=== PATIENT | male | born 1955 | race Caucasian/White ===

== ENCOUNTER 2017-06-23 04:00 | Inpatient (IN) | payer BC ==
[2017-06-23] MEDS ORDERED: Ondansetron HCl/PF 4 MG/2 ML Vial IVP PRN (05:34)
[2017-06-23] MEDS ORDERED: Ondansetron ODT 4 MG TAB SL PRN (05:34)
[2017-06-23] MEDS ORDERED: Acetaminophen 325 MG TAB PO PRN (05:34)
[2017-06-23 05:37] VITALS: BMI 38.3
[2017-06-23] MEDS ORDERED: Dextrose 5% in Water 1,000 ML IV PRN (07:31)
[2017-06-23] MEDS ORDERED: Dextrose 50% Abboject 50 ML SYRINGE SLOW IVP PRN (07:31)
[2017-06-23] MEDS ORDERED: Milk Of Magnesia 30 ML UDCUP PO PRN (07:32)
[2017-06-23 08:28] LABS: Troponin I 0.224 ng/mL (< 0.028)
[2017-06-23] MEDS ORDERED: Lisinopril/Hydrochlorothiazide 20/25 mg Tablet PO SCH (09:00)
[2017-06-23] MEDS ORDERED: Heparin 5,000 UNITS/ML VIAL SC SCH (09:00)
[2017-06-23] MEDS ORDERED: Amlodipine 10 MG TAB PO SCH (09:00)
[2017-06-23] MEDS: metFORMIN 500 MG TAB PO SCH (09:43)
[2017-06-23] MEDS: Tamsulosin HCl 0.4 MG CAP PO SCH (09:44)
[2017-06-23] MEDS: Docusate 100 MG CAP PO SCH ×2 (09:45→21:15)
[2017-06-23] MEDS ORDERED: Potassium Chloride 20 MEQ TAB PO SCH ×2 (13:00→18:00)
[2017-06-23] MEDS ORDERED: Spironolactone 25 MG TAB PO SCH (13:00)
[2017-06-23] MEDS ORDERED: Furosemide 20 MG/2 ML VIAL SLOW IVP SCH (14:00)
--- NOTE | 2017-06-23 14:51 | CON ---
DATE OF CONSULTATION: 06/23/2017 REASON FOR CONSULTATION: Congestive heart failure. HISTORY OF PRESENT ILLNESS: Mr. Adi Mccray is a 62-year-old gentleman with history of diabetes and smoking as well as hypertension admitted with congestive heart failure. The patient states that he has been having swelling of his lower extremities for a prolonged time per iod, but has gotten worse recently. He came to the emergency room yesterday when he started having i ncreasing difficulty breathing. Chest x-ray shows cardiomegaly with pulmonary vascular congestion. He was admitted for further observation and therapy. He does not have chest pain, but he is short of breath which has improved since he has received diuretics. The patient is currently awake and alert, doing well. MEDICATIONS: Prior to admission, he was taking, 1. Metformin. 2. Amlodipine 10 mg daily. 3. Lisinopril HCT. 4. Furosemide. 5. Tamsulosin. 6. No statin. ALLERGIES: None known. REVIEW OF SYSTEMS: CONSTITUTIONAL: No significant weight gain or loss. VISION: No changes. HEARING: No changes. PULMONARY: No cough or wheezing. GASTROINTESTINAL: No nausea, vomiting, diarrhea. SKIN: No rashes. NEUROLOGIC: No unilateral weakness or numbness. PSYCHIATRIC: No unusual depression or anxiety. HEMATOLOGIC: No unusual bruising. GENITOURINARY: No burning with urination. PAST MEDICAL HISTORY: History of prostate cancer. PAST SURGICAL HISTORY: No cardiac operations or procedure. PHYSICAL EXAMINATION: GENERAL: This is a pleasant 62-year-old gentleman. VITAL SIGNS: Blood pressure is 145/82, another have recorded at 152/85, pulse 76 and regular. EYES: Sclerae nonicteric. Mouth: Mucous membranes moist. NECK: Supple, no lymphadenopathy. LUNGS: Bibasilar rales. CARDIOVASCULAR: No murmur, rub or gallop distant. ABDOMEN: Obese, nontender. No hepatosplenomegaly. EXTREMITIES: No clubbing or cyanosis. There is moderate edema, left greater than right. SKIN: Warm and dry. PERTINENT LABORATORY AND X-RAY FINDINGS: Potassium was 3.2, glucose 372, ALT 65. BNP 414. Chest x- ray shows cardiomegaly with pulmonary congestion. EKG sinus rhythm with possible old anterior infarc t. Echocardiogram revealed ejection fraction 40%-45%, akinesis of the apex. Mild tricuspid insuffic iency with mildly elevated pulmonary pressure, markedly dilated left atrium, and mildly dilated left ventricle. CONCLUSION: 1. Congestive heart failure, systolic, acute on chronic. 2. Diabetes. 3. Hypertension. 4. Smoking. 5. Unknown cholesterol status. 6. Hypertension. 7. Peripheral edema, still volume overloaded. PLAN: 1. Continue diuretic. We will increase intravenous doses. 2. Add spironolactone. 3. Replete potassium. 4. Change to Lovenox. 5. Continue aspirin. 6. We will need cardiac catheterization. Discussed with the patient and he is uncertain at this enedelia e. 7. Check lipid levels. We will almost certainly need statin therapy in this gentleman who will be a lmost certainly has coronary disease. We will continue to follow with you.
[2017-06-23 15:05] LABS: Troponin I 0.396 ng/mL (< 0.028)
[2017-06-23] MEDS: Furosemide 20 MG/2 ML VIAL SLOW IVP SCH (15:05)
[2017-06-23] MEDS: Carvedilol 3.125 MG TAB PO SCH (16:50)
[2017-06-23] MEDS: Nicotine 21 MG PATCH TOP SCH (16:50)
--- NOTE | 2017-06-23 17:52 | HP ---
PRESENTING COMPLAINT: Shortness of breath. HISTORY OF PRESENT ILLNESS: Mr. Shazia Joshi is a 62-year-old male with a past medical history of CHF, hypertension, diabetes mellitus, and prostate cancer who presented to the emergency room with complaints of shortness of breath, which started yesterday associated with pink occasionally frothy sputum. He denies chest pain, fever, chills, orthopnea, or PND. He has no palpitation. He has no nausea, vomiting, diarrhea. He does not have any urinary symptoms. He reports he takes diuretics , but did not take them yesterday. At the emergency room, he was found to be tachycardic at 110 and saturation at 89% on room air. He was given DuoNeb, Lasix, and antibiotics prior to arrival. His old BNP was 415. He did not have any elevated cardiac enzymes. Initial troponin was 0.224. CTA showed no obvious central pulmonary embolism, but reveals hepatosplenomegaly and scattered ground glass opacity and interstitial prominence with trace bilateral pleural effusions, with questionable pulmonary edema. There was also nonspecific hilar and mediastinal lymphadenopathy with followup advised. He was started on IV furosemide and admitted for further workup. PAST MEDICAL HISTORY: Hypertension, type 2 diabetes mellitus, history of myocardial infarction, CHF, hypertension, prostate cancer. PAST SURGICAL HISTORY: Cholecystectomy. FAMILY HISTORY: Reviewed and noncontributory. SOCIAL HISTORY: He smokes cigarettes, smoking half a pack per day. He occasionally drinks alcohol and denies illicit drug intake. ALLERGIES: None. PRIMARY CARE PHYSICIAN: Sukhwinder Paul MD HOME MEDICATIONS: Furosemide 20 mg daily; glipizide 100 mg b.i.d.; amlodipine 10 mg daily; lisinopril/hydrochlorothiazide 20/25 mg tablet, 1 tablet b.i.d.; metformin 1000 mg q.a.m.; tamsulosin 0.4 mg daily. REVIEW OF SYSTEMS: CONSTITUTIONAL: Negative. HEENT: Negative. RESPIRATORY: Positive for shortness of breath. Positive for occasional pinkish frothy sputum. Denies cough. GI: Negative. CARDIOVASCULAR: Per HPI. : Negative. MUSCULOSKELETAL: Negative. SKIN: Negative. NEUROLOGIC: Negative. ENDOCRINE: Negative. PSYCHIATRIC: Negative. ALLERGY/IMMUNOLOGY: Negative. HEMATOLOGY: Negative. PHYSICAL EXAMINATION: VITAL SIGNS: Blood pressure 145/99, pulse rate 83, respiratory rate 22, oxygen saturation 96% on 2 liters oxygen. CONSTITUTIONAL: Not in acute distress, sitting comfortably in bed, not on supplementary oxygen. HEENT: Normocephalic, atraumatic. Nonpale, anicteric. PERRLA. EOMI. Moist mucous membranes. RESPIRATORY: Vesicular breath sounds bilaterally with bibasilar crackles. No wheezes or rales. CARDIOVASCULAR: S1 and S2 only with regular rate and rhythm. No murmurs, rubs , or gallops. ABDOMEN: Soft, nontender, nondistended. Bowel sounds are normoactive. No hepatosplenomegaly. MUSCULOSKELETAL: No lower extremity edema. SKIN: Warm, dry, well perfused. No rashes or lesions. NEUROLOGIC: Alert and well oriented to time, place, and person. No focal deficits. PSYCHIATRIC: Normal mood and affect. LABORATORY DATA: Initial troponin as stated in HPI, potassium 3.2, glucose 372 , BNP 414. Last BNP in 02/2013 was 80. ASSESSMENT AND PLAN: 1. Shortness of breath: This is likely due to new-onset congestive heart failure. The patient has elevated BNP and improved with diuresis at the emergency room. Chest x-ray also showed some vascular congestion and CT chest with angio ruled out pulmonary embolism and showed bilateral pleural effusions. The patient was admitted for pulmonary edema secondary to new-onset congestive heart failure. He has been admitted to telemetry, started on IV diuresis. TTE has been ordered. We will also obtain a TSH, monitor in's and out's, weigh him daily, and obtain Cardiology consult. We will also trend troponin and place him on oxygen supplementation as required. 2. Hypokalemia. Likely secondary to diuretic use. We will place him on supplemental potassium. 3. Hypertension. Blood pressure is slightly elevated. We will gradually resume home medications and monitor. 4. Type 2 diabetes mellitus. We will place him on sliding scale insulin, resume home dose of glipizide, but he is on diabetic diet. Fingerstick glucose before meals and at bedtime and hypoglycemia protocol. We will also obtain hemoglobin A1c. 5. History of prostate cancer. We will resume his home tamsulosin. 6. Tobacco Abuse: Smokes 1.5 packs per day. Will place on a nicotine patch. he was counseled on cessation. CODE STATUS: FULL CODE. Deep venous thrombosis prophylaxis with subcutaneous heparin. MTDD
[2017-06-23] MEDS ORDERED: Furosemide 40 MG/4 ML VIAL SLOW IVP SCH (18:00)
[2017-06-23 20:34] LABS: Critical Call Chem Troponin I RESULT DECREASING; Troponin I 0.335 ng/mL (< 0.028)
[2017-06-23] MEDS: Enoxaparin Sodium 40 MG/0.4 ML SYRINGE SC SCH (21:15)
[2017-06-23] MEDS: Lisinopril 20 MG TAB PO SCH (21:15)
[2017-06-23] MEDS ORDERED: Insulin Regular 300 UNITS/3 ML VIAL ONE (21:52)
[2017-06-23] MEDS: HumaLOG 300 UNITS/3 ML VIAL SC PRN (21:54)
[2017-06-24] MEDS: Furosemide 20 MG/2 ML VIAL SLOW IVP SCH ×2 (04:43→14:52)
[2017-06-24 05:37] LABS: #Basophils 0.1 thou/uL (0.0-0.2); #Eosinphils 0.2 thou/uL (0.0-0.7); #Lymphocytes 1.7 thou/uL (1.20-3.40); #Monocytes 0.4 thou/uL (0.11-0.59); #Neutrophils 2.8 thou/uL (1.40-6.50); %Basophils 1.1 % (0.0-1.0); %Eosinophils 3.6 % (0.0-10.0); %Lymphocytes 33.7 % (21.0-51.0); %Neutrophils 53.6 % (42.0-75.0); Hemoglobin 14.3 g/dL (14.0-18.0); Mean Corpuscular HGB CONC 34.1 g/dL (32.0-36.0); Mean Corpuscular Hemoglobin 29.6 pg (27.0-31.0); Mean Corpuscular Volume 86.8 fl (80.0-94.0); Mean Platelet Volume 8.3 fL (7.4-10.4); Platelet Count 130 thou/uL (130-400); RBC Distribution Width 12.1 % (11.5-14.5); Red Blood Cell (RBC) Count 4.81 mill/uL (4.70-6.10); White Blood Cell (WBC) Count 5.2 thou/uL (4.8-10.8)
[2017-06-24 05:42] LABS: Hemoglobin A1c 7.9 % (4.0-6.0)
[2017-06-24 05:47] LABS: Anion Gap 13 mmol/L (10-20); BUN (Urea Nitrogen) 15 mg/dL (8.4-25.7); Calc. Creatinine Clearance 158 mL/min (70-130); Calcium 9.7 mg/dL (7.8-10.44); Carbon Dioxide 28 mmol/L (22-29); Cardiac Risk 6.4 (Less than 4.5); Chloride 97 mmol/L (98-107); Cholesterol 148 mg/dl (< 200 Desired); Estimated GFR-MDRD Greater than 90; Glucose 215 mg/dL (70-105); HDL Cholesterol 23 mg/dL (>60 Neg Risk); LDL Cholesterol, Calculated 74 mg/dL; Potassium 3.1 mmol/L (3.5-5.1); Sodium 135 mmol/L (136-145); Triglycerides 256 mg/dL (Less than 150)
[2017-06-24] MEDS: Spironolactone 25 MG TAB PO SCH (08:45)
[2017-06-24] MEDS: metFORMIN 500 MG TAB PO SCH (08:45)
[2017-06-24] MEDS: Carvedilol 3.125 MG TAB PO SCH ×2 (08:45→16:24)
[2017-06-24] MEDS: Tamsulosin HCl 0.4 MG CAP PO SCH (08:46)
[2017-06-24] MEDS: Amlodipine 5 MG TAB PO SCH (08:46)
[2017-06-24] MEDS: Enoxaparin Sodium 40 MG/0.4 ML SYRINGE SC SCH ×2 (08:46→20:54)
[2017-06-24] MEDS: Lisinopril 20 MG TAB PO SCH ×2 (08:46→20:54)
[2017-06-24] MEDS: Docusate 100 MG CAP PO SCH ×2 (08:50→20:55)
[2017-06-24] MEDS ORDERED: Amlodipine 10 MG TAB PO SCH (09:00)
--- NOTE | 2017-06-24 09:03 | PDOC.CTH ---
<Ester Douglass - Last Filed: 06/24/17 12:58> Cardiology Progress Note - Subjective Patient awake, sitting up watching tv. Denies acute complaints-denies any chest pain or history of chest pain/tightness. Denies shortness of breath. Describes swelling as "getting better". Long conversation re: left heart cath this admission-multiple risk factors for CAD. Patient is hesitant to proceed, states mostly financial concerns. All questions answered, patient will be here shortly and will let the nurse know to call us. - Objective Vital Signs Temp Pulse Resp BP BP Pulse Ox 06/24/17 07:53 98.2 F 71 18 130/68 96 06/24/17 04:04 98.4 F 70 18 115/62 95 06/24/17 00:41 98.1 F 74 18 103/64 96 06/24/17 00:24 94 L Weight 244 lb 9.6 oz 06/23/17 06/24/17 06/25/17 06:59 06:59 06:59 Intake Total 1350 480 Output Total 1350 575 Balance 0 -95 - Physical Examination General/Neuro: alert & oriented x3, NAD Neck: no JVD present, other: (neck veins flat) Lungs: CTA, unlabored respirations Heart: RRR Abdomen: other: (abdomen firm, distended) Extremities: + edema B Other PE findings: Moderate BLE edema, chronic venous stasis changes to LE - Telemetry Telemetry Rhythm: SR - Labs Result Diagrams: 06/24/17 05:08 06/24/17 05:08 Troponin/CKMB Troponin I 0.335 ng/mL (< 0.028) H* 06/23/17 19:51 - Assessment/Plan 1. Acute on chronic diastolic HF-volume status improving, continue IV diuresis. Echocardiogram revealed EF 40%-45%, titrate carvedilol up as tolerated. Continue ACEi 2. Elevated trops-trop max 0.396, advised [facility] this admission-multiple RF, metabolic syndrome. Probable CAD, patient hesitating r/t financial concerns. Long conversation, questions asked/answered, considering. at bedside-we spoke about risks and benefits of procedure risk including but not limited to stroke, VT, bleeding and need for blood transfusion , , vessel injury, need for emergent vascular repair, emergent CABG, limb loss, organ loss. he agrees to proceed. Plan for [facility] Sunday 06/25 am. 3.HTN-adequately controlled. 4.Hypokalemia-K+ 3.1 this am, continue daily 20 mEq, additional 40 mEq today x1 dose 5.Tobacco abuse-advised cessation, continue nicotine patch 6.Mixed hyperlipidemia-LDL chol 74, triglycerides 267, continue atorvastatin <Francis Engel - Last Filed: 06/24/17 14:30> Cardiology Progress Note - Objective Vital Signs Temp Pulse Pulse Pulse Resp BP BP 06/24/17 11:36 97.7 F 77 18 06/24/17 09:40 80 70 137/77 145/88 H 06/24/17 07:55 98.2 F 71 18 06/24/17 07:53 98.2 F 71 18 06/24/17 04:04 98.4 F 70 18 BP BP Pulse Ox 06/24/17 11:36 112/55 L 96 06/24/17 09:40 06/24/17 07:55 96 06/24/17 07:53 130/68 96 06/24/17 04:04 115/62 95 Weight 244 lb 9.6 oz 06/23/17 06/24/17 06/25/17 06:59 06:59 06:59 Intake Total 1350 480 Output Total 1350 575 Balance 0 -95 - Labs Result Diagrams: 06/24/17 05:08 06/24/17 05:08 Troponin/CKMB Troponin I 0.335 ng/mL (< 0.028) H* 06/23/17 19:51 Attending Addendum - Attending Addendum Date/Time: 06/24/17 3123 I personally evaluated the patient and discussed the management with Ester Douglass I agree with the History, Examination, Assessment and Plan documented above with any addition or exceptions noted below.
[2017-06-24] MEDS ORDERED: Potassium Chloride 20 MEQ TAB PO SCH ×3 (10:00→18:00)
[2017-06-24] MEDS: HumaLOG 300 UNITS/3 ML VIAL SC PRN ×2 (11:38→18:03)
[2017-06-24] MEDS ORDERED: Communication Order-Pharmacy FS SCH (13:00)
--- NOTE | 2017-06-24 13:04 | PDOC.PN ---
- Subjective Encounter Start Date: 06/24/17 Encounter Start Time: 13:11 Subjective: No complaints. -: No acute events overnight. - Objective Resuscitation Status: Resuscitation Status FULL:Full Resuscitation MAR Reviewed: Yes Vital Signs & Weight: Vital Signs (12 hours) Temp Pulse Pulse Pulse Resp BP BP 06/24/17 11:36 97.7 F 77 18 06/24/17 09:40 80 70 137/77 145/88 H 06/24/17 07:55 98.2 F 71 18 06/24/17 07:53 98.2 F 71 18 06/24/17 04:04 98.4 F 70 18 BP BP Pulse Ox 06/24/17 11:36 112/55 L 96 06/24/17 09:40 06/24/17 07:55 96 06/24/17 07:53 130/68 96 06/24/17 04:04 115/62 95 Weight Weight 244 lb 9.6 oz I&O: 06/23/17 06/24/17 06/25/17 06:59 06:59 06:59 Intake Total 1350 480 Output Total 1350 575 Balance 0 -95 Result Diagrams: 06/24/17 05:08 06/24/17 05:08 Additional Labs: Accuchecks 06/24/17 06/24/17 06/23/17 10:47 06:02 21:24 POC Glucose 245 H 221 H 245 H Phys Exam - Physical Examination Constitutional: NAD HEENT: PERRLA, moist MMs, oral pharynx no lesions Neck: no JVD, supple, full ROM Respiratory: no wheezing, no rales, no rhonchi, clear to auscultation bilateral Cardiovascular: RRR, no significant murmur, no rub Gastrointestinal: soft, non-tender, no distention, positive bowel sounds Musculoskeletal: no edema, pulses present Neurological: non-focal, moves all 4 limbs Psychiatric: normal affect, A&O x 3 Skin: no rash, normal turgor Dx/Plan (1) Acute systolic CHF (congestive heart failure), NYHA class 3 Code(s): I50.21 - ACUTE SYSTOLIC (CONGESTIVE) HEART FAILURE Status: Acute Comment: Improving with diuresis. ECHO showed EF 40-45%. Started on ACEi, Coreg and apironolactone. 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 HbA1c 7.9 (3) HTN (hypertension) Code(s): I10 - ESSENTIAL (PRIMARY) HYPERTENSION Status: Chronic Qualifiers: Hypertension type: essential hypertension Qualified Code(s): I10 - Essential (primary) hypertension Comment: Controlled and at goal. (4) Hypokalemia Code(s): E87.6 - HYPOKALEMIA Status: Acute Comment: Being repleted. Patient takes potassium supplements at home. (5) Tobacco abuse Code(s): Z72.0 - TOBACCO USE Status: Chronic - Plan cont current plan of care, out of bed/ambulate, DVT proph w/lovenox Continue diuresis -: Monitor blood glucose -: Cardiology on board- likely will need C before discharge. -: f/u Free T4. * . Review of Systems - Medications/Allergies Allergies/Adverse Reactions: Allergies Allergy/AdvReac Type Severity Reaction Status Date / Time No Known Allergies Allergy Verified 06/23/17 06:53 Medications: Current Medications Amlodipine Besylate (Norvasc) 5 mg PO DAILY [facility] Last Admin: 06/24/17 08:46 Dose: 5 mg Aspirin (Aspirin Chewable) 81 mg PO DAILY [facility] Last Admin: 06/24/17 08:46 Dose: 81 mg Atorvastatin Calcium (Lipitor) 40 mg PO [facility] Carvedilol (Coreg) 3.125 mg PO BID-[facility] Last Admin: 06/24/17 08:45 Dose: 3.125 mg Dextrose/Water (Dextrose 50%) 25 gm SLOW IVP PRN PRN PRN Reason: Hypoglycemia Diazepam (Valium) 5 mg PO ONE [facility] Docusate Sodium (Colace) 100 mg PO BID [facility] Last Admin: 06/24/17 08:50 Dose: Not Given Enoxaparin Sodium (Lovenox) 40 mg SC 0900,2100 [facility] Last Admin: 06/24/17 08:46 Dose: 40 mg Furosemide (Lasix) 40 mg SLOW IVP 0600,1400 [facility] Stop: 06/24/17 16:00 Last Admin: 06/24/17 04:43 Dose: 40 mg Glucagon (Glucagon) 1 mg IM PRN PRN PRN Reason: Hypoglycemia Dextrose/Water (D5w) 1,000 mls @ 0 mls/hr IV .Q0M PRN; As Directed PRN Reason: Hypoglycemia Sodium Chloride (Normal Saline 0.9%) 1,000 mls @ 100 mls/hr IV .Q10H [facility] Stop: 06/25/17 12:00 Insulin Human Lispro (Humalog) 0 units SC .MILD SLIDING SCALE PRN PRN Reason: Mild Correctional Scale Last Admin: 06/24/17 11:38 Dose: 3 unit Lisinopril (Zestril) 20 mg PO BID [facility] Last Admin: 06/24/17 08:46 Dose: 20 mg Magnesium Hydroxide (Milk Of Magnesium) 30 ml PO DAILYPRN PRN PRN Reason: Constipation Metformin HCl (Glucophage) 1,000 mg PO QA-[facility] Last Admin: 06/24/17 08:45 Dose: 1,000 mg Miscellaneous Information (Communication Order-Pharmacy) 0 each FS ONE [facility] Nicotine (Nicoderm Patch) 21 mg TOP Q24HR [facility] Last Admin: 06/23/17 16:50 Dose: 21 mg Potassium Chloride (Klor-Con) 20 meq PO [facility] Last Admin: 06/24/17 08:45 Dose: 20 meq Potassium Chloride (K-Dur) 40 meq PO ONE [facility] Potassium Chloride (K-Dur) 40 meq PO ONE [facility] Sodium Chloride (Flush - Normal Saline) 10 ml IVF Q12HR [facility] Last Admin: 06/24/17 08:46 Dose: 10 ml Sodium Chloride (Flush - Normal Saline) 10 ml IVF PRN PRN PRN Reason: Saline Flush Spironolactone (Aldactone) 25 mg PO QA-[facility] Last Admin: 06/24/17 08:45 Dose: 25 mg Tamsulosin HCl (Flomax) 0.4 mg PO DAILY [facility] Last Admin: 06/24/17 08:46 Dose: 0.4 mg
[2017-06-24] MEDS: Nicotine 21 MG PATCH TOP SCH (16:24)
[2017-06-24] MEDS: Atorvastatin Calcium 40 MG TAB PO SCH (20:55)
[2017-06-25 05:13] LABS: #Eosinphils 0.2 thou/uL (0.0-0.7); #Lymphocytes 1.7 thou/uL (1.20-3.40); #Monocytes 0.5 thou/uL (0.11-0.59); #Neutrophils 2.8 thou/uL (1.40-6.50); %Basophils 0.9 % (0.0-1.0); %Eosinophils 4.7 % (0.0-10.0); %Lymphocytes 32.4 % (21.0-51.0); %Monocytes 8.9 % (0.0-10.0); %Neutrophils 53.1 % (42.0-75.0); Hemoglobin 14.3 g/dL (14.0-18.0); Mean Corpuscular HGB CONC 34.3 g/dL (32.0-36.0); Mean Corpuscular Hemoglobin 29.9 pg (27.0-31.0); Mean Corpuscular Volume 87.1 fl (80.0-94.0); Mean Platelet Volume 8.4 fL (7.4-10.4); Platelet Count 139 thou/uL (130-400); RBC Distribution Width 12.1 % (11.5-14.5); White Blood Cell (WBC) Count 5.2 thou/uL (4.8-10.8)
[2017-06-25 05:26] LABS: Anion Gap 13 mmol/L (10-20); BUN (Urea Nitrogen) 18 mg/dL (8.4-25.7); Calc. Creatinine Clearance 151 mL/min (70-130); Calcium 9.7 mg/dL (7.8-10.44); Carbon Dioxide 28 mmol/L (22-29); Chloride 100 mmol/L (98-107); Estimated GFR-MDRD Greater than 90; Glucose 236 mg/dL (70-105); Potassium 3.5 mmol/L (3.5-5.1); Sodium 137 mmol/L (136-145)
[2017-06-25] MEDS: Spironolactone 25 MG TAB PO SCH (05:54)
[2017-06-25] MEDS: Tamsulosin HCl 0.4 MG CAP PO SCH (05:55)
[2017-06-25] MEDS: Lisinopril 20 MG TAB PO SCH ×2 (05:55→20:51)
[2017-06-25] MEDS: Carvedilol 3.125 MG TAB PO SCH (05:55)
[2017-06-25] MEDS: Docusate 100 MG CAP PO SCH ×2 (05:55→20:52)
[2017-06-25] MEDS: Amlodipine 5 MG TAB PO SCH (05:55)
[2017-06-25] MEDS ORDERED: Diazepam 5 MG TAB PO SCH (06:00)
[2017-06-25] MEDS ORDERED: Sodium Chloride 0.9% 1,000 ML IV SCH ×2 (06:00→09:56)
[2017-06-25] MEDS ORDERED: Lidocaine 1% (PF) 30 ML VIAL ONE (08:30)
[2017-06-25] MEDS: metFORMIN 500 MG TAB PO SCH (08:33)
[2017-06-25] MEDS ORDERED: Fentanyl 100 MCG/2 ML VIAL ONE (09:13)
[2017-06-25] MEDS ORDERED: Midazolam HCl 2 mg/2 ml Vial ONE (09:13)
[2017-06-25] MEDS ORDERED: Iopamidol 370 76% 100 ML VIAL ONE (09:52)
[2017-06-25] MEDS ORDERED: Nitroglycerin 0.4 MG TAB (25 Tab Bottle) SL PRN (09:57)
[2017-06-25] MEDS ORDERED: Acetaminophen/Codeine 30-300mg Tablet PO PRN ×2 (09:57)
[2017-06-25] MEDS ORDERED: traMADol HCl 50 MG TAB PO PRN (09:57)
[2017-06-25] MEDS ORDERED: Sodium Chloride 0.9% 200 ML IV SCH (10:00)
[2017-06-25] MEDS ORDERED: Sodium Chloride 0.9% 200 ML IV PRN (10:30)
--- NOTE | 2017-06-25 11:13 | PDOC.PN ---
- Subjective Encounter Start Date: 06/25/17 Encounter Start Time: 12:20 Subjective: post cath, no chest pain or sob -: at bedside - Objective Resuscitation Status: Resuscitation Status FULL:Full Resuscitation MAR Reviewed: Yes Vital Signs & Weight: Vital Signs (12 hours) Temp Pulse Resp BP BP BP Pulse Ox 06/25/17 10:40 66 20 119/74 119/74 94 L 06/25/17 10:28 68 20 111/64 06/25/17 10:26 68 20 111/64 06/25/17 10:25 68 111/64 97 06/25/17 10:10 66 20 126/73 93 L 06/25/17 08:00 98.2 F 69 20 06/25/17 07:44 98.2 F 69 20 104/62 93 L 06/25/17 05:55 68 121/71 06/25/17 04:34 97.9 F 68 18 139/75 96 06/25/17 03:14 97 06/25/17 00:00 98.2 F 71 16 129/77 94 L Weight Weight 239 lb 4.8 oz I&O: 06/24/17 06/25/17 06/26/17 06:59 06:59 06:59 Intake Total 480 1930 Output Total 575 1700 Balance -95 230 Result Diagrams: 06/25/17 04:25 06/25/17 04:25 Additional Labs: Accuchecks 06/25/17 06/24/17 06/24/17 05:46 20:37 16:35 POC Glucose 204 H 222 H 199 H 06/23/17 06:29 POC Glucose 247 H Phys Exam - Physical Examination HEENT: PERRLA, moist MMs Neck: no JVD, supple Respiratory: no wheezing, no rales Cardiovascular: RRR, no significant murmur Gastrointestinal: soft, non-tender, positive bowel sounds Musculoskeletal: no edema, pulses present Neurological: non-focal, moves all 4 limbs Psychiatric: normal affect, A&O x 3 Dx/Plan (1) CAD (coronary artery disease) Code(s): I25.10 - ATHSCL HEART DISEASE OF [place] CORONARY ARTERY W/O ANG PCTRS Status: Acute Qualifiers: Coronary Disease-Associated Artery/Lesion type: [place] artery [place] vs. transplanted heart: [place] heart Comment: 3 vessel disease for cabg (2) Dyslipidemia Code(s): E78.5 - HYPERLIPIDEMIA, UNSPECIFIED Status: Chronic (3) Obesity (BMI 35.0-39.9 without comorbidity) Code(s): E66.9 - OBESITY, UNSPECIFIED Status: Chronic (4) BPH (benign prostatic hyperplasia) Code(s): N40.0 - BENIGN PROSTATIC HYPERPLASIA WITHOUT LOWER URINRY TRACT SYMP Status: Chronic Qualifiers: Lower urinary tract symptom presence: symptoms absent Qualified Code(s): N40.0 - Benign prostatic hyperplasia without lower urinary tract symptoms (5) Acute systolic CHF (congestive heart failure), NYHA class 3 Code(s): I50.21 - ACUTE SYSTOLIC (CONGESTIVE) HEART FAILURE Status: Acute Comment: Improving with diuresis. Cath ef is 30%, ECHO showed EF 40-45%. Started on ACEi, Coreg and spironolactone. (6) DM2 (diabetes mellitus, type 2) Status: Chronic Qualifiers: Diabetes mellitus terminal clerk insulin use: without retirement use Diabetes mellitus complication status: with unspecified complications Qualified Code(s) : E11.8 - Type 2 diabetes mellitus with unspecified complications Comment: Achieving better control. HbA1c 7.9 (7) HTN (hypertension) Code(s): I10 - ESSENTIAL (PRIMARY) HYPERTENSION Status: Chronic Qualifiers: Hypertension type: essential hypertension Qualified Code(s): I10 - Essential (primary) hypertension - Plan for CTS consult -: on asp, lipitor, coreg, lisinopril and spironolactone -: may dc norvasc if ok with cardio -: continue flomax -: Cath showed 3 vessel disease with ef of 30% for cabg * . Review of Systems - Medications/Allergies Allergies/Adverse Reactions: Allergies Allergy/AdvReac Type Severity Reaction Status Date / Time No Known Allergies Allergy Verified 06/23/17 06:53 Medications: Current Medications Acetaminophen/Codeine Phosphate (Tylenol #3) 1 tab PO Q4H PRN PRN Reason: Mild Pain (1-3) Acetaminophen/Codeine Phosphate (Tylenol #3) 2 tab PO Q4H PRN PRN Reason: Moderate Pain (4-6) Amlodipine Besylate (Norvasc) 5 mg PO DAILY [facility] Last Admin: 06/25/17 05:55 Dose: 5 mg Aspirin (Aspirin Chewable) 81 mg PO DAILY [facility] Last Admin: 04/23/18 05:55 Dose: 81 mg Atorvastatin Calcium (Lipitor) 40 mg PO HS [facility] Last Admin: 06/24/17 20:55 Dose: 40 mg Carvedilol (Coreg) 6.25 mg PO BID-[facility] Dextrose/Water (Dextrose 50%) 25 gm SLOW IVP PRN PRN PRN Reason: Hypoglycemia Diazepam (Valium) 5 mg PO ONE [facility] Stop: 06/25/17 21:00 Last Admin: 06/25/17 08:48 Dose: 5 mg Docusate Sodium (Colace) 100 mg PO BID [facility] Last Admin: 06/25/17 05:55 Dose: 100 mg Furosemide (Lasix) 40 mg SLOW IVP 0600,1400 [facility] Glucagon (Glucagon) 1 mg IM PRN PRN PRN Reason: Hypoglycemia Dextrose/Water (D5w) 1,000 mls @ 0 mls/hr IV .Q0M PRN; As Directed PRN Reason: Hypoglycemia Sodium Chloride (Normal Saline 0.9%) 1,000 mls @ 80 mls/hr IV .[id number] [facility] Stop: 06/25/17 13:00 Sodium Chloride (Normal Saline 0.9%) 200 mls @ 0 mls/hr IV ONE PRN; As Directed PRN Reason: SBP < 90 Stop: 06/25/17 13:00 Insulin Human Lispro (Humalog) 0 units SC .MILD SLIDING SCALE PRN PRN Reason: Mild Correctional Scale Last Admin: 06/24/17 18:03 Dose: 2 unit Lisinopril (Zestril) 20 mg PO BID [facility] Last Admin: 06/25/17 05:55 Dose: 20 mg Magnesium Hydroxide (Milk Of Magnesium) 30 ml PO DAILYPRN PRN PRN Reason: Constipation Nicotine (Nicoderm Patch) 21 mg TOP Q24HR [facility] Last Admin: 06/24/17 16:24 Dose: 21 mg Nitroglycerin (Nitrostat) 0.4 mg SL Q5MIN PRN PRN Reason: Chest Pain Potassium Chloride (Klor-Con) 20 meq PO QAM-[facility] Last Admin: 06/25/17 05:54 Dose: 20 meq Sodium Chloride (Flush - Normal Saline) 10 ml IVF Q12HR [facility] Last Admin: 06/24/17 20:56 Dose: 10 ml Sodium Chloride (Flush - Normal Saline) 10 ml IVF PRN PRN PRN Reason: Saline Flush Last Admin: 06/25/17 05:54 Dose: 10 ml Spironolactone (Aldactone) 25 mg PO QAM-WM [facility] Last Admin: 06/25/17 05:54 Dose: 25 mg Tamsulosin HCl (Flomax) 0.4 mg PO DAILY [facility] Last Admin: 06/25/17 05:55 Dose: 0.4 mg Tramadol HCl (Ultram) 50 mg PO Q6H PRN PRN Reason: Moderate Pain (4-6)
[2017-06-25] MEDS ORDERED: Communication Order-Pharmacy FS SCH (16:03)
[2017-06-25] MEDS ORDERED: Furosemide 40 MG/4 ML VIAL SLOW IVP SCH (16:15)
--- NOTE | 2017-06-25 18:05 | RAD ---
CHEST TWO VIEWS: HISTORY: Dyspnea. COMPARISON: 06/23/2017 FINDINGS: The cardiac silhouette is enlarged. The pulmonary vasculature is less engorged than on the prior daniel dy. The mediastinum is midline with aortic calcification. No lobar consolidation, pneumothorax, or significant pleural effusions are apparent. athletic monitor leads overly the chest. IMPRESSION: Pulmonary vascular congestion and cardiomegaly, less pronounced than on the previous exam from two da ys ago. POS: [facility]
[2017-06-25] MEDS: Nicotine 21 MG PATCH TOP SCH (18:34)
[2017-06-25] MEDS: Carvedilol 6.25 MG TAB PO SCH (18:36)
--- NOTE | 2017-06-25 18:54 | CON ---
DATE OF CONSULTATION: 06/25/2017 REQUESTING PHYSICIAN: Francis Engel MD PRIMARY CARE PHYSICIAN: Sukhwinder Paul MD CHIEF COMPLAINT: Shortness of breath. HISTORY OF PRESENT ILLNESS: The patient is a 62-year-old man with diabetes and hypertension. Sunday evening, the , he laid down in his recliner, but then awoke early in the morning of Sunday sheridan rt of breath. He had a bit of diaphoresis. He is equivocal about any other sort of chest discomfort thinking that perhaps there was a bit of heartburn associated with it. His breathing was difficult enough that his insisted he seek medical attention, and when he arrived at his local facility, a chest x-ray demonstrated florid pulmonary edema and on laboratory exam, he had an elevated BNP. He was transferred here and he had mildly elevated troponins. His shortness of breath was dramatically improved with diuresis and cardiac catheterization today demonstrates severe coronary disease with ma rkedly decreased LV function. PAST MEDICAL AND SURGICAL HISTORY: Significant for hypertension, diabetes. Prostate cancer was diag nosed on prostate chips following a TURP. He describes a previous transurethral procedure many years ago complicated by sepsis, and he describes being told he had a myocardial infarction in association with that event. HOME MEDICATIONS: 1. Metformin 1000 mg in the morning. 2. Glipizide 10 mg b.i.d. 3. Norvasc 10 mg a day. 4. Lisinopril 20/hydrochlorothiazide 25 mg b.i.d. 5. Lasix 20 mg a day. 6. Flomax one a day. Here he is on aspirin 81 mg a day, Lipitor 40 mg at bedtime, Norvasc 5 mg a day, Coreg 6.25 mg b.i.d. , lisinopril 20 mg b.i.d., Lasix 40 mg IV b.i.d., spironolactone 25 mg in the morning, potassium chlo ride 20 mEq in the morning, Flomax one a day, NicoDerm patches, and insulin sliding scale. ALLERGIES: He denies any medical allergies. SOCIAL HISTORY: He describes smoking 1-1/2 to 2 packs of cigarettes a day for around 15 to 20 years. FAMILY HISTORY: Significant for his father who underwent coronary artery bypass grafting. REVIEW OF SYSTEMS: Negative for any eye, speech, facial, or extremity symptoms to suggest TIAs. It is significant for chronic issues with the lower extremity edema, worse in the left lower extremity t hubbard on the right. He in general denies any orthopnea. He has only had this one episode of what soun ds like PND. He describes about a month ago while working in his garden, when the weather was still cool, developing severe and protracted indigestion associated with burping, diaphoresis, and shortnes s of breath. PHYSICAL EXAMINATION: GENERAL: He is a large man in no distress. VITAL SIGNS: Height is 5 feet 7 inches. His weight on admission on the was 244-3/4 pounds. Th morning, it was 239 pounds. His urine output for the three periods are listed as 1350 mL, 575 mL, and 1700 mL. HEENT: He has no xanthelasma. NECK: No JVD, no carotid bruits. LUNGS: He has bilateral rales about two-thirds up the back. CARDIOVASCULAR: Regular rate and rhythm with frequent ectopy. He has no obvious murmur or gallop. ABDOMEN: Obese, soft, and nontender with a well-healed surgical scar near the umbilicus that he says is from a hernia. EXTREMITIES: He has a bandage in place in his right groin from his cardiac catheterization. He has palpable radial, left femoral, and bilateral dorsalis pedis pulses. He has bilateral venostasis pigm entation changes, worse on the left than on the right, with few varicosities outside of the saphenous distribution near the mid left colvin. He has no overt edema there. NEUROLOGIC: Grossly nonfocal. LABORATORY DATA: His chest x-ray showed cardiomegaly and marked pulmonary edema. His echocardiogram suggested an EF of around 40% with enlarged left atrium, trace mitral regurgitation, normal aortic v alve, mildly elevated pulmonary artery pressures. Cardiac catheterization today shows a left dominan t system with markedly decreased LV function, estimated EF in the 20%-30% range with apical akinesis and a little bit of inferior akinesis, otherwise global hypokinesis. He has an occluded right eldridge ry. The PDA can be seen filling faintly on left-sided injections. He has a relatively short left ma in. There is a high-grade proximal lesion in his LAD that in some projections looks as much as 90%. After a relatively large septal oreman, there is another high-grade lesion in the LAD and then t he LAD occludes. There is a compromised diagonal. The LAD fills by [id number] collaterals and is either a small vessel or it is underfilled. There is more modest disease in the large obtuse margina l. LVEDP was 30-34 with LV pressure 105/8 and aortic on pullback of 119/67 with a mean of 87. White count was 5.2, hemoglobin 14.3, hematocrit 41.8, platelets 139,000. INR was 1.0, PTT 30.3. Potassi um is 3.1, otherwise electrolytes are normal. Glucose is 215, BUN 15, creatinine 0.78, triglycerides 256, cholesterol 148, LDL 74, HDL 63. TSH is 0.2863. Troponins were 0.224, 0.396, and 0.335. BNP on presentation was 414.5. IMPRESSION AND RECOMMENDATION: Three-vessel coronary disease with a significantly decreased LV funct ion with a proximal LAD lesion in a diabetic. He is currently decompensated and would probably benef it from another day or two of diuresis. We will tentatively plan on coronary artery bypass grafting the day after tomorrow. In the meantime, I have reviewed his medications. He is already written for a couple of doses of IV Lasix for tomorrow. I am going to give him 1 this evening and we will suppl ement his diuresis tomorrow with p.o. Zaroxolyn.
[2017-06-25] MEDS ORDERED: Sodium Chloride 0.9% 15 ML NEB ONE (20:57)
[2017-06-25] MEDS ORDERED: Lidocaine 2% Jelly 5 ML TUBE ONE (20:57)
[2017-06-25] MEDS: Atorvastatin Calcium 40 MG TAB PO SCH (21:29)
[2017-06-26 05:17] LABS: #Eosinphils 0.2 thou/uL (0.0-0.7); #Lymphocytes 1.6 thou/uL (1.20-3.40); #Monocytes 0.4 thou/uL (0.11-0.59); #Neutrophils 2.7 thou/uL (1.40-6.50); %Basophils 0.5 % (0.0-1.0); %Eosinophils 4.7 % (0.0-10.0); %Lymphocytes 31.9 % (21.0-51.0); %Monocytes 8.2 % (0.0-10.0); %Neutrophils 54.7 % (42.0-75.0); Hemoglobin 13.9 g/dL (14.0-18.0); Mean Corpuscular HGB CONC 34.4 g/dL (32.0-36.0); Mean Corpuscular Volume 87.2 fl (80.0-94.0); Mean Platelet Volume 8.3 fL (7.4-10.4); Platelet Count 125 thou/uL (130-400); Red Blood Cell (RBC) Count 4.63 mill/uL (4.70-6.10); White Blood Cell (WBC) Count 4.9 thou/uL (4.8-10.8)
[2017-06-26 05:35] LABS: Anion Gap 8 mmol/L (10-20); BUN (Urea Nitrogen) 17 mg/dL (8.4-25.7); Calc. Creatinine Clearance 147 mL/min (70-130); Calcium 9.1 mg/dL (7.8-10.44); Carbon Dioxide 30 mmol/L (22-29); Chloride 102 mmol/L (98-107); Estimated GFR-MDRD Greater than 90; Glucose 195 mg/dL (70-105); Potassium 3.7 mmol/L (3.5-5.1); Sodium 136 mmol/L (136-145)
[2017-06-26] MEDS ORDERED: Furosemide 40 MG/4 ML VIAL SLOW IVP SCH (06:00)
[2017-06-26] MEDS ORDERED: Metolazone 5 MG TAB PO SCH (07:00)
[2017-06-26] MEDS: Spironolactone 25 MG TAB PO SCH (08:55)
[2017-06-26] MEDS: Lisinopril 20 MG TAB PO SCH ×2 (08:55→20:06)
[2017-06-26] MEDS: Carvedilol 6.25 MG TAB PO SCH ×2 (08:55→18:07)
--- NOTE | 2017-06-26 09:55 | PRG ---
DATE OF SERVICE: 06/26/2017 SUBJECTIVE: Mr. Mccray feels well. He had no chest pain or pressure. OBJECTIVE: VITAL SIGNS: Blood pressure 139/79, pulse 68 and regular. LUNGS: Clear, no wheezing. CARDIAC: Normal S1, normal S2. ABDOMEN: Soft, nontender. EXTREMITIES: Only ausl-kq-pzxtcadx edema. ASSESSMENT: 1. Congestive heart failure, improving. 2. Severe three-vessel coronary artery disease. 3. Diabetes. PLAN: 1. This patient was scheduled for surgery. 2. Continue diuresis.
--- NOTE | 2017-06-26 10:54 | PDOC.PN ---
- Subjective Encounter Start Date: 06/26/17 Encounter Start Time: 07:40 Subjective: no c/o chest pain -: sob is better, is diuresing well - Objective Resuscitation Status: Resuscitation Status FULL:Full Resuscitation MAR Reviewed: Yes Vital Signs & Weight: Vital Signs (12 hours) Temp Pulse Resp BP BP BP Pulse Ox 06/26/17 08:55 139/79 06/26/17 08:05 97.3 F L 68 17 139/79 95 06/26/17 04:00 97.6 F 68 20 119/79 94 L 06/26/17 00:00 18 Weight Weight 238 lb 1.6 oz I&O: 06/25/17 06/26/17 06/27/17 06:59 06:59 06:59 Intake Total 1930 500 Output Total 1700 1550 Balance 230 -1050 Result Diagrams: 06/26/17 04:21 06/26/17 04:21 Additional Labs: Accuchecks 06/26/17 06/25/17 06/25/17 05:40 20:44 16:35 POC Glucose 194 H 277 H 218 H 06/25/17 10:55 POC Glucose 226 H Phys Exam - Physical Examination HEENT: PERRLA, moist MMs Neck: no JVD, supple Respiratory: no wheezing, no rales basal rales+ Cardiovascular: RRR, no significant murmur Gastrointestinal: soft, non-tender, positive bowel sounds Musculoskeletal: no edema, pulses present Neurological: non-focal, moves all 4 limbs Psychiatric: normal affect, A&O x 3 Dx/Plan (1) CAD (coronary artery disease) Code(s): I25.10 - ATHSCL HEART DISEASE OF [place] CORONARY ARTERY W/O ANG PCTRS Status: Acute Qualifiers: Coronary Disease-Associated Artery/Lesion type: [place] artery [place] vs. transplanted heart: [place] heart Comment: 3 vessel disease for cabg (2) Dyslipidemia Code(s): E78.5 - HYPERLIPIDEMIA, UNSPECIFIED Status: Chronic (3) Obesity (BMI 35.0-39.9 without comorbidity) Code(s): E66.9 - OBESITY, UNSPECIFIED Status: Chronic (4) BPH (benign prostatic hyperplasia) Code(s): N40.0 - BENIGN PROSTATIC HYPERPLASIA WITHOUT LOWER URINRY TRACT SYMP Status: Chronic Qualifiers: Lower urinary tract symptom presence: symptoms absent Qualified Code(s): N40.0 - Benign prostatic hyperplasia without lower urinary tract symptoms (5) Acute systolic CHF (congestive heart failure), NYHA class 3 Code(s): I50.21 - ACUTE SYSTOLIC (CONGESTIVE) HEART FAILURE Status: Acute Comment: Improving with diuresis. Cath ef is 30%, ECHO showed EF 40-45%. Started on ACEi, Coreg and spironolactone. (6) DM2 (diabetes mellitus, type 2) Status: Chronic Qualifiers: Diabetes mellitus [employer] insulin use: without [employer] use Diabetes mellitus complication status: with unspecified complications Qualified Code(s) : E11.8 - Type 2 diabetes mellitus with unspecified complications Comment: Achieving better control. HbA1c 7.9 (7) HTN (hypertension) Code(s): I10 - ESSENTIAL (PRIMARY) HYPERTENSION Status: Chronic Qualifiers: Hypertension type: essential hypertension Qualified Code(s): I10 - Essential (primary) hypertension - Plan is on lasix and metolazone, diuresing well -: on asp, coreg, lipitor, lisino. -: continue flomax -: cabg in am if stable -: labs in am, will watch cabg video today * . Review of Systems - Medications/Allergies Allergies/Adverse Reactions: Allergies Allergy/AdvReac Type Severity Reaction Status Date / Time No Known Allergies Allergy Verified 06/23/17 06:53 Medications: Current Medications Carvedilol (Coreg) 6.25 mg PO BID-[facility] Last Admin: 06/26/17 08:55 Dose: 6.25 mg Lisinopril (Zestril) 20 mg PO BID [facility] Last Admin: 06/26/17 08:55 Dose: 20 mg Miscellaneous Information (Communication Order-Pharmacy) 1 each FS ONE [facility] Stop: 06/26/17 12:00 Potassium Chloride (K-Dur) 40 meq PO ONE [facility] Stop: 06/26/17 13:00 Potassium Chloride (Klor-Con 10) 10 meq PO BID-[facility]
[2017-06-26] MEDS ORDERED: Potassium Chloride 20 MEQ TAB PO SCH (12:00)
[2017-06-26] MEDS: Potassium Chloride 10 MEQ TAB PO SCH (18:07)
[2017-06-26] MEDS ORDERED: Dextrose 5% in Water 1,000 ML IV PRN (18:41)
[2017-06-26] MEDS ORDERED: Dextrose 50% Abboject 50 ML SYRINGE SLOW IVP PRN (18:41)
[2017-06-26] MEDS ORDERED: HumaLOG 300 UNITS/3 ML VIAL SC PRN ×2 (18:41)
[2017-06-26] MEDS ORDERED: Tamsulosin HCl 0.4 MG CAP PO SCH (21:00)
[2017-06-26] MEDS ORDERED: Atorvastatin Calcium 40 MG TAB PO SCH (21:00)
[2017-06-26] MEDS ORDERED: Insulin Detemir 100 UNITS/ML 15 UNITS in Pre-Filled Syringe 1 EACH SC SCH (21:00)
[2017-06-27] MEDS: Lisinopril 20 MG TAB PO SCH (05:00)
[2017-06-27] MEDS: Carvedilol 6.25 MG TAB PO SCH (05:00)
[2017-06-27 06:07] LABS: #Eosinphils 0.3 thou/uL (0.0-0.7); #Monocytes 0.6 thou/uL (0.11-0.59); #Neutrophils 3.7 thou/uL (1.40-6.50); %Basophils 0.1 % (0.0-1.0); %Lymphocytes 30.5 % (21.0-51.0); %Monocytes 8.9 % (0.0-10.0); %Neutrophils 56.6 % (42.0-75.0); Hemoglobin 15.1 g/dL (14.0-18.0); Mean Corpuscular HGB CONC 34.6 g/dL (32.0-36.0); Mean Corpuscular Hemoglobin 29.8 pg (27.0-31.0); Mean Corpuscular Volume 86.2 fl (80.0-94.0); Mean Platelet Volume 8.4 fL (7.4-10.4); Platelet Count 142 thou/uL (130-400); RBC Distribution Width 11.9 % (11.5-14.5); Red Blood Cell (RBC) Count 5.05 mill/uL (4.70-6.10); White Blood Cell (WBC) Count 6.5 thou/uL (4.8-10.8)
[2017-06-27] MEDS ORDERED: CEFAZOLIN/Water 2 GM/20 ML SYRINGE ONE (06:13)
[2017-06-27 06:21] LABS: Anion Gap 11 mmol/L (10-20); BUN (Urea Nitrogen) 19 mg/dL (8.4-25.7); Calc. Creatinine Clearance 140 mL/min (70-130); Calcium 9.7 mg/dL (7.8-10.44); Carbon Dioxide 29 mmol/L (22-29); Chloride 96 mmol/L (98-107); Estimated GFR-MDRD Greater than 90; Glucose 199 mg/dL (70-105); Potassium 3.4 mmol/L (3.5-5.1); Sodium 133 mmol/L (136-145)
[2017-06-27] MEDS ORDERED: Albumin 5% 500 ML ONE (06:35)
[2017-06-27] MEDS ORDERED: CEFAZOLIN/Water 2 GM/20 ML SYRINGE SLOW IVP SCH (06:45)
[2017-06-27] MEDS ORDERED: Heparin 10,000 UNITS/1 ML VIAL 30,000 UNITS in Sodium Chloride 0.9% 1,000 ML FS SCH (06:45)
[2017-06-27] MEDS ORDERED: Fentanyl 250 MCG/5 ML VIAL ONE (06:52)
[2017-06-27] MEDS ORDERED: Midazolam HCl 5 mg/5 ml Vial ONE (06:53)
[2017-06-27] MEDS ORDERED: Vecuronium 10 MG VIAL ONE ×3 (06:53→11:55)
[2017-06-27] MEDS ORDERED: Norepinephrine 8 MG/0.9% NS 250 ML ONE (06:53)
[2017-06-27] MEDS ORDERED: Dexmedetomidine 200 MCG/2 ML VIAL ONE (06:54)
[2017-06-27] MEDS ORDERED: Papaverine 60 MG/2 ML VIAL ONE (07:08)
[2017-06-27] MEDS ORDERED: Midazolam HCl 2 mg/2 ml Vial ONE (07:14)
[2017-06-27] MEDS ORDERED: Mag-Al 1200 mg/1200 mg/30 ML UDCUP PO PRN (07:32)
[2017-06-27] MEDS ORDERED: Nitroglycerin 50 MG/250 ML BOT 250 ML IVPB PRN (07:32)
[2017-06-27] MEDS ORDERED: Promethazine HCl 25 MG/ML VIAL IM PRN (07:32)
[2017-06-27] MEDS ORDERED: Norepinephrine 8 MG/0.9% NS 250 ML IVPB PRN (07:32)
[2017-06-27] MEDS ORDERED: Guaifenesin DM 100-10/5 ML UDCUP PO PRN (07:32)
[2017-06-27] MEDS ORDERED: Potassium Chloride 20 MEQ/100 ML PREMIX BAG IVPB PRN (07:32)
[2017-06-27] MEDS ORDERED: Hetastarch 6% 500 ML 500 ML IVPB PRN (07:32)
[2017-06-27] MEDS ORDERED: hydrALAZINE 20 MG/ML VIAL SLOW IVP PRN (07:32)
[2017-06-27] MEDS ORDERED: Post-Op Insulin Drip Protocol IVPB ONE (07:32)
[2017-06-27] MEDS ORDERED: Bisacodyl 10 MG SUPP PR PRN (07:32)
[2017-06-27] MEDS ORDERED: Fentanyl 100 MCG/2 ML VIAL SLOW IVP PRN (07:32)
[2017-06-27] MEDS ORDERED: Ondansetron HCl/PF 4 MG/2 ML Vial IVP PRN (07:32)
[2017-06-27] MEDS ORDERED: Milrinone 10 MG/10 ML VIAL ONE (08:44)
[2017-06-27] MEDS ORDERED: Insulin Regular 300 UNITS/3 ML VIAL ONE (08:44)
[2017-06-27] MEDS ORDERED: Dextrose 50% Abboject 50 ML SYRINGE SLOW IVP PRN (10:31)
[2017-06-27] MEDS ORDERED: Dextrose 5% in Water 1,000 ML IV PRN (10:31)
[2017-06-27] MEDS ORDERED: Protamine Sulfate 250 MG/25 ML VIAL ONE (11:55)
[2017-06-27] MEDS ORDERED: Glycopyrrolate 0.2 MG/ML 5 ML SYRINGE ONE (11:55)
[2017-06-27] MEDS ORDERED: Magnesium 5 GM/10 ML VIAL ONE (11:55)
[2017-06-27] MEDS ORDERED: Lidocaine 1% PF 5 ML VIAL ONE (11:55)
[2017-06-27] MEDS ORDERED: Heparin 5,000 UNITS/ML VIAL ONE (11:55)
[2017-06-27] MEDS ORDERED: Lidocaine 2% PF 100 mg/5 ml Syringe ONE (11:55)
[2017-06-27] MEDS ORDERED: Cardioplegic Soln 1,000 ML BAG ONE (11:55)
[2017-06-27] MEDS ORDERED: ePHEDrine/0.9% NaCl/PF SYRINGE 50 mg/10 ml ONE (11:55)
[2017-06-27] MEDS ORDERED: PROPOFOL 200 MG/20 ML VIAL ONE (11:55)
[2017-06-27] MEDS ORDERED: Aminocaproic Acid 5 GM/20 ML VIAL ONE (11:55)
[2017-06-27] MEDS ORDERED: Calcium Chloride 1 GM/10 ML Abboject SYRINGE ONE (11:55)
[2017-06-27] MEDS ORDERED: Nitroglycerin 50 MG/250 ML BOT ONE (11:55)
[2017-06-27] MEDS ORDERED: Heparin 30,000 units/30 ml VIAL ONE (11:55)
[2017-06-27 16:18] LABS: CO2 Tension 41.8 mmHg (35.0-45.0); pH, Arterial 7.38 (7.35-7.45)
[2017-06-27 16:19] LABS: Actual Bicarbonate (HCO3a) 23.9 mEq/L (22-26); Base Excess (BEa) -1.3 mEq/L (0 (+/-) 2.5); Calcium, Ionized 1.2 mmol/L (1.12-1.30); Hematocrit-ABG 37.7 % (42.0-52.0); Hemoglobin (Hb) 12.8 g/dL (14.0-18.0); O2 Tension (PaO2) 75.1 mmHg (80.0-100.0); Puncture Site LINE
--- NOTE | 2017-06-27 16:20 | RAD ---
PORTABLE AP CHEST X-RAY: 06/27/17 HISTORY: Post open heart surgery. COMPARISON: 06/25/17. FINDINGS: Endotracheal tube is now noted in place with the tip overlying the T4 vertebral body and above the le beni of the allyson. Mediastinal drains are noted in place. Left subclavian central venous catheter is noted in place with tip overlying the region of the cavoatrial junction. There is patchy and intersti tial parenchymal opacities at the left lung base which is probably related to atelectasis. There is a lso atelectasis at the right lung base. Calcified right hilar lymph nodes are seen. Surgical clips ov erlie the right upper quadrant. IMPRESSION: 1. Parenchymal changes at each lung base greater on the left probably related to bibasilar atele ctasis. Followup is recommended. 2. Lines and tubes in place as described above. 3. Postsurgical changes related to interval CABG. POS: CET
[2017-06-27] MEDS: Ketorolac Tromethamine 30 MG/ML VIAL IVP SCH ×3 (16:35→23:33)
[2017-06-27] MEDS: Fentanyl 100 MCG/2 ML VIAL SLOW IVP PRN ×3 (16:35→21:50)
[2017-06-27] MEDS: Famotidine/PF 20 mg/2ml Vial SLOW IVP SCH ×3 (16:36→21:34)
[2017-06-27 16:38] LABS: Hemoglobin 13.1 g/dL (14.0-18.0)
[2017-06-27] MEDS: Sodium Chloride 0.9% 1,000 ML IV SCH ×2 (16:40→21:19)
[2017-06-27 16:41] LABS: Potassium 4.4 mmol/L (3.5-5.1)
[2017-06-27 16:42] LABS: INR-International Normal Ratio 1.3; PTT 30.2 SEC (22.9-36.1); Prothrombin Time 16.2 SEC (12.0-14.7)
[2017-06-27] MEDS: Potassium Chloride 10 MEQ TAB PO SCH (16:42)
[2017-06-27 18:33] LABS: CO2 Tension 22.1 mmHg (35.0-45.0); pH, Arterial 7.56 (7.35-7.45)
[2017-06-27 18:34] LABS: Actual Bicarbonate (HCO3a) 19.3 mEq/L (22-26); Base Excess (BEa) -1.1 mEq/L (0 (+/-) 2.5); Hematocrit-ABG 37.1 % (42.0-52.0); Hemoglobin (Hb) 12.6 g/dL (14.0-18.0); O2 Tension (PaO2) 70.3 mmHg (80.0-100.0)
[2017-06-27 18:35] LABS: ALV-art Gradient 149.875 (0-20); Calcium, Ionized 1.2 mmol/L (1.12-1.30); Puncture Site LINE
--- NOTE | 2017-06-27 20:43 | OP ---
DATE OF PROCEDURE: 06/27/2017 PROCEDURES PERFORMED: Left subclavian central line placement, coronary artery bypass grafting x4 wit h left internal mammary artery to the distal LAD and reverse greater saphenous vein grafts from the a joya to the diagonal to the obtuse marginal into the distal PDA, a 5-Divehi left femoral arterial eduardo e placement under ultrasonic guidance, ligation of left atrial appendage. PREOPERATIVE DIAGNOSES: Coronary artery disease, ischemic cardiomyopathy with acute heart failure. POSTOPERATIVE DIAGNOSES: Coronary artery disease, ischemic cardiomyopathy with acute heart failure. SURGEON: Shahram Post M.D. ANESTHESIA: General endotracheal anesthesia. INDICATIONS: The patient is a 62-year-old diabetic smoker with a positive family history of coronary artery disease, who about a month ago had a severe prolonged episode of what he thought was heartbur n, associated with diaphoresis and shortness of breath. He recently awoke from sleep with severe sheridan rtness of breath and on presentation was found to be in florid pulmonary edema with elevated BNP and troponins. Cardiac catheterization showed three-vessel coronary artery disease with an LVEF of aroun d 20% to 30% and elevated LVEDP. He was diuresed and is now taken to the operating room for revascul arization. FINDINGS: Pump time 130 minutes. Cross clamp time 60 minutes. The SANDRO was densely adherent to the chest wall and was somewhat small, but had good flow. The greater saphenous vein was somewhat large, but otherwise good quality. The LAD was about a 1-1.5 mm good quality vessel distally. The diagona l was about 2 mm vessel were grafted. The OM was about 2 mm distally were grafted and was diffusely diseased proximally. The right coronary PDA were diffusely diseased out to the distal PDA was a 1.5- 2 mm vessel. The pericardium was closed. NARRATIVE REPORT: After informed consent was obtained, the patient was taken to the operating room a nd placed in supine position on the operating table. After the induction of general anesthesia, the patient's left upper chest was prepped and draped in sterile fashion. The patient was placed in [place] and the triple-lumen central line kit was used to place a left subclavian central line by t ruby Seldinger technique. All three ports aspirated and flushed easily. The line was secured. The pa tient's lower extremities were then ultrasonographically mapped to assess saphenous vein and to ident thomas the location of the common femoral artery and its bifurcation. The patient's torso groins and lo wer extremities were then prepped and draped in sterile fashion. The greater saphenous vein was expo sed just above the left knee and then endoscopically harvested to the groin and down to the mid calf. The vein was prepared for use as a graft and the harvest sites were closed in layers of subcutaneou s and subcuticular Vicryl. An ultrasound probe and a sterile sleeve was brought to the field and und er ultrasonic guidance, the left femoral artery was cannulated by the Seldinger technique, placing a 5-Divehi femoral sheath, which easily aspirated and flushed. It was secured with suture and capped o ff. A median sternotomy was performed. The left SANDRO was harvested as a pedicle from the xiphoid to the level of the subclavian vein through an extrapleural exposure. The patient was heparinized and t he mammary was ligated and divided distally. It was instilled intraluminally, but with papaverine so lution, the mammary bed was inspected for hemostasis. The SANDRO retractor was replaced with an Ankeney . The pericardium was opened and marsupialized. The aorta was palpated and was soft. A double conc entric pursestring of #2 Ethibond was placed in the ascending aorta just beyond the pericardial refle ction and a single pursestring was placed in the right atrial appendage. Aortic and venous cannula w ere inserted and secured by the pursestrings. The plane between the aorta and the pulmonary artery w as developed. Cardiopulmonary bypass was instituted and the patient's body temperature was allowed t o systemically cooled. The heart was examined. The vessels to be bypassed were identified. A longi tudinal slit was made in the pericardium anterior to the left phrenic nerve through which the mammary pedicle could be passed and the aortic crossclamp was applied and cardioplegia was administered thro ugh an aortic root needle. When arrest had been achieved, a 3-0 Prolene suture was run at the base o f the left atrial appendage in two layers of running horizontal mattress to ligate the atrial appenda ge at its base because of the patient's large atrium and anticipated risk for atrial fibrillation. A ttention was then turned to the obtuse marginal. It was opened distally and saphenous vein was anast omosed to it with running Prolene suture and the anastomosis tested by flushing cold cardioplegia marleni n the graft. The diagonal and the distal PDA were each grafted in a similar fashion, the LAD was ope subha distally and the mammary was anastomosed to it and the pedicle tacked to the epicardium. The aor tic crossclamp was replaced with the partial occluding clamp and an aortotomy was made in the ascendi ng aorta with a scalpel and punch. The PDA graft was brought up along the AV groove and anastomosed to the most proximal aortotomy. The diagonal and OM grafts were anastomosed to the middle and distal aortotomies respectively. The vein grafts were occluded and the partial occluding clamp removed. T he vein grafts were deaired and the bulldog was removed from them. The anastomoses were inspected fo r hemostasis. The posterior pericardial drain was brought out through a separate incision and secure d with suture. Right atrial and right ventricular temporary epicardial pacing wires were placed. Th e patient was then from cardiopulmonary bypass. Aortic and venous cannula removed and thei r pursestring secured. Protamine was administered. When hemostasis was adequate, the anterior media stinal drain was placed and the pericardium was closed over with running Vicryl. The sternum was sri pproximated with #7 stainless steel wires. Fascia closed over the wires with heavy Vicryl. Subcutan eous tissue was irrigated and reapproximated and skin was closed with Vicryl subcuticular stitch. Th e wounds were dressed. The patient was taken to the Intensive Care Unit in stable condition.
[2017-06-27] MEDS: Atorvastatin Calcium 40 MG TAB PO SCH (21:17)
[2017-06-28] MEDS: Fentanyl 100 MCG/2 ML VIAL SLOW IVP PRN ×2 (01:11→04:42)
[2017-06-28 05:04] LABS: Anion Gap 8 mmol/L (10-20); BUN (Urea Nitrogen) 20 mg/dL (8.4-25.7); Calc. Creatinine Clearance 150 mL/min (70-130); Calcium 8.6 mg/dL (7.8-10.44); Carbon Dioxide 26 mmol/L (22-29); Chloride 105 mmol/L (98-107); Estimated GFR-MDRD Greater than 90; Glucose 131 mg/dL (70-105); Magnesium 1.9 mg/dL (1.6-2.6); Potassium 3.4 mmol/L (3.5-5.1); Sodium 136 mmol/L (136-145)
[2017-06-28 05:13] LABS: #Eosinphils 0.1 thou/uL (0.0-0.7); #Lymphocytes 0.7 thou/uL (1.20-3.40); #Neutrophils 8.1 thou/uL (1.40-6.50); %Basophils 0.2 % (0.0-1.0); %Eosinophils 1.3 % (0.0-10.0); %Lymphocytes 7.3 % (21.0-51.0); %Neutrophils 81.2 % (42.0-75.0); Hemoglobin 12.3 g/dL (14.0-18.0); Mean Corpuscular HGB CONC 33.8 g/dL (32.0-36.0); Mean Corpuscular Hemoglobin 29.6 pg (27.0-31.0); Mean Corpuscular Volume 87.5 fl (80.0-94.0); Mean Platelet Volume 8.8 fL (7.4-10.4); PLT Morphology Comment Appears Decreased; Platelet Count 114 thou/uL (130-400); RBC Distribution Width 12.2 % (11.5-14.5); RBC Morphology Normal; Red Blood Cell (RBC) Count 4.15 mill/uL (4.70-6.10); White Blood Cell (WBC) Count 9.9 thou/uL (4.8-10.8)
[2017-06-28] MEDS: Ketorolac Tromethamine 30 MG/ML VIAL IVP SCH ×2 (05:20→12:12)
[2017-06-28] MEDS: Acetylcysteine 20% 200 MG/ML 30 ML VIAL INH SCH ×3 (08:26→20:18)
--- NOTE | 2017-06-28 08:32 | CON ---
DATE OF CONSULTATION: 06/28/2017 REASON FOR CONSULTATION: Post coronary artery bypass grafting, in ICU. HISTORY OF PRESENT ILLNESS: The patient is a 62-year-old male, who underwent coronary artery bypass grafting surgery yesterday. The surgery was uncomplicated. He was extubated yesterday evening. He is sitting up in a chair today, and has no acute complaints other than post-surgical soreness. PAST MEDICAL HISTORY: 1. Diabetes mellitus, type 2. 2. Hypertension. 3. Previous myocardial infarction. 4. Congestive heart failure. 5. Hypertension. 6. Prostate cancer. PAST SURGICAL HISTORY: Cholecystectomy. SOCIAL HISTORY: Smoked up until the day of admission. Does not use illicit drugs. Occasionally drinks alcohol. FAMILY MEDICAL HISTORY: Remarkable for no chronic illnesses. ALLERGIES: None. MEDICATIONS PRIOR TO ADMISSION: Furosemide, glipizide, amlodipine, lisinopril/ hydrochlorothiazide, metformin, tamsulosin. REVIEW OF SYSTEMS: Twelve-point review of systems otherwise negative. PHYSICAL EXAMINATION: VITAL SIGNS: Temperature 98.7, pulse 91, blood pressure 110/68, respiratory rate 18, intake for 24 hours 3627 and output 1505. HEENT EXAM: Unremarkable. NECK: Without adenopathy, JVD, or bruits. LUNGS: Clear, without wheezing or rhonchi. CARDIOVASCULAR: S1 and S2, regular. ABDOMEN: Soft, nontender, nondistended. EXTREMITIES: No clubbing, cyanosis, or edema. LABORATORY DATA: White blood cell count 9.9, hematocrit 36.4, platelet count 114. Sodium 136, potassium 3.4, chloride 105, CO2 of 26, BUN 20, creatinine 0.8 , glucose 131. ASSESSMENT: 1. Status post coronary artery bypass graft. 2. Diabetes mellitus, currently on insulin drip with plans to transition over to his oral medications and sliding scale insulin later - hospitalists are seeing him for this. 3. No acute pulmonary issues that require anything other than nebulization treatments at this time. We will follow with you. 70 minutes of time was spent on this consult, with >50% of time spent with pt and/or on pts unit MTDD
--- NOTE | 2017-06-28 08:44 | RAD ---
CHEST 1 VIEW: HISTORY: Heart surgery. Followup. COMPARISON: 06/27/17. FINDINGS: Cardiac silhouette is magnified, enlarged, and partially obscured by patchy bibasilar infiltrates. T he patient is rotated leftward. Postoperative changes in the mediastinum and left subclavian central venous catheter remain in place. Endotracheal catheter is no longer visible. Drains overlie the lo wer mediastinum. Pulmonary vasculature remains engorged. IMPRESSION: 1. Interval extubation. 2. Pulmonary vascular congestion, postoperative changes, and other findings are otherwise stable. POS: CLARICE
[2017-06-28] MEDS: Nicotine 21 MG PATCH TOP SCH (08:56)
[2017-06-28] MEDS: Sodium Chloride 0.9% 1,000 ML IV SCH (08:58)
[2017-06-28] MEDS ORDERED: Famotidine 40 MG/4 ML VIAL SLOW IVP SCH (09:00)
--- NOTE | 2017-06-28 10:31 | PRG ---
DATE OF SERVICE: 06/28/2017 Mr. Mccray is doing well, no complaints. He is up in the chair. PHYSICAL EXAMINATION: VITAL SIGNS: Blood pressure 113/73, pulse 84 regular. LUNGS: Clear. CARDIAC: Normal S1, normal S2. ABDOMEN: Soft, nontender. EXTREMITIES: There is only mild edema. ASSESSMENT: 1. Congestive heart failure, stable. 2. Status post bypass surgery. 3. History of hypertension. PLAN: 1. Resume beta blockers when feasible. 2. Continue statin. 3. Continue aspirin. 4. I will continue to follow with you.
[2017-06-28] MEDS: HYDROcodone/Acetaminophen 5/325 mg Tablet PO PRN ×4 (11:00→20:37)
[2017-06-28] MEDS ORDERED: Docusate 100 MG CAP PO SCH (11:15)
--- NOTE | 2017-06-28 11:55 | PDOC.PN ---
- Subjective Encounter Start Date: 06/27/17 Encounter Start Time: 17:00 Subjective: is s/p cabg on vent - Objective Resuscitation Status: Resuscitation Status FULL:Full Resuscitation MAR Reviewed: Yes Vital Signs & Weight: Vital Signs (12 hours) Temp Pulse Resp Pulse Ox 06/28/17 08:30 96 06/28/17 08:24 85 24 H 96 06/28/17 07:49 97.8 F 85 21 H 96 06/28/17 04:00 98.7 F 06/28/17 02:00 15 06/28/17 00:00 98.1 F Weight Weight 240 lb 4.862 oz Most Recent Monitor Data Heart Rate from ECG 88 NIBP 108/73 NIBP BP-Mean 84 Respiration from ECG 18 SpO2 95 I&O: 06/27/17 06/28/17 06/29/17 06:59 06:59 06:59 Intake Total 3627 300 Output Total 1100 1505 275 Balance -1100 2122 25 Result Diagrams: 06/28/17 03:31 06/28/17 03:31 Additional Labs: Accuchecks 06/28/17 06/28/17 06/28/17 11:04 10:09 09:08 POC Glucose 120 H 113 H 119 H 06/28/17 06/28/17 06/28/17 08:05 07:08 06:10 POC Glucose 135 H 132 H 153 H 06/28/17 06/28/17 06/28/17 05:24 04:27 03:27 POC Glucose 185 H 140 H 139 H 06/28/17 06/28/17 06/28/17 02:37 01:43 00:31 POC Glucose 156 H 148 H 139 H 06/27/17 06/27/17 06/27/17 23:39 22:30 21:27 POC Glucose 142 H 141 H 161 H 06/27/17 06/27/17 06/27/17 20:31 19:11 18:03 POC Glucose 139 H 142 H 200 H 06/27/17 06/27/17 06/27/17 16:24 15:37 14:36 POC Glucose 206 H 172 H 172 H 06/27/17 06/27/17 06/27/17 13:55 13:06 12:47 POC Glucose 137 H 98 101 06/27/17 06/27/17 06/27/17 11:48 08:34 06:30 POC Glucose 107 234 H 227 H Phys Exam - Physical Examination HEENT: PERRLA, moist MMs Neck: no JVD, supple Respiratory: no wheezing rhonchi+, chest tube+ Cardiovascular: RRR, no significant murmur Gastrointestinal: soft, non-tender, positive bowel sounds Musculoskeletal: no edema, pulses present Neurological: non-focal babinski downgoing Dx/Plan (1) CAD (coronary artery disease) Code(s): I25.10 - ATHSCL HEART DISEASE OF [place] CORONARY ARTERY W/O ANG PCTRS Status: Acute Qualifiers: Coronary Disease-Associated Artery/Lesion type: [place] artery [place] vs. transplanted heart: [place] heart Comment: s/p cabgx4 (2) Dyslipidemia Code(s): E78.5 - HYPERLIPIDEMIA, UNSPECIFIED Status: Chronic (3) Obesity (BMI 35.0-39.9 without comorbidity) Code(s): E66.9 - OBESITY, UNSPECIFIED Status: Chronic (4) BPH (benign prostatic hyperplasia) Code(s): N40.0 - BENIGN PROSTATIC HYPERPLASIA WITHOUT LOWER URINRY TRACT SYMP Status: Chronic Qualifiers: Lower urinary tract symptom presence: symptoms absent Qualified Code(s): N40.0 - Benign prostatic hyperplasia without lower urinary tract symptoms (5) Acute systolic CHF (congestive heart failure), NYHA class 3 Code(s): I50.21 - ACUTE SYSTOLIC (CONGESTIVE) HEART FAILURE Status: Acute Comment: Improving with diuresis. Cath ef is 30% (6) DM2 (diabetes mellitus, type 2) Status: Chronic Qualifiers: Diabetes mellitus [facility] insulin use: without [facility] use Diabetes mellitus complication status: with unspecified complications Qualified Code(s) : E11.8 - Type 2 diabetes mellitus with unspecified complications Comment: Achieving better control. HbA1c 7.9 (7) HTN (hypertension) Code(s): I10 - ESSENTIAL (PRIMARY) HYPERTENSION Status: Chronic Qualifiers: Hypertension type: essential hypertension Qualified Code(s): I10 - Essential (primary) hypertension - Plan on insulin drip, weaning post cabg protocol -: nebs, gentle iv hydration -: will f/u -: chest tubes in place * .
--- NOTE | 2017-06-28 11:59 | PDOC.PN ---
- Subjective Encounter Start Date: 06/28/17 Encounter Start Time: 12:00 Subjective: got extubated last evening -: is sitting in chair, no sob -: at bedside - Objective Resuscitation Status: Resuscitation Status FULL:Full Resuscitation MAR Reviewed: Yes Vital Signs & Weight: Vital Signs (12 hours) Temp Pulse Resp Pulse Ox 06/28/17 08:30 96 06/28/17 08:24 85 24 H 96 06/28/17 07:49 97.8 F 85 21 H 96 06/28/17 04:00 98.7 F 06/28/17 02:00 15 06/28/17 00:00 98.1 F Weight Weight 240 lb 4.862 oz Most Recent Monitor Data Heart Rate from ECG 88 NIBP 108/73 NIBP BP-Mean 84 Respiration from ECG 18 SpO2 95 I&O: 06/27/17 06/28/17 06/29/17 06:59 06:59 06:59 Intake Total 3627 300 Output Total 1100 1505 275 Balance -1100 2122 25 Result Diagrams: 06/28/17 03:31 06/28/17 03:31 Additional Labs: Accuchecks 06/28/17 06/28/17 06/28/17 11:04 10:09 09:08 POC Glucose 120 H 113 H 119 H 06/28/17 06/28/17 06/28/17 08:05 07:08 06:10 POC Glucose 135 H 132 H 153 H 06/28/17 06/28/17 06/28/17 05:24 04:27 03:27 POC Glucose 185 H 140 H 139 H 06/28/17 06/28/17 06/28/17 02:37 01:43 00:31 POC Glucose 156 H 148 H 139 H 06/27/17 06/27/17 06/27/17 23:39 22:30 21:27 POC Glucose 142 H 141 H 161 H 06/27/17 06/27/17 06/27/17 20:31 19:11 18:03 POC Glucose 139 H 142 H 200 H 06/27/17 06/27/17 06/27/17 16:24 15:37 14:36 POC Glucose 206 H 172 H 172 H 06/27/17 06/27/17 06/27/17 13:55 13:06 12:47 POC Glucose 137 H 98 101 06/27/17 06/27/17 08:34 06:30 POC Glucose 234 H 227 H Phys Exam - Physical Examination HEENT: PERRLA, sclera anicteric Neck: no JVD, supple Respiratory: no wheezing rhonchi++, chest tube+ Cardiovascular: RRR, no significant murmur Gastrointestinal: soft, no distention, positive bowel sounds Musculoskeletal: no edema, pulses present Neurological: non-focal, moves all 4 limbs responds well to verbal questions, no focal deficits Dx/Plan (1) CAD (coronary artery disease) Code(s): I25.10 - ATHSCL HEART DISEASE OF [place] CORONARY ARTERY W/O ANG PCTRS Status: Acute Qualifiers: Coronary Disease-Associated Artery/Lesion type: bypass graft [place] vs. transplanted heart: [place] heart Comment: s/p cabgx4, matias to distal lad, rgsv to diag, obt john and distal pda (2) Dyslipidemia Code(s): E78.5 - HYPERLIPIDEMIA, UNSPECIFIED Status: Chronic (3) Obesity (BMI 35.0-39.9 without comorbidity) Code(s): E66.9 - OBESITY, UNSPECIFIED Status: Chronic (4) BPH (benign prostatic hyperplasia) Code(s): N40.0 - BENIGN PROSTATIC HYPERPLASIA WITHOUT LOWER URINRY TRACT SYMP Status: Chronic Qualifiers: Lower urinary tract symptom presence: symptoms absent Qualified Code(s): N40.0 - Benign prostatic hyperplasia without lower urinary tract symptoms (5) Acute systolic CHF (congestive heart failure), NYHA class 3 Code(s): I50.21 - ACUTE SYSTOLIC (CONGESTIVE) HEART FAILURE Status: Acute Comment: Cath ef is 30% (6) DM2 (diabetes mellitus, type 2) Status: Chronic Qualifiers: Diabetes mellitus jail insulin use: without director long term care use Diabetes mellitus complication status: with unspecified complications Qualified Code(s) : E11.8 - Type 2 diabetes mellitus with unspecified complications Comment: post cabg on iv insulin protocol, will switch to sc. HbA1c 7.9 (7) HTN (hypertension) Code(s): I10 - ESSENTIAL (PRIMARY) HYPERTENSION Status: Chronic Qualifiers: Hypertension type: essential hypertension Qualified Code(s): I10 - Essential (primary) hypertension - Plan start levemir 10u sc bid, may dc iv insulin drip -: oral metformin from am if tolerating oral diet -: post op recovering well -: at bedside was given updates -: nebs, toradol, morphine prn, i.spirometry, c.rehab once chest tubes are out * . Review of Systems - Medications/Allergies Allergies/Adverse Reactions: Allergies Allergy/AdvReac Type Severity Reaction Status Date / Time No Known Allergies Allergy Verified 06/23/17 06:53 Medications: Current Medications Acetaminophen (Tylenol) 650 mg PO Q6H PRN PRN Reason: Headache/Fever Or Mild Pain Hydrocodone Bitart/Acetaminophen ([place] 5/325) 1 tab PO Q4H PRN PRN Reason: Moderate Pain (4-6) Last Admin: 06/28/17 11:00 Dose: 1 tab Hydrocodone Bitart/Acetaminophen ([place] 5/325) 2 tab PO Q4H PRN PRN Reason: Severe Pain (7-10) Acetylcysteine (Mucomyst 20%) 600 mg INH [id number] [facility] Last Admin: 06/28/17 08:26 Dose: 600 mg Al Hydroxide/Mg Hydroxide (Maalox) 30 ml PO Q4H PRN PRN Reason: Indigestion Albuterol/Ipratropium (Duoneb) 3 ml NEB [id number] [facility] Last Admin: 06/28/17 08:24 Dose: 3 ml Atorvastatin Calcium (Lipitor) 40 mg PO HS [facility] Last Admin: 06/27/17 21:17 Dose: 40 mg Bisacodyl (Dulcolax) 10 mg PO Q12H PRN PRN Reason: Constipation Bisacodyl (Dulcolax) 10 mg [place] Q12H PRN PRN Reason: Constipation Dextrose/Water (Dextrose 50%) 25 gm SLOW IVP PRN PRN PRN Reason: PER HYPOGLYCEMIC PROTOCOL Docusate Sodium (Colace) 100 mg PO BID ZEINAB Docusate Sodium (Colace) 100 mg PO ONE [facility] Stop: 06/28/17 12:00 Last Admin: 06/28/17 11:11 Dose: 100 mg Famotidine (Pepcid) 20 mg SLOW IVP Q12HR [facility] Last Admin: 06/28/17 07:47 Dose: 20 mg Fentanyl (Sublimaze) 25 mcg SLOW IVP Q2H PRN PRN Reason: Moderate Pain (4-6) Stop: 06/29/17 07:32 Last Admin: 06/28/17 08:56 Dose: 25 mcg Fentanyl (Sublimaze) 50 mcg SLOW IVP Q2H PRN PRN Reason: Severe Pain (7-10) Stop: 06/29/17 07:32 Last Admin: 06/28/17 04:42 Dose: 50 mcg Glucagon (Glucagon) 1 mg SC PRN PRN PRN Reason: PER HYPOGLYCEMIC PROTOCOL Guaifenesin/Dextromethorphan (Robitussin Dm) 15 ml PO Q4H PRN PRN Reason: Cough Hydralazine HCl (Apresoline) 10 mg SLOW IVP Q6H PRN PRN Reason: To Maintain SBP< 140mmHG Norepinephrine Bitartrate (Levophed) 250 mls @ 0 mls/hr IVPB PRN PRN; Protocol ; Titrate PRN Reason: To maintain SBP > 90 mmHG Nicardipine HCl 25 mg/ Sodium (Chloride) 260 mls @ 0 mls/hr IVPB INF PRN; Protocol; Titrate PRN Reason: To Maintain SBP< 140mmHG Nitroglycerin/Dextrose (Nitroglycerin 50 Mg/250 Ml Bot) 250 mls @ 0 mls/hr IVPB PRN PRN; Protocol; Titrate PRN Reason: To Maintain SBP< 140mmHG Sodium Chloride (Normal Saline 0.9%) 1,000 mls @ 75 mls/hr IV .[id number] [facility] Last Admin: 06/28/17 08:58 Dose: 1,000 mls Insulin Human Regular 100 (units/ Sodium Chloride) 101 mls @ 0 mls/hr IVPB INF ZEINAB; As Directed PRN Reason: Protocol Dextrose/Water (D5w) 1,000 mls @ 0 mls/hr IV INF PRN; As Directed PRN Reason: PRN HYPOGLYCEMIC PROTOCOL Insulin Detemir (Levemir) 0 units SC ONE PRN PRN Reason: POST-OP PROTOCOL Stop: 06/28/17 17:00 Insulin Human Regular (Humulin R) 0 units SC Q4H PRN; Protocol PRN Reason: POST OP SLIDING SCALE Ketorolac Tromethamine (Toradol) 30 mg IVP Q6HR [facility] Stop: 06/28/17 12:01 Last Admin: 06/28/17 05:20 Dose: 30 mg Morphine Sulfate (Morphine) 2 mg SLOW IVP Q15MIN PRN PRN Reason: Severe Pain (7-10) Nicotine (Nicoderm Patch) 21 mg TOP Q24HR [facility] Last Admin: 06/28/17 08:56 Dose: 21 mg Ondansetron HCl (Zofran) 4 mg IVP Q6H PRN PRN Reason: Nausea/Vomiting Potassium Chloride (Kcl) 20 meq IVPB PRN PRN PRN Reason: K level </= 4.0 Last Admin: 06/28/17 05:47 Dose: 20 meq Promethazine HCl (Phenergan) 6.25 mg IM Q4H PRN PRN Reason: Nausea/Vomiting
[2017-06-28] MEDS ORDERED: Metolazone 5 MG TAB PO SCH (13:15)
[2017-06-28] MEDS ORDERED: Furosemide 40 MG/4 ML VIAL SLOW IVP SCH (13:15)
[2017-06-28] MEDS: Insulin Regular 300 UNITS/3 ML VIAL SC PRN (16:15)
--- NOTE | 2017-06-28 16:16 | EKG ---
Test Reason : Blood Pressure : / mmHG Vent. Rate : 083 BPM Atrial Rate : 083 BPM P-R Int : 160 ms QRS Dur : 098 ms QT Int : 422 ms P-R-T Axes : 052 074 100 degrees QTc Int : 495 ms Normal sinus rhythm Septal infarct , age undetermined cannot be excluded Inferior infarct , age undetermined T wave abnormality, consider lateral ischemia Abnormal ECG Confirmed by BRAYDEN ISAAC ([id number]) on 06/28/2017 4:16:22 PM Referred By: SIG Confirmed By:BRAYDEN ISAAC
[2017-06-28] MEDS: Docusate 100 MG CAP PO SCH (20:35)
[2017-06-28] MEDS: Famotidine 20 MG TAB PO SCH (20:38)
[2017-06-28] MEDS: Atorvastatin Calcium 40 MG TAB PO SCH (20:38)
[2017-06-28] MEDS: Insulin Detemir 100 UNITS/ML 10 UNITS SC SCH (20:52)
[2017-06-28] MEDS: Acetaminophen 325 MG TAB PO PRN (23:39)
[2017-06-29] MEDS: Acetylcysteine 20% 200 MG/ML 30 ML VIAL INH SCH ×5 (00:49→23:52)
[2017-06-29] MEDS: HYDROcodone/Acetaminophen 5/325 mg Tablet PO PRN ×4 (03:28→18:44)
[2017-06-29 05:37] LABS: Anion Gap 14 mmol/L (10-20); BUN (Urea Nitrogen) 25 mg/dL (8.4-25.7); Calc. Creatinine Clearance 121 mL/min (70-130); Calcium 8.1 mg/dL (7.8-10.44); Carbon Dioxide 20 mmol/L (22-29); Chloride 101 mmol/L (98-107); Estimated GFR-MDRD 76; Glucose 211 mg/dL (70-105); Magnesium 1.7 mg/dL (1.6-2.6); Potassium 3.8 mmol/L (3.5-5.1); Sodium 131 mmol/L (136-145)
[2017-06-29 06:39] LABS: #Eosinphils 0.4 thou/uL (0.0-0.7); #Lymphocytes 1.4 thou/uL (1.20-3.40); #Monocytes 1.2 thou/uL (0.11-0.59); #Neutrophils 5.6 thou/uL (1.40-6.50); %Basophils 0.3 % (0.0-1.0); %Eosinophils 4.7 % (0.0-10.0); %Lymphocytes 16.2 % (21.0-51.0); %Monocytes 13.7 % (0.0-10.0); %Neutrophils 65.1 % (42.0-75.0); Hemoglobin 10.5 g/dL (14.0-18.0); Mean Corpuscular HGB CONC 33.2 g/dL (32.0-36.0); Mean Corpuscular Hemoglobin 29.3 pg (27.0-31.0); Mean Corpuscular Volume 88.4 fl (80.0-94.0); Platelet Count 90 thou/uL (130-400); RBC Distribution Width 12.3 % (11.5-14.5); Red Blood Cell (RBC) Count 3.59 mill/uL (4.70-6.10); White Blood Cell (WBC) Count 8.5 thou/uL (4.8-10.8)
[2017-06-29] MEDS ORDERED: Metolazone 5 MG TAB PO SCH (07:00)
--- NOTE | 2017-06-29 07:46 | RAD ---
CHEST 1 VIEW: HISTORY: A 62-year-old male with a history of postop open heart. COMPARISON: 06/28/17. FINDINGS: Postop midline sternotomy. Left subclavian catheter. Bilateral lower lobe pleural and parenchymal o pacity changes worse on the left side, evidence for postoperative changes. Chest tubes remain in criss ce. No significant pneumothorax. IMPRESSION: Overall stable postoperative changes with some vascular congestion and pleural and parenchymal opacit y changes bilaterally without pneumothorax. POS: OFF
--- NOTE | 2017-06-29 08:07 | PRG ---
DATE OF SERVICE: 06/29/2017 Mr. Mccray is up in the chair, feeling okay. PHYSICAL EXAMINATION: VITAL SIGNS: Blood pressure 106/63, pulse 84 regular. LUNGS: Clear. CARDIAC: Normal S1 and S2. ABDOMEN: Soft, nontender. EXTREMITIES: Mild edema. ASSESSMENT: 1. Coronary artery disease, status post bypass surgery. 2. Diabetes. 3. Mildly low sodium. 4. Ejection fraction by echo was 40-45% on catheterization it was 30. PLAN: 1. Continue losartan. 2. Continue carvedilol increased dose as feasible. 3. Continue diuretic therapy.
[2017-06-29] MEDS: Furosemide 40 MG TAB PO SCH ×2 (08:39→14:46)
[2017-06-29] MEDS: Docusate 100 MG CAP PO SCH ×2 (08:39→20:56)
[2017-06-29] MEDS: Potassium Chloride 20 MEQ TAB PO SCH ×2 (08:40→16:48)
[2017-06-29] MEDS: Famotidine 20 MG TAB PO SCH ×2 (08:40→20:56)
[2017-06-29] MEDS: Carvedilol 3.125 MG TAB PO SCH ×2 (08:40→16:48)
[2017-06-29] MEDS: Insulin Detemir 100 UNITS/ML 10 UNITS SC SCH ×2 (08:41→20:57)
[2017-06-29] MEDS: Insulin Regular 300 UNITS/3 ML VIAL SC PRN ×3 (08:41→17:25)
[2017-06-29] MEDS: Nicotine 21 MG PATCH TOP SCH (08:47)
[2017-06-29] MEDS: Acetaminophen 325 MG TAB PO PRN (10:40)
[2017-06-29] MEDS ORDERED: Cepastat Lozenges 1 LOZ PO PRN (10:40)
--- NOTE | 2017-06-29 18:03 | PDOC.PN ---
- Subjective Encounter Start Date: 06/29/17 Encounter Start Time: 09:25 Subjective: is sitting in chair, feels better -: no sob - Objective Resuscitation Status: Resuscitation Status FULL:Full Resuscitation MAR Reviewed: Yes Vital Signs & Weight: Vital Signs (12 hours) Temp Pulse Resp BP Pulse Ox 06/29/17 16:45 98 F 81 16 113/57 L 94 L 06/29/17 13:26 84 16 06/29/17 12:30 99.1 F 83 18 114/63 93 L 06/29/17 08:32 98.7 F 85 18 136/58 L 96 06/29/17 07:12 97 06/29/17 07:10 84 20 Weight Weight 240 lb 4.862 oz Most Recent Monitor Data Heart Rate from ECG 88 NIBP 99/63 NIBP BP-Mean 72 Respiration from ECG 24 SpO2 95 I&O: 06/28/17 06/29/17 06/30/17 06:59 06:59 06:59 Intake Total 3627 1473.9 780 Output Total 1505 937 690 Balance 2122 536.9 90 Result Diagrams: 06/29/17 04:38 06/29/17 04:38 Additional Labs: Accuchecks 06/29/17 06/29/17 06/29/17 17:11 11:20 06:01 POC Glucose 246 H 269 H 209 H 06/28/17 20:59 POC Glucose 211 H Phys Exam - Physical Examination HEENT: PERRLA, sclera anicteric Neck: no JVD, supple Respiratory: no wheezing rales+ Cardiovascular: RRR, no significant murmur Gastrointestinal: soft, non-tender, positive bowel sounds Musculoskeletal: pulses present, edema present Neurological: non-focal, moves all 4 limbs Psychiatric: A&O x 3 Dx/Plan (1) CAD (coronary artery disease) Code(s): I25.10 - ATHSCL HEART DISEASE OF [place] CORONARY ARTERY W/O ANG PCTRS Status: Acute Qualifiers: Coronary Disease-Associated Artery/Lesion type: bypass graft [place] vs. transplanted heart: [place] heart Comment: s/p cabgx4, matias to distal lad, rgsv to diag, obt john and distal pda (2) Dyslipidemia Code(s): E78.5 - HYPERLIPIDEMIA, UNSPECIFIED Status: Chronic (3) Obesity (BMI 35.0-39.9 without comorbidity) Code(s): E66.9 - OBESITY, UNSPECIFIED Status: Chronic (4) BPH (benign prostatic hyperplasia) Code(s): N40.0 - BENIGN PROSTATIC HYPERPLASIA WITHOUT LOWER URINRY TRACT SYMP Status: Chronic Qualifiers: Lower urinary tract symptom presence: symptoms absent Qualified Code(s): N40.0 - Benign prostatic hyperplasia without lower urinary tract symptoms (5) Acute systolic CHF (congestive heart failure), NYHA class 3 Code(s): I50.21 - ACUTE SYSTOLIC (CONGESTIVE) HEART FAILURE Status: Acute Comment: Cath ef is 30% (6) DM2 (diabetes mellitus, type 2) Status: Chronic Qualifiers: Diabetes mellitus longterm insulin use: without longterm use Diabetes mellitus complication status: with unspecified complications Qualified Code(s) : E11.8 - Type 2 diabetes mellitus with unspecified complications Comment: post cabg on iv insulin protocol, will switch to sc. HbA1c 7.9 (7) HTN (hypertension) Code(s): I10 - ESSENTIAL (PRIMARY) HYPERTENSION Status: Chronic Qualifiers: Hypertension type: essential hypertension Qualified Code(s): I10 - Essential (primary) hypertension - Plan on lasix 40mg bid, coreg, lipitor -: progressing well post cabg -: to continue cardiac rehab and mobilize more -: asp held due to low platelet count around 90 -: had one dose zaroxolyn for overload * . Review of Systems - Medications/Allergies Allergies/Adverse Reactions: Allergies Allergy/AdvReac Type Severity Reaction Status Date / Time No Known Allergies Allergy Verified 06/23/17 06:53 Medications: Current Medications Acetaminophen (Tylenol) 650 mg PO Q6H PRN PRN Reason: Headache/Fever Or Mild Pain Last Admin: 06/29/17 10:40 Dose: 650 mg Hydrocodone Bitart/Acetaminophen ([place] 5/325) 1 tab PO Q4H PRN PRN Reason: Moderate Pain (4-6) Last Admin: 06/28/17 20:35 Dose: 1 tab Hydrocodone Bitart/Acetaminophen ([place] 5/325) 2 tab PO Q4H PRN PRN Reason: Severe Pain (7-10) Last Admin: 06/29/17 12:39 Dose: 2 tab Acetylcysteine (Mucomyst 20%) 600 mg INH [id number] [facility] Last Admin: 06/29/17 13:28 Dose: 600 mg Al Hydroxide/Mg Hydroxide (Maalox) 30 ml PO Q4H PRN PRN Reason: Indigestion Albuterol/Ipratropium (Duoneb) 3 ml NEB [id number] [facility] Last Admin: 06/29/17 13:26 Dose: 3 ml Atorvastatin Calcium (Lipitor) 40 mg PO HS [facility] Last Admin: 06/28/17 20:38 Dose: 40 mg Bisacodyl (Dulcolax) 10 mg PO Q12H PRN PRN Reason: Constipation Bisacodyl (Dulcolax) 10 mg [place] Q12H PRN PRN Reason: Constipation Carvedilol (Coreg) 3.125 mg PO BID-WM [facility] Last Admin: 06/29/17 16:48 Dose: 3.125 mg Dextrose/Water (Dextrose 50%) 25 gm SLOW IVP PRN PRN PRN Reason: PER HYPOGLYCEMIC PROTOCOL Docusate Sodium (Colace) 100 mg PO BID [facility] Last Admin: 06/29/17 08:39 Dose: 100 mg Famotidine (Pepcid) 20 mg PO BID [facility] Last Admin: 06/29/17 08:40 Dose: 20 mg Furosemide (Lasix) 40 mg PO 0900,1400 [facility] Last Admin: 06/29/17 14:46 Dose: 40 mg Glucagon (Glucagon) 1 mg SC PRN PRN PRN Reason: PER HYPOGLYCEMIC PROTOCOL Guaifenesin/Dextromethorphan (Robitussin Dm) 15 ml PO Q4H PRN PRN Reason: Cough Nitroglycerin/Dextrose (Nitroglycerin 50 Mg/250 Ml Bot) 250 mls @ 0 mls/hr IVPB PRN PRN; Protocol; Titrate PRN Reason: To Maintain SBP< 140mmHG Dextrose/Water (D5w) 1,000 mls @ 0 mls/hr IV INF PRN; As Directed PRN Reason: PRN HYPOGLYCEMIC PROTOCOL Insulin Detemir 10 units/ (Miscellaneous Medication) 0.1 mls @ 0 mls/hr SC BID [facility] Last Admin: 06/29/17 08:41 Dose: 0.1 mls Insulin Human Regular (Humulin R) 0 units [place] Q4H PRN; Protocol PRN Reason: POST OP SLIDING SCALE Last Admin: 06/29/17 17:25 Dose: 6 units Losartan Potassium (Cozaar) 25 mg PO DAILY [facility] Nicotine (Nicoderm Patch) 21 mg TOP Q24HR [facility] Last Admin: 06/29/17 08:47 Dose: 21 mg Ondansetron HCl (Zofran) 4 mg IVP Q6H PRN PRN Reason: Nausea/Vomiting Potassium Chloride (K-Dur) 40 meq PO BID-WM [facility] Last Admin: 06/29/17 16:48 Dose: 40 meq Sodium Chloride (Flush - Normal Saline) 10 ml IVF Q12HR [facility] Last Admin: 06/29/17 08:41 Dose: 10 ml Sodium Chloride (Flush - Normal Saline) 10 ml IVF PRN PRN PRN Reason: Saline Flush Throat Lozenges (Cepastat Lozenges) 1 gavin PO Q6H PRN PRN Reason: SORE THROAT Last Admin: 06/29/17 12:40 Dose: 1 gavin
[2017-06-29] MEDS: Bisacodyl 5 MG TAB PO PRN (20:56)
[2017-06-29] MEDS: Atorvastatin Calcium 40 MG TAB PO SCH (20:56)
[2017-06-30] MEDS: HYDROcodone/Acetaminophen 5/325 mg Tablet PO PRN ×3 (01:34→21:04)
[2017-06-30 05:38] LABS: #Eosinphils 0.4 thou/uL (0.0-0.7); #Lymphocytes 1.7 thou/uL (1.20-3.40); #Neutrophils 4.7 thou/uL (1.40-6.50); %Basophils 0.5 % (0.0-1.0); %Eosinophils 4.7 % (0.0-10.0); %Lymphocytes 21.8 % (21.0-51.0); %Monocytes 13.1 % (0.0-10.0); %Neutrophils 59.8 % (42.0-75.0); Hemoglobin 10.2 g/dL (14.0-18.0); Mean Corpuscular Hemoglobin 30.4 pg (27.0-31.0); Mean Corpuscular Volume 89.4 fl (80.0-94.0); Mean Platelet Volume 9.4 fL (7.4-10.4); Platelet Count 106 thou/uL (130-400); RBC Distribution Width 12.1 % (11.5-14.5); Red Blood Cell (RBC) Count 3.35 mill/uL (4.70-6.10); White Blood Cell (WBC) Count 7.8 thou/uL (4.8-10.8)
[2017-06-30] MEDS: Acetaminophen 325 MG TAB PO PRN (05:56)
[2017-06-30 06:08] LABS: Anion Gap 14 mmol/L (10-20); BUN (Urea Nitrogen) 33 mg/dL (8.4-25.7); Calc. Creatinine Clearance 117 mL/min (70-130); Calcium 8.6 mg/dL (7.8-10.44); Carbon Dioxide 22 mmol/L (22-29); Chloride 98 mmol/L (98-107); Estimated GFR-MDRD 69; Glucose 190 mg/dL (70-105); Magnesium 1.9 mg/dL (1.6-2.6); Potassium 4.2 mmol/L (3.5-5.1); Sodium 130 mmol/L (136-145)
[2017-06-30] MEDS: Acetylcysteine 20% 200 MG/ML 30 ML VIAL INH SCH ×3 (06:57→19:16)
[2017-06-30] MEDS: Carvedilol 3.125 MG TAB PO SCH ×2 (08:52→17:41)
[2017-06-30] MEDS: Famotidine 20 MG TAB PO SCH ×2 (08:53→20:55)
[2017-06-30] MEDS: Aspirin 81 mg Enteric Coated Tablet PO SCH (08:54)
[2017-06-30] MEDS: glipiZIDE 5 MG TAB PO SCH ×2 (08:54→17:46)
[2017-06-30] MEDS: Furosemide 40 MG TAB PO SCH ×2 (08:54→13:09)
[2017-06-30] MEDS: Losartan 25 MG TAB PO SCH (08:54)
[2017-06-30] MEDS: Docusate 100 MG CAP PO SCH ×2 (08:54→20:55)
[2017-06-30] MEDS: Potassium Chloride 20 MEQ TAB PO SCH ×2 (08:54→17:41)
[2017-06-30] MEDS: Insulin Detemir 100 UNITS/ML 10 UNITS SC SCH ×2 (08:55→20:53)
[2017-06-30] MEDS: Nicotine 21 MG PATCH TOP SCH (08:56)
[2017-06-30] MEDS: Insulin Regular 300 UNITS/3 ML VIAL SC PRN ×3 (09:04→17:58)
--- NOTE | 2017-06-30 10:38 | PDOC.PN ---
- Subjective Encounter Start Date: 06/30/17 Encounter Start Time: 09:40 Subjective: has not amb yet per patient -: no sob, tolerating oral diet - Objective Resuscitation Status: Resuscitation Status FULL:Full Resuscitation MAR Reviewed: Yes Vital Signs & Weight: Vital Signs (12 hours) Temp Pulse Resp BP BP Pulse Ox 06/30/17 08:00 98.3 F 78 16 108/74 95 06/30/17 06:57 96 06/30/17 06:55 75 12 06/30/17 05:52 93 L 06/30/17 04:31 88 L 06/30/17 04:00 98.6 F 79 13 101/59 L 95 06/29/17 23:50 96 Weight Weight 252 lb 8 oz Most Recent Monitor Data Heart Rate from ECG 88 NIBP 99/63 NIBP BP-Mean 72 Respiration from ECG 24 SpO2 95 I&O: 06/29/17 06/30/17 07/01/17 06:59 06:59 06:59 Intake Total 1473.9 1740 Output Total 937 1710 Balance 536.9 30 Result Diagrams: 06/30/17 04:49 06/30/17 04:49 Additional Labs: Accuchecks 06/30/17 06/29/17 06/29/17 05:56 20:16 17:11 POC Glucose 215 H 265 H 246 H 06/29/17 06/29/17 11:20 06:01 POC Glucose 269 H 209 H Phys Exam - Physical Examination HEENT: PERRLA, moist MMs Neck: no JVD, supple Respiratory: no wheezing, no rales Cardiovascular: RRR, no significant murmur Gastrointestinal: soft, non-tender, positive bowel sounds Musculoskeletal: no edema, pulses present Neurological: non-focal, moves all 4 limbs Psychiatric: normal affect, A&O x 3 Dx/Plan (1) CAD (coronary artery disease) Code(s): I25.10 - ATHSCL HEART DISEASE OF [place] CORONARY ARTERY W/O ANG PCTRS Status: Acute Qualifiers: Coronary Disease-Associated Artery/Lesion type: bypass graft [place] vs. transplanted heart: [place] heart Comment: s/p cabgx4, matias to distal lad, rgsv to diag, obt john and distal pda (2) Dyslipidemia Code(s): E78.5 - HYPERLIPIDEMIA, UNSPECIFIED Status: Chronic (3) Obesity (BMI 35.0-39.9 without comorbidity) Code(s): E66.9 - OBESITY, UNSPECIFIED Status: Chronic (4) BPH (benign prostatic hyperplasia) Code(s): N40.0 - BENIGN PROSTATIC HYPERPLASIA WITHOUT LOWER URINRY TRACT SYMP Status: Chronic Qualifiers: Lower urinary tract symptom presence: symptoms absent Qualified Code(s): N40.0 - Benign prostatic hyperplasia without lower urinary tract symptoms (5) Acute systolic CHF (congestive heart failure), NYHA class 3 Code(s): I50.21 - ACUTE SYSTOLIC (CONGESTIVE) HEART FAILURE Status: Acute Comment: Cath ef is 30% (6) DM2 (diabetes mellitus, type 2) Status: Chronic Qualifiers: Diabetes mellitus [place] hand insulin use: without quiller hand use Diabetes mellitus complication status: with unspecified complications Qualified Code(s) : E11.8 - Type 2 diabetes mellitus with unspecified complications Comment: post cabg on iv insulin protocol, will switch to sc. HbA1c 7.9 (7) HTN (hypertension) Code(s): I10 - ESSENTIAL (PRIMARY) HYPERTENSION Status: Chronic Qualifiers: Hypertension type: essential hypertension Qualified Code(s): I10 - Essential (primary) hypertension - Plan add glipizide to current levemir -: cardiac rehab to amb as tolerated -: i.spirometry -: add asp with platelet count improving -: continue lipitor, coreg, lasix bid and small dose cozaar * . Review of Systems - Medications/Allergies Allergies/Adverse Reactions: Allergies Allergy/AdvReac Type Severity Reaction Status Date / Time No Known Allergies Allergy Verified 06/23/17 06:53 Medications: Current Medications Acetaminophen (Tylenol) 650 mg PO Q6H PRN PRN Reason: Headache/Fever Or Mild Pain Last Admin: 06/30/17 05:56 Dose: 650 mg Hydrocodone Bitart/Acetaminophen ([place] 5/325) 1 tab PO Q4H PRN PRN Reason: Moderate Pain (4-6) Last Admin: 06/30/17 08:52 Dose: 1 tab Hydrocodone Bitart/Acetaminophen ([place] 5/325) 2 tab PO Q4H PRN PRN Reason: Severe Pain (7-10) Last Admin: 06/30/17 01:34 Dose: 2 tab Acetylcysteine (Mucomyst 20%) 600 mg INH [id number] [facility] Last Admin: 06/30/17 06:57 Dose: 600 mg Al Hydroxide/Mg Hydroxide (Maalox) 30 ml PO Q4H PRN PRN Reason: Indigestion Last Admin: 06/30/17 09:12 Dose: 30 ml Albuterol/Ipratropium (Duoneb) 3 ml NEB [id number] [facility] Last Admin: 06/30/17 06:55 Dose: 3 ml Aspirin (Ecotrin) 81 mg PO DAILY [facility] Last Admin: 06/30/17 08:54 Dose: 81 mg Atorvastatin Calcium (Lipitor) 40 mg PO HS [facility] Last Admin: 06/29/17 20:56 Dose: 40 mg Bisacodyl (Dulcolax) 10 mg PO Q12H PRN PRN Reason: Constipation Last Admin: 06/29/17 20:56 Dose: 10 mg Bisacodyl (Dulcolax) 10 mg [place] Q12H PRN PRN Reason: Constipation Carvedilol (Coreg) 3.125 mg PO BID-WM [facility] Last Admin: 06/30/17 08:52 Dose: 3.125 mg Dextrose/Water (Dextrose 50%) 25 gm SLOW IVP PRN PRN PRN Reason: PER HYPOGLYCEMIC PROTOCOL Docusate Sodium (Colace) 100 mg PO BID [facility] Last Admin: 06/30/17 08:54 Dose: 100 mg Famotidine (Pepcid) 20 mg PO BID [facility] Last Admin: 06/30/17 08:53 Dose: 20 mg Furosemide (Lasix) 40 mg PO 0900,1400 [facility] Last Admin: 06/30/17 08:54 Dose: 40 mg Glipizide (Glucotrol) 5 mg PO BID-AC [facility] Last Admin: 06/30/17 08:54 Dose: 5 mg Glucagon (Glucagon) 1 mg SC PRN PRN PRN Reason: PER HYPOGLYCEMIC PROTOCOL Guaifenesin/Dextromethorphan (Robitussin Dm) 15 ml PO Q4H PRN PRN Reason: Cough Dextrose/Water (D5w) 1,000 mls @ 0 mls/hr IV INF PRN; As Directed PRN Reason: PRN HYPOGLYCEMIC PROTOCOL Insulin Detemir 10 units/ (Miscellaneous Medication) 0.1 mls @ 0 mls/hr SC BID [facility] Last Admin: 06/30/17 08:55 Dose: 0.1 mls Insulin Human Regular (Humulin R) 0 units SC Q4H PRN; Protocol PRN Reason: POST OP SLIDING SCALE Last Admin: 06/30/17 09:04 Dose: 6 units Losartan Potassium (Cozaar) 25 mg PO DAILY [facility] Last Admin: 06/30/17 08:54 Dose: 25 mg Nicotine (Nicoderm Patch) 21 mg TOP Q24HR [facility] Last Admin: 06/30/17 08:56 Dose: 21 mg Ondansetron HCl (Zofran) 4 mg IVP Q6H PRN PRN Reason: Nausea/Vomiting Potassium Chloride (K-Dur) 40 meq PO BID-WM [facility] Last Admin: 06/30/17 08:54 Dose: 40 meq Sodium Chloride (Flush - Normal Saline) 10 ml IVF Q12HR [facility] Last Admin: 06/30/17 08:56 Dose: 10 ml Sodium Chloride (Flush - Normal Saline) 10 ml IVF PRN PRN PRN Reason: Saline Flush Last Admin: 06/29/17 20:57 Dose: 10 ml Throat Lozenges (Cepastat Lozenges) 1 gavin PO Q6H PRN PRN Reason: SORE THROAT Last Admin: 06/29/17 12:40 Dose: 1 gavin
[2017-06-30] MEDS ORDERED: Metolazone 5 MG TAB PO SCH (12:15)
[2017-06-30] MEDS: Bisacodyl 5 MG TAB PO PRN (13:08)
[2017-06-30] MEDS: Atorvastatin Calcium 40 MG TAB PO SCH (20:55)
[2017-07-01] MEDS: Acetylcysteine 20% 200 MG/ML 30 ML VIAL INH SCH ×2 (00:17→08:56)
[2017-07-01] MEDS: HYDROcodone/Acetaminophen 5/325 mg Tablet PO PRN (04:19)
[2017-07-01] MEDS ORDERED: Metolazone 5 MG TAB PO SCH (06:00)
[2017-07-01 06:07] LABS: Anion Gap 8 mmol/L (10-20); BUN (Urea Nitrogen) 37 mg/dL (8.4-25.7); Calc. Creatinine Clearance 130 mL/min (70-130); Calcium 8.6 mg/dL (7.8-10.44); Carbon Dioxide 30 mmol/L (22-29); Chloride 98 mmol/L (98-107); Estimated GFR-MDRD 78; Glucose 134 mg/dL (70-105); Magnesium 2.2 mg/dL (1.6-2.6); Potassium 3.9 mmol/L (3.5-5.1); Sodium 132 mmol/L (136-145)
[2017-07-01 06:31] LABS: Band 2 % (5-11); Eosinophils 3 % (0-10); Hemoglobin 9.5 g/dL (14.0-18.0); Lymphocytes 28 % (21-51); MDiff Complete? YES; Mean Corpuscular HGB CONC 34.7 g/dL (32.0-36.0); Mean Corpuscular Hemoglobin 30.6 pg (27.0-31.0); Mean Corpuscular Volume 88.4 fl (80.0-94.0); Mean Platelet Volume 8.7 fL (7.4-10.4); Monocytes 9 % (0-10); Neutrophil 57 % (42-75); PLT Morphology Comment Appears Decreased; Platelet Count 107 thou/uL (130-400); RBC Distribution Width 11.9 % (11.5-14.5); White Blood Cell (WBC) Count 5.9 thou/uL (4.8-10.8)
[2017-07-01 08:37] VITALS: TEMP 98.8
[2017-07-01] MEDS: Potassium Chloride 20 MEQ TAB PO SCH (10:10)
[2017-07-01] MEDS: Losartan 25 MG TAB PO SCH (10:10)
[2017-07-01] MEDS: glipiZIDE 5 MG TAB PO SCH (10:10)
[2017-07-01] MEDS: Docusate 100 MG CAP PO SCH (10:10)
[2017-07-01] MEDS: Carvedilol 3.125 MG TAB PO SCH (10:10)
[2017-07-01] MEDS: Furosemide 40 MG TAB PO SCH (10:11)
[2017-07-01] MEDS: Insulin Detemir 100 UNITS/ML 10 UNITS SC SCH (10:12)
[2017-07-01] MEDS: Nicotine 21 MG PATCH TOP SCH (10:13)
[2017-07-01] MEDS: Famotidine 20 MG TAB PO SCH (10:15)
--- NOTE | 2017-07-01 11:14 | PDOC.PN ---
- Subjective Encounter Start Date: 07/01/17 Encounter Start Time: 09:30 Subjective: no sob, is amb in hallway per patient -: sitting in sofa, eating better -: is using i.spirometry religiously qhrly - Objective Resuscitation Status: Resuscitation Status FULL:Full Resuscitation MAR Reviewed: Yes Vital Signs & Weight: Vital Signs (12 hours) Temp Pulse Resp BP BP Pulse Ox 07/01/17 08:57 97 07/01/17 08:54 80 12 07/01/17 08:00 98.8 F 77 16 123/78 94 L 07/01/17 01:14 93 L 07/01/17 00:17 79 20 93 L 07/01/17 00:00 97.3 F L 81 20 115/73 92 L Weight Weight 252 lb 8 oz Most Recent Monitor Data Heart Rate from ECG 88 NIBP 99/63 NIBP BP-Mean 72 Respiration from ECG 24 SpO2 95 I&O: 06/30/17 07/01/17 07/02/17 06:59 06:59 06:59 Intake Total 1740 400 Output Total 1710 975 Balance 30 -575 Result Diagrams: 07/01/17 05:03 07/01/17 05:03 Additional Labs: Accuchecks 07/01/17 06/30/17 06/30/17 05:39 20:54 16:51 POC Glucose 166 H 169 H 161 H 06/30/17 11:13 POC Glucose 204 H Phys Exam - Physical Examination HEENT: PERRLA, moist MMs Neck: no JVD, supple Respiratory: no wheezing rales+ Cardiovascular: RRR, no significant murmur Gastrointestinal: soft, non-tender, positive bowel sounds Musculoskeletal: pulses present, edema present Neurological: non-focal, moves all 4 limbs Psychiatric: normal affect, A&O x 3 Dx/Plan (1) CAD (coronary artery disease) Code(s): I25.10 - ATHSCL HEART DISEASE OF [place] CORONARY ARTERY W/O ANG PCTRS Status: Acute Qualifiers: Coronary Disease-Associated Artery/Lesion type: bypass graft [place] vs. transplanted heart: [place] heart Comment: s/p cabgx4, matias to distal lad, rgsv to diag, obt john and distal pda (2) Dyslipidemia Code(s): E78.5 - HYPERLIPIDEMIA, UNSPECIFIED Status: Chronic (3) Obesity (BMI 35.0-39.9 without comorbidity) Code(s): E66.9 - OBESITY, UNSPECIFIED Status: Chronic (4) BPH (benign prostatic hyperplasia) Code(s): N40.0 - BENIGN PROSTATIC HYPERPLASIA WITHOUT LOWER URINRY TRACT SYMP Status: Chronic Qualifiers: Lower urinary tract symptom presence: symptoms absent Qualified Code(s): N40.0 - Benign prostatic hyperplasia without lower urinary tract symptoms (5) Acute systolic CHF (congestive heart failure), NYHA class 3 Code(s): I50.21 - ACUTE SYSTOLIC (CONGESTIVE) HEART FAILURE Status: Acute Comment: Cath ef is 30% (6) DM2 (diabetes mellitus, type 2) Status: Chronic 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 HbA1c 7.9 (7) HTN (hypertension) Code(s): I10 - ESSENTIAL (PRIMARY) HYPERTENSION Status: Chronic Qualifiers: Hypertension type: essential hypertension Qualified Code(s): I10 - Essential (primary) hypertension - Plan diuresing well -: started amb from yesterday with cardiac rehab -: on asp, coreg, lipitor, lasix and cozaar -: glipizide with levemir -: dc plan per CTS advice * . Review of Systems - Medications/Allergies Allergies/Adverse Reactions: Allergies Allergy/AdvReac Type Severity Reaction Status Date / Time No Known Allergies Allergy Verified 06/23/17 06:53 Medications: Current Medications Acetaminophen (Tylenol) 650 mg PO Q6H PRN PRN Reason: Headache/Fever Or Mild Pain Last Admin: 06/30/17 05:56 Dose: 650 mg Hydrocodone Bitart/Acetaminophen ([place] 5/325) 1 tab PO Q4H PRN PRN Reason: Moderate Pain (4-6) Last Admin: 07/01/17 04:19 Dose: 1 tab Hydrocodone Bitart/Acetaminophen ([place] 5/325) 2 tab PO Q4H PRN PRN Reason: Severe Pain (7-10) Last Admin: 06/30/17 01:34 Dose: 2 tab Acetylcysteine (Mucomyst 20%) 600 mg INH [id number] ZEINAB Last Admin: 07/01/17 08:56 Dose: 600 mg Al Hydroxide/Mg Hydroxide (Maalox) 30 ml PO Q4H PRN PRN Reason: Indigestion Last Admin: 06/30/17 09:12 Dose: 30 ml Albuterol/Ipratropium (Duoneb) 3 ml NEB [id number] [facility] Last Admin: 07/01/17 08:54 Dose: 3 ml Aspirin (Ecotrin) 81 mg PO DAILY [facility] Last Admin: 06/30/17 08:54 Dose: 81 mg Atorvastatin Calcium (Lipitor) 40 mg PO HS [facility] Last Admin: 06/30/17 20:55 Dose: 40 mg Bisacodyl (Dulcolax) 10 mg PO Q12H PRN PRN Reason: Constipation Last Admin: 06/30/17 13:08 Dose: 10 mg Bisacodyl (Dulcolax) 10 mg NC Q12H PRN PRN Reason: Constipation Carvedilol (Coreg) 3.125 mg PO BID-WM [facility] Last Admin: 07/01/17 10:10 Dose: 3.125 mg Dextrose/Water (Dextrose 50%) 25 gm SLOW IVP PRN PRN PRN Reason: PER HYPOGLYCEMIC PROTOCOL Docusate Sodium (Colace) 100 mg PO BID [facility] Last Admin: 07/01/17 10:10 Dose: 100 mg Famotidine (Pepcid) 20 mg PO BID [facility] Last Admin: 07/01/17 10:15 Dose: 20 mg Furosemide (Lasix) 40 mg PO 0900,1400 [facility] Last Admin: 07/01/17 10:11 Dose: 40 mg Glipizide (Glucotrol) 5 mg PO BID-AC [facility] Last Admin: 07/01/17 10:10 Dose: 5 mg Glucagon (Glucagon) 1 mg SC PRN PRN PRN Reason: PER HYPOGLYCEMIC PROTOCOL Guaifenesin/Dextromethorphan (Robitussin Dm) 15 ml PO Q4H PRN PRN Reason: Cough Dextrose/Water (D5w) 1,000 mls @ 0 mls/hr IV INF PRN; As Directed PRN Reason: PRN HYPOGLYCEMIC PROTOCOL Insulin Detemir 10 units/ (Miscellaneous Medication) 0.1 mls @ 0 mls/hr SC BID [facility] Last Admin: 07/01/17 10:12 Dose: 0.1 mls Insulin Human Regular (Humulin R) 0 units SC Q4H PRN; Protocol PRN Reason: POST OP SLIDING SCALE Last Admin: 06/30/17 17:58 Dose: 4 units Losartan Potassium (Cozaar) 25 mg PO DAILY [facility] Last Admin: 07/01/17 10:10 Dose: 25 mg Nicotine (Nicoderm Patch) 21 mg TOP Q24HR [facility] Last Admin: 07/01/17 10:13 Dose: 21 mg Ondansetron HCl (Zofran) 4 mg IVP Q6H PRN PRN Reason: Nausea/Vomiting Potassium Chloride (K-Dur) 40 meq PO BID-WM [facility] Last Admin: 07/01/17 10:10 Dose: 40 meq Sodium Chloride (Flush - Normal Saline) 10 ml IVF Q12HR [facility] Last Admin: 07/01/17 10:13 Dose: 10 ml Sodium Chloride (Flush - Normal Saline) 10 ml IVF PRN PRN PRN Reason: Saline Flush Last Admin: 06/29/17 20:57 Dose: 10 ml Throat Lozenges (Cepastat Lozenges) 1 gavin PO Q6H PRN PRN Reason: SORE THROAT Last Admin: 06/29/17 12:40 Dose: 1 gavin
[2017-07-01] MEDS: Insulin Regular 300 UNITS/3 ML VIAL SC PRN (11:48)
[2017-07-01] MEDS: Aspirin 81 mg Enteric Coated Tablet PO SCH (11:49)
[2017-07-01 12:12] VITALS: BP 186/86
--- NOTE | 2017-07-03 06:58 | DIS ---
DATE OF ADMISSION: 06/23/2017 DATE OF DISCHARGE: 07/01/2017 DISCHARGE DISPOSITION: Home. PRIMARY DISCHARGE DIAGNOSES: Coronary artery disease, status post coronary artery bypass graft x4; left internal mammary artery to distal left anterior descending; reverse saphenous vein graft to diagonal obtuse marginal and distal posterior descending artery. SECONDARY DISCHARGE DIAGNOSES: Acute congestive heart failure exacerbation with systolic dysfunction and ejection fraction of around 30%; dyslipidemia; obesity; benign prostatic hypertrophy; diabetes mellitus type 2; and hypertension. PROCEDURES DONE DURING HOSPITALIZATION: Patient has had cardiac catheterization done by Dr. Engel which showed 3 vessel coronary artery disease with ejection fraction of around 30%. An initial echo done revealed EF of 40 to 45%. Left atrium was moderate to severely dilated. The patient has had CABG for 4-vessel disease on 06/27/[address] Post. He has had HARRIS to distal LAD, reverse saphenous vein graft to obtuse marginal, distal PDA , and diagonal. Discharge H and H 9 and 27, platelet count 107,000. Discharge BUN 37, creatinine 0.9. Troponin peaking up to 0.39. Total cholesterol 148, triglycerides 256, HDL 23, LDL 74. BNP of 414 on the day of admission. DISCHARGE MEDICATION: Aspirin 81 mg p.o. daily, Lipitor 40 mg p.o. at bedtime, Coreg 3.125 mg p.o. twice daily, Lasix 40 mg p.o. twice daily, glipizide 10 mg twice daily, [place] p.r.n. for pain, Cozaar 25 mg daily, metformin 1000 mg daily , potassium chloride 20 mEq p.o. twice daily, Flomax 0.4 mg p.o. daily. ALLERGIES: No known drug allergies. DISCHARGE PLAN: Patient is to follow up with Dr. Post as advised. He also needs to follow up with Dr. Engel as advised. BRIEF COURSE DURING HOSPITALIZATION: The patient initially got admitted on the with complaints of shortness of breath. He had indeterminate troponins and elevated BNP as well. The patient was gently diuresed and was taken for cardiac cath. He was found to have had 3-vessel coronary artery disease with ejection fraction of around 30%. The patient has had consultation with Dr. Post for cardiothoracic surgery. He has had 4-vessel CABG done on the . Patient's postop recovery was good. Prior to discharge, he is ambulating and tolerating oral diet well. He still has some volume overload and has been placed on Lasix. 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 The patient is to follow up with Dr. Engel and Dr. Post as advised and primary care physician in 1 week. The patient has been given education about post-CABG physical activities. Please see a [id number] documentation for the day of discharge on [employer] [facility]
== END 2017-07-01 12:46 | disposition home or self-care (01) | DRG 234 ==
LOC: ERS 04:00 → 2NO 04:30 → CCU 06-27 07:53 → 2NO 06-28 17:07
PROVIDERS: ADMIT Internal Medicine; ATTEND Internal Medicine
PROC: 4A023N7 Measurement of Cardiac Sampling and Pressure, Left Heart, Percutaneous Approach (ICD-10-PCS; 2017-06-25)
PROC: B2111ZZ Fluoroscopy of Multiple Coronary Arteries using Low Osmolar Contrast (ICD-10-PCS; 2017-06-25)
PROC: 02100Z9 Bypass Coronary Artery, One Artery from Left Internal Mammary, Open Approach (ICD-10-PCS; principal; 2017-06-27)
PROC: 0212093 Bypass Coronary Artery, Three Arteries from Coronary Artery with Autologous Venous Tissue, Open Approach (ICD-10-PCS; 2017-06-27)
PROC: 06BQ4ZZ Excision of Left Saphenous Vein, Percutaneous Endoscopic Approach (ICD-10-PCS; 2017-06-27)
PROC: 5A1221Z Performance of Cardiac Output, Continuous (ICD-10-PCS; 2017-06-27)
PROC: 05H633Z Insertion of Infusion Device into Left Subclavian Vein, Percutaneous Approach (ICD-10-PCS; 2017-06-27)
DX: I11.0 Hypertensive heart disease with heart failure (principal); I25.10 Atherosclerotic heart disease of native coronary artery without angina pectoris; I50.23 Acute on chronic systolic (congestive) heart failure; E11.9 Type 2 diabetes mellitus without complications; E87.6 Hypokalemia; I25.5 Ischemic cardiomyopathy; I34.0 Nonrheumatic mitral (valve) insufficiency; E78.2 Mixed hyperlipidemia; E66.9 Obesity, unspecified; Z85.46 Personal history of malignant neoplasm of prostate; N40.0 Benign prostatic hyperplasia without lower urinary tract symptoms; I25.2 Old myocardial infarction; Z90.49 Acquired absence of other specified parts of digestive tract; F17.210 Nicotine dependence, cigarettes, uncomplicated; Z79.84 Long term (current) use of oral hypoglycemic drugs; Z79.899 Other long term (current) drug therapy
CPT/HCPCS: 36415; 36416; 36430; 71045; 71046; 76942; 80048; 80061; 82805; 83036; 83735; 84443; 85025; 85610; 85730; 86850; 86900; 86901; 93005; 93010; 93306; 93458; 93798; 94002; 94150; 94640; 94760; 99152; A4216; A4218; C1769; J1642; J1644; J1650; J1815; J1885; J1940; J2001; J2250; J2260; J2440; J2704; J2720; J3010; J3475; J3480; J7050; J7608; J7620; P9045; S0017

== ENCOUNTER 2017-08-29 23:34 | Inpatient (IN) | payer BC, SELFPAY ==
[2017-08-30] MEDS ORDERED: Ondansetron ODT 4 MG TAB SL PRN (02:12)
[2017-08-30] MEDS ORDERED: Acetaminophen 325 MG TAB PO PRN ×2 (02:12→03:17)
[2017-08-30] MEDS ORDERED: Ondansetron HCl/PF 4 MG/2 ML Vial IVP PRN ×2 (02:12→03:17)
[2017-08-30 02:38] VITALS: BMI 39.4
[2017-08-30] MEDS ORDERED: Nitroglycerin 0.4 MG TAB (25 Tab Bottle) SL PRN (03:17)
[2017-08-30] MEDS ORDERED: Calcium Carbonate 500 MG ChewTAB PO PRN (03:17)
[2017-08-30] MEDS ORDERED: Benzonatate 100 MG CAP PO PRN (03:17)
[2017-08-30] MEDS ORDERED: Bisacodyl 5 MG TAB PO PRN ×2 (03:17)
[2017-08-30] MEDS ORDERED: hydrALAZINE 20 MG/ML VIAL SLOW IVP PRN (03:17)
[2017-08-30] MEDS ORDERED: Mag-Al 1200 mg/1200 mg/30 ML UDCUP PO PRN (03:17)
[2017-08-30] MEDS ORDERED: Senokot 8.6 MG TAB PO PRN ×2 (03:17)
[2017-08-30] MEDS ORDERED: cloNIDine 0.1 MG TAB PO PRN (03:17)
[2017-08-30] MEDS ORDERED: Loratadine 10 MG TAB PO PRN (03:17)
[2017-08-30] MEDS ORDERED: traMADol HCl 50 MG TAB PO PRN (03:17)
[2017-08-30] MEDS ORDERED: Dextrose 5% in Water 1,000 ML IV PRN (03:24)
[2017-08-30] MEDS ORDERED: Dextrose 50% Abboject 50 ML SYRINGE SLOW IVP PRN (03:24)
[2017-08-30 03:48] LABS: #Eosinphils 0.2 thou/uL (0.0-0.7); #Lymphocytes 1.5 thou/uL (1.20-3.40); #Monocytes 0.5 thou/uL (0.11-0.59); #Neutrophils 3.7 thou/uL (1.40-6.50); %Basophils 0.2 % (0.0-1.0); %Lymphocytes 25.3 % (21.0-51.0); %Monocytes 8.4 % (0.0-10.0); %Neutrophils 63.1 % (42.0-75.0); Hemoglobin 12.8 g/dL (14.0-18.0); Mean Corpuscular HGB CONC 32.7 g/dL (32.0-36.0); Mean Corpuscular Hemoglobin 28.8 pg (27.0-31.0); Mean Corpuscular Volume 88.1 fL (78.0-98.0); Mean Platelet Volume 8.4 fL (7.4-10.4); Platelet Count 139 thou/uL (130-400); RBC Distribution Width 12.6 % (11.5-14.5); Red Blood Cell (RBC) Count 4.44 mill/uL (4.70-6.10); White Blood Cell (WBC) Count 5.9 thou/uL (4.8-10.8)
[2017-08-30 03:56] LABS: Anion Gap 13 mmol/L (10-20); BUN (Urea Nitrogen) 15 mg/dL (8.4-25.7); Calc. Creatinine Clearance 112 mL/min (70-130); Calcium 9.3 mg/dL (7.8-10.44); Carbon Dioxide 28 mmol/L (22-29); Chloride 103 mmol/L (98-107); Estimated GFR-MDRD 66; Glucose 233 mg/dL (70-105); Sodium 140 mmol/L (136-145)
[2017-08-30 04:02] LABS: Troponin I 0.024 ng/mL (< 0.028)
[2017-08-30] MEDS: Furosemide 40 MG/4 ML VIAL SLOW IVP SCH ×2 (05:40→14:01)
[2017-08-30] MEDS: Aspirin 81 mg Enteric Coated Tablet PO SCH (08:05)
[2017-08-30] MEDS: Potassium Chloride 20 MEQ TAB PO SCH ×2 (08:05→17:02)
[2017-08-30] MEDS: glipiZIDE 10 MG TAB PO SCH ×2 (08:05→17:02)
[2017-08-30] MEDS: Famotidine 20 MG TAB PO SCH ×2 (08:06→20:35)
[2017-08-30] MEDS: Enoxaparin Sodium 40 MG/0.4 ML SYRINGE SC SCH (08:06)
[2017-08-30] MEDS: Lisinopril 20 MG TAB PO SCH (08:06)
[2017-08-30] MEDS: Tamsulosin HCl 0.4 MG CAP PO SCH (08:07)
--- NOTE | 2017-08-30 08:18 | HP ---
PRIMARY CARE PHYSICIAN: Dr. Pepito Paul CHIEF COMPLAINT: Worsening shortness of breath. HISTORY OF PRESENT ILLNESS: Mr. Mccray is a pleasant 62-year-old male with known history of coronary artery disease, status post coronary artery bypass graft 2 months ago as well as congestive heart f ailure, known last EF of 30%, dyslipidemia, diabetes and hypertension, who presented to the ER with t he above-mentioned complaint. History is mainly obtained by the patient himself and electronic medic al records have been reviewed. He underwent a coronary artery bypass graft on 06/27/2017 and at that time was also treated for acute congestive heart failure with EF of 20-30%. He was discharged on as pirin, Coreg, Lasix, Cozaar, among other medications. The patient reports compliance with his medica tions. He has been feeling worsening shortness of breath for the last 7 days. He has noticed that whenever he lies flat it is difficult for him to breathe and whenever he sits up is easier. He also has some symptoms of indigestion-like feeling. He denies any significant chest pain. He denies any recent il lnesses. He does have some cough since last night. He presented initially to [facility] and his blood pressure was 192/117 with a pulse of 10 3. It is unclear what his presenting oxygen saturation was, but he was shortly put on BiPAP and was transferred to our facility for further evaluation. He was found to have pulmonary congestion on the chest x-ray and sinus tachycardia on the 12-lead EKG. 80 mg of Lasix was given in the [facility] as well as a nitroglycerin drip for his hypertensive urgency. Upon presentation to our emergency room he has been weaned off of the nitroglycerin drip, but has bee n maintained on BiPAP. He is now being admitted to [facility] for acute congestive heart failure exacerbat ion. His echocardiogram done prior to coronary artery bypass graft on 06/23/2017 showed EF of 40-45% . PAST MEDICAL HISTORY: 1. Coronary artery disease status post CABG 06/27/2017. 2. Diabetes mellitus. 3. Hypertension. 4. Dyslipidemia. 5. Obesity. 6. Benign prostatic hypertrophy. 7. Congestive heart failure, systolic in nature. PAST SURGICAL HISTORY: 1. Coronary artery bypass graft x3 vessels. 2. Cholecystectomy. FAMILY HISTORY: Mother is alive and has diabetes. His father of congestive heart failure and a lso had cirrhosis of the liver and COPD. SOCIAL HISTORY: He is and history of smoking a pack and half per day, but he quit smoking si nce his bypass surgery. CODE STATUS: FULL CODE, discussed with the patient. ALLERGIES: No known medication allergies. CURRENT MEDICATIONS: Metoprolol succinate 50 mg p.o. b.i.d., aspirin 81 mg daily, Lipitor, potassium chloride 20 mEq p.o. b.i.d., metformin 1000 mg daily, tamsulosin 0.4 mg daily, glipizide 10 mg p.o. b.i.d., Zestril 20 mg daily, Lasix 40 mg p.o. b.i.d. REVIEW OF SYSTEMS: The following complete review of systems was negative, unless otherwise mentioned in the HPI or below: Constitutional: Weight loss or gain, ability to conduct usual activities. Skin: Rash, itching. Eyes: Double vision, pain. ENT/Mouth: Nose bleeding, neck stiffness, pain, tenderness. Cardiovascular: Palpitations, dyspnea on exertion, orthopnea. Respiratory: Shortness of breath, wheezing, cough, hemoptysis, fever or night sweats. Gastrointestinal: Poor appetite, abdominal pain, heartburn, nausea, vomiting, constipation or diarrh ea. Genitourinary: Urgency, frequency, dysuria, nocturia. Musculoskeletal: Pain, swelling. Neurologic/Psychiatric: Anxiety, depression. Allergy/Immunologic: Skin rash, bleeding tendency. LABORATORY DATA: His CBC is unremarkable. Serum chemistries done over at [facility] reve al creatinine of 1.52 with repeat creatinine of 1.13. His troponin done at [facility] was 0.021 with a repeat troponin of 0.024. His BNP is elevated at 623. His chest x-ray by my review sh ows [id number] pulmonary vascular congestion. Twelve-lead EKG by my review shows sinus tachyca rdia at 107 beats per minute without any acute ST or T-wave changes. PHYSICAL EXAMINATION: VITAL SIGNS: Most recent vital signs, temperature 97.7, pulse of 69, respirations 24, saturating 100 % on BiPAP, blood pressure 146/87. GENERAL: No acute distress, awake, alert, oriented x3. HEENT: BiPAP mask is on, so exam is limited. Head is normocephalic, atraumatic. Pupils equal, reac tive to light and accommodation. Mucous membrane is moist. NECK: Supple without any lymphadenopathy, JVD, or bruit. CHEST: Evaluation still shows bibasilar crackles extending upwards. No wheezing or rhonchi. CARDIOVASCULAR: Rate and rhythm is regular without any murmur, rubs, or gallops. ABDOMEN: Obese, soft, nontender, nondistended. No epigastric tenderness. EXTREMITIES: Show pitting edema bilaterally +2. SKIN: Free of any rashes or bruises. I feel warm and dry to touch. PSYCHIATRIC: Normal affect. NEUROLOGIC: Nonfocal. IMPRESSION AND PLAN: 1. Acute hypoxic respiratory failure secondary to congestive heart failure. At this time, he will b e diuresed extensively and aggressively. He is 2 months post- coronary artery bypass graft. We will continue him on BiPAP as necessary, but he is feeling much better. We will try to wean him off the BiPAP and put him on nasal cannula as tolerated to keep oxygen saturation above 94%. 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 Strict I's and O's and fluid restriction will be provided. 2. Uncontrolled hypertension. The patient has been weaned off the nitroglycerin drip and his blood pressure is under better control. We will resume his home medication and monitor closely. Start him on p.r.n. antihypertensives as well. 3. Coronary artery disease, status post coronary artery bypass graft. Resume home medications inclu ding metoprolol, lisinopril, and aspirin. It is unclear if the patient is taking a statin or not. 4. Diabetes mellitus. Hold metformin to avoid any renal injury, as the patient is also on diuretics . We will start him on insulin sliding scale and monitor Accu-Cheks a.c. and at bedtime. Continue G lucotrol for now. 5. History of benign prostatic hypertrophy. Resume his Flomax. 6. Code status: FULL CODE. Discussed with the patient in detail. 7. Deep venous thrombosis and gastrointestinal prophylaxis. DISPOSITION: Mr. Mccray is currently being admitted to [facility] for acute hypoxic respiratory failure se condary to acute congestive heart failure. Estimated length of stay is at least 2-3 midnight. Furth er management will depend upon his clinical course.
[2017-08-30] MEDS ORDERED: Aspirin 325 mg Enteric Coated Tablet PO SCH (09:00)
[2017-08-30] MEDS ORDERED: Metolazone 5 MG TAB PO SCH (09:30)
[2017-08-30] MEDS ORDERED: Spironolactone 25 MG TAB PO SCH ×2 (09:45)
--- NOTE | 2017-08-30 11:24 | PDOC.PN ---
- Subjective Encounter Start Date: 08/30/17 Encounter Start Time: 11:00 Subjective: sob better, no chest pain -: was recovering and amb well post cabg until about 4 days back -: no palp, has not started smoking, says he is complaint with diet/meds - Objective Resuscitation Status: Resuscitation Status FULL:Full Resuscitation MAR Reviewed: Yes Vital Signs & Weight: Vital Signs (12 hours) Temp Pulse Resp BP BP Pulse Ox 08/30/17 11:15 97.5 F L 69 16 124/68 98 08/30/17 08:06 157/98 H 08/30/17 08:00 97.8 F 76 20 98 08/30/17 07:42 97.8 F 76 20 157/98 H 98 08/30/17 04:00 97.2 F L 69 18 153/95 H 99 08/30/17 02:10 97.2 F L 69 18 100 08/30/17 02:07 97.7 F 69 24 H 146/87 H 100 Weight Weight 250 lb I&O: 08/29/17 08/30/17 08/31/17 06:59 06:59 06:59 Intake Total 615 360 Output Total 975 Balance -360 360 Result Diagrams: 08/30/17 03:30 08/30/17 03:30 Additional Labs: Accuchecks 08/30/17 10:45 POC Glucose 195 H Phys Exam - Physical Examination HEENT: PERRLA, moist MMs Neck: no JVD, supple Respiratory: no wheezing basal rales+ Cardiovascular: RRR, no significant murmur Gastrointestinal: soft, non-tender, positive bowel sounds Musculoskeletal: pulses present, edema present Neurological: non-focal, moves all 4 limbs Psychiatric: normal affect, A&O x 3 Dx/Plan (1) Acute respiratory failure with hypoxia Code(s): J96.01 - ACUTE RESPIRATORY FAILURE WITH HYPOXIA Status: Resolved (2) Acute systolic CHF (congestive heart failure), NYHA class 3 Code(s): I50.21 - ACUTE SYSTOLIC (CONGESTIVE) HEART FAILURE Status: Acute Comment: pre cabg ef of 30% (3) CAD (coronary artery disease) Code(s): I25.10 - ATHSCL HEART DISEASE OF [place] CORONARY ARTERY W/O ANG PCTRS Status: Chronic Qualifiers: Coronary Disease-Associated Artery/Lesion type: bypass graft [place] vs. 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 Review of Systems - Medications/Allergies Allergies/Adverse Reactions: Allergies Allergy/AdvReac Type Severity Reaction Status Date / Time No Known Allergies Allergy Verified 06/23/17 06:53 Medications: Current Medications Acetaminophen (Tylenol) 650 mg PO Q4H PRN PRN Reason: Headache/Fever or Pain Al Hydroxide/Mg Hydroxide (Maalox) 30 ml PO Q6H PRN PRN Reason: Heartburn or Indigestion Aspirin (Ecotrin) 81 mg PO DAILY [facility] Last Admin: 08/30/17 08:05 Dose: 81 mg Benzonatate (Tessalon) 100 mg PO Q4H PRN PRN Reason: Cough Bisacodyl (Dulcolax) 10 mg PO DAILYPRN PRN PRN Reason: Constipation Calcium Carbonate (Tums) 1,000 mg PO Q4H PRN PRN Reason: Heartburn or Indigestion Carvedilol (Coreg) 12.5 mg PO BID-[facility] Clonidine (Catapres) 0.1 mg PO Q4H PRN PRN Reason: Systolic BP > 160 Dextrose/Water (Dextrose 50%) 25 gm SLOW IVP PRN PRN PRN Reason: Hypoglycemia Enoxaparin Sodium (Lovenox) 40 mg SC 0900 [facility] Last Admin: 08/30/17 08:06 Dose: 40 mg Famotidine (Pepcid) 20 mg PO BID [facility] Last Admin: 08/30/17 08:06 Dose: 20 mg Furosemide (Lasix) 40 mg SLOW IVP 0600,1400 [facility] Last Admin: 08/30/17 05:40 Dose: 40 mg Furosemide (Lasix) 40 mg SLOW IVP ONE [facility] Stop: 08/30/17 21:00 Glipizide (Glucotrol) 10 mg PO BID-AC [facility] Last Admin: 08/30/17 08:05 Dose: 10 mg Glucagon (Glucagon) 1 mg IM PRN PRN PRN Reason: Hypoglycemia Hydralazine HCl (Apresoline) 10 mg SLOW IVP Q4H PRN PRN Reason: Systolic BP > 170 Dextrose/Water (D5w) 1,000 mls @ 0 mls/hr IV .Q0M PRN; As Directed PRN Reason: Hypoglycemia Insulin Human Lispro (Humalog) 0 units SC .MODERATE SLIDING SC PRN PRN Reason: Moderate [place] Scale Insulin Human Lispro (Humalog) 0 units SC .BEDTIME SLIDING SC PRN PRN Reason: Bedtime [place] Lisinopril (Zestril) 20 mg PO DAILY [facility] Last Admin: 08/30/17 08:06 Dose: 20 mg Loratadine (Claritin) 10 mg PO DAILYPRN PRN PRN Reason: Sinus Symptoms Nitroglycerin (Nitrostat) 0.4 mg SL Q5MIN PRN PRN Reason: Chest Pain Ondansetron HCl (Zofran Odt) 4 mg SL Q6H PRN PRN Reason: Nausea/Vomiting Stop: 08/30/17 12:23 Ondansetron HCl (Zofran) 4 mg IVP Q6H PRN PRN Reason: Nausea/Vomiting Potassium Chloride (K-Dur) 20 meq PO BID-[facility] Last Admin: 08/30/17 08:05 Dose: 20 meq Potassium Chloride (K-Dur) 40 meq PO ONE [facility] Stop: 08/30/17 13:00 Senna (Senokot) 2 tab PO HSPRN PRN PRN Reason: Constipation Sodium Chloride (Flush - Normal Saline) 10 ml IVF Q12HR [facility] Last Admin: 08/30/17 08:07 Dose: 10 ml Sodium Chloride (Flush - Normal Saline) 10 ml IVF PRN PRN PRN Reason: Saline Flush Spironolactone (Aldactone) 25 mg PO QAM-WM ZEINAB Tamsulosin HCl (Flomax) 0.4 mg PO DAILY [facility] Last Admin: 08/30/17 08:07 Dose: 0.4 mg Tramadol HCl (Ultram) 50 mg PO Q4H PRN PRN Reason: Moderate Pain (4-6)
--- NOTE | 2017-08-30 11:49 | CON ---
DATE OF CONSULTATION: 08/30/2017 REASON FOR CONSULTATION: Congestive heart failure, systolic, acute on chronic. HISTORY OF PRESENT ILLNESS: Mr. Mccray is a very pleasant 62-year-old gentleman. He initially prese nted and was found to have severe 3-vessel coronary disease and depressed left ventricular function. In 04/2017, the patient underwent successful bypass surgery. He did have quite diffuse atherosclero sis. Ejection fraction was noted to be diminished. Ejection fraction was 30% preoperatively. The p atient had 100% occluded mid LAD, diagonal lesion, mid circumflex lesion, and occluded right coronary base apex is akinetic. Followup echocardiogram showed ejection fraction improved to 40% to 45%. He has had problem with recurrent heart failure as an outpatient. To the increasing amounts of shortne ss of breath, abdominal distention, and lower extremity swelling, finally, came to the emergency room with difficulty breathing. He responded to intravenous diuretics and is feeling better now, but sti ll has a lot of edema. MEDICATIONS: The patient was taking furosemide 80 mg twice a day, carvedilol 3.125 mg twice a day, p otassium, tamsulosin, metolazone if needed, but he had taken a recent dose metformin, atorvastatin 40 mg a day. ALLERGIES: None known. SOCIAL HISTORY: No alcohol or tobacco. REVIEW OF SYSTEMS: CONSTITUTIONAL: Positive for weight gain. Vision: No changes. Hearing: No changes. PULMONARY: Positive for shortness of breath. CARDIAC: Positive for shortness of breath and swelling of the lower extremities and abdomen. GASTROINTESTINAL: No nausea, vomiting, diarrhea. SKIN: No rashes. NEUROLOGIC: No unilateral weakness or numbness. PSYCHIATRIC: No unusual depression or anxiety. HEMATOLOGIC: No unusual bruising. GENITOURINARY: No burning with urination. LOWER EXTREMITIES: Very edematous. PHYSICAL EXAMINATION: GENERAL: Pleasant 62-year-old gentleman resting comfortably. VITAL SIGNS: His blood pressure is 157/98, pulse 76, regular. EYES: Sclerae nonicteric. Mouth mucous membranes moist. NECK: Supple, no lymphadenopathy. LUNGS: Clear, no wheezing, rales or rhonchi. CARDIOVASCULAR: Normal S1, normal S2. There is no murmur, rub, or gallop. ABDOMEN: Distended. No hepatosplenomegaly. Obese. It is likely has ascites. EXTREMITIES: Severe peripheral edema. PERTINENT LABORATORY AND X-RAY FINDINGS: His potassium is 4.0, creatinine 1.13. BNP 627. ASSESSMENT: 1. Congestive heart failure, systolic, acute on chronic. 2. Coronary artery disease, previous bypass surgery. PLAN: 1. Echocardiogram has been done. 2. Increase diuretics. 3. We will add metolazone just 1 dose. 4. Add spironolactone. 5. Additional potassium. 6. Needs to elevate his feet to try to mobilize the edema. 7. When he goes home, I would like to change him from furosemide to torsemide 40 mg twice a day and add spironolactone. 8. He is an outpatient could consider changing from LIEN inhibitor to Entresto but if it is, then we need to not give him any LIEN inhibitors for at least 36 hours prior to starting Entresto preferably 4 8 hours. Cannot use LIEN inhibitors with Entresto. 9. We will reevaluate left ventricular function.
[2017-08-30] MEDS: HumaLOG 300 UNITS/3 ML VIAL SC PRN ×2 (11:52→20:39)
[2017-08-30] MEDS ORDERED: Potassium Chloride 20 MEQ TAB PO SCH (12:00)
[2017-08-30] MEDS: Carvedilol 6.25 MG TAB PO SCH (17:03)
--- NOTE | 2017-08-30 19:35 | CON ---
DATE OF CONSULTATION: 08/30/2017 SERVICE: Pulmonary Medicine. REASON FOR CONSULTATION: [facility] patient. HISTORY OF PRESENT ILLNESS: The patient is a 62-year-old white male with past medical history significant for 3-week increasing history of dyspnea on exertion and orthopnea. He also had increasing abdominal girth. He presented to the hospital acutely dyspneic. He was discovered to be floridly volume overloaded. He got multiple rounds of Lasix overnight. His belly swelling went down. His lower extremity swelling went down. He make copious amounts of urine. He then ate lunch and he is concerned that his abdominal swelling is back on. That being said, he is not having any dyspnea associated with that this time around. Otherwise, there has been no change to his condition. He denies any fevers or chills. He was coughing and bringing up a little bit of frothy sputum, but did not have anything of color to it. PAST MEDICAL HISTORY: 1. Coronary artery disease. 2. Type 2 diabetes mellitus. 3. Hypertension. 4. Dyslipidemia. 5. Morbid obesity. 6. Chronic systolic heart failure. 7. Benign prostatic hypertrophy. PAST SURGICAL HISTORY: 1. Coronary artery bypass graft x3 vessels. 2. Cholecystectomy. FAMILY HISTORY: Noncontributory. SOCIAL HISTORY: Negative for alcohol, tobacco or illicit drug use. He has a greater than [id number] history of smoking, but quit in 06/2017. He has no exposure to chemicals, asbestos or tuberculosis. REVIEW OF SYSTEMS: General, head, ears, eyes, nose, throat, cardiovascular, respiratory, GI, , musculoskeletal, neurologic and skin is negative expect as mentioned in the HPI. ALLERGIES: No known drug allergies. MEDICATIONS: List of his inpatient medications were reviewed. No specific updates were made at this time. PHYSICAL EXAM: Vitals: Afebrile, P 58, RR 18, BP 136/82, Sat 93% on RA Gen: AOx3, NAD HEENT: NC/AT, sclera white, conjunctavae pink, Oral/Nasal mucosa moist and without lesions. Lungs: CTAB. No w/r/r Heart: RRR Abd: soft, nt/nd, bs+ MS: no c/c/e : no Luis Neuro: grossly non-focal. LABORATORY DATA: WBC 5.9, hemoglobin 12.8, platelets 139,000. Differential is completely normal. Creatinine 1.13, which is slightly above baseline. Basic metabolic profile and troponin are otherwise unremarkable. IMAGIN. Echocardiogram demonstrates ejection fraction of 30%-35%. Left atrium is moderately dilated. Structurally normal aortic valve with no significant stenosis or regurgitation. 2. Chest x-ray: left lower lobe effusion with pulmonary edema and interstitial fullness. ASSESSMENT: 1. Acute hypoxic respiratory failure, resolved. 2. Acute on chronic systolic heart failure. 3. Type 2 diabetes mellitus. 4. Coronary artery disease. 5. Obstructive sleep apnea, suspected. DISCUSSION AND PLAN: We will continue to gently diurese the patient until he returns to euvolemia. At this point, his acute hypoxic respiratory failure has resolved. He absolutely does not like using BiPAP. He preferred to go to the floor without continued use. From a purely respiratory perspective, he is stable for transition to the floor. We talked about sleep apnea. His screen positive for this. That being said, he does not want to pursue noninvasive ventilation in the outpatient therapy citing the BiPAP so extraordinarily uncomfortable that he would never wear this thing anyway. I will continue to follow if he remains in this location. 70 minutes have been devoted to this patient in various activities. I personally reviewed all imaging studies and laboratory data noted within this document. For fifty percent of this time, I was interacting with the patient at the bedside or coordinating care with the care team. For the remainder of the time I was immediately available to the patient in the hospital unit. DILLAN
[2017-08-30] MEDS ORDERED: Furosemide 40 MG/4 ML VIAL SLOW IVP SCH (20:00)
[2017-08-31] MEDS: Furosemide 40 MG/4 ML VIAL SLOW IVP SCH (06:36)
[2017-08-31] MEDS: Potassium Chloride 20 MEQ TAB PO SCH ×2 (07:53→17:03)
[2017-08-31] MEDS: Carvedilol 6.25 MG TAB PO SCH ×2 (07:53→17:00)
[2017-08-31] MEDS: Famotidine 20 MG TAB PO SCH ×2 (07:54→21:14)
[2017-08-31] MEDS: Tamsulosin HCl 0.4 MG CAP PO SCH (07:54)
[2017-08-31] MEDS: Aspirin 81 mg Enteric Coated Tablet PO SCH (07:54)
[2017-08-31] MEDS: Spironolactone 25 MG TAB PO SCH (07:54)
[2017-08-31] MEDS: Lisinopril 20 MG TAB PO SCH (07:55)
[2017-08-31] MEDS: Enoxaparin Sodium 40 MG/0.4 ML SYRINGE SC SCH (07:55)
[2017-08-31] MEDS: glipiZIDE 10 MG TAB PO SCH ×2 (07:56→17:00)
--- NOTE | 2017-08-31 10:29 | PRG ---
DATE OF SERVICE: 08/31/2017 SERVICE: Pulmonary Medicine INTERVAL HISTORY: The patient is doing fine from a respiratory standpoint. He remains on room air. He did not use BiPAP last night. Otherwise, his breathing is much improved. His abdominal distention that he was complaining about yesterday has essentially resolved. He is approaching euvolemia quickly. PHYSICAL EXAMINATION: VITAL SIGNS: Afebrile, pulse 69, blood pressure 134/79, respirations 20, saturation 94% on room air. GENERAL: The patient is awake, alert, no apparent distress. LUNGS: Excellent air entry bilaterally. Dependent crackles are minimal. The right base has slightly reduced air entry. HEART: Normal rate, regular. ABDOMEN: Soft, nontender, nondistended. Bowel sounds are positive. MUSCULOSKELETAL: No cyanosis or clubbing. No pitting in the bilateral lower extremities. NEUROLOGIC: Grossly nonfocal. ASSESSMENT: 1. Acute hypoxic respiratory failure, resolved. 2. Acute on chronic systolic heart failure. 3. Type 2 diabetes mellitus. 4. Coronary artery disease. 5. Obstructive sleep apnea, suspected. DISCUSSION AND PLAN: The patient has responded nicely to Lasix. He is approaching euvolemia. I will decrease his Lasix interval to once daily. I will repeat a chest x-ray tomorrow morning. If the effusion is getting bigger, thoracentesis could be considered. If the effusion is still present, but getting smaller, he will need to follow up with me in the outpatient setting in 6 weeks for a repeat chest x-ray. We discussed the risks of untreated sleep apnea including increased stress on the heart and brain which may lead to dementia or sudden cardiac if it is severe. That being said, the patient is not interested in pursuing an out patient polysomnogram. Pulmonary will continue to follow. DILLAN
[2017-08-31] MEDS: HumaLOG 300 UNITS/3 ML VIAL SC PRN ×2 (11:29→21:15)
--- NOTE | 2017-08-31 13:27 | PDOC.CTH ---
Cardiology Progress Note - Subjective He is breathing back to baseline per his report. He wants to leave the hospital as soon as possible. - Objective Vital Signs Temp Pulse Resp BP BP BP Pulse Ox 08/31/17 11:22 98.0 F 59 L 13 120/66 100 08/31/17 08:07 97.7 F 69 20 94 L 08/31/17 07:55 134/79 08/31/17 07:53 134/79 08/31/17 07:40 97.7 F 69 20 134/79 100 08/31/17 04:16 97.4 F L 61 13 117/53 L 100 Weight 242 lb 11.663 oz 08/30/17 08/31/17 09/01/17 06:59 06:59 06:59 Intake Total 615 892 Output Total 998 9238 650 Balance -214 -4420 -851 - Physical Examination General/Neuro: alert & oriented x3, NAD Neck: no JVD present Lungs: unlabored respirations, other: (Dull left base, no bretah sounds. ) Heart: RRR Abdomen: NT/ND Extremities: + edema B (1+) - Telemetry Telemetry Rhythm: NSR - Labs Result Diagrams: 08/30/17 03:30 08/30/17 03:30 Troponin/CKMB Troponin I 0.024 ng/mL (< 0.028) 08/30/17 03:30 - Assessment/Plan 1. Acute on chronic systolic heart failure 2. Non compliance. 3. Ischemic CM 4. s/P CABG 5. Left pleural effusion followed by Frankie Roberto. PLAN: - He is in a hurry to get out of the hospital - He is on PO lasix. If he remains euvolemic until this afternoon hemay go home later today or tomorrow from the cardiac perspective. - He still has his left pleural effusion he is dealing with and may need to stay a few more days for this to be treated unless conservative measures are chosen. - If discharged he will follow up with Dr. Engel in 2-4 weeks. - Would increase his home lasix to 80 mg in AM and 40 mg PM for next 5 days then back to regular 40 mg BID. - Dr. Mendes to follow tomorrow.
--- NOTE | 2017-08-31 17:02 | PDOC.PN ---
- Subjective Encounter Start Date: 08/31/17 Encounter Start Time: 16:00 Subjective: f/u dyspnea and CHF with diuresis with IV Lasix. Approx 10lb weight -: loss currently. Feels better overall. Ambulating without difficulty. - Objective Resuscitation Status: Resuscitation Status FULL:Full Resuscitation MAR Reviewed: Yes Vital Signs & Weight: Vital Signs (12 hours) Temp Pulse Resp BP BP Pulse Ox 08/31/17 16:17 60 16 120/69 100 08/31/17 11:22 98.0 F 59 L 13 120/66 100 08/31/17 08:07 97.7 F 69 20 94 L 08/31/17 07:55 134/79 08/31/17 07:53 134/79 08/31/17 07:40 97.7 F 69 20 134/79 100 Weight Weight 242 lb 11.663 oz I&O: 08/30/17 08/31/17 09/01/17 06:59 06:59 06:59 Intake Total 615 892 Output Total 971 6998 1256 Balance -360 -1833 -1250 Result Diagrams: 08/30/17 03:30 08/30/17 03:30 Additional Labs: Accuchecks 08/31/17 08/30/17 10:27 20:21 POC Glucose 202 H 206 H Radiology Reviewed by me: Yes (2D echo - EF 30%, mod LAE) EKG Reviewed by me: Yes (Tele - SR in 60's) Phys Exam - Physical Examination Constitutional: NAD HEENT: PERRLA, sclera anicteric, oral pharynx no lesions Neck: no nodes, no JVD, supple, full ROM diminished in bases Respiratory: no wheezing, clear to auscultation bilateral S1, S2 Cardiovascular: RRR, no significant murmur, no rub, gallop Gastrointestinal: soft, non-tender, positive bowel sounds mild LE edema Musculoskeletal: pulses present, edema present Neurological: non-focal, normal sensation, moves all 4 limbs Psychiatric: normal affect, A&O x 3 Skin: no rash, normal turgor, cap refill <2 seconds Dx/Plan (1) Acute systolic CHF (congestive heart failure), NYHA class 3 Code(s): I50.21 - ACUTE SYSTOLIC (CONGESTIVE) HEART FAILURE Status: Acute Comment: pre cabg ef of 30%, continue Lasix 40mg IV daily, monitor I/O's, daily weight (2) Acute respiratory failure with hypoxia Code(s): J96.01 - ACUTE RESPIRATORY FAILURE WITH HYPOXIA Status: Acute Comment: Improved with diuresis, O2 prn (3) CAD (coronary artery disease) Code(s): I25.10 - ATHSCL HEART DISEASE OF [place] CORONARY ARTERY W/O ANG PCTRS Status: Chronic Qualifiers: Coronary Disease-Associated Artery/Lesion type: bypass graft [place] vs. transplanted heart: [place] heart Comment: cabgx4 (06/27/2017), matias to distal lad, rgsv to diag, obt john and distal pda, continue ASA, Coreg, Lisinopril (4) DM2 (diabetes mellitus, type 2) Status: Chronic Qualifiers: Diabetes mellitus rodent exterminator insulin use: without fci use Diabetes mellitus complication status: with unspecified complications Qualified Code(s) : E11.8 - Type 2 diabetes mellitus with unspecified complications Comment: Glipizide 10mg daily, ISS, Accuchecks - Plan PT/OT, social services director, out of bed/ambulate, DVT proph w/SCDs Stable overall -: Continue Lasix 40mg IV daily -: PCXR in am -: O2 prn -: OOB/ambulate * Likely home in am
[2017-09-01] MEDS: Carvedilol 6.25 MG TAB PO SCH ×2 (09:07→17:35)
[2017-09-01] MEDS: glipiZIDE 10 MG TAB PO SCH ×2 (09:07→17:35)
[2017-09-01] MEDS: Spironolactone 25 MG TAB PO SCH (09:08)
[2017-09-01] MEDS: Famotidine 20 MG TAB PO SCH ×2 (09:08→20:51)
[2017-09-01] MEDS: Aspirin 81 mg Enteric Coated Tablet PO SCH (09:08)
[2017-09-01] MEDS: Potassium Chloride 20 MEQ TAB PO SCH ×2 (09:08→17:35)
[2017-09-01] MEDS: Lisinopril 20 MG TAB PO SCH (09:08)
[2017-09-01] MEDS: Tamsulosin HCl 0.4 MG CAP PO SCH (09:09)
[2017-09-01] MEDS: Enoxaparin Sodium 40 MG/0.4 ML SYRINGE SC SCH (09:09)
[2017-09-01] MEDS: Furosemide 40 MG/4 ML VIAL SLOW IVP SCH (09:12)
--- NOTE | 2017-09-01 11:24 | RAD ---
2 VIEW CHEST: Date: 09/01/17 INDICATION: Follow-up infiltrate and effusion. COMPARISON: Portable film of 08/29/17. FINDINGS: Mild cardiomegaly with postop sternotomy change. Vascular congestion appears improved. There continue s to be left effusion and left basilar atelectasis or infiltrate. Right lung appears clear. IMPRESSION: Persistent left basilar opacity consistent with effusion and left basilar atelectasis or infiltrate. Mild vascular engorgement. POS: [facility]
[2017-09-01] MEDS: HumaLOG 300 UNITS/3 ML VIAL SC PRN ×2 (11:36→17:32)
--- NOTE | 2017-09-01 11:55 | PDOC.PN ---
- Subjective Encounter Start Date: 09/01/17 Encounter Start Time: 08:50 Subjective: breathing bettter, no chest pain -: is ambulating - Objective Resuscitation Status: Resuscitation Status FULL:Full Resuscitation MAR Reviewed: Yes Vital Signs & Weight: Vital Signs (12 hours) Temp Pulse Resp BP BP Pulse Ox 09/01/17 11:32 97.8 F 61 18 124/67 93 L 09/01/17 08:14 97.8 F 71 16 129/76 100 09/01/17 08:00 97.8 F 71 16 100 09/01/17 04:00 97.6 F 67 16 121/74 96 09/01/17 00:11 99 Weight Weight 235 lb 3.2 oz I&O: 08/31/17 09/01/17 09/02/17 06:59 06:59 06:59 Intake Total 892 980 Output Total 2725 1950 Balance -2883 -260 Result Diagrams: 08/30/17 03:30 08/30/17 03:30 Additional Labs: Accuchecks 09/01/17 08/31/17 08/31/17 05:34 19:46 16:59 POC Glucose 135 H 218 H 120 H 08/31/17 08/31/17 10:27 05:45 POC Glucose 202 H 154 H Phys Exam - Physical Examination HEENT: PERRLA, moist MMs Neck: no JVD, supple Respiratory: no wheezing, no rales Cardiovascular: RRR, no significant murmur Gastrointestinal: soft, non-tender, positive bowel sounds Musculoskeletal: no edema, pulses present Neurological: non-focal, moves all 4 limbs Psychiatric: normal affect, A&O x 3 Dx/Plan (1) Acute respiratory failure with hypoxia Code(s): J96.01 - ACUTE RESPIRATORY FAILURE WITH HYPOXIA Status: Resolved Comment: Improved with diuresis (2) Acute systolic CHF (congestive heart failure), NYHA class 3 Code(s): I50.21 - ACUTE SYSTOLIC (CONGESTIVE) HEART FAILURE Status: Acute Comment: ef of 30% (3) CAD (coronary artery disease) Code(s): I25.10 - ATHSCL HEART DISEASE OF [place] CORONARY ARTERY W/O ANG PCTRS Status: Chronic Qualifiers: Coronary Disease-Associated Artery/Lesion type: bypass graft [place] vs. transplanted heart: [place] heart Comment: cabgx4 (06/27/2017), matias to distal lad, rgsv to diag, obt john and distal pda, continue ASA, Coreg, Lisinopril (4) BPH (benign prostatic hyperplasia) Code(s): N40.0 - BENIGN PROSTATIC HYPERPLASIA WITHOUT LOWER URINRY TRACT SYMP Status: Chronic Qualifiers: Lower urinary tract symptom presence: symptoms absent Qualified Code(s): N40.0 - Benign prostatic hyperplasia without lower urinary tract symptoms (5) DM2 (diabetes mellitus, type 2) Status: Chronic Qualifiers: Diabetes mellitus mcfp insulin use: without terminal make up operator use Diabetes mellitus complication status: with unspecified complications Qualified Code(s) : E11.8 - Type 2 diabetes mellitus with unspecified complications Comment: Glipizide 10mg daily, ISS, Accuchecks (6) Dyslipidemia Code(s): E78.5 - HYPERLIPIDEMIA, UNSPECIFIED Status: Chronic (7) Obesity (BMI 30-39.9) Code(s): E66.9 - OBESITY, UNSPECIFIED Status: Chronic - Plan hemostable -: post cabg has left pleural effusion -: dc plan per pulm/cardio advice -: on lasix iv daily, asp, lisinopril and toprol -: clinically has improved * . Review of Systems - Medications/Allergies Allergies/Adverse Reactions: Allergies Allergy/AdvReac Type Severity Reaction Status Date / Time No Known Allergies Allergy Verified 06/23/17 06:53 Medications: Current Medications Acetaminophen (Tylenol) 650 mg PO Q4H PRN PRN Reason: Headache/Fever or Pain Al Hydroxide/Mg Hydroxide (Maalox) 30 ml PO Q6H PRN PRN Reason: Heartburn or Indigestion Aspirin (Ecotrin) 81 mg PO DAILY [facility] Last Admin: 09/01/17 09:08 Dose: 81 mg Benzonatate (Tessalon) 100 mg PO Q4H PRN PRN Reason: Cough Bisacodyl (Dulcolax) 10 mg PO DAILYPRN PRN PRN Reason: Constipation Calcium Carbonate (Tums) 1,000 mg PO Q4H PRN PRN Reason: Heartburn or Indigestion Last Admin: 08/31/17 11:30 Dose: 1,000 mg Carvedilol (Coreg) 12.5 mg PO BID-[facility] Last Admin: 09/01/17 09:07 Dose: 12.5 mg Clonidine (Catapres) 0.1 mg PO Q4H PRN PRN Reason: Systolic BP > 160 Dextrose/Water (Dextrose 50%) 25 gm SLOW IVP PRN PRN PRN Reason: Hypoglycemia Enoxaparin Sodium (Lovenox) 40 mg SC 09 [facility] Last Admin: 09/01/17 09:09 Dose: 40 mg Famotidine (Pepcid) 20 mg PO BID [facility] Last Admin: 09/01/17 09:08 Dose: 20 mg Furosemide (Lasix) 40 mg SLOW IVP 09 [facility] Last Admin: 09/01/17 09:12 Dose: 40 mg Glipizide (Glucotrol) 10 mg PO BID-[facility] Last Admin: 09/01/17 09:07 Dose: 10 mg Glucagon (Glucagon) 1 mg IM PRN PRN PRN Reason: Hypoglycemia Hydralazine HCl (Apresoline) 10 mg SLOW IVP Q4H PRN PRN Reason: Systolic BP > 170 Dextrose/Water (D5w) 1,000 mls @ 0 mls/hr IV .Q0M PRN; As Directed PRN Reason: Hypoglycemia Insulin Human Lispro (Humalog) 0 units SC .MODERATE SLIDING SC PRN PRN Reason: Moderate Correctional Scale Last Admin: 09/01/17 11:36 Dose: 2 unit Insulin Human Lispro (Humalog) 0 units SC .BEDTIME SLIDING SC PRN PRN Reason: Bedtime Correctional Scale Last Admin: 08/31/17 21:15 Dose: 2 unit Lisinopril (Zestril) 20 mg PO DAILY [facility] Last Admin: 09/01/17 09:08 Dose: 20 mg Loratadine (Claritin) 10 mg PO DAILYPRN PRN PRN Reason: Sinus Symptoms Nitroglycerin (Nitrostat) 0.4 mg SL Q5MIN PRN PRN Reason: Chest Pain Ondansetron HCl (Zofran) 4 mg IVP Q6H PRN PRN Reason: Nausea/Vomiting Potassium Chloride (K-Dur) 20 meq PO BID-[facility] Last Admin: 09/01/17 09:08 Dose: 20 meq Senna (Senokot) 2 tab PO HSPRN PRN PRN Reason: Constipation Sodium Chloride (Flush - Normal Saline) 10 ml IVF Q12HR [facility] Last Admin: 09/01/17 09:09 Dose: 10 ml Sodium Chloride (Flush - Normal Saline) 10 ml IVF PRN PRN PRN Reason: Saline Flush Spironolactone (Aldactone) 25 mg PO QAM-WM [facility] Last Admin: 09/01/17 09:08 Dose: 25 mg Tamsulosin HCl (Flomax) 0.4 mg PO DAILY [facility] Last Admin: 09/01/17 09:09 Dose: 0.4 mg Tramadol HCl (Ultram) 50 mg PO Q4H PRN PRN Reason: Moderate Pain (4-6)
--- NOTE | 2017-09-01 13:39 | PRG ---
DATE OF SERVICE: 09/01/2017 SUBJECTIVE: This morning, he is better. He apparently wants to go home. He denies difficulty breat jeff. OBJECTIVE: VITAL SIGNS: His sats are 90% on room air, respirations 18, temperature 97, blood pressure 120/67. CHEST: Reveals decreased breath sounds, no wheezing. CARDIAC: Normal S1 and S2, no gallops. ABDOMEN: Soft. EXTREMITIES: No edema. NEUROLOGIC: Awake, alert, responsive. IMAGING: He has a chest x-ray taken today shows chronic changes, blunting of the left costophrenic a ngle is probably resolved. IMPRESSION: Chronic left-sided pleural thickening, effusion, congestive heart failure, obesity. PLAN: Pulmonary standpoint of view, he could be discharged home. He could be followed up with Dr. Gauri noriega on an outpatient basis.
[2017-09-02] MEDS: Carvedilol 6.25 MG TAB PO SCH (08:17)
[2017-09-02] MEDS: glipiZIDE 10 MG TAB PO SCH (08:17)
[2017-09-02] MEDS: Spironolactone 25 MG TAB PO SCH (08:18)
[2017-09-02] MEDS: Lisinopril 20 MG TAB PO SCH (08:18)
[2017-09-02] MEDS: Potassium Chloride 20 MEQ TAB PO SCH (08:18)
[2017-09-02] MEDS: Aspirin 81 mg Enteric Coated Tablet PO SCH (08:18)
[2017-09-02] MEDS: Famotidine 20 MG TAB PO SCH (08:18)
[2017-09-02] MEDS: Tamsulosin HCl 0.4 MG CAP PO SCH (08:19)
[2017-09-02] MEDS: Furosemide 40 MG/4 ML VIAL SLOW IVP SCH (08:19)
[2017-09-02] MEDS: Enoxaparin Sodium 40 MG/0.4 ML SYRINGE SC SCH (08:19)
[2017-09-02 08:32] LABS: #Basophils 0.1 thou/uL (0.0-0.2); #Eosinphils 0.3 thou/uL (0.0-0.7); #Lymphocytes 1.7 thou/uL (1.20-3.40); #Monocytes 0.6 thou/uL (0.11-0.59); %Basophils 0.7 % (0.0-1.0); %Eosinophils 3.8 % (0.0-10.0); %Lymphocytes 25.2 % (21.0-51.0); %Monocytes 9.5 % (0.0-10.0); %Neutrophils 60.7 % (42.0-75.0); Hemoglobin 14.3 g/dL (14.0-18.0); Mean Corpuscular HGB CONC 32.7 g/dL (32.0-36.0); Mean Corpuscular Hemoglobin 28.6 pg (27.0-31.0); Mean Corpuscular Volume 87.5 fL (78.0-98.0); Mean Platelet Volume 8.1 fL (7.4-10.4); Platelet Count 145 thou/uL (130-400); RBC Distribution Width 12.7 % (11.5-14.5); Red Blood Cell (RBC) Count 4.98 mill/uL (4.70-6.10); White Blood Cell (WBC) Count 6.7 thou/uL (4.8-10.8)
[2017-09-02 09:09] LABS: Anion Gap 13 mmol/L (10-20); BUN (Urea Nitrogen) 21 mg/dL (8.4-25.7); Calc. Creatinine Clearance 120 mL/min (70-130); Calcium 9.7 mg/dL (7.8-10.44); Carbon Dioxide 29 mmol/L (22-29); Chloride 100 mmol/L (98-107); Estimated GFR-MDRD 78; Glucose 166 mg/dL (70-105); Magnesium 2.1 mg/dL (1.6-2.6); Potassium 3.9 mmol/L (3.5-5.1); Sodium 138 mmol/L (136-145)
[2017-09-02 11:59] VITALS: BP 138/75; TEMP 97.6
[2017-09-02] MEDS: HumaLOG 300 UNITS/3 ML VIAL SC PRN (12:13)
--- NOTE | 2017-09-02 12:45 | DIS ---
DATE OF ADMISSION: 08/30/2017 DATE OF DISCHARGE: 09/02/2017 PRIMARY CARE PHYSICIAN: Sukhwinder Paul M.D. DISCHARGE DISPOSITION: Home. PRIMARY DISCHARGE DIAGNOSES: 1. Acute respiratory failure with hypoxia, resolved. 2. Acute systolic congestive heart failure exacerbation. SECONDARY DISCHARGE DIAGNOSES: Tobacco abuse disorder, coronary artery disease, dyslipidemia, obesit y with BMI 36, benign enlargement of prostate, diabetes type 2, hypertension. PRIMARY PROCEDURES/OPERATIONS: None. RADIOLOGICAL INVESTIGATION: Echocardiography on admission showed EF 30%-35%. Chest x-rays while in hospital showed left basilar opacity with effusion and atelectasis. SIGNIFICANT LABORATORY DATA: WBC 6.7, hemoglobin 14.3, platelets 145. Sodium 138, potassium 3.9, BU N 21, creatinine 0.98, magnesium 2.1. BNP 257.9. DISCHARGE MEDICATIONS: Aspirin 81 mg p.o. daily, Coreg 12.5 mg p.o. b.i.d., Lasix 80 mg in the morni ng and 40 mg in afternoon for 5 days and then switch to torsemide 40 mg b.i.d. starting on day 6, Gli pizide 10 mg p.o. b.i.d., lisinopril 20 mg p.o. daily, metformin 1000 mg p.o. daily, potassium chlori de 20 mEq p.o. b.i.d., Aldactone 25 mg p.o. daily, Flomax 0.4 mg p.o. daily. CONTRAINDICATIONS: None. CODE STATUS: FULL CODE. INPATIENT CONSULTANTS: Cardiology group was following while in hospital. Pulmonology group was foll owing while in hospital. TEST RESULTS PENDING ON DISCHARGE: None. ALLERGIES: No known drug allergy. DISCHARGE PLAN: Post hospital, the patient will follow up with primary care physician in 1 week. HOSPITAL COURSE: A 62-year-old male who was admitted by Dr. Tracy Alcala on 08/30/2017. Please see her H&P for further details. Patient came to the emergency room with increasing shortness of breath . Patient has a known history of CAD and he underwent recently CABG about 2 months ago and he has ch ronic systolic heart failure with EF 30%. He was presented to ER with increasing shortness of breath . He was hypoxic in the emergency room, he was hypertensive. He initially required BiPAP. Subseque ntly, he was admitted to [facility]. As patient was admitted on [facility], he was evaluated by Cardiology and P rebecca group. Initially, he was started on a nitroglycerin drip in [facility] for his initial hypertensive urgency, but that nitro drip was weaned off. We treated him with IV Lasix while in hospital. Subsequently, he was no longer requiring BiPAP and h e was transferred to telemetry floor. While in hospital, we controlled his blood pressure and volume status with the medicine. During this admission, we discontinued his metoprolol and changed to Core g. We added Aldactone for his low EF. He was given aggressive Lasix therapy and he had significant improvement in his hypoxia resolved. Cardiology was following. Pulmonology was following. Repeat e chocardiography was done and repeat chest x-ray was done which showed left-sided effusion without ate lectasis. The patient will follow up with Dr. Engel after discharge. All new medication prescripti on given. Cardiology cleared him for discharge today. The patient is seen and examined at bedside today. I had a lengthy discussion with the patient about diet, fluid restriction, and heart failure education and medication compliance. Healthy lifestyle m easures discussed with the patient as well. PHYSICAL EXAMINATION: VITAL SIGNS: Currently, temperature 97.6, pulse 59, respiratory rate 16, saturation 95% on room air, blood pressure 138/75, weight 233 pounds. GENERAL: The patient is currently alert, oriented x3. HEAD: Normocephalic, atraumatic. EYES: Pupils round, reactive to light. ENT: Oropharynx within normal limits. Moist mucous membranes. NECK: Supple, no elevated JVD, no thyromegaly, no carotid bruit. LUNGS: Clear to auscultation without any rales or rhonchi. CARDIAC: S1, S2 appears regular without any significant murmur. ABDOMEN: Obesity present. Bowel sounds present, nontender, nondistended. No organomegaly, no mass, no suprapubic tenderness. BACK: Unremarkable. No CVA tenderness. EXTREMITIES: Upper extremity: Range of motion is normal. Lower extremity: No edema. Good periphe ral pulsation. SKIN: No skin rash. NEUROLOGIC: Nonfocal examination. I have reviewed with the patient about review of systems and negative. All discharge paperwork done. Discharge medication reconciliation done. All new medication prescrip tion sent to his pharmacy. The patient is medically stable for discharge. Total time spent on discharge day 31 minutes.
--- NOTE | 2017-09-02 14:32 | PRG ---
DATE OF SERVICE: 09/02/2017 SUBJECTIVE: This morning, he is going to be discharged. He says he is feeling better. He is walkin g in the halls without getting short of breath. OBJECTIVE: VITAL SIGNS: Sats are 98%, pulse 78, blood pressure 140/80, respiratory rate 18. CHEST: Decreased breath sounds, no wheezing. CARDIAC: Normal S1, S2. No gallops. ABDOMEN: Soft, no masses. IMPRESSION: Status post coronary artery bypass graft, status post respiratory failure with congestiv e heart failure. DISPOSITION: Home. He can follow up with Dr. David in 7 weeks.
== END 2017-09-02 12:18 | disposition home or self-care (01) | DRG 291 ==
LOC: ERS 23:34 → IMCU/EMU 08-30 00:23 → 2NO 08-31 22:50
PROVIDERS: ADMIT Internal Medicine; ATTEND Internal Medicine
DX: I11.0 Hypertensive heart disease with heart failure (principal); J96.01 Acute respiratory failure with hypoxia; I25.810 Atherosclerosis of coronary artery bypass graft(s) without angina pectoris; I50.23 Acute on chronic systolic (congestive) heart failure; I25.10 Atherosclerotic heart disease of native coronary artery without angina pectoris; N40.0 Benign prostatic hyperplasia without lower urinary tract symptoms; E11.9 Type 2 diabetes mellitus without complications; E78.5 Hyperlipidemia, unspecified; E66.9 Obesity, unspecified; Z95.1 Presence of aortocoronary bypass graft; Z87.891 Personal history of nicotine dependence; I25.2 Old myocardial infarction; Z85.46 Personal history of malignant neoplasm of prostate; Z68.36 Body mass index [BMI] 36.0-36.9, adult; Z91.19 Patient's noncompliance with other medical treatment and regimen; I25.5 Ischemic cardiomyopathy
CPT/HCPCS: 36415; 36416; 71046; 80048; 83735; 83880; 84484; 85025; 93306; 93798; 94660; A4216; J1650; J1940

== ENCOUNTER 2017-09-23 07:41 | Inpatient (IN) | payer SELFPAY ==
--- NOTE | 2017-09-23 08:57 | CT ---
CTA OF THE THORAX WITH IV CONTRAST AND 3D REFORMATTED IMAGING: INDICATION: Respiratory distress and dyspnea. COMPARISON: Prior exam dated 06/23/17. FINDINGS: No central or segmental pulmonary embolus is evident. There is cardiomegaly, pulmonary vascular ginny estion, and perihilar airspace opacities suspicious for edema with small bilateral pleural effusions. There is stable hepatomegaly. There are stable mildly prominent lymph nodes within the mediastinum . The largest lymph node is seen within the subcarinal region measuring 1.8 cm. No acute osseous ab normality is evident. There are findings of prior granulomatous disease. IMPRESSION: 1. Findings of congestive heart failure. No central or segmental pulmonary embolus demonstrated. 2. Stable mediastinal lymphadenopathy. 3. Stable hepatomegaly. 4. Stable findings of prior granulomatous disease. POS: [facility]
[2017-09-23 10:52] LABS: Troponin I 0.029 ng/mL (< 0.028)
[2017-09-23] MEDS ORDERED: Ondansetron ODT 4 MG TAB SL PRN (11:13)
[2017-09-23] MEDS ORDERED: Ondansetron HCl/PF 4 MG/2 ML Vial IVP PRN (11:13)
[2017-09-23] MEDS ORDERED: Acetaminophen 325 MG TAB PO PRN ×2 (11:13→12:30)
[2017-09-23 11:23] VITALS: BMI 38.5
[2017-09-23] MEDS ORDERED: HumaLOG 300 UNITS/3 ML VIAL SC PRN ×2 (12:30)
[2017-09-23] MEDS ORDERED: Dextrose 50% Abboject 50 ML SYRINGE SLOW IVP PRN (12:30)
[2017-09-23] MEDS ORDERED: Dextrose 5% in Water 1,000 ML IV PRN (12:30)
[2017-09-23 13:11] LABS: Troponin I 0.039 ng/mL (< 0.028)
[2017-09-23 13:14] LABS: Anion Gap 14 mmol/L (10-20); BUN (Urea Nitrogen) 22 mg/dL (8.4-25.7); Calc. Creatinine Clearance 100 mL/min (70-130); Calcium 9.4 mg/dL (7.8-10.44); Carbon Dioxide 26 mmol/L (22-29); Chloride 103 mmol/L (98-107); Estimated GFR-MDRD 59; Glucose 172 mg/dL (70-105); Potassium 3.7 mmol/L (3.5-5.1); Sodium 139 mmol/L (136-145)
[2017-09-23] MEDS: Nitroglycerin 2% Ointment 1 INCH/1 GM Packet TOP SCH ×2 (13:39→20:59)
--- NOTE | 2017-09-23 13:39 | ULT ---
DOPPLER VENOUS ULTRASOUND OF THE LEFT LOWER EXTREMITY: INDICATION: Left lower extremity edema. TECHNIQUE: Jacobo scale, color Doppler, and vascular duplex with spectral analysis was performed of the deep venou s structures of both lower extremities. The common femoral vein, superficial femoral vein, popliteal vein, posterior tibial vein, proximal greater saphenous, and proximal profunda veins were assessed bi laterally. FINDINGS: There is normal compression, flow, and augmentation seen within the deep venous structures of the lef t lower extremity. IMPRESSION: No evidence of deep vein thrombosis in the left lower extremity. POS: [facility]
--- NOTE | 2017-09-23 13:59 | HP ---
DATE OF SERVICE: 09/23/2017 PRIMARY CARE PROVIDER: Dr. Paul. CHIEF COMPLAINT: Fluid buildup. HISTORY OF PRESENT ILLNESS: This is a 62-year-old male with a history of systolic heart failure with reduced ejection fraction, estimated on 08/30/2017, to be 30%-35%; diabetes; hypertension; BPH; history of prostate cancer, treated with radiation therapy, who presents to the emergency room with the above complaint. The patient reports, since his last hospitalization here, for which he was discharged on 09/02/2017, that he had noticed a 10-pound weight gain. He denies any obvious swelling, denied any difficulty with breathing until this morning at 4:30 when he woke up with shortness of breath. He reports taking his medications regularly, the only difference in his diet was [place] food last night and fried chicken 2 nights ago. He has been watching his fluid intake and normally he drinks about three 16-ounce bottles, more if he is working outside. Today, he woke up with difficulty breathing, both at rest as well as with ambulation, for which he called his son and was taken to the emergency room. Because he knew he was building up fluid, he took an additional pill thinking it was a diuretic; however, it turned out to be lisinopril/hydrochlorothiazide. Patient also complains of some burning and indigestion since his meal last night , abdominal swelling he has noticed today, productive cough today. He denies any nausea or vomiting. Denies any headache, fevers, or chills. The patient started out in an outside hospital and reports he received Lasix 80 mg IV, BiPAP on transport here, as well as nitro paste. He reports his breathing is much better than it was and he has produced a lot of urine. In the emergency room here, the patient evaluated and hospitalist called for admission for heart failure with reduced ejection fraction. ALLERGIES: No known drug allergies. CURRENT MEDICATIONS: Reconciled with the list brought in. 1. Aspirin 81 mg daily. 2. Coreg 12.5 mg b.i.d. 3. Lasix, the patient and his report they were called and told to stop this medication after the last hospitalization. 4. Torsemide 40 mg twice a day. 5. Glipizide 10 mg twice a day. 6. Lisinopril 20 mg once a day. 7. Metformin 1000 mg once daily. 8. Potassium chloride 20 mEq b.i.d. 9. Aldactone 25 mg daily. 10. Flomax 0.4 mg daily. PAST MEDICAL HISTORY: 1. Coronary artery disease with history of CABG back in 06/2017. 2. Heart failure with reduced ejection fraction, last estimated 08/30/2017 at 30%-35%. 3. Diabetes mellitus, type 2. 4. Hypertension. 5. Dyslipidemia. 6. Obesity. 7. Benign prostatic hypertrophy. 8. History of Escherichia coli bacteremia and frequent urinary tract infections. 9. Prostate cancer, status post radiation therapy. PAST SURGICAL HISTORY: 1. CABG. 2. Cholecystectomy. 3. Urethral stricture repair. FAMILY HISTORY: Significant for diabetes, heart failure, cirrhosis, and COPD. SOCIAL HISTORY: The patient quit tobacco in 06/2017, rarely uses alcohol, his surrogate decision maker is his , Tracie, and he is a FULL CODE. REVIEW OF SYSTEMS: Positive for the burning, indigestion, abdominal swelling, and productive cough. Negative for nausea, vomiting, headaches, fevers, chills. All remaining review of systems are reviewed and negative. PHYSICAL EXAMINATION: VITAL SIGNS: Blood pressure 139/86, temperature 98, pulse 75, respirations 22, saturations 98% on 2 liters. GENERAL: Awake, alert, responsive, in no apparent distress, able to speak in full sentences. HEENT: Pupils are equal and round. No scleral icterus. Oral mucosa is pink and slightly dry. NECK: Supple, nontender. LYMPHATICS: No palpable cervical or supraclavicular lymphadenopathy. LUNGS: Bibasilar rales about one-third the distance with decreased breath sounds. HEART: Normal S1 and S2, distant heart sounds. No audible murmurs. ABDOMEN: Soft. Present bowel sounds. Nontender, nondistended. EXTREMITIES: He has got 1+ pitting edema in his left lower extremity, the site for his bypass graft. No edema in his right lower extremity. VASCULAR: 2+ dorsalis pedis pulses. PSYCHIATRIC: Euthymic, linear, logical, goal directed thought process. NEUROLOGIC: No focal deficits. LABORATORY DATA PERFORMED: Troponin 0.029, here. In outside lab, CBC, 6.9, 13.4, 43.3, 127. Chemistry: 137, 4.1, 102, 23, 23, 1.52, 233. Of note, on the patient's last discharge, his creatinine was 0.98. LFTs are normal. BNP 968. CT angiogram shows congestive heart failure, no PE, mediastinal lymphadenopathy , hepatomegaly, prior granulomatous disease. Chest x-ray is personally reviewed, which shows moderate CHF. IMPRESSION: 1. Acute decompensated systolic heart failure with reduced ejection fraction, likely secondary to dietary changes. 2. Acute kidney injury with volume overload secondary to above. 3. Left lower extremity swelling. 4. Diabetes mellitus, unknown control. 5. Hypertension, now controlled. 6. Dyslipidemia. 7. Obesity. 8. Benign prostatic hypertrophy. 9. History of prostate cancer. PLAN: 1. Admission to the hospital. 2. Continue diuresis with IV Lasix, continue the beta brenda that he is currently taking, Cardiology consultation. As the patient was imaged less than a month ago, we will hold on further echocardiogram. Will check renal function prior to the next dose to insure it is stable. Will also place hold parameter on lasix. 3. Holding his LIEN inhibitor and spironolactone for now, repeating a metabolic panel to ensure no significant change with his creatinine, to continue the diuresis. 4. We will continue the nitro paste for diuresis as well. 5. Holding his metformin due to the acute kidney injury, we will use sliding scale insulin as needed. 6. Continuing his aspirin, Flomax, and potassium supplementation. 7. Ultrasound LLE for swelling. 8. Heart Failure Clinic consult placed. The patient and his report that they do not currently have insurance, we will need to find resources so that patient can keep in close contact with the Heart Failure Clinic to direct diuretic therapy when weight changes at home are noticed before his breathing becomes affected. Discussed with them that there will be a plan prior to discharge. 9. Deep venous thrombosis prophylaxis. We will use Lovenox. 10. Gastrointestinal prophylaxis, not indicated. 11. Code status is FULL and surrogate decision maker is his , Tracie. 12. Reviewed the plan of care with patient and his , who demonstrate understanding and agree. No questions or further needs at end of evaluation. 13. The patient is at high risk given age, comorbidities, and current presentation. [facility]
[2017-09-23] MEDS ORDERED: Furosemide 40 MG/4 ML VIAL SLOW IVP SCH ×2 (14:00→20:00)
[2017-09-23] MEDS ORDERED: ISOVUE-370 76%-LOCM 1 ML ONE (14:55)
[2017-09-23] MEDS: Potassium Chloride 20 MEQ TAB PO SCH (16:31)
[2017-09-23] MEDS: Carvedilol 25 MG TAB PO SCH (16:32)
[2017-09-23] MEDS ORDERED: Potassium Chloride 20 MEQ TAB PO SCH (20:00)
[2017-09-23] MEDS ORDERED: Spironolactone 25 MG TAB PO SCH (20:00)
--- NOTE | 2017-09-24 01:38 | CON ---
DATE OF CONSULTATION: 09/23/2017 REASON FOR CONSULTATION: Shortness of breath, congestive heart failure. HISTORY OF PRESENT ILLNESS: Mr. Mccray is a pleasant 62-year-old man. He initially presented with u nstable symptoms in June of this year, initially presented with cardiomegaly and pulmonary vascular congestion as ultimately he was stabilized with his heart failure and underwent cardiac catheterizati on and was found to have 3-vessel coronary artery disease with a severe stenosis in the LAD and diffu se disease in the right coronary artery. He underwent surgical therapy ____ internal mammary to the LAD, vein graft to the diagonal and obtuse marginal and distal posterior descending artery and ligati on of his left atrial appendage. It was noted that he had diffuse distal disease. He has had problem with congestive heart failure, which has been intermittent and persistent since then he came in this occasion with severe shortness of breath and volume overloaded and is getting diuresed. He does rep ort some dietary indiscretion. MEDICATIONS: He takes, 1. Metformin. 2. Glipizide. 3. Tamsulosin. 4. Aspirin. 5. Lisinopril 20 mg daily. 6. Potassium 20 mEq twice a day. 7. Spironolactone 25 mg a day. 8. Carvedilol 12.5 mg twice a day. 9. Torsemide 40 mg twice a day. REVIEW OF SYSTEMS: Constitutional: No significant weight gain or loss. Vision: No changes. Heari ng: No changes. Pulmonary: No cough or wheezing. Gastrointestinal: No nausea, vomiting, or diarr hea. Skin: No rashes. Neurologic: No unilateral weakness or numbness. Psychiatric: No unusual d epression or anxiety. PHYSICAL EXAMINATION: GENERAL: This is a 5 foot 7 inches tall, 246 pounds, BMI of 38.5, he is obese. VITAL SIGNS: Blood pressure 140/86, pulse 70 and regular. LUNGS: Clear. CARDIAC: Normal S1, normal S2. ABDOMEN: Soft, nontender. EXTREMITIES: No clubbing or cyanosis. There is moderate edema. LABORATORY DATA AND IMAGING: Hemoglobin was 13.4. Creatinine 1.24. BNP 968. The most recent echoc ardiogram revealed an ejection fraction 30% to 35%. I think it may have gotten a little better in [facility] office. We will go ahead and check another echo tomorrow. ASSESSMENT: 1. Congestive heart failure, systolic, recurrent. 2. Dietary discretion. 3. Previous bypass surgery, diffuse distal disease. PLAN: 1. Echocardiogram to be repeated. 2. Continue diuresis. We will continue to follow with you.
[2017-09-24 05:08] LABS: Anion Gap 11 mmol/L (10-20); BUN (Urea Nitrogen) 21 mg/dL (8.4-25.7); Calc. Creatinine Clearance 116 mL/min (70-130); Calcium 9.2 mg/dL (7.8-10.44); Carbon Dioxide 28 mmol/L (22-29); Chloride 102 mmol/L (98-107); Estimated GFR-MDRD 70; Glucose 195 mg/dL (70-105); Sodium 137 mmol/L (136-145)
[2017-09-24 05:31] LABS: #Eosinphils 0.2 thou/uL (0.0-0.7); #Lymphocytes 1.3 thou/uL (1.20-3.40); #Monocytes 0.5 thou/uL (0.11-0.59); #Neutrophils 2.8 thou/uL (1.40-6.50); %Basophils 0.3 % (0.0-1.0); %Eosinophils 3.7 % (0.0-10.0); %Lymphocytes 27.5 % (21.0-51.0); %Neutrophils 58.4 % (42.0-75.0); Hemoglobin 12.6 g/dL (14.0-18.0); Mean Corpuscular HGB CONC 34.2 g/dL (32.0-36.0); Mean Corpuscular Hemoglobin 29.1 pg (27.0-31.0); Mean Corpuscular Volume 85.1 fL (78.0-98.0); Mean Platelet Volume 8.5 fL (7.4-10.4); PLT Morphology Comment Appears Decreased; Platelet Count 115 thou/uL (130-400); RBC Distribution Width 12.6 % (11.5-14.5); Red Blood Cell (RBC) Count 4.32 mill/uL (4.70-6.10); White Blood Cell (WBC) Count 4.9 thou/uL (4.8-10.8)
[2017-09-24] MEDS: Nitroglycerin 2% Ointment 1 INCH/1 GM Packet TOP SCH ×3 (06:15→20:18)
[2017-09-24] MEDS: Furosemide 40 MG/4 ML VIAL SLOW IVP SCH ×2 (06:16→15:18)
[2017-09-24] MEDS ORDERED: Spironolactone 25 MG TAB PO SCH ×2 (08:00→17:30)
[2017-09-24] MEDS: Potassium Chloride 20 MEQ TAB PO SCH ×2 (08:23→17:37)
[2017-09-24] MEDS: Carvedilol 25 MG TAB PO SCH ×2 (08:23→17:36)
[2017-09-24] MEDS: Tamsulosin HCl 0.4 MG CAP PO SCH (08:26)
[2017-09-24] MEDS: Enoxaparin Sodium 40 MG/0.4 ML SYRINGE SC SCH (08:27)
[2017-09-24] MEDS ORDERED: Metolazone 5 MG TAB PO SCH (17:45)
--- NOTE | 2017-09-24 18:00 | PDOC.PN ---
- Subjective Encounter Start Date: 09/24/17 Encounter Start Time: 07:40 Pt seen for followup re: combined CHF exacerbation. Reports feeling better. No chest pain. Shortness of breath is better. - Objective Resuscitation Status: Resuscitation Status FULL:Full Resuscitation MAR Reviewed: Yes Vital Signs & Weight: Vital Signs (12 hours) Temp Pulse Pulse Pulse Resp BP BP 09/24/17 15:14 96.3 F L 60 16 09/24/17 11:35 98.1 F 66 18 09/24/17 09:59 63 76 149/79 H 160/81 H 09/24/17 08:45 97.4 F L 69 18 09/24/17 08:20 97.4 F L 69 18 BP BP Pulse Ox Pulse Ox Pulse Ox 09/24/17 15:14 147/87 H 96 09/24/17 11:35 159/87 H 94 L 09/24/17 09:59 94 L 95 09/24/17 08:45 09/24/17 08:20 150/84 H 95 Weight Weight 245 lb 3.2 oz I&O: 09/23/17 09/24/17 09/25/17 06:59 06:59 06:59 Intake Total 1640 Output Total 1750 Balance -110 Result Diagrams: 09/24/17 04:30 09/24/17 04:30 Additional Labs: Accuchecks 09/24/17 09/23/17 05:57 20:09 POC Glucose 208 H 169 H EKG Reviewed by me: Yes (Tele: NSR) Phys Exam - Physical Examination Obese HEENT: moist MMs, sclera anicteric, oral pharynx no lesions, 2+ tonsils Neck: no nodes, supple, full ROM JVD Respiratory: no wheezing, no rhonchi cookie crackles Cardiovascular: RRR, no rub S1, S2 Gastrointestinal: soft, non-tender, no distention, positive bowel sounds Musculoskeletal: edema present Neurological: moves all 4 limbs Psychiatric: normal affect, A&O x 3 Dx/Plan (1) Acute on chronic systolic and diastolic heart failure, NYHA class 3 Code(s): I50.43 - ACUTE ON CHRONIC COMBINED SYSTOLIC AND DIASTOLIC HRT FAIL Status: Acute Comment: continue metolazone and IV furosemide, pt is clinically improving (2) CAD (coronary artery disease) Code(s): I25.10 - ATHSCL HEART DISEASE OF [facility] CORONARY ARTERY W/O ANG PCTRS Status: Chronic Qualifiers: Coronary Disease-Associated Artery/Lesion type: bypass graft [place] vs. 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 Review of Systems - Review of Systems Constitutional: negative: fever, chills, sweats, weakness, malaise Respiratory: SOB with Excertion. negative: Cough, Shortness of Breath, Pleuritic Pain, Wheezing Cardiovascular: orthopnea. negative: chest pain, palpitations, paroxysmal nocturnal dyspnea, edema, light headedness Gastrointestinal: negative: Nausea, Vomiting, Abdominal Pain, Diarrhea, Constipation, Melena, Hematochezia Genitourinary: negative: Dysuria, Frequency, Incontinence, Hematuria, Retention Musculoskeletal: negative: Neck Pain, Shoulder Pain, Arm Pain, Back Pain, Hand Pain, Leg Pain, Foot Pain - Medications/Allergies Allergies/Adverse Reactions: Allergies Allergy/AdvReac Type Severity Reaction Status Date / Time No Known Allergies Allergy Verified 09/23/17 11:18 Medications: Current Medications Acetaminophen (Tylenol) 650 mg PO Q4H PRN PRN Reason: Headache/Fever or Pain Last Admin: 09/23/17 18:44 Dose: 650 mg Aspirin (Aspirin Chewable) 81 mg PO DAILY ZEINAB Last Admin: 09/24/17 08:26 Dose: 81 mg Carvedilol (Coreg) 12.5 mg PO BID-[facility] Last Admin: 09/24/17 17:36 Dose: 12.5 mg Dextrose/Water (Dextrose 50%) 25 gm SLOW IVP PRN PRN PRN Reason: Hypoglycemia Enoxaparin Sodium (Lovenox) 40 mg SC 0900 [facility] Last Admin: 09/24/17 08:27 Dose: 40 mg Furosemide (Lasix) 40 mg SLOW IVP 0600,1400 [facility] Last Admin: 09/24/17 15:18 Dose: 40 mg Glucagon (Glucagon) 1 mg IM PRN PRN PRN Reason: Hypoglycemia Dextrose/Water (D5w) 1,000 mls @ 0 mls/hr IV .Q0M PRN; As Directed PRN Reason: Hypoglycemia Insulin Human Lispro (Humalog) 0 units SC .MILD SLIDING SCALE PRN PRN Reason: Mild Correctional Scale Last Admin: 09/24/17 11:40 Dose: 3 unit Insulin Human Lispro (Humalog) 0 units SC .BEDTIME SLIDING SC PRN PRN Reason: Bedtime Correctional Scale Lisinopril (Zestril) 10 mg PO DAILY [facility] Metolazone (Zaroxolyn) 5 mg PO NOW [facility] Stop: 09/24/17 19:45 Nitroglycerin (Nitro-Bid 2% Ointment) 0.5 inch TOP Q8HR [facility] Last Admin: 09/24/17 15:18 Dose: 0.5 inch Potassium Chloride (K-Dur) 20 meq PO BID-[facility] Last Admin: 09/24/17 17:37 Dose: 20 meq Sodium Chloride (Flush - Normal Saline) 10 ml IVF Q12HR [facility] Last Admin: 09/24/17 08:26 Dose: 10 ml Sodium Chloride (Flush - Normal Saline) 10 ml IVF PRN PRN PRN Reason: Saline Flush Spironolactone (Aldactone) 25 mg PO BID-[facility] Spironolactone (Aldactone) 25 mg PO NOW [facility] Stop: 09/24/17 19:30 Last Admin: 09/24/17 17:42 Dose: 25 mg Tamsulosin HCl (Flomax) 0.4 mg PO DAILY [facility] Last Admin: 09/24/17 08:26 Dose: 0.4 mg
[2017-09-24 18:02] LABS: Bilirubin Negative (Negative); Blood, Urine Negative (Negative); Clarity CLEAR (Clear); Glucose, Urine (Dipstick) Negative (Negative); Leukocyte Negative (Negative); Nitrite Negative (Negative); Protein, Urine (Dipstick) Negative (Neg-Trace); Specific Gravity, Urine 1.008 (1.002-1.036); Urobilinogen 0.2 mg/dL (0.2-1.0)
[2017-09-24 18:07] LABS: Bacteria/HPF None Seen HPF (None Seen); Hyaline Casts/LPF 0-3 HYALINE CAST LPF (0-3 Hyaline); RBC/HPF 0-3 HPF (0-3); Squamous Epithelial 0-3 HPF (0-3); WBC/HPF 0-3 HPF (0-3)
[2017-09-24] MEDS: glipiZIDE 10 MG TAB PO SCH (20:19)
--- NOTE | 2017-09-24 20:30 | PRG ---
DATE OF SERVICE: 09/24/2017 SUBJECTIVE: Mr. Mccray is doing well. He has had a fairly good diuresis this afternoon. He says he is putting out a lot of urine, but the urinalysis output is only moderate. OBJECTIVE: LUNGS: Clear. CARDIAC: Normal S1 and normal S2. ABDOMEN: Soft and nontender. EXTREMITIES: Still mild to moderate edema. ASSESSMENT: 1. Congestive heart failure. 2. Previous bypass surgery. 3. The patient states he has difficulty voiding, some prostatism. He requests urinalysis. PLAN: 1. Continue diuretic therapy. 2. We will review echocardiogram, probably home soon, possibly tomorrow.
[2017-09-25 05:47] LABS: Anion Gap 15 mmol/L (10-20); BUN (Urea Nitrogen) 23 mg/dL (8.4-25.7); Calc. Creatinine Clearance 127 mL/min (70-130); Calcium 9.4 mg/dL (7.8-10.44); Carbon Dioxide 25 mmol/L (22-29); Chloride 102 mmol/L (98-107); Estimated GFR-MDRD 79; Glucose 158 mg/dL (70-105); Potassium 3.7 mmol/L (3.5-5.1); Sodium 138 mmol/L (136-145)
[2017-09-25] MEDS: Furosemide 40 MG/4 ML VIAL SLOW IVP SCH ×2 (05:47→14:35)
[2017-09-25] MEDS: Nitroglycerin 2% Ointment 1 INCH/1 GM Packet TOP SCH ×3 (05:47→20:47)
[2017-09-25] MEDS: Potassium Chloride 20 MEQ TAB PO SCH ×2 (08:59→16:44)
[2017-09-25] MEDS: Carvedilol 25 MG TAB PO SCH ×2 (08:59→16:44)
[2017-09-25] MEDS: metFORMIN 500 MG TAB PO SCH (08:59)
[2017-09-25] MEDS: glipiZIDE 10 MG TAB PO SCH ×2 (08:59→20:48)
[2017-09-25] MEDS: Enoxaparin Sodium 40 MG/0.4 ML SYRINGE SC SCH (09:00)
[2017-09-25] MEDS: Spironolactone 25 MG TAB PO SCH ×2 (09:00→16:44)
[2017-09-25] MEDS ORDERED: Lisinopril 10 MG TAB PO SCH (09:00)
[2017-09-25] MEDS: Tamsulosin HCl 0.4 MG CAP PO SCH (09:00)
--- NOTE | 2017-09-25 13:35 | PRG ---
DATE OF SERVICE: 09/25/2017 SUBJECTIVE: Mr. Mccray is feeling better and is breathing better. No chest pain or tightness. PHYSICAL EXAMINATION: VITAL SIGNS: Blood pressure 142/77, pulse 66 regular. LUNGS: Clear. CARDIAC: Normal S1, normal S2. ABDOMEN: Soft, nontender. EXTREMITIES: Only mild edema. IMAGING DATA: Echocardiogram reveals an ejection fraction of 30%-35%. ASSESSMENT: 1. Congestive heart failure, difficult to control at times. 2. Previous coronary artery bypass grafting. He is now 90 days postop and ejection fraction still d iminished. 3. One episode of nonsustained ventricular tachycardia, 6 beats, asymptomatic. PLAN: Discussed defibrillator implantation, he is uncertain whether he wish to pursue that. He wish es to discuss that with his . He did have one episode actually of 6 beats of ventricular tachyca rdia.
--- NOTE | 2017-09-25 13:48 | PDOC.PN ---
- Subjective Encounter Start Date: 09/25/17 Encounter Start Time: 07:40 Pt seen for followup re: CHF exacerbation. Denies chest pain. Shortness of breath is better. No nausea or vomiting. - Objective Resuscitation Status: Resuscitation Status FULL:Full Resuscitation MAR Reviewed: Yes Vital Signs & Weight: Vital Signs (12 hours) Temp Pulse Pulse Pulse Resp BP BP 09/25/17 12:55 97.8 F 67 18 09/25/17 11:30 68 62 137/79 128/84 09/25/17 08:50 97.8 F 67 18 09/25/17 04:00 97.5 F L 64 16 BP Pulse Ox Pulse Ox Pulse Ox 09/25/17 12:55 137/79 96 09/25/17 11:30 95 96 09/25/17 08:50 142/77 H 95 09/25/17 04:00 142/84 H 94 L Weight Weight 240 lb I&O: 09/24/17 09/25/17 09/26/17 06:59 06:59 06:59 Intake Total 1640 1100 Output Total 1750 2850 Balance -110 -1750 Result Diagrams: 09/24/17 04:30 09/25/17 04:24 Additional Labs: Accuchecks 09/25/17 09/25/17 09/24/17 11:37 05:45 20:46 POC Glucose 118 H 175 H 193 H 09/24/17 09/24/17 16:51 10:46 POC Glucose 148 H 216 H EKG Reviewed by me: Yes (Tele: 6-beat V.tach) Phys Exam - Physical Examination obese HEENT: moist MMs, sclera anicteric, oral pharynx no lesions, 2+ tonsils Neck: no nodes, no JVD, supple, full ROM Respiratory: clear to auscultation bilateral Cardiovascular: RRR, no rub S1, S2 Gastrointestinal: soft, non-tender, positive bowel sounds distended Musculoskeletal: edema present Neurological: moves all 4 limbs Psychiatric: normal affect Dx/Plan (1) Acute on chronic systolic ACC/AHA stage C congestive heart failure Code(s): I50.23 - ACUTE ON CHRONIC SYSTOLIC (CONGESTIVE) HEART FAILURE Status : Acute Comment: Improved with metolazone and IV furosemide (2) NSVT (nonsustained ventricular tachycardia) Code(s): I47.2 - VENTRICULAR TACHYCARDIA Status: Acute Comment: Pt has low EF, needs defibrillator (3) CAD (coronary artery disease) Code(s): I25.10 - ATHSCL HEART DISEASE OF [place] CORONARY ARTERY W/O ANG PCTRS Status: Chronic Qualifiers: Coronary Disease-Associated Artery/Lesion type: bypass graft [place] vs. transplanted heart: [place] heart Comment: on aspirin, Coreg, Lisinopril (4) BPH (benign prostatic hyperplasia) Code(s): N40.0 - BENIGN PROSTATIC HYPERPLASIA WITHOUT LOWER URINRY TRACT SYMP Status: Chronic Qualifiers: Lower urinary tract symptom presence: symptoms absent Qualified Code(s): N40.0 - Benign prostatic hyperplasia without lower urinary tract symptoms Comment: stable (5) DM2 (diabetes mellitus, type 2) Status: Chronic Qualifiers: Diabetes mellitus long term care administrator insulin use: without long term care administrator use Diabetes mellitus complication status: with unspecified complications Qualified Code(s) : E11.8 - Type 2 diabetes mellitus with unspecified complications Comment: on glipizide and metformin (6) HTN (hypertension) Code(s): I10 - ESSENTIAL (PRIMARY) HYPERTENSION Status: Chronic Qualifiers: Hypertension type: essential hypertension Qualified Code(s): I10 - Essential (primary) hypertension Comment: titrate antihypertensives as needed (7) Obesity (BMI 35.0-39.9 without comorbidity) Code(s): E66.9 - OBESITY, UNSPECIFIED Status: Chronic - Plan * . Review of Systems - Review of Systems Constitutional: negative: fever, chills, sweats, weakness, malaise Respiratory: SOB with Excertion. negative: Cough, Shortness of Breath, Pleuritic Pain, Wheezing Cardiovascular: negative: chest pain, palpitations, orthopnea, paroxysmal nocturnal dyspnea, edema, light headedness Gastrointestinal: negative: Nausea, Vomiting, Abdominal Pain, Diarrhea, Constipation, Melena, Hematochezia Genitourinary: negative: Dysuria, Frequency, Incontinence, Hematuria, Retention Skin: negative: Rash, Lesions, Matt, Bruising - Medications/Allergies Allergies/Adverse Reactions: Allergies Allergy/AdvReac Type Severity Reaction Status Date / Time No Known Allergies Allergy Verified 09/23/17 11:18 Medications: Current Medications Acetaminophen (Tylenol) 650 mg PO Q4H PRN PRN Reason: Headache/Fever or Pain Last Admin: 09/23/17 18:44 Dose: 650 mg Aspirin (Aspirin Chewable) 81 mg PO DAILY [facility] Last Admin: 09/25/17 09:00 Dose: 81 mg Carvedilol (Coreg) 12.5 mg PO BID-[facility] Last Admin: 09/25/17 08:59 Dose: 12.5 mg Dextrose/Water (Dextrose 50%) 25 gm SLOW IVP PRN PRN PRN Reason: Hypoglycemia Enoxaparin Sodium (Lovenox) 40 mg SC 0900 [facility] Last Admin: 09/25/17 09:00 Dose: 40 mg Furosemide (Lasix) 40 mg SLOW IVP 0600,1400 [facility] Last Admin: 09/25/17 05:47 Dose: 40 mg Glipizide (Glucotrol) 10 mg PO BID [facility] Last Admin: 09/25/17 08:59 Dose: 10 mg Glucagon (Glucagon) 1 mg IM PRN PRN PRN Reason: Hypoglycemia Dextrose/Water (D5w) 1,000 mls @ 0 mls/hr IV .Q0M PRN; As Directed PRN Reason: Hypoglycemia Insulin Human Lispro (Humalog) 0 units SC .MILD SLIDING SCALE PRN PRN Reason: Mild Correctional Scale Last Admin: 09/24/17 11:40 Dose: 3 unit Insulin Human Lispro (Humalog) 0 units SC .BEDTIME SLIDING SC PRN PRN Reason: Bedtime Correctional Scale Lisinopril (Zestril) 20 mg PO DAILY [facility] Metformin HCl (Glucophage) 1,000 mg PO QAM-[facility] Last Admin: 09/25/17 08:59 Dose: 1,000 mg Nitroglycerin (Nitro-Bid 2% Ointment) 0.5 inch TOP Q8HR [facility] Last Admin: 09/25/17 05:47 Dose: Not Given Potassium Chloride (K-Dur) 20 meq PO BID-[facility] Last Admin: 09/25/17 08:59 Dose: 20 meq Sodium Chloride (Flush - Normal Saline) 10 ml IVF Q12HR [facility] Last Admin: 09/25/17 09:01 Dose: 10 ml Sodium Chloride (Flush - Normal Saline) 10 ml IVF PRN PRN PRN Reason: Saline Flush Spironolactone (Aldactone) 25 mg PO BID-[facility] Last Admin: 09/25/17 09:00 Dose: 25 mg Tamsulosin HCl (Flomax) 0.4 mg PO DAILY [facility] Last Admin: 09/25/17 09:00 Dose: 0.4 mg
--- NOTE | 2017-09-25 21:35 | PRG ---
DATE OF SERVICE: 09/25/2017 I have discussed the case with Nette Shazia. His ejection fraction is 30% to 35%, has nonsustained VT, 3 months post-bypass surgery. Discussed defibrillator implantation. He wishes to pursue that. Dr. Peacock was notified, he will see him tomorrow.
[2017-09-26] MEDS: Furosemide 40 MG/4 ML VIAL SLOW IVP SCH (06:09)
[2017-09-26] MEDS: Carvedilol 25 MG TAB PO SCH ×2 (06:09→17:48)
[2017-09-26] MEDS: metFORMIN 500 MG TAB PO SCH (06:09)
[2017-09-26] MEDS: Potassium Chloride 20 MEQ TAB PO SCH (06:09)
[2017-09-26] MEDS: Nitroglycerin 2% Ointment 1 INCH/1 GM Packet TOP SCH ×3 (06:09→20:37)
[2017-09-26] MEDS: Lisinopril 10 MG TAB PO SCH (06:10)
[2017-09-26] MEDS: glipiZIDE 10 MG TAB PO SCH ×2 (06:10→20:38)
[2017-09-26] MEDS: Enoxaparin Sodium 40 MG/0.4 ML SYRINGE SC SCH (06:10)
[2017-09-26] MEDS: Spironolactone 25 MG TAB PO SCH ×2 (06:10→17:48)
[2017-09-26] MEDS: Tamsulosin HCl 0.4 MG CAP PO SCH (06:11)
--- NOTE | 2017-09-26 11:51 | CON ---
DATE OF CONSULTATION: 09/26/2017 ELECTROPHYSIOLOGY CONSULTATION REPORT REFERRING PHYSICIAN: Dr. Francis Engel. HISTORY OF PRESENT ILLNESS: I am seeing Mr. Mccray at our [facility] telemetry floor as an electrophysiology development consultant. His problems are: 1. Chronic systolic congestive heart failure with ischemic cardiomyopathy. A. History of coronary artery bypass grafting surgery approximately 3 months ago. B. Chronically reduced LVEF with current admission for acute fluid overload, now resolved. C. A 2D echo from 09/24/2017 shows LVEF 30%-35%. 2. Coronary artery risk factors including diabetes and hypertension. ALLERGIES: None. MEDICATIONS AT HOME: Include metformin, glipizide, tamsulosin, aspirin, lisinopril 20 a day, potassium, spironolactone 75 mg daily, Cardura 12.5 mg twice a day, torsemide 40 mg p.o. b.i.d. SUBJECTIVE: Mr. Mccray is here with fluid overload, admitted on the 2017. He done fair with diuresis and now he is feeling better. He has PND, orthopnea resolved. He has no chest pains, no fever, chills, cough. Also does not complain of significant dizziness, loss of consciousness. Minor palpitations at times in the morning. He has no angina-like discomfort, no sense of infections are documented. REVIEW OF SYSTEMS: Rest of 12-point system was unremarkable. PAST MEDICAL HISTORY: As above, also includes dyslipidemia, obesity, BPH, history of E. coli bacteremia with UTIs in the past and prostate cancer, status post radiation therapy. PAST SURGICAL HISTORY: Also includes the bypass surgery on 06/27/2017, cholecystectomy and urethral stricture repair. SOCIAL HISTORY: The patient quit tobacco in June 2017, seldom drinks alcohol and denies drug use. He is FULL CODE. FAMILY HISTORY: Significant for diabetes, heart failure and cirrhosis and COPD. OBJECTIVE: VITAL SIGNS: Blood pressure is 108/66, her sickness is 18, temperature 97.9 degrees Fahrenheit. GENERAL: He is alert and oriented man in no apparent distress. NECK: Supple. Jugular veins not distended. CHEST: Coarse, no crackles. CARDIOVASCULAR: Heart sounds are regular to rate and rhythm. No murmur or gallop. ABDOMEN: Benign. Bowel sounds positive. EXTREMITIES: No edema, clubbing or cyanosis. Midsternal scar is well healed. DATABASE: EKG reviewed reveals sinus rhythm, rate of 92 beats per minute. The narrow QRS at [address] milliseconds noted[address] No significant ST-T changes are seen and poor anterior R-wave progression noted. Telemetry strips reveals occasional short episode, but no symptoms not much beyond 5 seconds. LABORATORY DATA: White count is 4.9, hemoglobin 12.6, platelet count is 115. Sodium 130, potassium 3.7, BUN is 20, creatinine 0.97. Troponin levels are 0.[address] shows CHF, hepatomegaly, mediastinal lymphadenopathy and prior granulomatous disease. ASSESSMENT AND PLAN: Mr. Mccray is a pleasant 62-year-old man with history of coronary artery disease and ischemic cardiomyopathy. He has moderate to severely reduced left ventricular systolic function besides bypass surgery about 3 months ago and also with adequate heart failure regimen. We discussed the pros and cons about prophylactic ICD implant. He is having chance of infection, bleeding, pneumothorax, tamponade, device malfunction and records. He understands and willing to proceed. We will schedule him for a near date. So far, heart rates are reasonable on the adequate dose of beta brenda, will likely plan single chamber device. MTDD
[2017-09-26 12:06] LABS: #Basophils 0.1 thou/uL (0.0-0.2); #Eosinphils 0.2 thou/uL (0.0-0.7); #Lymphocytes 1.6 thou/uL (1.20-3.40); #Monocytes 0.7 thou/uL (0.11-0.59); %Eosinophils 3.2 % (0.0-10.0); %Lymphocytes 25.1 % (21.0-51.0); %Monocytes 10.2 % (0.0-10.0); %Neutrophils 60.5 % (42.0-75.0); Hemoglobin 14.2 g/dL (14.0-18.0); Mean Corpuscular HGB CONC 33.4 g/dL (32.0-36.0); Mean Corpuscular Hemoglobin 28.3 pg (27.0-31.0); Mean Corpuscular Volume 84.7 fL (78.0-98.0); Mean Platelet Volume 8.7 fL (7.4-10.4); Platelet Count 136 thou/uL (130-400); RBC Distribution Width 12.9 % (11.5-14.5); Red Blood Cell (RBC) Count 5.01 mill/uL (4.70-6.10); White Blood Cell (WBC) Count 6.6 thou/uL (4.8-10.8)
[2017-09-26 12:08] LABS: INR-International Normal Ratio 1.1; PTT 31.5 SEC (22.9-36.1); Prothrombin Time 14.1 SEC (12.0-14.7)
[2017-09-26 12:23] LABS: Anion Gap 14 mmol/L (10-20); BUN (Urea Nitrogen) 28 mg/dL (8.4-25.7); Calc. Creatinine Clearance 115 mL/min (70-130); Calcium 9.5 mg/dL (7.8-10.44); Carbon Dioxide 28 mmol/L (22-29); Chloride 100 mmol/L (98-107); Estimated GFR-MDRD 73; Glucose 159 mg/dL (70-105); Potassium 3.7 mmol/L (3.5-5.1); Sodium 138 mmol/L (136-145)
[2017-09-26] MEDS ORDERED: CEFAZOLIN/Water 2 GM/20 ML SYRINGE SLOW IVP SCH (12:30)
[2017-09-26] MEDS ORDERED: PROPOFOL 200 MG/20 ML VIAL ONE (13:48)
[2017-09-26] MEDS ORDERED: PHENYLEPHRINE-NS 100 MCG/ML 10 ML SYRINGE ONE (13:48)
[2017-09-26] MEDS ORDERED: Lidocaine 1% PF 5 ML VIAL ONE (13:48)
[2017-09-26] MEDS ORDERED: CEFAZOLIN/Water 2 GM/20 ML SYRINGE ONE (14:37)
[2017-09-26] MEDS ORDERED: Lidocaine 1% (PF) 30 ML VIAL ONE ×2 (14:37→15:01)
[2017-09-26] MEDS ORDERED: Iopamidol 370 76% 50 ML VIAL FS ONE (14:58)
[2017-09-26] MEDS ORDERED: Propofol 500 MG/50 ML VIAL ONE (14:59)
--- NOTE | 2017-09-26 15:42 | EKG ---
Test Reason : Blood Pressure : / mmHG Vent. Rate : 064 BPM Atrial Rate : 064 BPM P-R Int : 164 ms QRS Dur : 092 ms QT Int : 482 ms P-R-T Axes : 073 097 120 degrees QTc Int : 497 ms Normal sinus rhythm Possible Left atrial enlargement Rightward axis ST elevation consider inferior injury or acute infarct Prolonged QT * ACUTE [place] * Consider right ventricular involvement in acute inferior infarct Abnormal ECG When compared with ECG of 23-SEP-2017 07:46, (Unconfirmed) T wave inversion now evident in Anterior leads QT has lengthened Confirmed by BO YORK, DR. Paige ([id number]) on 09/26/2017 3:42:08 PM Referred By: [facility] Confirmed By:DR. Grecia SORIANO MD
--- NOTE | 2017-09-26 16:07 | PDOC.PN ---
- Subjective Encounter Start Date: 09/26/17 Encounter Start Time: 08:20 Pt seen for followup re: systolic CHF exacerbation. Feels well, no complaints. - Objective Resuscitation Status: Resuscitation Status FULL:Full Resuscitation MAR Reviewed: Yes Vital Signs & Weight: Vital Signs (12 hours) Temp Pulse Pulse Pulse Resp BP BP 09/26/17 11:10 99 F 63 14 09/26/17 09:54 68 69 121/59 L 102/63 09/26/17 08:00 97.9 F 69 18 09/26/17 07:47 97.9 F 69 18 BP BP Pulse Ox Pulse Ox Pulse Ox 09/26/17 11:10 96/58 L 94 L 09/26/17 09:54 97 96 09/26/17 08:00 96 09/26/17 07:47 108/66 96 Weight Weight 237 lb 8 oz I&O: 09/25/17 09/26/17 09/27/17 06:59 06:59 06:59 Intake Total 1100 1187 Output Total 2850 2950 Balance -1750 -1763 Result Diagrams: 09/26/17 11:49 09/26/17 11:49 Additional Labs: Accuchecks 09/26/17 09/26/17 09/25/17 11:02 05:50 20:46 POC Glucose 169 H 153 H 203 H EKG Reviewed by me: Yes (Tele: NSR) Phys Exam - Physical Examination Constitutional: NAD HEENT: moist MMs Neck: supple Respiratory: clear to auscultation bilateral Cardiovascular: RRR Gastrointestinal: soft Musculoskeletal: edema present Neurological: non-focal Psychiatric: normal affect Dx/Plan (1) Acute on chronic systolic ACC/AHA stage C congestive heart failure Code(s): I50.23 - ACUTE ON CHRONIC SYSTOLIC (CONGESTIVE) HEART FAILURE Status : Acute Comment: significantly improved, on spironolactone now. Discontinue potassium. (2) NSVT (nonsustained ventricular tachycardia) Code(s): I47.2 - VENTRICULAR TACHYCARDIA Status: Acute Comment: Pt to go for AICD placement today (3) CAD (coronary artery disease) Code(s): I25.10 - ATHSCL HEART DISEASE OF [place] CORONARY ARTERY W/O ANG PCTRS Status: Chronic Qualifiers: Coronary Disease-Associated Artery/Lesion type: bypass graft [place] vs. transplanted heart: [place] heart Comment: stable, continue aspirin, Coreg, Lisinopril (4) BPH (benign prostatic hyperplasia) Code(s): N40.0 - BENIGN PROSTATIC HYPERPLASIA WITHOUT LOWER URINRY TRACT SYMP Status: Chronic Qualifiers: Lower urinary tract symptom presence: symptoms absent Qualified Code(s): N40.0 - Benign prostatic hyperplasia without lower urinary tract symptoms Comment: stable (5) DM2 (diabetes mellitus, type 2) Status: Chronic Qualifiers: Diabetes mellitus exterminator helper termite insulin use: without exterminator helper termite use Diabetes mellitus complication status: with unspecified complications Qualified Code(s) : E11.8 - Type 2 diabetes mellitus with unspecified complications Comment: on glipizide and metformin (6) HTN (hypertension) Code(s): I10 - ESSENTIAL (PRIMARY) HYPERTENSION Status: Chronic Qualifiers: Hypertension type: essential hypertension Qualified Code(s): I10 - Essential (primary) hypertension Comment: controlled (7) Obesity (BMI 35.0-39.9 without comorbidity) Code(s): E66.9 - OBESITY, UNSPECIFIED Status: Chronic - Plan * . Review of Systems - Medications/Allergies Allergies/Adverse Reactions: Allergies Allergy/AdvReac Type Severity Reaction Status Date / Time No Known Allergies Allergy Verified 09/23/17 11:18 Medications: Current Medications Acetaminophen (Tylenol) 650 mg PO Q4H PRN PRN Reason: Headache/Fever or Pain Last Admin: 09/23/17 18:44 Dose: 650 mg Aspirin (Aspirin Chewable) 81 mg PO DAILY [facility] Last Admin: 09/26/17 06:10 Dose: 81 mg Carvedilol (Coreg) 12.5 mg PO BID-[facility] Last Admin: 09/26/17 06:09 Dose: 12.5 mg Cefazolin Sodium (Ancef) 2 gm SLOW IVP [facility] Dextrose/Water (Dextrose 50%) 25 gm SLOW IVP PRN PRN PRN Reason: Hypoglycemia Glipizide (Glucotrol) 10 mg PO BID [facility] Last Admin: 09/26/17 06:10 Dose: Not Given Glucagon (Glucagon) 1 mg IM PRN PRN PRN Reason: Hypoglycemia Dextrose/Water (D5w) 1,000 mls @ 0 mls/hr IV .Q0M PRN; As Directed PRN Reason: Hypoglycemia Insulin Human Lispro (Humalog) 0 units SC .MILD SLIDING SCALE PRN PRN Reason: Mild Correctional Scale Last Admin: 09/24/17 11:40 Dose: 3 unit Insulin Human Lispro (Humalog) 0 units SC .BEDTIME SLIDING SC PRN PRN Reason: Bedtime Correctional Scale Lisinopril (Zestril) 20 mg PO DAILY [facility] Last Admin: 09/26/17 06:10 Dose: 20 mg Metformin HCl (Glucophage) 1,000 mg PO QAM-[facility] Last Admin: 09/26/17 06:09 Dose: Not Given Nitroglycerin (Nitro-Bid 2% Ointment) 0.5 inch TOP Q8HR [facility] Last Admin: 09/26/17 13:49 Dose: Not Given Potassium Chloride (K-Dur) 20 meq PO BID-[facility] Last Admin: 09/26/17 06:09 Dose: 20 meq Sodium Chloride (Flush - Normal Saline) 10 ml IVF Q12HR [facility] Last Admin: 09/26/17 06:11 Dose: 10 ml Sodium Chloride (Flush - Normal Saline) 10 ml IVF PRN PRN PRN Reason: Saline Flush Spironolactone (Aldactone) 25 mg PO BID-[facility] Last Admin: 09/26/17 06:10 Dose: 25 mg Tamsulosin HCl (Flomax) 0.4 mg PO DAILY [facility] Last Admin: 09/26/17 06:11 Dose: 0.4 mg
[2017-09-26] MEDS ORDERED: Midazolam HCl 2 mg/2 ml Vial ONE (17:28)
[2017-09-26] MEDS ORDERED: Acetaminophen/Codeine 30-300mg Tablet PO PRN (21:00)
[2017-09-26] MEDS ORDERED: Acetaminophen 325 MG TAB PO PRN (21:16)
[2017-09-26] MEDS: Acetaminophen/Codeine 30-300mg Tablet PO PRN (22:31)
[2017-09-27] MEDS: Cephalexin 250 MG CAP PO SCH ×3 (00:30→13:14)
[2017-09-27] MEDS: Acetaminophen/Codeine 30-300mg Tablet PO PRN (02:43)
[2017-09-27] MEDS: Nitroglycerin 2% Ointment 1 INCH/1 GM Packet TOP SCH (06:19)
[2017-09-27] MEDS ORDERED: Potassium Chloride 20 MEQ TAB PO SCH (08:00)
--- NOTE | 2017-09-27 08:29 | RAD ---
PORTABLE CHEST: HISTORY: Pacemaker placement. COMPARISON: 09/23/17 study. FINDINGS: Heart size is enlarged. There is postop sternotomy change. Pacemaker device is now present. No pne umothorax. IMPRESSION: Cardiomegaly. No signs of pneumothorax. POS: OFF
[2017-09-27] MEDS: Carvedilol 25 MG TAB PO SCH (08:46)
[2017-09-27] MEDS: Spironolactone 25 MG TAB PO SCH (08:46)
[2017-09-27] MEDS: metFORMIN 500 MG TAB PO SCH (08:46)
[2017-09-27] MEDS: Lisinopril 10 MG TAB PO SCH (08:46)
[2017-09-27] MEDS: glipiZIDE 10 MG TAB PO SCH (08:47)
[2017-09-27] MEDS: Tamsulosin HCl 0.4 MG CAP PO SCH (08:47)
--- NOTE | 2017-09-27 10:48 | PDOC.CTH ---
<María Link - Last Filed: 09/27/17 10:46> Cardiology Progress Note - Subjective EP progress note: Patient seen and evaluated. No new cardiac concerns or complaints overnight. Report some tenderness and mild-moderate pain at implant site. Otherwise, feeling well without issue. Denies fever, chills, heart racing, palpitations, chest pain/pressure, dizziness , passing out, or stroke like symptoms. - Objective Vital Signs Temp Pulse Pulse Pulse Resp BP BP 09/27/17 09:07 64 66 127/72 127/76 09/27/17 08:20 97.8 F 62 18 09/27/17 04:00 97.6 F 69 15 09/27/17 00:00 63 18 BP BP Pulse Ox Pulse Ox Pulse Ox 09/27/17 09:07 95 95 09/27/17 08:20 124/73 96 09/27/17 04:00 127/78 92 L 09/27/17 00:00 125/70 Weight 237 lb 09/26/17 09/27/17 09/28/17 06:59 06:59 06:59 Intake Total 1187 480 Output Total 2950 1425 Balance -1763 -945 - Physical Examination General/Neuro: alert & oriented x3, NAD Neck: carotid US brisk, no JVD present Lungs: CTA, unlabored respirations Heart: PMI normal, RRR Abdomen: NT/ND Other PE findings: left chest wall incision edges well approximated, mild bruising & edema - Telemetry Telemetry Rhythm: NSR - Labs Result Diagrams: 09/26/17 11:49 09/26/17 11:49 Troponin/CKMB Troponin I 0.030 ng/mL (< 0.028) H 09/23/17 15:48 - Assessment/Plan 1. Single chamber ICD implant, prophylactic- device check is stable. CXR stable , no pneumothorax. On prophylactic Keflex 500mg QID x 7 days. Site is stable without signs of complication. 2. Coronary artery disease 3. Ischemic cardiomyopathy, severely reduced LVEF >3months post CABG despite optimal medical management. OK for DC by EP. Continue Keflex as prescribed x 7 days. Wound check with TCA in 1-2 weeks. <Du Peacock - Last Filed: 09/27/17 14:01> Cardiology Progress Note - Objective Vital Signs Temp Pulse Pulse Pulse Resp BP BP 09/27/17 12:26 97.9 F 66 16 09/27/17 09:07 64 66 127/72 127/76 09/27/17 08:20 97.8 F 62 18 09/27/17 08:00 97.8 F 62 18 09/27/17 04:00 97.6 F 69 15 BP BP Pulse Ox Pulse Ox Pulse Ox 09/27/17 12:26 114/69 96 09/27/17 09:07 95 95 09/27/17 08:20 124/73 96 09/27/17 08:00 96 09/27/17 04:00 127/78 92 L Weight 237 lb 09/26/17 09/27/17 09/28/17 06:59 06:59 06:59 Intake Total 1187 480 Output Total 2812 4293 Balance -2643 -015 - Labs Result Diagrams: 09/26/17 11:49 09/26/17 11:49 Troponin/CKMB Troponin I 0.030 ng/mL (< 0.028) H 09/23/17 15:48 Attending Addendum - Attending Addendum Date/Time: 09/27/17 1401 I personally evaluated the patient and discussed the management with MS Link. I agree with the History, Examination, Assessment and Plan documented above with any addition or exceptions noted below.
[2017-09-27] MEDS: Torsemide 20 MG TAB PO SCH ×2 (10:49→14:33)
--- NOTE | 2017-09-27 10:52 | EKG ---
Test Reason : Blood Pressure : / mmHG Vent. Rate : 063 BPM Atrial Rate : 063 BPM P-R Int : 172 ms QRS Dur : 100 ms QT Int : 432 ms P-R-T Axes : 065 107 127 degrees QTc Int : 442 ms Normal sinus rhythm Possible Left atrial enlargement Rightward axis Septal infarct , age undetermined T wave abnormality, consider anterolateral ischemia Abnormal ECG When compared with ECG of 26-SEP-2017 12:15, QT has shortened Confirmed by BO YORK, SNette ([id number]) on 09/27/2017 10:51:56 AM Referred By: ELSA Confirmed By:DR. Grecia SORIANO MD
[2017-09-27 12:26] VITALS: TEMP 97.9
[2017-09-27 16:52] VITALS: BP 135/76
--- NOTE | 2017-09-29 11:02 | EKG ---
Test Reason : Blood Pressure : / mmHG Vent. Rate : 090 BPM Atrial Rate : 090 BPM P-R Int : 168 ms QRS Dur : 088 ms QT Int : 354 ms P-R-T Axes : 065 102 099 degrees QTc Int : 433 ms Normal sinus rhythm Possible Left atrial enlargement Rightward axis Anteroseptal infarct , age undetermined Abnormal ECG No ST elevation/HI Confirmed by SYLVIA JENKINS M.D. ([id number]), fan mail editor INEZ GONZALEZ ([id number]) on 09/29/2017 11:02:40 AM Referred By: Confirmed By:SYLVIA JENKINS M.D.
== END 2017-09-27 17:25 | disposition home or self-care (01) | DRG 227 ==
LOC: ERS 07:41 → 2NO 09:48
PROVIDERS: ADMIT Family Medicine; ATTEND Family Medicine
PROC: 0JH608Z Insertion of Defibrillator Generator into Chest Subcutaneous Tissue and Fascia, Open Approach (ICD-10-PCS; principal; 2017-09-26)
PROC: 02HK3KZ Insertion of Defibrillator Lead into Right Ventricle, Percutaneous Approach (ICD-10-PCS; 2017-09-26)
DX: I11.0 Hypertensive heart disease with heart failure (principal); N17.9 Acute kidney failure, unspecified; I47.2 Ventricular tachycardia; E11.9 Type 2 diabetes mellitus without complications; I50.43 Acute on chronic combined systolic (congestive) and diastolic (congestive) heart failure; E78.5 Hyperlipidemia, unspecified; N40.0 Benign prostatic hyperplasia without lower urinary tract symptoms; Z85.46 Personal history of malignant neoplasm of prostate; Z79.84 Long term (current) use of oral hypoglycemic drugs; Z79.82 Long term (current) use of aspirin; Z95.1 Presence of aortocoronary bypass graft; I25.5 Ischemic cardiomyopathy; I25.10 Atherosclerotic heart disease of native coronary artery without angina pectoris; E66.9 Obesity, unspecified; Z68.37 Body mass index [BMI] 37.0-37.9, adult
CPT/HCPCS: 33240; 36005; 36415; 36416; 71045; 71275; 75820; 80048; 81001; 85025; 85610; 85730; 93005; 93010; 93306; 93640; 93798; A4216; C1722; C1777; J1650; J1940; J2001; J2250; J2704; J3490

== ENCOUNTER 2018-02-10 21:26 | Inpatient (IN) | payer OTHER, SELFPAY ==
[2018-02-10 23:54] VITALS: BMI 34.4
[2018-02-11 00:05] LABS: Troponin I 0.021 ng/mL (< 0.028)
[2018-02-11] MEDS ORDERED: Nitroglycerin 50 MG/250 ML BOT 250 ML IVPB SCH (00:15)
[2018-02-11] MEDS ORDERED: Ondansetron PF 4 MG/2 ML Vial IVP PRN (01:17)
[2018-02-11] MEDS ORDERED: Ondansetron ODT 4 MG TAB PO PRN (01:17)
[2018-02-11] MEDS ORDERED: Nitroglycerin 0.4 MG TAB (25 Tab Bottle) PO PRN (01:17)
[2018-02-11] MEDS ORDERED: Calcium Carbonate 500 MG ChewTAB PO PRN (01:17)
[2018-02-11] MEDS ORDERED: Acetaminophen 325 MG TAB PO PRN (01:17)
--- NOTE | 2018-02-11 02:15 | HP ---
The patient was seen and examined on 02/10/2018. PRIMARY CARE PHYSICIAN: Dr. Sukhwinder Paul. PRIMARY PROMOTIONS INTERN: Dr. Engel. CHIEF COMPLAINT: Shortness of breath. HISTORY OF PRESENT ILLNESS: The patient is a 62-year-old male with chronic systolic heart failure, ejection fraction 30% to 35% range; coronary artery disease, status post CABG; hypertension; diabetes mellitus type 2; and AICD in the past, presented to the emergency room at [facility] with worsening shortness of breath that started 2 hours prior to ER arrival. He arrived to the emergency room around 7:00 p.m. He had sudden onset of shortness of breath along with chest tightness and wheezing. He also noticed increased abdominal girth. He was unable to lie down flat. He tried taking extra torsemide without much relief. He admits mild noncompliance with his salt restriction. He is currently at 1500 mL fluid restriction at home. No fever, chills, syncope, or palpitations reported. In the emergency room at [facility], his initial vital signs showed temperature 98, pulse rate of 118, blood pressure 212 /129 with respiration of 36, and O2 saturation 85% on room air. He was placed on noninvasive positive pressure ventilation and was started on nitroglycerin drip. He received Solu-Medrol, aspirin, magnesium, and 40 mg IV Lasix at [facility] and was transferred to this facility for hospital admission. PAST MEDICAL HISTORY: 1. Chronic systolic heart failure, ejection fraction 30% to 35% range. 2. Coronary artery disease, status post CABG. 3. Diabetes mellitus type 2. 4. Hypertension. 5. Hyperlipidemia. 6. Obesity. 7. Benign prostatic hypertrophy. 8. History of frequent UTIs. 9. Prostate cancer, status post radiation therapy. PAST SURGICAL HISTORY: 1. Coronary artery bypass grafting. 2. AICD placement. 3. Cholecystectomy. 4. Urethral stricture repair. ALLERGIES: NO KNOWN DRUG ALLERGIES. MEDICATIONS: Current home medications: 1. Aspirin 81 mg daily. 2. Carvedilol 12.5 mg b.i.d. 3. Aldactone 25 mg daily. 4. Tylenol as needed. 5. Torsemide 20 mg b.i.d. 6. Flomax 0.4 mg daily. 7. VESIcare 5 mg daily. 8. Potassium chloride 20 mEq twice a day. 9. Protonix 40 mg daily. 10. Metformin 1000 mg daily. 11. Glipizide 10 mg b.i.d. SOCIAL HISTORY: The patient quit smoking in June of this year. Occasionally drinks alcohol. He denies any drug use. He is full code and his , Tracie is his surrogate decision maker. FAMILY HISTORY: Positive for COPD, cirrhosis, diabetes, and heart failure. REVIEW OF SYSTEMS: All other review of systems were reviewed and were found negative. PHYSICAL EXAMINATION: VITAL SIGNS: As discussed above. GENERAL: 62-year-old male, in mild respiratory distress, able to complete short phrases, currently on nitroglycerin drip. HEENT: Head atraumatic, normocephalic. Sclerae anicteric. Moist mucous membranes. No oral lesion. NECK: Supple. JVD elevated. No carotid bruits. LUNGS: Showed bibasilar crackles with scattered rhonchi. There was some accessory muscle use. HEART: S1 and S2 present. Regular rate and rhythm. Healed midline scar from previous CABG. No heaves or palpitation. ABDOMEN: Soft, distended. Bowel sounds present. No rebound or guarding. EXTREMITIES: No edema or calf tenderness. NEUROLOGY: Grossly nonfocal. Moves all 4 extremities. PSYCHIATRY: Alert, awake, and oriented x3. SKIN: Warm and dry. PERIPHERAL VASCULAR: Radial pulses palpable bilaterally. MUSCULOSKELETAL: No joint swelling or tenderness. SKIN: Warm and dry. LYMPH NODES: No palpable lymph nodes in the neck. LABORATORY FINDINGS: Creatinine 1.79 from baseline 1.04, sodium 139, potassium 4.8. Lactic acid 1.8, total bilirubin 0.6, alkaline phosphatase 217. Troponin was negative. WBC 5.7 with hemoglobin 14.4. Chest x-ray by my review showed pulmonary edema. Telemetry by my review showed sinus rhythm. IMPRESSION: 1. Pulmonary edema/acute hypoxic respiratory failure secondary to acute on chronic systolic heart failure exacerbation ACC stage C. 2. Coronary artery disease, status post coronary artery bypass graft earlier this year. 3. Acute kidney injury on chronic kidney disease stage 2 secondary to cardiorenal syndrome. 4. Diabetes mellitus type 2. 5. Obesity with a body mass index of 34.4. 6. Hypertension with hypertensive emergency, on nitroglycerin drip. 7. Status post automatic implantable cardioverter-defibrillator. 8. Prostate cancer, status post radiation therapy. 9. Dyslipidemia. 10. Benign prostatic hypertrophy. PLAN: The patient will be monitored in the critical care unit. We will continue nitroglycerin drip overnight. We will continue diuresis. We will monitor creatinine on a daily basis. We will hold torsemide, Aldactone, and potassium chloride for now due to acute kidney injury. Metformin will be held as well. We will reduce glipizide dose for now, start insulin sliding scale. Continue Protonix. We will continue Flomax. Daily weights. Continue fluid restriction. Plan of care was discussed with the patient and the family in detail. They stated understanding. Job ID: [id number] MTDD
[2018-02-11 05:38] LABS: ALT (SGPT) 13 U/L (8-55); AST (SGOT) 11 U/L (5-34); Albumin 3.9 g/dL (3.5-5.0); Alkaline Phosphatase 191 U/L (40-150); Anion Gap 15 mmol/L (10-20); BUN (Urea Nitrogen) 32 mg/dL (8.4-25.7); Bilirubin, Total 0.9 mg/dL (0.2-1.2); Calc. Creatinine Clearance 71 mL/min (70-130); Calcium 9.5 mg/dL (7.8-10.44); Carbon Dioxide 23 mmol/L (22-29); Chloride 101 mmol/L (98-107); Estimated GFR-MDRD 45; Globulin 2.9 g/dL (2.4-3.5); Glucose 392 mg/dL (70-105); Magnesium 2.3 mg/dL (1.6-2.6); Potassium 4.6 mmol/L (3.5-5.1); Protein, Total 6.8 g/dL (6.0-8.3); Sodium 134 mmol/L (136-145)
[2018-02-11 05:48] LABS: Troponin I Less than 0.010 ng/mL (< 0.028)
[2018-02-11] MEDS: Furosemide 40 MG/4 ML VIAL SLOW IVP SCH ×2 (06:02→13:22)
[2018-02-11] MEDS: Carvedilol 6.25 MG TAB PO SCH ×2 (08:15→15:55)
[2018-02-11] MEDS: Aspirin 81 mg Enteric Coated Tablet PO SCH (08:16)
[2018-02-11] MEDS: glipiZIDE 10 MG TAB PO SCH (08:16)
[2018-02-11] MEDS: Tamsulosin HCl 0.4 MG CAP PO SCH (08:16)
[2018-02-11] MEDS: TROSPIUM 20 MG TABLET PO SCH ×2 (08:17→20:33)
[2018-02-11] MEDS: Senokot S 8.6-50 MG TAB PO SCH ×2 (08:18→20:34)
[2018-02-11] MEDS ORDERED: Dextrose 5% in Water 1,000 ML IV PRN (10:14)
[2018-02-11] MEDS ORDERED: Dextrose 50% Abboject 50 ML SYRINGE SLOW IVP PRN (10:14)
--- NOTE | 2018-02-11 10:48 | CON ---
DATE OF CONSULTATION: HISTORY OF PRESENT ILLNESS: Agapito Mccray is a 62-year-old gentleman, who was admitted last time with shortness of breath. He is unresponsive to his usual home medication. Denied chest pain, chills, or sweats. He is coughing sputum and that appear to be relatively clear. He states that he has seen a doctor at [facility] in [place]. Most days, he says that he can walk a block without getting markedly short of breath. He was just recently discharged from the hospital with a diagnosis of acute on chronic respiratory failure. He saw an EP physician at that time. A single-chamber ICD implant was done for cardiomyopathy with severely reduced EF. His last echocardiogram showed his EF was 30% to 35%. He is a former smoker, quit smoking following his bypass surgery. PAST MEDICAL HISTORY: 1. Coronary artery disease. 2. Hypertension. 3. BPH. 4. Tobacco abuse. 5. Diabetes. HOME MEDICINES: 1. VESIcare 5 mg a day. 2. Protonix 40. 3. Aspirin 81. 4. Flomax 0.4 a day. 5. Aldactone 25 once a day. 6. Coreg 12.5 twice a day. 7. Metformin 1000 twice a day. 8. Glipizide 10 a day. 9. Torsemide 20 a day. ALLERGIES: NONE. PREVIOUS SURGERIES: 1. Bypass. 2. Cholecystectomy. SOCIAL HISTORY: Tobacco, quit smoking on June 2017. Alcohol, apparently none. REVIEW OF SYSTEMS: Otherwise, 10-point negative. PHYSICAL EXAMINATION: GENERAL: He is awake, alert, and responsive, in no distress. VITAL SIGNS: Pulse 83, sats 100%, blood pressure 127/68, and respiratory rate 18. CHEST: Decreased breath sounds. No wheezing. CARDIAC: Normal S1 and S2. No gallops. ABDOMEN: Soft without any mass. NEUROLOGICALLY: Awake, alert, and responsive. LABORATORY AND DIAGNOSTIC DATA: Creatinine 1.57. White count 5000, hemoglobin and hematocrit 14 and 46. X-ray shows congestive heart failure. His BNP was 703. IMPRESSIONS: 1. Congestive heart failure acute on chronic. 2. Status post automatic implantable cardioverter-defibrillator single-chamber. 3. Renal failure. 4. Diabetes. Agree with diuretics, neb treatments, and supportive care. Can probably be transferred out of ICU. TIME SPENT: 45-minute critical time. Job ID: [id number]
[2018-02-11] MEDS: HumaLOG 300 UNITS/3 ML VIAL SC PRN ×2 (10:49→13:29)
[2018-02-11] MEDS ORDERED: metFORMIN 500 MG TAB PO SCH (11:00)
[2018-02-11] MEDS ORDERED: Spironolactone 25 MG TAB PO SCH (11:00)
--- NOTE | 2018-02-11 11:19 | PRG ---
DATE OF SERVICE: 02/11/2018 SUBJECTIVE: The patient is feeling substantially better. Does not feel short of breath presently at all, and is quite comfortable. He reports that he likely had some dietary indiscretion, eating some ranch style beans and homemade deer sausage, which has a fair amount of sodium. OBJECTIVE: VITAL SIGNS: T-max is 97.8, pulse 76, blood pressure 113/51 up to 139/74, off the nitroglycerin drip, respirations 13, O2 saturation 98% on room air. GENERAL APPEARANCE: The patient is awake, alert, pleasant, and cooperative. He is in no distress. He is not tachypneic. HEENT: PERRL. No OP lesions. NECK: Supple and symmetric. HEART: Regular rate and rhythm without murmurs, gallops, or rubs. LUNGS: Lungs have bibasilar fine rales, but fairly good air exchange. ABDOMEN: Soft, nontender, and nondistended. Positive bowel sounds. No masses. No organomegaly. EXTREMITIES: Warm and dry. Good pulses. No edema. LABORATORY DATA: Sodium 134, potassium 4.6, chloride 101, BUN 32, creatinine 1.57, glucose 392. LFTs normal except alkaline phosphatase of 191. Troponin negative. BNP 703. IMPRESSION AND PLAN: 1. Decompensated acute systolic congestive heart failure in a patient with ejection fraction of 30% to 35% with AHA class II heart failure. The patient is doing vastly better since he has responded very well to diuretic therapy. He is breathing comfortably with no supplemental oxygen and saturating quite well on room air. Repeat chest x-ray is pending. Still have some evidence of bibasilar edema. 2. Ischemic cardiomyopathy, chronic. The patient is on his usual regimen, otherwise. We will resume his Aldactone as well. 3. Acute renal failure, likely due to decompensated heart failure. He is above his baseline creatinine, still which is apparently around 1, but is improved from his initial value. Will be comfortable resuming his metformin. 4. Diabetes mellitus. Resume his metformin. Start Accu-Cheks and sliding scale coverage as needed. 5. Disposition. The patient has potassium repleted this morning. We will get some more Lasix this afternoon. Anticipate, he will be able to move out to a regular floor bed today and if he continues to improve as well likely be able to discharge as early as tomorrow. 6. Hypertensive urgency related to the dietary indiscretion and decompensated failure, responded well to nitroglycerin drip and diuretics, appears to be resolved at this time. Job ID: [id number]
[2018-02-11] MEDS ORDERED: Potassium Chloride 20 MEQ TAB PO SCH ×2 (12:00→14:00)
--- NOTE | 2018-02-11 14:05 | CON ---
DATE OF CONSULTATION: 02/11/2018 REASON FOR CONSULTATION: Congestive heart failure, systolic, acute on chronic. HISTORY OF PRESENT ILLNESS: Mr. Agapito Mccray is a 62-year-old gentleman with a history of congestive heart failure and coronary artery disease, who has had recurrent episodes of congestive heart failure and pulmonary edema. Mr. Mccray is 62 years of age. He states he has been doing fairly well up until recently, but then noted yesterday some shortness of breath. He said he did not take his medications and morning medicines until late, but had been taking his medicines as prescribed. Although he is not really certain what medicines he is taking he said he is taking what is ever on his list. The patient states he got progressively short of breath. Finally, went to the emergency room. He was found to be in pulmonary edema and he was admitted for further therapy. He did not have chest pain. He does report that he has been eating increased amounts of salt. When he presented to the emergency room, his blood pressure was extremely high at 212/129, heart rate was 112, respiratory rate was 36, oxygen saturation 95% on room air. He was given noninvasive positive-pressure ventilation, given intravenous nitroglycerin, given intravenous Lasix, Solu-Medrol, aspirin, and magnesium. PAST MEDICAL HISTORY: 1. He has had chronic systolic heart failure. 2. Previous bypass surgery. 3. Diabetes. 4. Hypertension. 5. Hyperlipidemia. 6. Obesity. 7. History of prostate cancer with previous radiation. SURGICAL THERAPY: 1. Previous bypass surgery. 2. Previous defibrillator. 3. Cholecystectomy. MEDICATIONS: At home, 1. Aspirin. 2. Carvedilol 12.5 mg twice a day. 3. Spironolactone 25 mg daily. 4. Torsemide 20 mg twice a day. 5. Potassium 20 mEq twice a day. 6. Metformin. 7. Glipizide. SOCIAL HISTORY: He quit smoking in June of this year. Occasional alcohol. No drugs. FAMILY HISTORY: Positive for COPD, cirrhosis, diabetes. REVIEW OF SYSTEMS: CONSTITUTIONAL: No significant weight gain or loss. VISION: No changes. HEARING: No changes. PULMONARY: No cough or wheezing. GASTROINTESTINAL: No nausea, vomiting, or diarrhea. SKIN: No rashes. NEUROLOGIC: No unilateral weakness or numbness. PSYCHIATRIC: No unusual depression or anxiety. PHYSICAL EXAMINATION: GENERAL: This is a pleasant gentleman. He is overweight, 5 feet 7 inches tall, 238 pounds, BMI 37. Current blood pressure is lower at 113/51, pulse 76 sinus on the monitor. HEENT: Eyes, sclerae nonicteric. Mouth, mucous membranes moist. NECK: Supple. No lymphadenopathy. LUNGS: Clear. There are still a few basilar rales. No wheezing. CARDIAC: Normal S1, normal S2. There is no murmur, rub, or gallop. ABDOMEN: Obese, nontender. No hepatosplenomegaly. EXTREMITIES: Warm and dry. No clubbing or cyanosis. There is no significant edema now. He has good dorsalis pedis pulses bilaterally. PERTINENT LABORATORY: Troponin 0.021, which is still in the negative range. EKG on the rhythm strip did not show any ST changes. I do not see a 12-lead on the EKG here. Other pertinent laboratories, creatinine is 1.57, it was 1.79 yesterday. Most recent ejection fraction of 30% to 35%. ASSESSMENT: 1. Congestive heart failure, systolic, acute on chronic, improving. 2. Hypertension, improving. 3. Renal failure, currently stage 3, improving. 4. Hypertension, improving. PLAN: 1. Consider trying Entresto, so if we can try to help him get his medicine and stopping spironolactone for now. We will hold off on this for now. The patient is unsure whether he is taking any LIEN inhibitors. He is really very uncertain. 2. Continue diuretics. 3. He is now off intravenous nitrates. 4. Okay to me to be transferred to the Telemetry floor. Job ID: [id number]
[2018-02-11] MEDS: Insulin Regular 300 UNITS/3 ML VIAL SC PRN (15:54)
[2018-02-11] MEDS: Enoxaparin Sodium 30 MG/0.3 ML SYRINGE SC SCH (20:33)
[2018-02-12] MEDS: Furosemide 40 MG/4 ML VIAL SLOW IVP SCH ×2 (05:23→14:47)
[2018-02-12 06:10] LABS: #Eosinphils 0.1 thou/uL (0.0-0.7); #Lymphocytes 1.6 thou/uL (1.20-3.40); #Monocytes 0.8 thou/uL (0.11-0.59); #Neutrophils 7.6 thou/uL (1.40-6.50); %Basophils 0.4 % (0.0-1.0); %Eosinophils 0.7 % (0.0-10.0); %Monocytes 8.1 % (0.0-10.0); %Neutrophils 74.9 % (42.0-75.0); Hemoglobin 12.9 g/dL (14.0-18.0); Mean Corpuscular Hemoglobin 27.5 pg (27.0-31.0); Mean Corpuscular Volume 85.8 fL (78.0-98.0); Mean Platelet Volume 8.7 fL (7.4-10.4); Platelet Count 174 thou/uL (130-400); RBC Distribution Width 12.2 % (11.5-14.5); Red Blood Cell (RBC) Count 4.71 mill/uL (4.70-6.10); White Blood Cell (WBC) Count 10.2 thou/uL (4.8-10.8)
[2018-02-12 06:16] LABS: Anion Gap 12 mmol/L (10-20); BUN (Urea Nitrogen) 38 mg/dL (8.4-25.7); Calc. Creatinine Clearance 89 mL/min (70-130); Calcium 9.3 mg/dL (7.8-10.44); Carbon Dioxide 25 mmol/L (22-29); Chloride 100 mmol/L (98-107); Estimated GFR-MDRD 54; Glucose 205 mg/dL (70-105); Magnesium 2.2 mg/dL (1.6-2.6); Potassium 4.2 mmol/L (3.5-5.1); Sodium 133 mmol/L (136-145)
[2018-02-12] MEDS: Spironolactone 25 MG TAB PO SCH (08:06)
[2018-02-12] MEDS: glipiZIDE 10 MG TAB PO SCH (08:06)
[2018-02-12] MEDS: Carvedilol 6.25 MG TAB PO SCH ×2 (08:07→16:09)
[2018-02-12] MEDS: TROSPIUM 20 MG TABLET PO SCH ×2 (08:07→21:07)
[2018-02-12] MEDS: Senokot S 8.6-50 MG TAB PO SCH ×2 (08:07→21:07)
[2018-02-12] MEDS: metFORMIN 500 MG TAB PO SCH (08:08)
[2018-02-12] MEDS: Aspirin 81 mg Enteric Coated Tablet PO SCH (08:08)
[2018-02-12] MEDS: Tamsulosin HCl 0.4 MG CAP PO SCH (08:08)
[2018-02-12] MEDS: Insulin Regular 300 UNITS/3 ML VIAL SC PRN (08:13)
--- NOTE | 2018-02-12 15:37 | PRG ---
DATE OF SERVICE: 02/12/2018 SUBJECTIVE: Mr. Mccray is breathing better today, feels much better. No shortness of breath. OBJECTIVE: VITAL SIGNS: Blood pressure 134/72, pulse 70 and regular. LUNGS: Clear. CARDIAC: Normal S1. Normal S2. ABDOMEN: Obese and nontender. EXTREMITIES: Mild edema. ASSESSMENT: 1. Recurrent congestive heart failure. 2. Stage 2 renal failure, now with creatinine of 1.34. 3. Diabetes. PLAN: 1. Continue carvedilol. 2. Change from intravenous furosemide to oral furosemide. 3. Recommend starting Entresto. Discussed with the family. They think they will be able to buy it. We can give them some samples tomorrow. Check the tomorrow. Hopefully, this can reduce risk of rehospitalization with this gentleman with heart failure. Job ID: [id number]
[2018-02-12] MEDS: Sacubitril 24.5 MG/Valsartan 25.5 MG TABLET PO SCH (21:07)
[2018-02-12] MEDS: Enoxaparin Sodium 30 MG/0.3 ML SYRINGE SC SCH (21:07)
--- NOTE | 2018-02-12 22:54 | PDOC.PN ---
- Subjective Encounter Start Date: 02/12/18 Encounter Start Time: 08:45 Feeling much better overall. Breathing is back to normal. No SOB. - Objective Resuscitation Status - Order Detail: 02/11/18 01:17 Resuscitation Status Routine Resuscitation Status: FULL: Full Resuscitation Vital Signs & Weight: Vital Signs (12 hours) Temp Pulse Resp BP Pulse Ox 02/12/18 20:00 97 02/12/18 19:21 97.2 F L 68 20 119/80 97 02/12/18 18:40 95 02/12/18 18:39 69 16 96 02/12/18 16:05 97.5 F L 64 18 146/80 H 95 02/12/18 13:21 67 16 96 02/12/18 12:05 97.8 F 66 18 134/72 98 Weight Admit Weight 219 lb 12.814 oz Weight 236 lb 3.2 oz Most Recent Monitor Data Heart Rate from ECG 92 NIBP 144/76 NIBP BP-Mean 98 Respiration from ECG 24 SpO2 75 I&O: 02/11/18 02/12/18 02/13/18 06:59 06:59 06:59 Intake Total 470 1674 1008 Output Total 1100 3220 3500 Balance -961 -3514 -5917 Result Diagrams: 02/12/18 05:23 02/12/18 05:23 Additional Labs: Accuchecks 02/12/18 02/12/18 02/12/18 20:47 17:09 11:04 POC Glucose 143 H 170 H 152 H 02/12/18 05:29 POC Glucose 210 H Phys Exam - Physical Examination Constitutional: NAD Respiratory: no wheezing, no rales, no rhonchi Cardiovascular: RRR, no significant murmur Gastrointestinal: soft, non-tender, no distention Musculoskeletal: no edema Psychiatric: normal affect, A&O x 3 Dx/Plan (1) Acute respiratory failure with hypoxia Code(s): J96.01 - ACUTE RESPIRATORY FAILURE WITH HYPOXIA Status: Resolved Comment: Secondary to CHF. Improved with diuresis (2) Acute on chronic systolic ACC/AHA stage C congestive heart failure Code(s): I50.23 - ACUTE ON CHRONIC SYSTOLIC (CONGESTIVE) HEART FAILURE Status : Acute Comment: Improved with diuresis. (3) CAD (coronary artery disease) Code(s): I25.10 - ATHSCL HEART DISEASE OF [place] CORONARY ARTERY W/O ANG PCTRS Status: Chronic Qualifiers: Coronary Disease-Associated Artery/Lesion type: bypass graft [place] vs. transplanted heart: [place] heart Comment: stable, continue aspirin, Coreg, Lisinopril (4) DM2 (diabetes mellitus, type 2) Status: Chronic Qualifiers: Diabetes mellitus fci insulin use: without fci use Diabetes mellitus complication status: with unspecified complications Qualified Code(s) : E11.8 - Type 2 diabetes mellitus with unspecified complications Comment: on glipizide and metformin (5) Dyslipidemia Code(s): E78.5 - HYPERLIPIDEMIA, UNSPECIFIED Status: Chronic (6) HTN (hypertension) Code(s): I10 - ESSENTIAL (PRIMARY) HYPERTENSION Status: Chronic Qualifiers: Hypertension type: essential hypertension Qualified Code(s): I10 - Essential (primary) hypertension Comment: controlled - Plan * Pulmonary edema resolved. Cardiology consulted. .
[2018-02-13 05:44] LABS: Anion Gap 14 mmol/L (10-20); BUN (Urea Nitrogen) 35 mg/dL (8.4-25.7); Calc. Creatinine Clearance 104 mL/min (70-130); Calcium 9.4 mg/dL (7.8-10.44); Carbon Dioxide 26 mmol/L (22-29); Chloride 99 mmol/L (98-107); Estimated GFR-MDRD 66; Glucose 165 mg/dL (70-105); Potassium 4.1 mmol/L (3.5-5.1); Sodium 135 mmol/L (136-145)
[2018-02-13] MEDS ORDERED: Furosemide 40 MG TAB PO SCH (09:00)
[2018-02-13] MEDS: TROSPIUM 20 MG TABLET PO SCH (09:08)
[2018-02-13] MEDS: Senokot S 8.6-50 MG TAB PO SCH (09:08)
[2018-02-13] MEDS: metFORMIN 500 MG TAB PO SCH (09:08)
[2018-02-13] MEDS: Tamsulosin HCl 0.4 MG CAP PO SCH (09:08)
[2018-02-13] MEDS: Carvedilol 6.25 MG TAB PO SCH (09:08)
[2018-02-13] MEDS: glipiZIDE 10 MG TAB PO SCH (09:09)
[2018-02-13] MEDS: Spironolactone 25 MG TAB PO SCH (09:09)
[2018-02-13] MEDS: Aspirin 81 mg Enteric Coated Tablet PO SCH (09:09)
[2018-02-13] MEDS: Sacubitril 24.5 MG/Valsartan 25.5 MG TABLET PO SCH (09:09)
--- NOTE | 2018-02-13 09:43 | PRG ---
DATE OF SERVICE: 02/12/2018 SERVICE: Pulmonary Medicine. INTERVAL HISTORY: The patient is doing outstanding from respiratory standpoint. He has been weaned back down to room air. He does not have any complaints of chest pain, fevers, chills, or shortness of breath. Otherwise, there has been no interval change to his condition. PHYSICAL EXAMINATION: VITAL SIGNS: Afebrile, pulse 64, blood pressure 146/80, respirations 18, and saturation 95% on room air. GENERAL: The patient is awake and alert, in no apparent distress. LUNGS: Decent air entry. Minimal dependent crackles are present. There is no prolonged expiratory phase or wheezing. HEART: Normal rate. Regular. ABDOMEN: Soft, nontender, and nondistended. Bowel sounds are positive. MUSCULOSKELETAL: No cyanosis or clubbing. No pitting in the bilateral lower extremities. NEUROLOGIC: Grossly nonfocal. LABORATORY DATA: WBC 10.2, hemoglobin 12.9, and platelets 174,000. Basic metabolic profile is essentially unremarkable. Creatinine is downtrending to 1.34. ASSESSMENT: 1. Acute hypoxic respiratory failure, resolved. 2. Acute on chronic systolic and diastolic heart failure, returning to euvolemia. DISCUSSION AND PLAN: At this point, the patient has returned to his baseline. At this point, he has no further requirements for inpatient Pulmonary or Critical Care opinion, and I will sign off. Please call with additional questions or concerns. Job ID: [id number]
--- NOTE | 2018-02-13 11:21 | PDOC.PN ---
- Subjective Encounter Start Date: 02/13/18 Encounter Start Time: 09:15 Subjective: no chest pain or sob -: is not interested in entresto due to cost and side effects -: ambulating in room - Objective Resuscitation Status - Order Detail: 02/11/18 01:17 Resuscitation Status Routine Resuscitation Status: FULL: Full Resuscitation MAR Reviewed: Yes Vital Signs & Weight: Vital Signs (12 hours) Temp Pulse Resp BP BP BP Pulse Ox 02/13/18 09:08 158/88 H 02/13/18 08:00 97.8 F 72 17 158/88 H 95 02/13/18 05:56 97.3 F L 66 18 108/64 94 L 02/12/18 23:20 97.4 F L 71 20 155/93 H 95 Weight Admit Weight 219 lb 12.814 oz Weight 225 lb 12.8 oz Most Recent Monitor Data Heart Rate from ECG 92 NIBP 144/76 NIBP BP-Mean 98 Respiration from ECG 24 SpO2 75 I&O: 02/12/18 02/13/18 02/14/18 06:59 06:59 06:59 Intake Total 1674 1328 Output Total 3220 4350 Balance -2275 -1138 Result Diagrams: 02/12/18 05:23 02/13/18 04:38 Additional Labs: Accuchecks 02/13/18 02/12/18 02/12/18 10:55 20:47 17:09 POC Glucose 194 H 143 H 170 H 02/12/18 11:04 POC Glucose 152 H Phys Exam - Physical Examination HEENT: PERRLA, moist MMs Neck: no JVD, supple Respiratory: no wheezing, no rales Cardiovascular: RRR, no significant murmur Gastrointestinal: soft, non-tender, positive bowel sounds Musculoskeletal: no edema, pulses present Neurological: non-focal, moves all 4 limbs Psychiatric: normal affect, A&O x 3 Dx/Plan (1) Acute on chronic systolic ACC/AHA stage C congestive heart failure Code(s): I50.23 - ACUTE ON CHRONIC SYSTOLIC (CONGESTIVE) HEART FAILURE Status : Acute Comment: Improved with diuresis, ef of 30% in 09/2017. (2) BPH (benign prostatic hyperplasia) Code(s): N40.0 - BENIGN PROSTATIC HYPERPLASIA WITHOUT LOWER URINRY TRACT SYMP Status: Chronic Qualifiers: Lower urinary tract symptom presence: symptoms absent Qualified Code(s): N40.0 - Benign prostatic hyperplasia without lower urinary tract symptoms Comment: stable (3) CAD (coronary artery disease) Code(s): I25.10 - ATHSCL HEART DISEASE OF [place] CORONARY ARTERY W/O ANG PCTRS Status: Chronic Qualifiers: Coronary Disease-Associated Artery/Lesion type: bypass graft [place] vs. 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 inspector insulin use: without care home use Diabetes mellitus complication status: with unspecified complications Qualified Code(s) : E11.8 - Type 2 diabetes mellitus with unspecified complications Comment: on glipizide and metformin (5) Dyslipidemia Code(s): E78.5 - HYPERLIPIDEMIA, UNSPECIFIED Status: Chronic (6) HTN (hypertension) Code(s): I10 - ESSENTIAL (PRIMARY) HYPERTENSION Status: Chronic Qualifiers: Hypertension type: essential hypertension Qualified Code(s): I10 - Essential (primary) hypertension Comment: controlled (7) Obesity (BMI 35.0-39.9 without comorbidity) Code(s): E66.9 - OBESITY, UNSPECIFIED Status: Chronic (8) Acute respiratory failure with hypoxia Code(s): J96.01 - ACUTE RESPIRATORY FAILURE WITH HYPOXIA Status: Resolved Comment: Secondary to CHF. Improved with diuresis (9) Non-compliance Code(s): Z91.19 - PATIENT'S NONCOMPLIANCE W OTH MEDICAL TREATMENT AND REGIMEN Status: Chronic Comment: with diet, medications and f/u - Plan d/w , will [facility], dc home -: no compa/arb's for now due to above -: continue asp, coreg, torsemide, spironolactone -: will need heart failure clinic appt in 1 week -: counselled reg med/diet and f/u with physicians * .
--- NOTE | 2018-02-13 11:31 | PRG ---
DATE OF SERVICE: 02/13/2018 SUBJECTIVE: Mr. Mccray states that he had a tough night last night, could not get to sleep. We gave him a dose of Entresto last night. He thinks that is the source of his inability to sleep. He refused the Entresto today. He is not having trouble breathing. OBJECTIVE: VITAL SIGNS: His blood pressure is high at 158/88 and pulse is 70 recorded, but it is 62 on the monitor, sinus rhythm. LUNGS: Clear. CARDIAC: Normal S1 and normal S2. ABDOMEN: Obese and nontender. EXTREMITIES: There is no significant edema now. PERTINENT LABORATORY DATA: Potassium is 4.1 and creatinine is 1.14. ASSESSMENT: 1. Congestive heart failure, systolic, acute on chronic, improved. 2. Renal insufficiency is actually improved with diuresis. PLAN: Unfortunately, the patient is very uncertain about what medicines he is taking. He declines Entresto, says it does not feel good. He says he is unable to keep followups because of lack of funds. I do not think he was actually taking the medicines that they were prescribed to him. At this point, probably the safest thing to do is to resume torsemide, spironolactone, and potassium. He is to resume all the home medicines. It is unclear whether he is actually taking them, consideration for starting LIEN inhibitor low dose as an outpatient. I would not start LIEN inhibitor at the present time since he did receive some Entresto. These medicines should not be given together. Okay to me to be released home with a guarded prognosis. Job ID: [id number]
[2018-02-13] MEDS: Insulin Regular 300 UNITS/3 ML VIAL SC PRN (12:07)
[2018-02-13] MEDS ORDERED: Torsemide 20 MG TAB PO SCH (14:00)
[2018-02-13 15:47] VITALS: BP 127/75; TEMP 98.2
--- NOTE | 2018-02-13 16:24 | DIS ---
DATE OF ADMISSION: 02/10/2018 DATE OF DISCHARGE: 02/13/2018 DISCHARGE DISPOSITION: Home. PRIMARY DISCHARGE DIAGNOSES: 1. Acute on chronic congestive heart failure exacerbation with systolic dysfunction. 2. Noncompliance with medication and diet. 3. History of coronary artery disease. 4. Diabetes mellitus type 2. 5. Hypertension. 6. Dyslipidemia. 7. Obesity. PROCEDURES DONE DURING HOSPITALIZATION: A chest x-ray done on the day of admission showed findings suggestive of CHF. Discharge BUN and creatinine of 35 and 1.1. Serum bicarb is 26. BNP was 703. Troponin I x3 is negative. INPATIENT CONSULT: Francis Engel MD for cardiology. DISCHARGE PLAN: The patient to follow up with primary care physician in one week and Dr. Engel as advised. He also needs to follow up with [facility] failure [facility], likely in a week. The date will be notified to him. DISCHARGE MEDICATION: 1. Spironolactone 25 mg p.o. daily. 2. Coreg 12.5 mg p.o. twice daily. 3. Aspirin 81 mg p.o. daily. 4. Torsemide 20 mg twice daily. 5. Flomax 0.4 mg p.o. daily. 6. VESIcare 5 mg p.o. daily. 7. K-Dur 20 mEq p.o. twice daily. 8. Protonix 40 mg p.o. daily. 9. Metformin 1000 mg p.o. daily. 10. Glipizide 10 mg twice daily. ALLERGIES: NO KNOWN DRUG ALLERGIES. BRIEF COURSE DURING HOSPITALIZATION: The patient initially got admitted for complaints of shortness of breath. He has had prior EF of around 30 to 35%. The patient was initially hypoxic and had to be placed on BiPAP with diuresis. Also, he had hypertensive emergency and had to be placed on a nitroglycerin drip in ICU initially. He was successfully downgraded to medical floor. The patient was on room air at the time of discharge. Also the patient has been ambulating and his medications were optimized during his stay. He has had consultation with Dr. Engel for Cardiology. The patient is known to be noncompliant with medications, diet, and has very poor followups with physicians as well. He was counseled regarding the same. Heart failure coordinator will be shortly letting him know about followup appointment. He also has a followup appointment fixed with Dr. Engel on the . Please see a [id number] documentation for the day of discharge on [facility]. Job ID: [id number]
== END 2018-02-13 16:08 | disposition home or self-care (01) | DRG 291 ==
LOC: ERS 21:26 → CCU 21:51 → 2NO 02-11 16:21
PROVIDERS: ADMIT Internal Medicine; ATTEND Internal Medicine
DX: I13.0 Hypertensive heart and chronic kidney disease with heart failure and stage 1 through stage 4 chronic kidney disease, or unspecified chronic kidney disease (principal); I50.23 Acute on chronic systolic (congestive) heart failure; J96.21 Acute and chronic respiratory failure with hypoxia; N17.9 Acute kidney failure, unspecified; I16.1 Hypertensive emergency; I25.10 Atherosclerotic heart disease of native coronary artery without angina pectoris; E78.5 Hyperlipidemia, unspecified; E66.9 Obesity, unspecified; I25.5 Ischemic cardiomyopathy; Z68.35 Body mass index [BMI] 35.0-35.9, adult; N40.0 Benign prostatic hyperplasia without lower urinary tract symptoms; E11.22 Type 2 diabetes mellitus with diabetic chronic kidney disease; N18.2 Chronic kidney disease, stage 2 (mild); Z91.19 Patient's noncompliance with other medical treatment and regimen; Z79.82 Long term (current) use of aspirin; Z79.84 Long term (current) use of oral hypoglycemic drugs; Z87.891 Personal history of nicotine dependence; Z85.46 Personal history of malignant neoplasm of prostate; Z90.49 Acquired absence of other specified parts of digestive tract; Z95.1 Presence of aortocoronary bypass graft; Z95.810 Presence of automatic (implantable) cardiac defibrillator; Z83.3 Family history of diabetes mellitus; Z82.5 Family history of asthma and other chronic lower respiratory diseases
CPT/HCPCS: 36415; 36416; 80048; 80053; 83735; 83880; 84484; 85025; 90471; 90686; 90732; 93005; 93010; 93798; 94640; 99285; G0008; G0009; J1650; J1815; J1940; J7620

== ENCOUNTER 2018-05-22 19:00 | Inpatient (IN) | payer OTHER, SELFPAY ==
[2018-05-22] MEDS ORDERED: Dexamethasone 4 mg/ml Vial ONE (20:59)
[2018-05-22] MEDS ORDERED: Morphine 4 MG/ML VIAL ONE (21:45)
[2018-05-22 21:50] LABS: #Eosinphils 0.1 thou/uL (0.0-0.7); #Lymphocytes 1.8 thou/uL (1.20-3.40); #Monocytes 0.8 thou/uL (0.11-0.59); #Neutrophils 4.4 thou/uL (1.40-6.50); %Basophils 0.6 % (0.0-1.0); %Eosinophils 2.1 % (0.0-10.0); %Lymphocytes 24.7 % (21.0-51.0); %Neutrophils 61.6 % (42.0-75.0); Hemoglobin 13.6 g/dL (14.0-18.0); Mean Corpuscular HGB CONC 32.6 g/dL (32.0-36.0); Mean Corpuscular Hemoglobin 27.9 pg (27.0-31.0); Mean Corpuscular Volume 85.7 fL (78.0-98.0); Mean Platelet Volume 8.2 fL (7.4-10.4); Platelet Count 145 thou/uL (130-400); RBC Distribution Width 13.4 % (11.5-14.5); Red Blood Cell (RBC) Count 4.88 mill/uL (4.70-6.10); White Blood Cell (WBC) Count 7.2 thou/uL (4.8-10.8)
--- NOTE | 2018-05-22 21:57 | CT ---
CT LUMBAR SPINE WITHOUT CONTRAST 05/22/18 HISTORY: Pain. COMPARISON: None. FINDINGS: There is extensive lytic and blastic lesions throughout the skeleton. There is a transversely oriente d fracture throughout the L2 vertebral body. There is a superior end plate compression fracture at T1 2 and T11. No listhesis. Superior end plate fracture of S1. There is concern for posterior break through of the vertebral body at T11 with possible epidural tumo r and even possibly even cord compression. There is what appears to be a tumor surrounding the T11 ve rtebral body anteriorly. IMPRESSION: 1. 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 2. Coronally oriented fracture through the L2 vertebral body. 3. Superior end plate compression fractures at T11 and T12. 4. Superior end plate compression fracture at S1. 5. MRI with and without contrast recommended. Code REVA [place] 9:45 p.m. POS: [facility]
[2018-05-22 22:08] LABS: ALT (SGPT) 29 U/L (8-55); AST (SGOT) 19 U/L (5-34); Albumin 4.4 g/dL (3.4-4.8); Alkaline Phosphatase 455 U/L (40-150); Anion Gap 16 mmol/L (10-20); BUN (Urea Nitrogen) 37 mg/dL (8.4-25.7); Bilirubin, Total 1.3 mg/dL (0.2-1.2); Calc. Creatinine Clearance 0 mL/min (70-130); Carbon Dioxide 25 mmol/L (23-31); Chloride 99 mmol/L (98-107); Estimated GFR-MDRD 48; Glucose 163 mg/dL (80-115); Potassium 5.3 mmol/L (3.5-5.1); Protein, Total 7.4 g/dL (5.8-8.1); Sodium 135 mmol/L (136-145)
[2018-05-22] MEDS ORDERED: Ondansetron PF 4 MG/2 ML Vial IVP PRN (23:18)
[2018-05-22] MEDS ORDERED: Morphine 10 MG/0.5 ML ORAL SYRINGE SL PRN (23:37)
[2018-05-22] MEDS ORDERED: Acetaminophen 325 MG TAB PO PRN (23:38)
[2018-05-22] MEDS ORDERED: Dextrose 5% in Water 1,000 ML IV PRN (23:43)
[2018-05-22] MEDS ORDERED: Dextrose 50% Abboject 50 ML SYRINGE SLOW IVP PRN (23:43)
--- NOTE | 2018-05-23 02:16 | HP ---
ADMITTING PROBLEM: Inability to walk as well as back pain. HISTORY OF PRESENT ILLNESS: This is a 63-year-old male who has a past medical history of prostate cancer, who has had multiple radiation treatments as well as chemotherapy treatments, presented to the hospital because of inability to walk. The patient states that he was walking fine yesterday, however, had some severe back pain, so he went to the chiropractor and had chiropractic techniques done to his back and now is unable to walk. The patient came to the hospital, was evaluated in the ER. No family at bedside. The patient, otherwise, denies any other alleviating or aggravating factors. No other associated symptoms. The patient is seen and examined in the ER. All questions answered. ALLERGIES: NO KNOWN DRUG ALLERGIES. PAST MEDICAL HISTORY: Hypertension, hyperlipidemia, diabetes mellitus type 2, prostate cancer. HOME MEDICATIONS: See MAR. FAMILY HISTORY: Positive for hypertension. SOCIAL HISTORY: Nondrinker and nonsmoker. REVIEW OF SYSTEMS: All systems reviewed, pertinent positives in HPI. PHYSICAL EXAMINATION: VITAL SIGNS: Blood pressure is 150/78, pulse of 61, respiratory rate of 18, temperature 97.8, O2 saturation 98% on room air. GENERAL: The patient is lying in bed comfortably, in no acute distress, obese. HEENT: Pupils are equal, round, and reactive to light and accommodation. Extraocular muscles intact. Oral cavity moist and pink. NECK: Supple, mobile, and nontender. Thyroid appreciated. RESPIRATORY: Clear to auscultation bilaterally. No increase in AP diameter. No respiratory distress. CARDIOVASCULAR: Regular rate and rhythm, S1 and S2. No murmurs, rubs, or gallops appreciated. ABDOMEN: Rotund. Positive bowel sounds. Soft and nontender. EXTREMITIES: 2+ peripheral pulses noted. No cyanosis or clubbing noted. Trace edema. NEUROLOGIC: Cranial nerves II through XII intact. Bilateral positive straight leg raise test on both lower extremities is positive. Alert and oriented x3. No loss of sensory function. LABORATORY DATA: CBC within normal limits. Basic metabolic panel shows slightly elevated potassium of 5.3, creatinine of 1.5, sodium of 135, otherwise relatively normal. The patient had a lumbar CT scan done in the ER, results were positive for extensive metastatic disease, superior endplate compression fractures at T12 and T11, superior endplate compression fracture at S1 as well as oriented fracture through L2 vertebral body. ASSESSMENT: 1. Prostate cancer, likely metastatic disease. 2. Compression fractures in multiple locations in the spinal cord as well as in the spinal vertebral bodies. 3. Hypertension. 4. Diabetes mellitus type 2. 5. Obesity. 6. Bilateral lower extremity essential paralysis. PLAN: At this point in time, we will admit the patient to the oncology floor. Consults to Oncology as well as wonderful neurosurgeons at the hospital. We will provide pain medications and diabetic diet. Unclear if any surgical intervention needs to be done. The excellent neurosurgery team will give us their feedback on this. We will also await oncology evaluation. The patient is unable to recall the name of his oncologist, so we will call on-call oncologist. Wishes to remain a full code. We will obtain PSA markers as well as basic lab work for tomorrow. Otherwise, we will continue home medications appropriate for his prior medical history. Case and plan were discussed with the patient at length. He understood and agreed with this plan. Job ID: [id number]
[2018-05-23 05:30] LABS: #Lymphocytes 1.1 thou/uL (1.20-3.40); #Monocytes 0.3 thou/uL (0.11-0.59); #Neutrophils 4.9 thou/uL (1.40-6.50); %Basophils 0.3 % (0.0-1.0); %Eosinophils 0.5 % (0.0-10.0); %Lymphocytes 17.1 % (21.0-51.0); %Monocytes 3.9 % (0.0-10.0); %Neutrophils 78.1 % (42.0-75.0); Hemoglobin 13.3 g/dL (14.0-18.0); Mean Corpuscular HGB CONC 32.5 g/dL (32.0-36.0); Mean Corpuscular Hemoglobin 27.8 pg (27.0-31.0); Mean Corpuscular Volume 85.5 fL (78.0-98.0); Platelet Count 150 thou/uL (130-400); RBC Distribution Width 13.5 % (11.5-14.5); Red Blood Cell (RBC) Count 4.79 mill/uL (4.70-6.10); White Blood Cell (WBC) Count 6.3 thou/uL (4.8-10.8)
[2018-05-23] MEDS: HumaLOG 300 UNITS/3 ML VIAL SC PRN ×3 (05:32→21:06)
[2018-05-23 05:48] LABS: Anion Gap 15 mmol/L (10-20); BUN (Urea Nitrogen) 33 mg/dL (8.4-25.7); Calc. Creatinine Clearance 91 mL/min (70-130); Calcium 9.7 mg/dL (7.8-10.44); Carbon Dioxide 24 mmol/L (23-31); Chloride 98 mmol/L (98-107); Estimated GFR-MDRD 59; Glucose 213 mg/dL (80-115); Sodium 132 mmol/L (136-145)
[2018-05-23] MEDS: Carvedilol 6.25 MG TAB PO SCH ×2 (09:13→20:26)
[2018-05-23] MEDS: Aspirin 81 mg Enteric Coated Tablet PO SCH (09:13)
[2018-05-23] MEDS: Tamsulosin HCl 0.4 MG CAP PO SCH (09:14)
[2018-05-23] MEDS: Spironolactone 25 MG TAB PO SCH (09:14)
[2018-05-23] MEDS: Torsemide 20 MG TAB PO SCH ×2 (09:14→20:26)
[2018-05-23] MEDS: Morphine 4 MG/ML VIAL SLOW IVP PRN ×4 (10:26→22:32)
--- NOTE | 2018-05-23 10:45 | PDOC.PN ---
- Subjective Encounter Start Date: 05/23/18 Encounter Start Time: 10:43 Subjective: severe back pain persists - Objective MAR Reviewed: Yes Vital Signs & Weight: Vital Signs (12 hours) Temp Pulse Resp BP BP Pulse Ox 05/23/18 09:13 171/100 H 05/23/18 07:25 98 F 89 20 171/100 H 95 05/23/18 04:21 97.8 F 89 18 161/92 H 94 L 05/23/18 00:10 97.9 F 75 20 166/96 H 95 Weight Weight 227 lb 12.8 oz I&O: 05/22/18 05/23/18 05/24/18 06:59 06:59 06:59 Intake Total 310 Output Total 200 Balance 110 Result Diagrams: 05/23/18 04:56 05/23/18 04:56 Additional Labs: Accuchecks 05/23/18 05:28 POC Glucose 209 H Phys Exam - Physical Examination Neck: no JVD Respiratory: clear to auscultation bilateral Cardiovascular: RRR, no significant murmur Gastrointestinal: soft, positive bowel sounds Musculoskeletal: no edema sensaation intact in feet, moves feet Dx/Plan (1) Prostate cancer metastatic to bone Code(s): C61 - MALIGNANT NEOPLASM OF PROSTATE; C79.51 - SECONDARY MALIGNANT NEOPLASM OF BONE Status: Acute (2) CAD (coronary artery disease) Code(s): I25.10 - ATHSCL HEART DISEASE OF [place] CORONARY ARTERY W/O ANG PCTRS Status: Chronic Qualifiers: Coronary Disease-Associated Artery/Lesion type: [place] artery [place] vs. transplanted heart: [place] heart Associated angina: without angina Qualified Code(s): I25.10 - Atherosclerotic heart disease of [place] coronary artery without angina pectoris Comment: stable, continue aspirin, Coreg (3) DM2 (diabetes mellitus, type 2) Status: Chronic Qualifiers: Diabetes mellitus ferry terminal agent insulin use: without ferry terminal agent use Diabetes mellitus complication status: with kidney complications Chronic kidney disease stage: stage 3 (moderate) Comment: on glipizide and metformin (4) Dyslipidemia Code(s): E78.5 - HYPERLIPIDEMIA, UNSPECIFIED Status: Chronic (5) HTN (hypertension) Code(s): I10 - ESSENTIAL (PRIMARY) HYPERTENSION Status: Chronic Qualifiers: Comment: controlled - Plan morphine for pain -: cancelled MRIs, has defib, -: await NS opinion * .
--- NOTE | 2018-05-23 11:57 | CON ---
DATE OF CONSULTATION: REASON FOR CONSULT: Prostate cancer. HISTORY OF PRESENT ILLNESS: Mr. Mccray is a 63-year-old gentleman with a history of metastatic prostate cancer. He presented to the emergency room with progressive weakness in his legs, numbness and tingling and inability to bear weight. He was diagnosed with prostate cancer in 2011. He was under the care of Dr. Giraldo and received Lupron injections. He also had radiation with Dr. Edmond. Due to lack of insurance, he has not had any care in the past several years. He had a lumbar spine CT in the emergency room, which showed extensive lytic and blastic lesions throughout the skeleton. There was a transverse fracture of the L2 vertebral body. There was a superior endplate compression fracture at T12 and T11, superior endplate fracture of S1. There was a possible epidural tumor and cord compression of T11. The patient complains of back pain. He complains of numbness and tingling. It initially started in his thighs but now extends down to his lower extremities. He does have gross motor movements. PAST MEDICAL HISTORY: 1. Metastatic prostate cancer. 2. Hypertension. 3. Hyperlipidemia. 4. Diabetes mellitus 2. 5. Coronary artery disease. PAST SURGICAL HISTORY: 1. CABG. 2. Defibrillator placement. 3. Cholecystectomy. 4. Urethral stricture repair. ALLERGIES: NO KNOWN DRUG ALLERGIES. HOME MEDICATIONS: 1. Glipizide 10 mg b.i.d. 2. Metformin daily. 3. Protonix daily. 4. K-Dur 20 mEq daily. 5. VESIcare daily. 6. Flomax daily. 7. Torsemide b.i.d. 8. Ecotrin daily. 9. Coreg 12.5 b.i.d. 10. Aldactone daily. FAMILY HISTORY: Heart failure and diabetes. SOCIAL HISTORY: , lives with his . History of smoking. No alcohol or illicit drug use. REVIEW OF SYSTEMS: A 10-point review of systems is negative except for noted in the HPI. PHYSICAL EXAMINATION: VITAL SIGNS: Temperature is 98.0, pulse is 89, respiratory rate is 20, BP is 171/100. He is 95% on room air. GENERAL: Well-developed, well-nourished male, in no acute distress. HEENT: Normocephalic, atraumatic. Pupils are equal and reactive to light. NECK: Supple. CV: Regular rate and rhythm. LUNGS: Clear. ABDOMEN: Soft, nontender, obese. Bowel sounds are positive. EXTREMITIES: No clubbing, cyanosis, or edema. SKIN: No rash. HEMATOLOGICAL: No petechiae or purpura. NEUROLOGICAL: He has bilateral lower extremity weakness. He has got 4/5 strength. PSYCH: He is alert, oriented, and appropriate. PERTINENT LABS AND X-RAYS: Current WBCs are 6.3, hemoglobin 13.3, hematocrit 40.9, platelet count is 150,000, 78% neutrophils, 17% lymphocytes. Sodium 132, potassium 5.0, chloride 98, CO2 is 24, BUN is 33, creatinine 1.25, calcium 9.7, bilirubin 1.3, AST is 19, ALT is 29, alkaline phosphatase is 455. Serum total protein is 7.4, albumin 4.4, globulin 3. CEA is 10.26. PSA is pending. Radiology, per HPI. ASSESSMENT: 1. Metastatic prostate cancer. 2. Possible epidural tumor with T11 cord compression. 3. Multiple compression fractures of the spine. DISCUSSION: The patient has an MRI scheduled this morning. Unfortunately, he has a defibrillator, will not be able to perform this test. Neurosurgery has been consulted and has yet to see the patient. We will consult Dr. Edmond who has seen the patient in the past. The patient is a candidate for chemotherapy once his spinal cord issues have been resolved. We will follow his hospital course closely. Thank you for the consult. Job ID: [id number] MTDD
[2018-05-23] MEDS ORDERED: Dexamethasone 10 MG in Sodium Chloride 0.9% 50 ML IVPB SCH (13:30)
--- NOTE | 2018-05-23 15:36 | CT ---
CT THORACIC SPINE WITHOUT IV CONTRAST: INDICATIONS: History of metastatic prostate. Evaluate for metastatic disease and cord compression. COMPARISON: Prior CTA of the thorax dated 06/23/[address] abdomen and pelvis dated 08/11/2015. TECHNIQUE: Multiple CT images were obtained of the thoracic spine without IV contrast. FINDINGS: There was a small left pleural effusion. There were calcified lymph nodes within the right hilar reg ion and mediastinum. A small area of suspected mucus debris is seen involving the distal mainstem tr acheas on image 2 of series 2. There is a pacemaker overlying the left chest wall. There are osteoblastic metastatic lesions involving the thoracic spine at multiple levels. There is a prominent lesion seen within the T6 vertebral body, left of midline. There are prominent osteoblas tic lesions involving the T10, T11, T12, L1, and L2 spinous processes. There are prominent osteoblas tic lesions involving the vertebral bodies of T11, T12, and L1. There is a superior endplate johana daron abnormality of T11, which was not present on a comparison examination of June 2017. An additio nal superior endplate compression fracture is seen involving the posterior-superior margin of T12, al so not present on the comparison examination. No retropulsion of bone fragments is seen within the b joselito canal. No definite large periosteal soft tissue mass is evident on this noncontrast CT evaluatio n. IMPRESSION: 1. Diffuse osteoblastic metastatic disease with pathologic superior endplate compression deformities involving T11 and T12. The age of these compression abnormalities is indeterminate but are new from a comparison dated September 2017. The extent of the osteoblastic metastatic disease has progressed from the September 2017 CT examination. 2. No appreciable osseous central canal or gross neural foraminal narrowing is evident. POS: [facility]
--- NOTE | 2018-05-23 15:47 | CON ---
DATE OF CONSULTATION: 05/23/2018 REASON FOR CONSULTATION: Mr. Mccray is a 63-year-old gentleman with a history of prostate cancer, who presents with what appears to be metastatic disease and possible spinal cord compression. HISTORY OF PRESENT ILLNESS: Mr. Mccray is known to me. He is 63 and was treated for a clinical stage III, T3N0M0 adenocarcinoma of the prostate, the [place] score 4+4, and pre-therapy PSA of 2.4. His disease was initially diagnosed when he underwent TURP because of urinary outlet obstruction. He was treated with a nearly 2-year course of androgen deprivation therapy along with radiation therapy to 80 Gy. His radiation was completed on 12/29/2015. He received 21 out of a planned 24 months of androgen deprivation therapy. Subsequently, he became lost to followup because he lost his insurance and could not afford care. More recently, he reports in January that he was lifting something and heard a pop and had some pain in his lower back that was more on his left side. This did improve initially after he saw his family physician, who was given some muscle relaxers. But then more recently, the pain has been localized more in the center and in the lower back area and has been progressive. Approximately 2 days ago, he saw chiropractor from his pain and had an adjustment. Later the next day, he began experiencing increased pain and had difficulty with walking. He subsequently called an ambulance and was evaluated here in the [facility] room and admitted. He did have a CT scan of the lumbar spine because he has a pacemaker/defibrillator, which showed what appeared to be diffuse metastatic disease. He had a compression fracture at L2. He also had disease involving T11 with possible cord compression at T11. He apparently did receive morphine and one dose of 10 mg of IV Decadron, which helped with the pain. Earlier today, he saw Ness Yoder, Oncology and I have been asked to see him to discuss his treatment options as well. Neurosurgery has also been asked to see the patient. Presently, he reports pain mostly in the lower back. He reports he is not able to stand or walk. His legs are weak. If he is in a sitting position, his pain is more comfortable, that is the only area of pain. He does report some numbness over the last several days in his feet, mostly although sometimes it extends up into his thigh. He has not had a bowel movement for several days and also reports slow urinary stream, which is new. It has been more than 1 year since his Lupron. He voices no other complaints. PAST MEDICAL HISTORY: 1. Diabetes. 2. Hypertension. 3. Hypercholesterolemia. 4. History of myocardial infarction. 5. Congestive heart failure. 6. Status post cholecystectomy. 7. History of urethral stricture, status post TURP as mentioned above. 8. Prostate cancer as mentioned above. 9. Status post pacemaker/defibrillator placement. MEDICATIONS: Carvedilol, insulin, morphine, pantoprazole, spironolactone, Flomax, Demadex, and Zofran p.r.n. ALLERGIES: NO KNOWN MEDICAL ALLERGIES. SOCIAL HISTORY: The patient used to smoke up to 2 packs per day. He reports that he has not smoked for the past year. He rarely drinks alcohol. At the most, he might drink one drink a month, usually does not even do that. He lives with his in [place], [place]. He is unemployed and uninsured. 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 FAMILY HISTORY: His father in his 70s from COPD and heart disease. There is no family history of prostate cancer or other malignancies. REVIEW OF SYSTEMS: A 12 system review of systems is otherwise negative. PHYSICAL EXAMINATION: VITAL SIGNS: Height is 5 feet 7 inches, weight 227 pounds. Blood pressure 110/73, pulse is 72, respirations are 18, temperature is 97.7, and O2 saturation is 95% on room air. CONSTITUTIONAL: He is alert and oriented and in mild discomfort. Karnofsky performance status is 50%. HEENT: Eyes; pupils equal, round, and react to light. EOMs are intact. ENT; oral cavity and oropharynx without lesion or erythema. Palate elevates symmetrically. Gingiva is intact. NECK: Supple without cervical or supraclavicular adenopathy. No thyromegaly. Larynx midline. LUNGS: Breathing nonlabored. Clear to auscultation and percussion. CARDIOVASCULAR: Heart, regular rate and rhythm without murmur. He has bilateral pretibial lower extremity edema, which is symmetrical. BACK: He does report some tenderness on fist percussion around the T11 vertebral body. The subjective area of tenderness is in the lower lumbar spine region/upper sacral region. LYMPHATIC: No axillary or inguinal adenopathy. ABDOMEN: Obese, soft, nontender, and nondistended without mass or hepatosplenomegaly. Liver percusses to normal size. NEUROLOGIC: Cranial nerves 2 through 12 are grossly intact. Motor strength is 5/5 in both upper extremities in all muscle groups tested. In both lower extremities, his strength is 4-/5 at the hip flexors. Distally, he has more strength with his plantar flexion being 5/5 in dorsiflexion being a 4/5. Reflexes were not tested. He does appear to have sensation intact to pinprick in both eyes. Gait was not tested. LABORATORY DATA: CBC revealed a white blood cell count 6300 with a hemoglobin of 13.3, hematocrit of 40.9, and platelet count of 150,000. Chemistry group showed fairly normal electrolytes. CEA was elevated at 10.26. PSA has not been tested. RADIOLOGIC DATA: CT scan of the lumbar spine was performed and personally reviewed. He does appear to have diffuse osseous metastatic disease, which has the appearance of metastatic prostate cancer. It is difficult to see, but there is possible cord compression at T11. He does have a compression fracture at L2 and a compression fracture at S1. MR was recommended, but not able to be performed because of his pacemaker. ASSESSMENT: Findings are very concerning that Mr. Mccray does indeed have spinal cord compression from metastatic prostate cancer. PLAN: I would recommend that we check a PSA on him. I would also recommend that we obtain a CT scan of the thoracic spine. The CT scans are suboptimal for this, but he is unable to have an MRI of the thoracic and lumbar spine because of this pacemaker/defibrillator. Unfortunately, there is no other better option for imaging than the CT scan. I would initiate the patient on Decadron. He is already taking Protonix. I will await the neurosurgery consult. With his likely cord compression, his optimal treatment would involve neurosurgical decompression followed by radiation therapy if he is a candidate for surgery. He may not be a candidate for surgery because of his medical issues or possibly even because of the diffuse nature of the disease. If he is not a candidate for surgery, then we can consider treating him with palliative radiation therapy. He does have some weakness in his lower extremities. He could possibly get recovery of his lower extremity function with treatment, although, this is not certain. He understands that this could get worse and he could end up paralyzed. If we did surgery followed by radiation or radiation alone, the hope would be to reverse his neurological deficit and maintain his function/recover his function. The logistics of radiation as well as the benefits and risk of treatment were discussed. Side effects would include, but not be limited to, skin reaction, fatigue, lower blood counts, difficulty or pain with swallowing, nausea, vomiting, small risk of damage to his intestines or other structures, which receives radiation therapy. Again, we will await neurosurgery evaluation before deciding how to proceed. If they are not able to do surgery, then we will consider initiating him on radiation therapy. Thank you for this interesting consultation. Job ID: [id number]
[2018-05-23] MEDS: Polyethylene Glycol 3350 17 GM Packet PO PRN (16:26)
--- NOTE | 2018-05-23 17:03 | PRG ---
DATE OF SERVICE: 05/23/2018 Mr. Mccray was able to get started on steroids and did have a CT scan of the thoracic spine this afternoon. This shows multiple areas consistent with metastasis in the bone. However, it does not overtly show cord compression including the T11 vertebral body. There did not appear to be any retropulsion of bony fragments at the T11 vertebral body or T12 vertebral body. Therefore, his possibility of cord compression is not certain. He certainly has signs or symptoms that make me concerned that he may have a cord compression, but does not have overt imaging evidence of this. We may have to consider whether to do a CT myelogram or a regular myelogram for further evaluation. I will await Neurosurgery's input into this case and see what their thoughts are about cord compression and whether he needs a CT myelogram. We will continue to follow the patient. Job ID: [id number]
[2018-05-23] MEDS: Dexamethasone 4 mg/ml Vial SLOW IVP SCH ×2 (18:18→22:31)
--- NOTE | 2018-05-23 19:32 | CON ---
DATE OF CONSULTATION: DICTATED FOR: Dr. Rush Mcgregor. This is a 50-minute initial patient evaluation of which greater than 50% of the exam was spent in counseling and coordinating the patient's care. Remainder of the exam was spent in review of the patient's medical records and review of appropriate imaging studies. CHIEF COMPLAINT: Low back pain with bilateral leg weakness with history of prostate cancer. HISTORY OF PRESENT ILLNESS: Mr. Mccray is a 63-year-old male, presents to [facility] for the above complaints. Apparently, he has dealt with some low back pain in January when he was lifting a box, he felt a pop in his back. With time and some oral pain medications and muscle relaxants, his symptoms improved. I should note that the patient reports that his pain was not necessarily midline back pain, but more so left paralumbar region pain. Over the past few weeks, he notes that he has begun to experience increasing left paralumbar pain with bilateral leg weakness, worse on the left than the right. His pain became so severe that he was seen by a chiropractor yesterday and underwent a manual manipulation, in which, back pain became severe. He states that he fell roughly twice and therefore presented to the emergency room. The patient's helps to provide some history, although, the patient is unsure whom he saw originally for Oncology. He has a history of open heart bypass surgery roughly one year ago with Dr. Engel, but is only on 81 mg aspirin. He also has a defibrillator in place. Currently, the patient states now that he has been admitted and received pain medications as well as has been off his feet that his pain seems to be improved. He believes that his leg strength has also improved, although, his states she does not feel that it improves. Review of the patient's lumbar spine and CT scan notes what appears to be metastatic prostate disease throughout the entire lumbar spine. I should note that the patient does not use tobacco or alcohol. He is morbidly obese. PHYSICAL EXAMINATION: The patient is awake, alert, and appropriate. He does have left lower extremity greater than right lower extremity weakness in multiple myotomes especially into the left iliac psoas and hamstring. Gait is not tested. The patient currently sitting up in bed and appears to be comfortable. He has full sensation in the bilateral lower extremities. He has good strength in the bilateral upper extremities and does not complain of neck pain. He does not complain of any paresthesias into any of the extremities. IMPRESSION AND DIAGNOSES: Intractable low back pain with left greater than right lower extremity pain and metastatic prostate cancer in the spine. PLAN: At this time, I have ordered a clamshell TLSO brace for the patient to wear when he is out of bed. I have also let the patient and his family know that he is not a good surgical candidate. He has poor bone quality given tumor burden. Therefore, again, he is not a candidate for any type of surgical fixation and his weakness may very well be permanent. I have let him know that we will continue to work on pain control and get him fitted for the brace and this may help and provide some improvement in his symptoms, so that, he may work with therapies and maintain any strength that he still has. We will follow up on the patient's thoracic spine CT, although, MRIs would be ideal. We were unable to do this given the patient's defibrillator. Please call with any changes in patient's neurologic status. Job ID: [id number]
[2018-05-24] MEDS: Dexamethasone 4 mg/ml Vial SLOW IVP SCH ×3 (05:19→18:28)
[2018-05-24] MEDS: HumaLOG 300 UNITS/3 ML VIAL SC PRN ×3 (06:28→16:03)
[2018-05-24 07:30] LABS: % Free PSA 18.2 % (.); Total PSA 5.7 ng/mL (0.0-4.0)
--- NOTE | 2018-05-24 08:49 | PRG ---
DATE OF SERVICE: 05/24/2018 SUBJECTIVE: Mr. Mccray is a 63-year-old gentleman with metastatic prostate cancer, who likely has spinal cord compression. Yesterday, he was started on steroids and also underwent a CT scan of the thoracic spine. He was seen by Neurosurgery who did not feel that he was a great candidate for an operation. This morning he reports that his leg strength is the same or a little better. He is still not ambulating. His pain is still primarily in the lower back. He has no new complaints. OBJECTIVE: VITAL SIGNS: Height 5 feet 7 inches, weight 227 pounds, blood pressure 147/82, pulse is 73, respirations are 20, temperature is 97.7, O2 saturation is 97%. CONSTITUTIONAL: He is alert and oriented and in no apparent distress. He is well developed and well nourished. Karnofsky performance status is 50%, which is unchanged. NEUROLOGICAL: His exam is unchanged or slightly better. Strength in the lower extremities reveal the right hip flexors to be a 4/5. He is able to raise his leg off the bed and offer some resistance to gravity. Left hip flexors are slightly weaker. He can lift his leg off the bed, but has less resistance. Distally, his strength is better. In the right leg, his knee flexors and knee extensors are 4+/5. Plantar flexion and dorsiflexion seem normal. In the left lower extremity, knee flexors and knee extensors are 4/5 and plantar flexion and dorsiflexion appear normal. Gait was not tested. LABORATORY DATA: PSA was elevated at 5.99. CBC revealed a white blood count today of 6300, hemoglobin 13.3, hematocrit of 40.9, platelet count of 150,000. IMAGING PROCEDURE: CT scan of thoracic spine was performed. No comment is made on the report about possible cord compression. There is no retropulsion of any bony fragments. He does have extensive disease in the spine. I did personally rereview the CT scan of the thoracic spine and lumbar spine from yesterday. Imaging is suboptimal, but he cannot have an MRI because of his pacemaker. His disease in the T11 and T12 vertebral body appear fairly significant and there is haziness in the spinal canal, making concern for spinal cord compression at this area. The canal in the upper thoracic spine looks good. I do not see anything in the lower lumbar spine to suggest nerve root compression or spinal cord compression in this area. He does have pathological fractures at T11 and T12 and L2 and possibly S1. ASSESSMENT: I think Mr. Mccray likely has spinal cord compression at the T11 and T12 vertebral body. PLAN: I do not think he needs a CT myelogram, which I considered yesterday. I think that again he likely has spinal cord compression at T11 and T12. I have placed a call into neurosurgery. They saw the patient late yesterday evening and apparently did not feel he was a good surgical candidate. I discussed with Mr. Mccray the possibility of initiating radiation therapy today. I explained that without treatment, there is a good chance that he would end up paralyzed. I also explained that there is some chance that this could be reversed with radiation therapy. However, there is also the possibility that he could deteriorate neurologically, even despite the radiation therapy. I recommended that we begin radiation therapy today. The logistics of radiation as well as the benefits and risk of treatment were discussed. Side effects would include, but not be limited to skin reaction, fatigue, lower blood counts, difficulty or pain with swallowing, nausea, vomiting, and small risk of damage to his intestines or other structures which receives radiation therapy. He is not sure he wants to proceed with radiation at this time. He wants to discuss this with his further. Again, I emphasized to him the importance of beginning the radiation therapy today to try and reverse his neurological deficit. Fortunately, at this point, neurologically, he is the same as yesterday or perhaps slightly improved. We will continue the dexamethasone. Job ID: [id number]
[2018-05-24] MEDS: Tamsulosin HCl 0.4 MG CAP PO SCH (08:55)
[2018-05-24] MEDS: Spironolactone 25 MG TAB PO SCH (08:55)
[2018-05-24] MEDS: Carvedilol 6.25 MG TAB PO SCH ×2 (08:55→20:38)
[2018-05-24] MEDS: Aspirin 81 mg Enteric Coated Tablet PO SCH (08:55)
[2018-05-24] MEDS: Torsemide 20 MG TAB PO SCH ×2 (08:56→20:38)
--- NOTE | 2018-05-24 11:33 | PRG ---
DATE OF SERVICE: 05/24/2018 This is a 30-minute initial hospital visit note, in which 30 minutes were spent reviewing the imaging record, evaluation, examination of the patient, formulation of plan. Greater than 50% time spent in counseling on Agapito Mccray. SUBJECTIVE: Mr. Mccray is 63-year-old man with widespread prostatic metastatic disease in particular through his spine with a pathologic fracture at T11. He has had weakness in his legs as well and in review of his CT of thoracic and lumbar spine, again he has widespread metastatic tumor and presumably epidural mass with cord compression at T11 leading to his paraparesis. We cannot get an MRI as the patient has a defibrillator. OBJECTIVE: He is alert, appropriate. He actually has excellent strength throughout his lower extremity myotomes just on manual muscle testing, but he is not ambulatory at this time, but is able to activate multiple myotomes. He has already been initiated on Decadron and appears to be in good spirits and not in pain, sitting in bed, although laying flat, he states he has significant pain. IMPRESSION AND PLAN: I had a long discussion with the patient and Dr. Edmond. I would not recommend any surgical intervention given the widespread disease the patient has. I do not think it is necessary to pursue CT myelography. We will arrange for TLSO clamshell brace and this has been ordered to be worn when out of bed, which may help with fracture related pain, but I think continuing Decadron and pursuance of external beam radiation therapy centered at T11, the site of his pathologic fracture where presumably has epidural mass, likely leading to the myelopathy would be the best course of action for the patient. The patient wants to discuss this plan with his and Dr. Edmond is ready to proceed should the patient want to pursue this. DIAGNOSES: 1. Widespread metastatic prostate disease involving the spine with likely spinal cord compression and paraparesis. 2. T11 pathologic fracture. Job ID: [id number]
[2018-05-24 12:03] LABS: Bilirubin Negative (Negative); Blood, Urine Large (Negative); Clarity CLEAR (Clear); Glucose, Urine (Dipstick) 100 mg/dL (Negative); Leukocyte Negative (Negative); Nitrite Negative (Negative); Protein, Urine (Dipstick) Negative (Neg-Trace); Specific Gravity, Urine 1.013 (1.002-1.036); Urobilinogen 0.2 mg/dL (0.2-1.0)
[2018-05-24 12:08] LABS: Bacteria/HPF None Seen HPF (None Seen); Hyaline Casts/LPF 0-3 HYALINE CAST LPF (0-3 Hyaline); Squamous Epithelial 0-3 HPF (0-3); WBC/HPF None Seen HPF (0-3)
[2018-05-24 12:21] LABS: RBC/HPF 0-3 HPF (0-3)
[2018-05-24] MEDS: Morphine 4 MG/ML VIAL SLOW IVP PRN ×2 (12:36→22:09)
--- NOTE | 2018-05-24 17:10 | PDOC.EVN ---
Event Note - Event Note Event Note: Patient's chart was reviewed. I came to assess the patient but [facility] receiving his [facility] Radiation treatment.
[2018-05-24] MEDS: Polyethylene Glycol 3350 17 GM Packet PO PRN (19:45)
[2018-05-25] MEDS: Dexamethasone 4 mg/ml Vial SLOW IVP SCH ×5 (00:23→22:49)
[2018-05-25] MEDS: HumaLOG 300 UNITS/3 ML VIAL SC PRN ×4 (05:51→21:51)
[2018-05-25] MEDS: Morphine 4 MG/ML VIAL SLOW IVP PRN ×3 (07:50→22:49)
[2018-05-25] MEDS: Tamsulosin HCl 0.4 MG CAP PO SCH (07:56)
[2018-05-25] MEDS: Carvedilol 6.25 MG TAB PO SCH ×2 (07:56→20:17)
[2018-05-25] MEDS: Aspirin 81 mg Enteric Coated Tablet PO SCH (07:57)
[2018-05-25] MEDS: Torsemide 20 MG TAB PO SCH ×2 (07:57→20:18)
[2018-05-25] MEDS: Spironolactone 25 MG TAB PO SCH (08:19)
[2018-05-25] MEDS ORDERED: Bisacodyl 10 MG SUPP PR PRN (14:23)
[2018-05-25] MEDS ORDERED: Bisacodyl 5 MG TAB PO PRN (14:23)
--- NOTE | 2018-05-25 14:25 | PDOC.PN ---
- Subjective Encounter Start Date: 05/25/18 Encounter Start Time: 14:24 Mr. Mccray was seen today in follow-up of metastatic prostate cancer with lumbar spine involvement. He says he has some back pain. He feels his legs are stronger, at least he can lift them in the bed, but he still can't put weight on them. His says she can not manage helping him at home with this degree of weakness. - Objective MAR Reviewed: Yes Vital Signs & Weight: Vital Signs (12 hours) Temp Pulse Resp BP Pulse Ox 05/25/18 07:35 98 F 72 18 148/87 H 97 05/25/18 04:09 97.6 F 70 16 130/74 94 L Weight Weight 227 lb 12.8 oz I&O: 05/24/18 05/25/18 05/26/18 06:59 06:59 06:59 Intake Total 2230 3000 Output Total 600 3850 Balance 1630 -850 Result Diagrams: 05/23/18 04:56 05/23/18 04:56 Additional Labs: Accuchecks 05/25/18 05/25/18 05/24/18 13:24 05:44 20:33 POC Glucose 292 H 275 H 198 H 05/24/18 15:40 POC Glucose 190 H Phys Exam - Physical Examination HEENT: PERRLA Respiratory: no wheezing, no rales, no rhonchi, clear to auscultation bilateral Cardiovascular: RRR, no significant murmur, no rub Gastrointestinal: soft, non-tender, no distention, positive bowel sounds Musculoskeletal: no edema, pulses present patient can lift both legs against gravity + dorsiflex foot bilaterally, patella reflex was 2+ and symmetric Dx/Plan (1) Prostate cancer metastatic to bone Code(s): C61 - MALIGNANT NEOPLASM OF PROSTATE; C79.51 - SECONDARY MALIGNANT NEOPLASM OF BONE Status: Acute (2) DM2 (diabetes mellitus, type 2) Status: Chronic Qualifiers: Diabetes mellitus care home insulin use: without care home use Diabetes mellitus complication status: with kidney complications Chronic kidney disease stage: stage 3 (moderate) Comment: on glipizide and metformin (3) HTN (hypertension) Code(s): I10 - ESSENTIAL (PRIMARY) HYPERTENSION Status: Chronic Qualifiers: Comment: controlled (4) Chronic systolic heart failure Code(s): I50.22 - CHRONIC SYSTOLIC (CONGESTIVE) HEART FAILURE Status: Acute (5) CAD (coronary artery disease) Code(s): I25.10 - ATHSCL HEART DISEASE OF [place] CORONARY ARTERY W/O ANG PCTRS Status: Chronic Qualifiers: Coronary Disease-Associated Artery/Lesion type: [place] artery [place] vs. transplanted heart: [place] heart Associated angina: without angina Qualified Code(s): I25.10 - Atherosclerotic heart disease of [place] coronary artery without angina pectoris Comment: stable, continue aspirin, Coreg - Plan * Metastatic prostate cancer with T-spine and L-spine involvement- continue Radiation treatment * Continue PT/OT, and will place a Rehab [facility] [place] [facility] evaluation * DM- blood glucose is elevated- will re-start Glypizide. * HTN- blood pressure is controlled * CHF- heart failure is compensated
[2018-05-25 15:37] LABS: Calcium 9.1 mg/dL (7.8-10.44); Chloride 95 mmol/L (98-107); Glucose 336 mg/dL (80-115); Sodium 132 mmol/L (136-145)
[2018-05-25 15:55] LABS: Anion Gap 13 mmol/L (10-20); BUN (Urea Nitrogen) 49 mg/dL (8.4-25.7); Calc. Creatinine Clearance 76 mL/min (70-130); Carbon Dioxide 28 mmol/L (23-31); Estimated GFR-MDRD 48
[2018-05-25] MEDS: Senokot S 8.6-50 MG TAB PO PRN (20:17)
[2018-05-25] MEDS: glipiZIDE 10 MG TAB PO SCH (20:17)
[2018-05-26] MEDS: Dexamethasone 4 mg/ml Vial SLOW IVP SCH ×4 (05:28→23:10)
[2018-05-26] MEDS: HumaLOG 300 UNITS/3 ML VIAL SC PRN ×4 (06:15→20:28)
[2018-05-26] MEDS: Senokot S 8.6-50 MG TAB PO PRN (08:39)
[2018-05-26] MEDS: glipiZIDE 10 MG TAB PO SCH ×2 (08:39→20:26)
[2018-05-26] MEDS: Carvedilol 6.25 MG TAB PO SCH ×2 (08:40→20:25)
[2018-05-26] MEDS: Torsemide 20 MG TAB PO SCH ×2 (08:40→20:26)
[2018-05-26] MEDS: Aspirin 81 mg Enteric Coated Tablet PO SCH (08:41)
[2018-05-26] MEDS: Tamsulosin HCl 0.4 MG CAP PO SCH (08:41)
[2018-05-26] MEDS: Spironolactone 25 MG TAB PO SCH (08:42)
[2018-05-26] MEDS: Morphine 4 MG/ML VIAL SLOW IVP PRN (15:11)
--- NOTE | 2018-05-26 19:52 | PDOC.PN ---
- Subjective Encounter Start Date: 05/26/18 Encounter Start Time: 19:35 Subjective: f/u for LE weakness due to metastatic prostate carcinoma s/p XRT -: x 2 tx. Feels better and moving LE's much better. No N/V. No incontinence -: of bowel or bladder. - Objective MAR Reviewed: Yes Vital Signs & Weight: Vital Signs (12 hours) Temp Pulse Resp BP Pulse Ox 05/26/18 15:32 98.3 F 69 20 136/80 96 05/26/18 11:15 98.1 F 73 18 167/88 H 96 Weight Weight 227 lb 12.8 oz I&O: 05/25/18 05/26/18 05/27/18 06:59 06:59 06:59 Intake Total 3000 1640 1380 Output Total 3850 3200 1850 Balance -111 -1812 -353 Result Diagrams: 05/23/18 04:56 05/25/18 15:05 Additional Labs: Accuchecks 05/26/18 05/26/18 05/26/18 15:23 11:53 05:28 POC Glucose 302 H 329 H 240 H 05/25/18 21:30 POC Glucose 255 H Microbiology 05/24/18 11:39 Urine voided Urine Culture - Final NO GROWTH AT 48 HOURS Laboratory Tests 05/22/18 05/23/18 21:39 04:56 Sodium 135 L 132 L Creatinine 1.49 H 1.25 Radiology Reviewed by me: Yes (CT T-spine - diffuse osteoblastic metastatic dz T11-T12) Phys Exam - Physical Examination Constitutional: NAD HEENT: PERRLA, sclera anicteric, oral pharynx no lesions Neck: no nodes, no JVD, supple, full ROM Respiratory: no wheezing, no rales, no rhonchi, clear to auscultation bilateral S1, S2 Cardiovascular: RRR, no significant murmur, no rub, gallop Gastrointestinal: soft, non-tender, no distention, positive bowel sounds Musculoskeletal: no edema, pulses present Neurological: normal sensation, moves all 4 limbs Psychiatric: A&O x 3 Skin: normal turgor, cap refill <2 seconds Dx/Plan (1) Prostate cancer metastatic to bone Code(s): C61 - MALIGNANT NEOPLASM OF PROSTATE; C79.51 - SECONDARY MALIGNANT NEOPLASM OF BONE Status: Acute Comment: Widely metastatic prostate carcinoma in spinal column, XRT/chemo, pain control (2) Paraparesis of both lower limbs Code(s): G82.20 - PARAPLEGIA, UNSPECIFIED Status: Acute Comment: Improved with XRT, continue tx as outlined, serial neuro assessments, continue Dexamethasone (3) DM2 (diabetes mellitus, type 2) Status: Chronic Qualifiers: Diabetes mellitus custodial insulin use: without custodial use Diabetes mellitus complication status: with kidney complications Chronic kidney disease stage: stage 3 (moderate) Comment: Continue glipizide and resume metformin, labile glucose trend, may need additional titration, ISS, ADA, labile due to Dexamethasone (4) HTN (hypertension) Code(s): I10 - ESSENTIAL (PRIMARY) HYPERTENSION Status: Chronic Qualifiers: Comment: labile, monitor trend, titrate BP regimen as clinically indicated (5) Obesity (BMI 35.0-39.9 without comorbidity) Code(s): E66.9 - OBESITY, UNSPECIFIED Status: Chronic - Plan PT/OT, social services counselor, out of bed/ambulate, DVT proph w/SCDs Continue XRT/chemo per rad/med oncology -: Pain control as clinically indicated -: PT for mobilization and functional assessment -: Resume Metformin 1000mg BID -: TLSO brace for mobilization * CM for HH options/? SNF
[2018-05-26] MEDS: Acetaminophen 325 MG TAB PO PRN (23:10)
[2018-05-27] MEDS: Dexamethasone 4 mg/ml Vial SLOW IVP SCH ×4 (05:23→23:50)
[2018-05-27] MEDS: HumaLOG 300 UNITS/3 ML VIAL SC PRN ×3 (06:19→21:19)
[2018-05-27] MEDS: metFORMIN 500 MG TAB PO SCH (09:37)
[2018-05-27] MEDS: Spironolactone 25 MG TAB PO SCH (09:38)
[2018-05-27] MEDS: Tamsulosin HCl 0.4 MG CAP PO SCH (09:38)
[2018-05-27] MEDS: Torsemide 20 MG TAB PO SCH ×2 (09:38→20:22)
[2018-05-27] MEDS: glipiZIDE 10 MG TAB PO SCH ×2 (09:38→20:21)
[2018-05-27] MEDS: Aspirin 81 mg Enteric Coated Tablet PO SCH (09:39)
[2018-05-27] MEDS: Carvedilol 6.25 MG TAB PO SCH ×2 (09:39→20:21)
[2018-05-27] MEDS: Morphine 4 MG/ML VIAL SLOW IVP PRN (14:36)
--- NOTE | 2018-05-27 19:54 | PDOC.PN ---
- Subjective Encounter Start Date: 05/27/18 Encounter Start Time: 18:20 Subjective: f/u for paraparesis of LE's due to T11 metastatic prostate carcinoma -: receiving XRT. Moving legs better but still uncoordinated with standing -: and sustained a fall this am without head injury or LOC. Some R foot pain - Objective MAR Reviewed: Yes Vital Signs & Weight: Vital Signs (12 hours) Temp Pulse Resp BP BP Pulse Ox 05/27/18 15:45 98 F 68 15 135/82 94 L 05/27/18 11:00 98.6 F 74 14 147/86 H 97 05/27/18 09:39 157/87 H 05/27/18 08:00 97 05/27/18 07:55 98 F 74 18 157/87 H 97 Weight Weight 227 lb 12.8 oz I&O: 05/26/18 05/27/18 05/28/18 06:59 06:59 06:59 Intake Total 1640 1400 Output Total 3200 3900 Balance -1560 -2500 Result Diagrams: 05/23/18 04:56 05/25/18 15:05 Additional Labs: Accuchecks 05/27/18 05/27/18 05/27/18 16:22 11:40 05:27 POC Glucose 166 H 299 H 230 H 05/26/18 20:29 POC Glucose 355 H Microbiology 05/24/18 11:39 Urine voided Urine Culture - Final NO GROWTH AT 48 HOURS Laboratory Tests 05/22/18 05/23/18 21:39 04:56 Sodium 135 L 132 L Creatinine 1.49 H 1.25 Phys Exam - Physical Examination Constitutional: NAD HEENT: PERRLA, sclera anicteric, oral pharynx no lesions Neck: no nodes, no JVD, supple, full ROM Respiratory: no wheezing, no rales, no rhonchi, clear to auscultation bilateral S1, S2 Cardiovascular: RRR, no significant murmur, no rub, gallop Gastrointestinal: soft, non-tender, no distention, positive bowel sounds L foot > R foot edema, mild ecchymosis near 3-4th toes at MTP joint Musculoskeletal: pulses present, edema present Neurological: normal sensation, moves all 4 limbs Psychiatric: A&O x 3 Skin: normal turgor, cap refill <2 seconds Dx/Plan (1) Prostate cancer metastatic to bone Code(s): C61 - MALIGNANT NEOPLASM OF PROSTATE; C79.51 - SECONDARY MALIGNANT NEOPLASM OF BONE Status: Acute Comment: Widely metastatic prostate carcinoma in spinal column, XRT/chemo, pain control (2) Paraparesis of both lower limbs Code(s): G82.20 - PARAPLEGIA, UNSPECIFIED Status: Acute Comment: Improved with XRT, continue tx as outlined, serial neuro assessments, continue Dexamethasone, PT evaluation for functional assessment (3) DM2 (diabetes mellitus, type 2) Status: Chronic Qualifiers: Diabetes mellitus usp insulin use: without usp use Diabetes mellitus complication status: with kidney complications Chronic kidney disease stage: stage 3 (moderate) Comment: Continue glipizide and resume metformin, labile glucose trend, may need additional titration, ISS, ADA, labile due to Dexamethasone (4) HTN (hypertension) Code(s): I10 - ESSENTIAL (PRIMARY) HYPERTENSION Status: Chronic Qualifiers: Comment: labile, monitor trend, titrate BP regimen as clinically indicated (5) Obesity (BMI 35.0-39.9 without comorbidity) Code(s): E66.9 - OBESITY, UNSPECIFIED Status: Chronic (6) Right foot pain Code(s): M79.671 - PAIN IN RIGHT FOOT Status: Acute Comment: s/p mech fall, check radiographs to r/o fx - Plan plan discussed w/ family, PT/OT, social professionals, DVT proph w/SCDs Stable currently -: Continue Dexamethasone -: X-rays of R foot -: XRT for spinal metastatic process -: CM for SNF options * .
[2018-05-27] MEDS: Acetaminophen 325 MG TAB PO PRN (20:22)
--- NOTE | 2018-05-27 20:55 | RAD ---
RIGHT FOOT THREE VIEWS: History: Right foot pain and bruising. FINDINGS: Lisfranc joint alignment is anatomic. Plantar arch is maintained. Secondary ossification centers are apparent adjacent to the cuboid. No acute fracture, dislocation, or aggressive osseous erosions. Smal l osteochondroma along the medial shaft of the fourth metatarsal. Small Achilles and plantar enthesop hytes at the posterior aspect of the calcaneus. Mild degenerative changes throughout the foot. IMPRESSION: 1. Mild degenerative changes. No acute osseous abnormalities are demonstrated. 2. Small heel spurs. POS: CLARICE
[2018-05-28] MEDS: HumaLOG 300 UNITS/3 ML VIAL SC PRN ×4 (06:12→21:27)
[2018-05-28] MEDS: Dexamethasone 4 mg/ml Vial SLOW IVP SCH ×4 (06:13→23:33)
[2018-05-28] MEDS: metFORMIN 500 MG TAB PO SCH (09:21)
[2018-05-28] MEDS: Carvedilol 6.25 MG TAB PO SCH ×2 (09:22→21:28)
[2018-05-28] MEDS: Aspirin 81 mg Enteric Coated Tablet PO SCH (09:22)
[2018-05-28] MEDS: Tamsulosin HCl 0.4 MG CAP PO SCH (09:22)
[2018-05-28] MEDS: glipiZIDE 10 MG TAB PO SCH ×2 (09:22→21:29)
[2018-05-28] MEDS: Spironolactone 25 MG TAB PO SCH (09:23)
[2018-05-28] MEDS: Torsemide 20 MG TAB PO SCH ×2 (09:25→21:29)
[2018-05-28] MEDS: Acetaminophen 325 MG TAB PO PRN ×2 (09:26→23:33)
[2018-05-28] MEDS: Morphine 4 MG/ML VIAL SLOW IVP PRN (14:01)
--- NOTE | 2018-05-28 19:34 | PDOC.PN ---
- Subjective Encounter Start Date: 05/28/18 Encounter Start Time: 19:25 Subjective: f/u for metastatic prostate carcinoma with paraparesis of LE's. Walked -: short distance with PT. Tolerated XRT to spine. - Objective MAR Reviewed: Yes Vital Signs & Weight: Vital Signs (12 hours) Temp Pulse Resp BP BP Pulse Ox 05/28/18 16:00 97.6 F 66 20 139/76 100 05/28/18 12:00 97.6 F 69 18 116/72 99 05/28/18 09:22 136/77 05/28/18 08:00 99 05/28/18 07:45 97.7 F 73 18 136/77 99 Weight Weight 227 lb 12.8 oz I&O: 05/27/18 05/28/18 05/29/18 06:59 06:59 06:59 Intake Total 2926 509 6466 Output Total 3900 1600 1650 Balance -2500 -1270 70 Result Diagrams: 05/23/18 04:56 05/25/18 15:05 Additional Labs: Accuchecks 05/28/18 05/28/18 05/28/18 16:50 12:30 05:25 POC Glucose 207 H 216 H 237 H 05/27/18 20:12 POC Glucose 289 H Radiology Reviewed by me: Yes (R foot x-rays - negative) Phys Exam - Physical Examination Constitutional: NAD HEENT: PERRLA, sclera anicteric, oral pharynx no lesions Neck: no nodes, no JVD, supple, full ROM Respiratory: no wheezing, no rales, no rhonchi, clear to auscultation bilateral S1, S2 Cardiovascular: RRR, no significant murmur, no rub, gallop Gastrointestinal: soft, non-tender, no distention, positive bowel sounds Musculoskeletal: no edema, pulses present Neurological: normal sensation, moves all 4 limbs Psychiatric: A&O x 3 Skin: normal turgor, cap refill <2 seconds Dx/Plan (1) Prostate cancer metastatic to bone Code(s): C61 - MALIGNANT NEOPLASM OF PROSTATE; C79.51 - SECONDARY MALIGNANT NEOPLASM OF BONE Status: Acute Comment: Widely metastatic prostate carcinoma in spinal column, XRT/chemo, pain control (2) Paraparesis of both lower limbs Code(s): G82.20 - PARAPLEGIA, UNSPECIFIED Status: Acute Comment: Improved with XRT, continue tx as outlined, serial neuro assessments, continue Dexamethasone, PT evaluation for functional assessment, add OT evaluation, SNF options (3) DM2 (diabetes mellitus, type 2) Status: Chronic Qualifiers: Diabetes mellitus 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 control servicer insulin use: without termite control servicer use Diabetes mellitus complication status: with kidney complications Chronic kidney disease stage: stage 3 (moderate) Comment: Continue glipizide and resume metformin, labile glucose trend, may need additional titration, ISS, ADA, labile due to Dexamethasone (4) HTN (hypertension) Code(s): I10 - ESSENTIAL (PRIMARY) HYPERTENSION Status: Chronic Qualifiers: Comment: Improved, monitor trend, titrate BP regimen as clinically indicated (5) Obesity (BMI 35.0-39.9 without comorbidity) Code(s): E66.9 - OBESITY, UNSPECIFIED Status: Chronic (6) Right foot pain Code(s): M79.671 - PAIN IN RIGHT FOOT Status: Acute Comment: s/p mech fall, check radiographs neg for fx - Plan PT/OT, social sciences instructor, out of bed/ambulate, DVT proph w/SCDs Stable currently -: XRT/chemo per oncology -: Continue Dexamethasone 4mg IV q6h -: OOB with PT/OT -: CM for SNF options * .
[2018-05-29] MEDS: Dexamethasone 4 mg/ml Vial SLOW IVP SCH ×2 (05:31→12:57)
[2018-05-29] MEDS: HumaLOG 300 UNITS/3 ML VIAL SC PRN ×4 (05:32→21:56)
[2018-05-29] MEDS: metFORMIN 500 MG TAB PO SCH (08:19)
[2018-05-29] MEDS: glipiZIDE 10 MG TAB PO SCH ×2 (08:19→22:29)
[2018-05-29] MEDS: Tamsulosin HCl 0.4 MG CAP PO SCH (08:20)
[2018-05-29] MEDS: Spironolactone 25 MG TAB PO SCH (08:20)
[2018-05-29] MEDS: Carvedilol 6.25 MG TAB PO SCH ×2 (08:20→22:29)
[2018-05-29] MEDS: Aspirin 81 mg Enteric Coated Tablet PO SCH (08:20)
[2018-05-29] MEDS: Torsemide 20 MG TAB PO SCH ×2 (08:20→22:24)
[2018-05-29] MEDS: Morphine 4 MG/ML VIAL SLOW IVP PRN (13:46)
--- NOTE | 2018-05-29 17:36 | PDOC.PN ---
- Subjective Encounter Start Date: 05/29/18 Encounter Start Time: 17:35 Subjective: f/u for metastatic prostate carcinoma with paraparesis of LE's on current -: XRT. No new complaints. - Objective MAR Reviewed: Yes Vital Signs & Weight: Vital Signs (12 hours) Temp Pulse Pulse Resp BP BP BP 05/29/18 13:10 79 154/59 H 05/29/18 08:20 143/73 H 05/29/18 08:05 98.1 F 65 18 151/82 H 05/29/18 08:00 98.1 F 65 18 151/82 H Pulse Ox 05/29/18 13:10 05/29/18 08:20 05/29/18 08:05 98 05/29/18 08:00 98 Weight Weight 227 lb 12.8 oz I&O: 05/28/18 05/29/18 05/30/18 06:59 06:59 06:59 Intake Total 330 2600 Output Total 1600 3350 Balance -1270 -750 Result Diagrams: 05/23/18 04:56 05/25/18 15:05 Additional Labs: Accuchecks 05/29/18 05/29/18 05/28/18 11:12 05:20 23:38 POC Glucose 333 H 261 H 258 H 05/28/18 21:08 POC Glucose 313 H Microbiology 05/24/18 11:39 Urine voided Urine Culture - Final NO GROWTH AT 48 HOURS Laboratory Tests 05/22/18 05/23/18 21:39 04:56 Sodium 135 L 132 L Creatinine 1.49 H 1.25 Phys Exam - Physical Examination Constitutional: NAD HEENT: PERRLA, sclera anicteric, oral pharynx no lesions Neck: no nodes, no JVD, supple, full ROM Respiratory: no wheezing, no rales, no rhonchi, clear to auscultation bilateral S1, S2 Cardiovascular: RRR, no significant murmur, no rub, gallop Gastrointestinal: soft, non-tender, no distention, positive bowel sounds Musculoskeletal: no edema, pulses present Neurological: normal sensation, moves all 4 limbs Psychiatric: A&O x 3 Skin: normal turgor, cap refill <2 seconds Dx/Plan (1) Prostate cancer metastatic to bone Code(s): C61 - MALIGNANT NEOPLASM OF PROSTATE; C79.51 - SECONDARY MALIGNANT NEOPLASM OF BONE Status: Acute Comment: Widely metastatic prostate carcinoma in spinal column, XRT/chemo, pain control, plan for oupt chemo after d /c (2) Paraparesis of both lower limbs Code(s): G82.20 - PARAPLEGIA, UNSPECIFIED Status: Acute Comment: Improved with XRT, continue tx as outlined, serial neuro assessments, continue Dexamethasone, PT evaluation for functional assessment, add OT evaluation, SNF options limited due to funding/insurance (3) DM2 (diabetes mellitus, type 2) Status: Chronic Qualifiers: Diabetes mellitus retirement insulin use: without retirement use Diabetes mellitus complication status: with kidney complications Chronic kidney disease stage: stage 3 (moderate) Comment: Continue glipizide and resume metformin, labile glucose trend, may need additional titration, ISS, ADA, labile due to Dexamethasone (4) HTN (hypertension) Code(s): I10 - ESSENTIAL (PRIMARY) HYPERTENSION Status: Chronic Qualifiers: Comment: Improved, monitor trend, titrate BP regimen as clinically indicated (5) Obesity (BMI 35.0-39.9 without comorbidity) Code(s): E66.9 - OBESITY, UNSPECIFIED Status: Chronic (6) Right foot pain Code(s): M79.671 - PAIN IN RIGHT FOOT Status: Acute Comment: s/p mech fall, check radiographs neg for fx, supportive mgmt - Plan PT/OT, community mental health social worker, out of bed/ambulate, DVT proph w/SCDs Stable currently -: Continue XRT per rad oncology -: Continue Dexamethasone 4mg IV q6h -: OOB/PT/OT -: Await potential SNF vs * .
[2018-05-29 18:21] VITALS: BMI 35.5
[2018-05-29] MEDS ORDERED: Dexamethasone 4 MG TAB PO SCH ×2 (21:00→22:30)
[2018-05-29] MEDS ORDERED: Morphine 10 MG/0.5 ML ORAL SYRINGE SL PRN (21:12)
[2018-05-29] MEDS ORDERED: Morphine 4 MG/ML VIAL SLOW IVP PRN (21:12)
[2018-05-29] MEDS ORDERED: Acetaminophen 325 MG TAB PO PRN (21:35)
[2018-05-29] MEDS ORDERED: Bisacodyl 10 MG SUPP PR PRN (21:36)
[2018-05-29] MEDS ORDERED: Dextrose 5% in Water 1,000 ML IV PRN (21:36)
[2018-05-29] MEDS ORDERED: Bisacodyl 5 MG TAB PO PRN (21:36)
[2018-05-29] MEDS ORDERED: Dextrose 50% Abboject 50 ML SYRINGE SLOW IVP PRN (21:37)
[2018-05-29] MEDS ORDERED: Ondansetron PF 4 MG/2 ML Vial IVP PRN (21:38)
[2018-05-29] MEDS ORDERED: Senokot S 8.6-50 MG TAB PO PRN (21:39)
[2018-05-29] MEDS ORDERED: Polyethylene Glycol 3350 17 GM Packet PO PRN (21:39)
[2018-05-30] MEDS: HumaLOG 300 UNITS/3 ML VIAL SC PRN ×4 (07:39→21:05)
[2018-05-30] MEDS: Spironolactone 25 MG TAB PO SCH (09:24)
[2018-05-30] MEDS: glipiZIDE 10 MG TAB PO SCH ×2 (09:24→21:02)
[2018-05-30] MEDS: Carvedilol 6.25 MG TAB PO SCH ×2 (09:24→21:02)
[2018-05-30] MEDS: Dexamethasone 4 MG TAB PO SCH ×3 (09:25→21:02)
[2018-05-30] MEDS: metFORMIN 500 MG TAB PO SCH (09:26)
[2018-05-30] MEDS: Aspirin 81 mg Enteric Coated Tablet PO SCH (09:26)
[2018-05-30] MEDS: Tamsulosin HCl 0.4 MG CAP PO SCH (09:26)
[2018-05-30] MEDS: Torsemide 20 MG TAB PO SCH ×2 (09:27→21:03)
[2018-05-30] MEDS: HYDROcodone/Acetaminophen 5/325 mg Tablet PO PRN ×2 (13:53→23:35)
--- NOTE | 2018-05-30 18:10 | PDOC.PN ---
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 Receiving -: 5 of 10 XRT tx's and plans for outpt chemo per oncology. Ambulated approx -: 20' with RW and SBA. - Objective MAR Reviewed: Yes Vital Signs & Weight: Vital Signs (12 hours) Temp Pulse Resp BP BP Pulse Ox 05/30/18 09:24 143/73 H 05/30/18 08:00 97.6 F 72 16 123/79 99 Weight Admit Weight 227 lb 12.8 oz Weight 227 lb I&O: 05/29/18 05/30/18 05/31/18 06:59 06:59 06:59 Intake Total 2600 1375 Output Total 3350 3100 Balance -750 -1725 Result Diagrams: 05/23/18 04:56 05/25/18 15:05 Additional Labs: Accuchecks 05/30/18 05/30/18 05/30/18 16:35 11:44 05:26 POC Glucose 177 H 267 H 255 H 05/29/18 20:45 POC Glucose 290 H Phys Exam - Physical Examination Constitutional: NAD HEENT: PERRLA, sclera anicteric, oral pharynx no lesions Neck: no nodes, no JVD, supple, full ROM Respiratory: no wheezing, no rales, no rhonchi, clear to auscultation bilateral S1, S2 Cardiovascular: RRR, no significant murmur, no rub, gallop Gastrointestinal: soft, non-tender, no distention, positive bowel sounds Musculoskeletal: no edema, pulses present Neurological: normal sensation, moves all 4 limbs Psychiatric: A&O x 3 Skin: normal turgor, cap refill <2 seconds Dx/Plan (1) Prostate cancer metastatic to bone Code(s): C61 - MALIGNANT NEOPLASM OF PROSTATE; C79.51 - SECONDARY MALIGNANT NEOPLASM OF BONE Status: Acute Comment: Widely metastatic prostate carcinoma in spinal column, XRT/chemo, pain control, plan for oupt chemo after d /c (2) Paraparesis of both lower limbs Code(s): G82.20 - PARAPLEGIA, UNSPECIFIED Status: Acute Comment: Improved with XRT, continue tx as outlined, serial neuro assessments, continue Dexamethasone, PT evaluation for functional assessment, add OT evaluation, SNF options limited due to funding/insurance (3) DM2 (diabetes mellitus, type 2) Status: Chronic Qualifiers: Diabetes mellitus terminal worker insulin use: without fdc use Diabetes mellitus complication status: with kidney complications Chronic kidney disease stage: stage 3 (moderate) Comment: Continue glipizide and resume metformin, labile glucose trend, may need additional titration, ISS, ADA, labile due to Dexamethasone (4) HTN (hypertension) Code(s): I10 - ESSENTIAL (PRIMARY) HYPERTENSION Status: Chronic Qualifiers: Comment: Improved, monitor trend, titrate BP regimen as clinically indicated (5) Obesity (BMI 35.0-39.9 without comorbidity) Code(s): E66.9 - OBESITY, UNSPECIFIED Status: Chronic (6) Right foot pain Code(s): M79.671 - PAIN IN RIGHT FOOT Status: Acute Comment: s/p [facility] fall, check radiographs neg for fx, supportive mgmt - Plan PT/OT, social work assistant, out of bed/ambulate, DVT proph w/SCDs Stable currently -: Start [place] 5/325 po q6h prn -: OOB with PT -: XRT plan for total 10 tx's, currently 08/12 completed -: Likely will have to transition home with limited resources, ambulation rate * limiting factor
[2018-05-31] MEDS: HumaLOG 300 UNITS/3 ML VIAL SC PRN ×3 (06:50→16:44)
[2018-05-31] MEDS: glipiZIDE 10 MG TAB PO SCH ×2 (09:25→21:14)
[2018-05-31] MEDS: Dexamethasone 4 MG TAB PO SCH ×3 (09:25→21:14)
[2018-05-31] MEDS: metFORMIN 500 MG TAB PO SCH (09:26)
[2018-05-31] MEDS: Tamsulosin HCl 0.4 MG CAP PO SCH (09:26)
[2018-05-31] MEDS: Carvedilol 6.25 MG TAB PO SCH ×2 (09:27→21:15)
[2018-05-31] MEDS: Aspirin 81 mg Enteric Coated Tablet PO SCH (09:28)
[2018-05-31] MEDS: HYDROcodone/Acetaminophen 5/325 mg Tablet PO PRN ×3 (09:28→21:13)
[2018-05-31] MEDS: Spironolactone 25 MG TAB PO SCH (09:31)
[2018-05-31] MEDS: Torsemide 20 MG TAB PO SCH ×2 (09:32→21:15)
--- NOTE | 2018-05-31 13:45 | PDOC.PN ---
- Subjective Encounter Start Date: 05/31/18 Encounter Start Time: 13:44 Mr. Mccray was seen today in follow-up of Metastatic Prostate cancer with spinal involvement. He is concerned about management of his pain, but he admits that he is getting stronger with regards to his leg strength. - Objective MAR Reviewed: Yes Vital Signs & Weight: Vital Signs (12 hours) Temp Pulse Pulse Resp BP BP BP 05/31/18 09:27 157/72 H 05/31/18 08:45 77 157/72 H 05/31/18 08:00 97.7 F 78 18 157/72 H Pulse Ox Pulse Ox 05/31/18 09:27 05/31/18 08:45 97 05/31/18 08:00 97 Weight Admit Weight 227 lb 12.8 oz Weight 227 lb I&O: 05/30/18 05/31/18 06/01/18 06:59 06:59 06:59 Intake Total 1375 850 Output Total 3100 1800 Balance -1725 -950 Result Diagrams: 05/23/18 04:56 05/25/18 15:05 Additional Labs: Accuchecks 05/31/18 05/31/18 05/30/18 11:27 06:03 20:00 POC Glucose 265 H 249 H 328 H 05/30/18 16:35 POC Glucose 177 H Phys Exam - Physical Examination HEENT: PERRLA Respiratory: no wheezing, no rales, no rhonchi, clear to auscultation bilateral Cardiovascular: RRR, no significant murmur, no rub Gastrointestinal: soft, non-tender, no distention, positive bowel sounds Musculoskeletal: pulses present, edema present trace pedal edema Dx/Plan (1) Prostate cancer metastatic to bone Code(s): C61 - MALIGNANT NEOPLASM OF PROSTATE; C79.51 - SECONDARY MALIGNANT NEOPLASM OF BONE Status: Acute Comment: Widely metastatic prostate carcinoma in spinal column, XRT/chemo, pain control, plan for oupt chemo after d /c (2) DM2 (diabetes mellitus, type 2) Status: Chronic Qualifiers: Diabetes mellitus senior care insulin use: without manager long term care use Diabetes mellitus complication status: with kidney complications Chronic kidney disease stage: stage 3 (moderate) Comment: Continue glipizide and resume metformin, labile glucose trend, may need additional titration, ISS, ADA, labile due to Dexamethasone (3) HTN (hypertension) Code(s): I10 - ESSENTIAL (PRIMARY) HYPERTENSION Status: Chronic Qualifiers: Comment: Improved, monitor trend, titrate BP regimen as clinically indicated (4) Chronic systolic heart failure Code(s): I50.22 - CHRONIC SYSTOLIC (CONGESTIVE) HEART FAILURE Status: Acute (5) CAD (coronary artery disease) Code(s): I25.10 - ATHSCL HEART DISEASE OF [place] CORONARY ARTERY W/O ANG PCTRS Status: Chronic Qualifiers: Coronary Disease-Associated Artery/Lesion type: [place] artery [place] vs. transplanted heart: [place] heart Associated angina: without angina Qualified Code(s): I25.10 - Atherosclerotic heart disease of [place] coronary artery without angina pectoris Comment: stable, continue aspirin, Coreg - Plan * Metastatic Prostate cancer- continue radiation treatment( He should receive his final treatment on Sunday * The plan is to start chemotherapy and anti-androgen soon ( Casodex tomorrow) * DM- blood glucose is a bit elevated- will add a low dose Lantus * HTN- blood pressure is also a bit elevated- will monitor and continue PRN medications * CAD- stable * Chronic systolic heart failure- compensated .
[2018-05-31] MEDS ORDERED: Insulin Glargine 6 UNITS in Pre-Filled Syringe SC SCH (21:00)
[2018-05-31] MEDS ORDERED: Ketorolac Tromethamine 30 MG/ML VIAL IVP PRN (23:01)
[2018-06-01] MEDS: Carvedilol 6.25 MG TAB PO SCH ×2 (08:21→20:23)
[2018-06-01] MEDS: metFORMIN 500 MG TAB PO SCH (08:21)
[2018-06-01] MEDS: Spironolactone 25 MG TAB PO SCH (08:21)
[2018-06-01] MEDS: Insulin Glargine 15 UNITS in Pre-Filled Syringe 1 EACH SC SCH (08:21)
[2018-06-01] MEDS: Aspirin 81 mg Enteric Coated Tablet PO SCH (08:21)
[2018-06-01] MEDS: glipiZIDE 10 MG TAB PO SCH ×2 (08:22→20:24)
[2018-06-01] MEDS: Tamsulosin HCl 0.4 MG CAP PO SCH (08:22)
[2018-06-01] MEDS: Bicalutamide 50 MG TAB PO SCH (08:22)
[2018-06-01] MEDS: Torsemide 20 MG TAB PO SCH ×2 (08:22→20:24)
[2018-06-01] MEDS: Dexamethasone 4 MG TAB PO SCH ×3 (08:22→20:24)
--- NOTE | 2018-06-01 13:30 | PDOC.PN ---
- Subjective Encounter Start Date: 06/01/18 Encounter Start Time: 13:25 Mr. Mccray was seen today in follow-up of metastatic prostate cancer. He says the back pain is better. He has walked some in his room. - Objective MAR Reviewed: Yes Vital Signs & Weight: Vital Signs (12 hours) Temp Pulse Resp BP BP Pulse Ox 06/01/18 08:21 140/84 06/01/18 08:00 98 06/01/18 07:44 97.1 F L 66 18 140/84 98 Weight Admit Weight 227 lb 12.8 oz Weight 227 lb I&O: 05/31/18 06/01/18 06/02/18 06:59 06:59 06:59 Intake Total 850 1000 Output Total 1800 1600 Balance -950 -600 Result Diagrams: 05/23/18 04:56 05/25/18 15:05 Additional Labs: Accuchecks 06/01/18 06/01/18 05/31/18 11:06 06:06 20:13 POC Glucose 268 H 250 H 298 H 05/31/18 16:13 POC Glucose 325 H Phys Exam - Physical Examination HEENT: PERRLA Respiratory: no wheezing, no rales, no rhonchi, clear to auscultation bilateral Cardiovascular: RRR, no significant murmur, no rub Gastrointestinal: soft, non-tender, no distention, positive bowel sounds Musculoskeletal: no edema Dx/Plan (1) Prostate cancer metastatic to bone Code(s): C61 - MALIGNANT NEOPLASM OF PROSTATE; C79.51 - SECONDARY MALIGNANT NEOPLASM OF BONE Status: Acute Comment: Widely metastatic prostate carcinoma in spinal column, XRT/chemo, pain control, plan for oupt chemo after d /c (2) DM2 (diabetes mellitus, type 2) Status: Chronic Qualifiers: 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: without usp use Diabetes mellitus complication status: with kidney complications Chronic kidney disease stage: stage 3 (moderate) Comment: Continue glipizide and resume metformin, labile glucose trend, may need additional titration, ISS, ADA, labile due to Dexamethasone (3) HTN (hypertension) Code(s): I10 - ESSENTIAL (PRIMARY) HYPERTENSION Status: Chronic Qualifiers: Comment: Improved, monitor trend, titrate BP regimen as clinically indicated (4) Chronic systolic heart failure Code(s): I50.22 - CHRONIC SYSTOLIC (CONGESTIVE) HEART FAILURE Status: Acute (5) CAD (coronary artery disease) Code(s): I25.10 - ATHSCL HEART DISEASE OF [place] CORONARY ARTERY W/O ANG PCTRS Status: Chronic Qualifiers: Coronary Disease-Associated Artery/Lesion type: [place] artery [place] vs. transplanted heart: [place] heart Associated angina: without angina Qualified Code(s): I25.10 - Atherosclerotic heart disease of [place] coronary artery without angina pectoris Comment: stable, continue aspirin, Coreg - Plan * Metastatic prostate cancer with spinal involvement- pain is controlled. He is currently receiving Radiation * He has also been started on Casodex * HTN- blood pressure is controlled * DM- blood glucose is a bit elevated due to Decadron- will increase continue to titrate the dose of Lantus.
[2018-06-01] MEDS: HumaLOG 300 UNITS/3 ML VIAL SC PRN ×3 (14:30→22:20)
[2018-06-01] MEDS: Simethicone Chewable 80 MG TAB PO PRN ×2 (17:04→22:22)
[2018-06-02] MEDS: HumaLOG 300 UNITS/3 ML VIAL SC PRN ×4 (05:33→21:46)
[2018-06-02] MEDS: Simethicone Chewable 80 MG TAB PO PRN ×3 (10:39→21:45)
[2018-06-02] MEDS: Insulin Glargine 15 UNITS in Pre-Filled Syringe 1 EACH SC SCH (10:40)
[2018-06-02] MEDS: HYDROcodone/Acetaminophen 5/325 mg Tablet PO PRN ×2 (10:40→21:47)
[2018-06-02] MEDS: Tamsulosin HCl 0.4 MG CAP PO SCH (10:41)
[2018-06-02] MEDS: glipiZIDE 10 MG TAB PO SCH ×2 (10:41→21:45)
[2018-06-02] MEDS: Spironolactone 25 MG TAB PO SCH (10:41)
[2018-06-02] MEDS: metFORMIN 500 MG TAB PO SCH (10:41)
[2018-06-02] MEDS: Dexamethasone 4 MG TAB PO SCH ×3 (10:41→21:45)
[2018-06-02] MEDS: Torsemide 20 MG TAB PO SCH ×2 (10:41→21:46)
[2018-06-02] MEDS: Carvedilol 6.25 MG TAB PO SCH ×2 (10:42→21:45)
[2018-06-02] MEDS: Aspirin 81 mg Enteric Coated Tablet PO SCH (10:43)
[2018-06-02] MEDS: Bicalutamide 50 MG TAB PO SCH (10:47)
--- NOTE | 2018-06-02 14:23 | PDOC.PN ---
- Subjective Encounter Start Date: 06/02/18 Encounter Start Time: 13:20 Mr. Mccray was seen today in follow-up of metastatic prostate cancer with spinal involvement. He is concerned that he was excessively sleepy last night. He slept for 14-15 hours. He feels ok now. - Objective MAR Reviewed: Yes Vital Signs & Weight: Vital Signs (12 hours) Temp Pulse Resp BP BP Pulse Ox 06/02/18 10:42 147/77 H 06/02/18 08:00 97.4 F L 67 18 147/77 H 99 Weight Admit Weight 227 lb 12.8 oz Weight 233 lb 1 oz I&O: 06/01/18 06/02/18 06/03/18 06:59 06:59 06:59 Intake Total 1000 1200 Output Total 1600 3475 Balance -600 -0247 Result Diagrams: 05/23/18 04:56 05/25/18 15:05 Additional Labs: Accuchecks 06/02/18 06/02/18 06/01/18 11:15 05:25 20:46 POC Glucose 275 H 261 H 289 H 06/01/18 16:06 POC Glucose 296 H Phys Exam - Physical Examination HEENT: PERRLA Respiratory: no wheezing, no rales, no rhonchi, clear to auscultation bilateral Cardiovascular: RRR, no significant murmur, no rub Gastrointestinal: soft, non-tender, no distention, positive bowel sounds Musculoskeletal: pulses present, edema present trace pedal edema in both lower extremities Dx/Plan (1) Prostate cancer metastatic to bone Code(s): C61 - MALIGNANT NEOPLASM OF PROSTATE; C79.51 - SECONDARY MALIGNANT NEOPLASM OF BONE Status: Acute Comment: Widely metastatic prostate carcinoma in spinal column, XRT/chemo, pain control, plan for oupt chemo after d /c (2) DM2 (diabetes mellitus, type 2) Status: Chronic Qualifiers: Diabetes mellitus long-term insulin use: without watermaster use Diabetes mellitus complication status: with kidney complications Chronic kidney disease stage: stage 3 (moderate) Comment: Continue glipizide and resume metformin, labile glucose trend, may need additional titration, ISS, ADA, labile due to Dexamethasone (3) HTN (hypertension) Code(s): I10 - ESSENTIAL (PRIMARY) HYPERTENSION Status: Chronic Qualifiers: Comment: Improved, monitor trend, titrate BP regimen as clinically indicated (4) Chronic systolic heart failure Code(s): I50.22 - CHRONIC SYSTOLIC (CONGESTIVE) HEART FAILURE Status: Acute (5) CAD (coronary artery disease) Code(s): I25.10 - ATHSCL HEART DISEASE OF [place] CORONARY ARTERY W/O ANG PCTRS Status: Chronic Qualifiers: Coronary Disease-Associated Artery/Lesion type: [place] artery [place] vs. transplanted heart: [place] heart Associated angina: without angina Qualified Code(s): I25.10 - Atherosclerotic heart disease of [place] coronary artery without angina pectoris Comment: stable, continue aspirin, Coreg - Plan * Metastatic Prostate cancer with Spinal involvement. He is currently receiving Radiation treatment. Casodex has also been started * DM- blood glucose is still elevated- will continue to titrate Lantus * Continue PT/OT * CAD- stable * Chronic systolic heart failure- compensated * HTN- blood pressure is stable.
[2018-06-03 04:18] LABS: #Eosinphils 0.2 thou/uL (0.0-0.7); #Lymphocytes 0.6 thou/uL (1.20-3.40); #Monocytes 0.7 thou/uL (0.11-0.59); #Neutrophils 7.2 thou/uL (1.40-6.50); %Eosinophils 1.8 % (0.0-10.0); %Lymphocytes 6.4 % (21.0-51.0); %Monocytes 8.1 % (0.0-10.0); %Neutrophils 83.7 % (42.0-75.0); Hemoglobin 12.8 g/dL (14.0-18.0); Mean Corpuscular HGB CONC 33.2 g/dL (32.0-36.0); Mean Corpuscular Hemoglobin 28.2 pg (27.0-31.0); Mean Corpuscular Volume 84.8 fL (78.0-98.0); Mean Platelet Volume 8.2 fL (7.4-10.4); Platelet Count 127 thou/uL (130-400); RBC Distribution Width 12.9 % (11.5-14.5); Red Blood Cell (RBC) Count 4.53 mill/uL (4.70-6.10); White Blood Cell (WBC) Count 8.6 thou/uL (4.8-10.8)
[2018-06-03 04:38] LABS: Anion Gap 12 mmol/L (10-20); BUN (Urea Nitrogen) 34 mg/dL (8.4-25.7); Calc. Creatinine Clearance 115 mL/min (70-130); Calcium 8.4 mg/dL (7.8-10.44); Carbon Dioxide 30 mmol/L (23-31); Chloride 93 mmol/L (98-107); Estimated GFR-MDRD 75; Glucose 280 mg/dL (80-115); Potassium 4.6 mmol/L (3.5-5.1); Sodium 130 mmol/L (136-145)
[2018-06-03] MEDS: HumaLOG 300 UNITS/3 ML VIAL SC PRN ×4 (05:37→22:20)
[2018-06-03] MEDS: Aspirin 81 mg Enteric Coated Tablet PO SCH (08:57)
[2018-06-03] MEDS: Tamsulosin HCl 0.4 MG CAP PO SCH (08:57)
[2018-06-03] MEDS: Spironolactone 25 MG TAB PO SCH (08:57)
[2018-06-03] MEDS: Torsemide 20 MG TAB PO SCH ×2 (08:57→22:08)
[2018-06-03] MEDS: glipiZIDE 10 MG TAB PO SCH ×2 (08:57→22:08)
[2018-06-03] MEDS: Carvedilol 6.25 MG TAB PO SCH ×2 (08:57→22:08)
[2018-06-03] MEDS: Dexamethasone 4 MG TAB PO SCH ×3 (08:57→22:08)
[2018-06-03] MEDS: metFORMIN 500 MG TAB PO SCH (08:58)
[2018-06-03] MEDS: Simethicone Chewable 80 MG TAB PO PRN ×3 (08:59→22:08)
[2018-06-03] MEDS: Bicalutamide 50 MG TAB PO SCH (10:22)
[2018-06-03] MEDS: Insulin Glargine 15 UNITS in Pre-Filled Syringe 1 EACH SC SCH (10:23)
--- NOTE | 2018-06-03 10:51 | PQF ---
DATE: 06-03-18 ATTN: DR. MARNIE SUMNER Please exercise your independent, professional judgment in responding to the clarification form. Clinical indicators are provided on the bottom of this form for your review Please check appropriate box(s): [ X ] Acute Renal Failure (ARF) / Acute Kidney Injury (JOSUÉ) [ ] Insignificant Lab Values [ ] Other diagnosis [ ] Unable to determine In addition, please specify: Present on Admission (POA): [ X ] Yes [ ] No [ ] Unable to determine National Kidney Foundation Guidelines for CKD Staging Stage I Kidney damage with normal or increased GFR GFR > 90 Stage II Kidney damage with mildly decreased GFR GFR 60-89 Stage III Kidney damage with moderately decreased GFR GFR 30 -59 Stage IV Kidney damage with severely decreased GFR GFR 16 -29 Stage V Kidney failure GFR<15 ESRD End Stage Renal Disease On dialysis Acute Renal Failure/Acute Kidney Failure defined as: Increases in SCr by (>) 0.3 mg/dl within 48 hours OR- Increases in SCr by (>) 1.5 times baseline, known or presumed to have occurred within the prior 7 days OR- Urine volume < 0.5 ml/kg/hour for 6 hours (KDIGO supplement 2012 for RIFLE/ALISA criteria) For continuity of documentation, please document condition throughout progress notes and discharge summary. Thank You. CLINICAL INDICATORS - SIGNS / SYMPTOMS / LABS GFR: 05-22-18: 48 05-23-18: 59 05-25-18: 48 06-03-18: 75 CREATININE: 05-22-18: 1.49 05-23-18: 1.25 05-25-18: 1.50 34: 1.01 BUN: 05-22-18: 37 05-23-18: 33 05-25-18: 49 06-03-18: 34 RISK FACTORS ER: HOME MEDS: GLIPIZIDE, METFORMIN, ASA, TORSEMIDE, COREG TREATMENTS: SERIAL LABS/MONITORING (This form is maintained as a part of the permanent medical record) 2014 [employer]. All Rights Reserved [email or web address] [email or web address] Office: [phone] [facility] MED[facility] CENTERJennifer
[2018-06-03] MEDS ORDERED: Dextrose 50% Abboject 50 ML SYRINGE SLOW IVP PRN (14:01)
[2018-06-03] MEDS ORDERED: Dextrose 5% in Water 1,000 ML IV PRN (14:01)
--- NOTE | 2018-06-03 14:04 | PDOC.PN ---
- Subjective Encounter Start Date: 06/03/18 Encounter Start Time: 14:03 Mr. Mccray was seen today in follow-up of metastatic prostate cancer with spinal involvement.. He does not have any complaints. He walked from his room to the nurses station today with PT. - Objective MAR Reviewed: Yes Vital Signs & Weight: Vital Signs (12 hours) Temp Pulse Resp BP BP Pulse Ox 06/03/18 08:57 173/84 H 06/03/18 08:00 97.4 F L 68 16 173/84 H 100 Weight Admit Weight 227 lb 12.8 oz Weight 233 lb 1 oz I&O: 06/02/18 06/03/18 06/04/18 06:59 06:59 06:59 Intake Total 1200 1000 Output Total 3475 4050 Balance -2275 -3050 Result Diagrams: 06/03/18 04:07 06/03/18 04:07 Additional Labs: Accuchecks 06/03/18 06/02/18 11:39 16:14 POC Glucose 289 H 349 H Phys Exam - Physical Examination HEENT: PERRLA Respiratory: no wheezing, no rales, no rhonchi, clear to auscultation bilateral Cardiovascular: RRR, no significant murmur, no rub Gastrointestinal: soft, non-tender, no distention, positive bowel sounds Musculoskeletal: pulses present, edema present + chronic venous stasis, 1+ edema bilaterally Dx/Plan (1) Prostate cancer metastatic to bone Code(s): C61 - MALIGNANT NEOPLASM OF PROSTATE; C79.51 - SECONDARY MALIGNANT NEOPLASM OF BONE Status: Acute Comment: Widely metastatic prostate carcinoma in spinal column, XRT/chemo, pain control, plan for oupt chemo after d /c (2) DM2 (diabetes mellitus, type 2) Status: Chronic Qualifiers: Diabetes mellitus retirement insulin use: without retirement use Diabetes mellitus complication status: with kidney complications Chronic kidney disease stage: stage 3 (moderate) Comment: Continue glipizide and resume metformin, labile glucose trend, may need additional titration, ISS, ADA, labile due to Dexamethasone (3) HTN (hypertension) Code(s): I10 - ESSENTIAL (PRIMARY) HYPERTENSION Status: Chronic Qualifiers: Comment: Improved, monitor trend, titrate BP regimen as clinically indicated (4) Chronic systolic heart failure Code(s): I50.22 - CHRONIC SYSTOLIC (CONGESTIVE) HEART FAILURE Status: Acute (5) CAD (coronary artery disease) Code(s): I25.10 - ATHSCL HEART DISEASE OF [place] CORONARY ARTERY W/O ANG PCTRS Status: Chronic Qualifiers: Coronary Disease-Associated Artery/Lesion type: [place] artery [place] vs. transplanted heart: [place] heart Associated angina: without angina Qualified Code(s): I25.10 - Atherosclerotic heart disease of [place] coronary artery without angina pectoris Comment: stable, continue aspirin, Coreg - Plan * Metastatic Prostate cancer with spinal involvement- he will receive 3 more radiation treatments including this one today. * His pain is controlled * DM- his blood glucose continues to be elevated- will change home to an aggressive sliding scale- he will likely need additional insulin when he is discharged, due to the Decadron * HTN- also a bit labile- will monitor * CAD- stable * Chronic systolic heart failure- compensated * Lower extremity weakness and urinary retention- this is likely due to the metastatic process in his spine- due to lack of funding he was not able to go to Rehab or usp. Hopefully after his final radiation treatment on Sunday he will be strong enough to transition home.
[2018-06-03] MEDS: HYDROcodone/Acetaminophen 5/325 mg Tablet PO PRN (14:23)
[2018-06-04] MEDS: HumaLOG 300 UNITS/3 ML VIAL SC PRN ×3 (06:04→16:23)
[2018-06-04] MEDS: Insulin Glargine 15 UNITS in Pre-Filled Syringe 1 EACH SC SCH (09:36)
[2018-06-04] MEDS: glipiZIDE 10 MG TAB PO SCH ×2 (09:37→20:03)
[2018-06-04] MEDS: Bicalutamide 50 MG TAB PO SCH (09:37)
[2018-06-04] MEDS: Simethicone Chewable 80 MG TAB PO PRN ×3 (09:37→20:02)
[2018-06-04] MEDS: Aspirin 81 mg Enteric Coated Tablet PO SCH (09:37)
[2018-06-04] MEDS: Carvedilol 6.25 MG TAB PO SCH ×2 (09:37→20:03)
[2018-06-04] MEDS: metFORMIN 500 MG TAB PO SCH (09:38)
[2018-06-04] MEDS: Tamsulosin HCl 0.4 MG CAP PO SCH (09:38)
[2018-06-04] MEDS: Torsemide 20 MG TAB PO SCH ×2 (09:38→20:03)
[2018-06-04] MEDS: Spironolactone 25 MG TAB PO SCH (09:39)
[2018-06-04] MEDS: Dexamethasone 4 MG TAB PO SCH ×3 (09:39→20:03)
[2018-06-04] MEDS: HYDROcodone/Acetaminophen 5/325 mg Tablet PO PRN (14:16)
--- NOTE | 2018-06-04 17:38 | PDOC.PN ---
- Subjective Encounter Start Date: 06/04/18 Encounter Start Time: 17:36 Subjective: feels OK. walked w PT and feels stronger -: worried about options after DC and financial aspects -: ? about [facility] for Dc as well - Objective MAR Reviewed: Yes Vital Signs & Weight: Vital Signs (12 hours) Temp Pulse Resp BP BP Pulse Ox 06/04/18 09:37 158/81 H 06/04/18 08:00 97.8 F 68 18 158/81 H 100 Weight Admit Weight 227 lb 12.8 oz Weight 233 lb 1 oz I&O: 06/03/18 06/04/18 06/05/18 06:59 06:59 06:59 Intake Total 1000 1200 Output Total 4050 1350 Balance -3050 -150 Result Diagrams: 06/03/18 04:07 06/03/18 04:07 Additional Labs: Accuchecks 06/04/18 06/04/18 06/04/18 16:09 11:16 05:58 POC Glucose 279 H 232 H 289 H 06/03/18 20:05 POC Glucose 291 H Microbiology 05/24/18 11:39 Urine voided Urine Culture - Final NO GROWTH AT 48 HOURS Laboratory Tests 05/22/18 05/23/18 05/25/18 21:39 04:56 15:05 BUN 37 H 33 H 49 H Creatinine 1.49 H 1.25 1.50 H 06/03/18 04:07 BUN 34 H Creatinine 1.01 Phys Exam - Physical Examination Constitutional: NAD HEENT: PERRLA, moist MMs, sclera anicteric, oral pharynx no lesions Neck: no nodes, no JVD, supple, full ROM Respiratory: no wheezing, no rales, no rhonchi, clear to auscultation bilateral Cardiovascular: RRR, no significant murmur Gastrointestinal: soft, non-tender, no distention, positive bowel sounds Musculoskeletal: no edema, pulses present Neurological: non-focal, normal sensation, moves all 4 limbs Psychiatric: normal affect, A&O x 3 Skin: no rash Dx/Plan (1) Prostate cancer metastatic to bone Code(s): C61 - MALIGNANT NEOPLASM OF PROSTATE; C79.51 - SECONDARY MALIGNANT NEOPLASM OF BONE Status: Acute Comment: Widely metastatic prostate carcinoma in spinal column, XRT/chemo, pain control, plan for oupt chemo after d /c.last XRT on 06/05/18 (2) Chronic systolic heart failure Code(s): I50.22 - CHRONIC SYSTOLIC (CONGESTIVE) HEART FAILURE Status: Acute (3) CAD (coronary artery disease) Code(s): I25.10 - ATHSCL HEART DISEASE OF [place] CORONARY ARTERY W/O ANG PCTRS Status: Chronic Qualifiers: Coronary Disease-Associated Artery/Lesion type: [place] artery [place] vs. transplanted heart: [place] heart Associated angina: without angina Qualified Code(s): I25.10 - Atherosclerotic heart disease of [place] coronary artery without angina pectoris Comment: stable, continue aspirin, Coreg (4) DM2 (diabetes mellitus, type 2) Status: Chronic Qualifiers: Diabetes mellitus chcf insulin use: without chcf use Diabetes mellitus complication status: with kidney complications Chronic kidney disease stage: stage 3 (moderate) Comment: Continue glipizide and resume metformin, labile glucose trend, may need additional titration, ISS, ADA, labile due to Dexamethasone (5) Dyslipidemia Code(s): E78.5 - HYPERLIPIDEMIA, UNSPECIFIED Status: Chronic (6) HTN (hypertension) Code(s): I10 - ESSENTIAL (PRIMARY) HYPERTENSION Status: Chronic Qualifiers: Comment: Improved, monitor trend, titrate BP regimen as clinically indicated - Plan PT/OT, DVT proph w/SCDs Pt unfunded for any rehab or HH.able to ambulate w walker -: will Dc cow[facility] in morning and evaluate for any urinary retention -: no recent imaging /cystoscopy for prostate tissue. -: Unclear if pt will need to Go home w [facility] w OP urology f/u Vs Inpt -: cont supportive care. Monitor lytes,H/H-labs ordered for morning * .Blood sugar still poorly controlled. Will add HS lantus and monitor. Review of Systems - Review of Systems Constitutional: weakness, malaise. negative: fever, chills, sweats, other Respiratory: negative: Cough, Dry, Shortness of Breath, Hemoptysis, SOB with Excertion, Pleuritic Pain, Sputum, Wheezing Cardiovascular: negative: chest pain, palpitations, orthopnea, paroxysmal nocturnal dyspnea, edema, light headedness, other Gastrointestinal: negative: Nausea, Vomiting, Abdominal Pain, Diarrhea, Constipation, Melena, Hematochezia, Other Genitourinary: negative: Dysuria, Frequency, Incontinence, Hematuria, Retention , Other Musculoskeletal: Back Pain. negative: Neck Pain, Shoulder Pain, Arm Pain, Hand Pain, Leg Pain, Foot Pain, Other Skin: negative: Rash, Lesions, Matt, Bruising, Other Neurological: negative: Weakness, Numbness, Incoordination, Change in Speech, Confusion, Seizures, Other - Medications/Allergies Allergies/Adverse Reactions: Allergies Allergy/AdvReac Type Severity Reaction Status Date / Time No Known Allergies Allergy Verified 05/23/18 00:29 Medications: Current Medications Acetaminophen (Tylenol) 650 mg PO Q4H PRN PRN Reason: Headache/Fever/Mild Pain (1-3) Last Admin: 06/01/18 17:26 Dose: 650 mg Hydrocodone Bitart/Acetaminophen ([place] 5/325) 1 tab PO Q4H PRN PRN Reason: Moderate Pain (4-6) Last Admin: 06/04/18 14:16 Dose: 1 tab Hydrocodone Bitart/Acetaminophen ([place] 5/325) 2 tab PO Q4H PRN PRN Reason: Moderate to Severe Pain (6-10) Last Admin: 06/02/18 21:47 Dose: 2 tab Aspirin (Ecotrin) 81 mg PO DAILY [facility] Last Admin: 06/04/18 09:37 Dose: 81 mg Bicalutamide (Casodex) 50 mg PO DAILY [facility] Last Admin: 06/04/18 09:37 Dose: 50 mg Bisacodyl (Dulcolax) 10 mg PO DAILYPRN PRN PRN Reason: Constipation Bisacodyl (Dulcolax) 10 mg LA DAILYPRN PRN PRN Reason: Constipation Carvedilol (Coreg) 12.5 mg PO BID [facility] Last Admin: 06/04/18 09:37 Dose: 12.5 mg Dexamethasone (Decadron) 4 mg PO TID [facility] Last Admin: 06/04/18 14:16 Dose: 4 mg Dextrose/Water (Dextrose 50%) 25 gm SLOW IVP PRN PRN PRN Reason: Hypoglycemia Glipizide (Glucotrol) 10 mg PO BID [facility] Last Admin: 06/04/18 09:37 Dose: 10 mg Glucagon (Glucagon) 1 mg IM PRN PRN PRN Reason: Hypoglycemia Insulin Glargine 15 units/ (Miscellaneous Medication) 0.15 mls @ 0 mls/hr SC QAM ZEINAB Last Admin: 06/04/18 09:36 Dose: 0.15 mls Dextrose/Water (D5w) 1,000 mls @ 0 mls/hr IV .Q0M PRN PRN Reason: Hypoglycemia Insulin Glargine 10 units/ (Miscellaneous Medication) 0.1 mls @ 0 mls/hr SC [facility] Insulin Human Lispro (Humalog) 0 units SC .BEDTIME SLIDING SC PRN PRN Reason: Bedtime Correctional Scale Last Admin: 06/03/18 22:20 Dose: 3 unit Insulin Human Lispro (Humalog) 0 units SC .MODERATE SLIDING SC PRN PRN Reason: Moderate Correctional Scale Last Admin: 06/04/18 16:23 Dose: 6 unit Ketorolac Tromethamine (Toradol) 15 mg IVP Q6H PRN PRN Reason: Pain Stop: 06/05/18 23:02 Metformin HCl (Glucophage) 1,000 mg PO [facility] Last Admin: 06/04/18 09:38 Dose: 1,000 mg Morphine Sulfate (Roxanol Solution) 10 mg SL Q2H PRN PRN Reason: Moderate to Severe Pain (6-10) Last Admin: 05/30/18 21:03 Dose: 10 mg Ondansetron HCl (Zofran) 4 mg IVP Q6H PRN PRN Reason: Nausea/Vomiting Last Admin: 06/01/18 20:30 Dose: 4 mg Pantoprazole Sodium (Protonix) 40 mg PO DAILY [facility] Last Admin: 06/04/18 09:37 Dose: 40 mg Polyethylene Glycol (Miralax) 17 gm PO DAILYPRN PRN PRN Reason: Constipation Senna/Docusate Sodium (Senokot S) 2 tab PO BIDPRN PRN PRN Reason: Constipation Simethicone (Mylicon Chewable) 160 mg PO Q4H PRN PRN Reason: Gas Pain Last Admin: 06/04/18 14:17 Dose: 160 mg Sodium Chloride (Flush - Normal Saline) 10 ml IVF Q12HR PRN PRN Reason: Saline Flush Last Admin: 06/01/18 20:30 Dose: 10 ml Spironolactone (Aldactone) 25 mg PO [facility] Last Admin: 06/04/18 09:39 Dose: 25 mg Tamsulosin HCl (Flomax) 0.4 mg PO DAILY [facility] Last Admin: 06/04/18 09:38 Dose: 0.4 mg Torsemide (Demadex) 20 mg PO BID [facility] Last Admin: 06/04/18 09:38 Dose: 20 mg
[2018-06-04] MEDS: Insulin Glargine 10 UNITS in Pre-Filled Syringe 1 EACH SC SCH (20:08)
[2018-06-05 04:43] LABS: #Eosinphils 0.1 thou/uL (0.0-0.7); #Lymphocytes 0.5 thou/uL (1.20-3.40); #Monocytes 0.9 thou/uL (0.11-0.59); #Neutrophils 8.7 thou/uL (1.40-6.50); %Basophils 0.4 % (0.0-1.0); %Eosinophils 0.7 % (0.0-10.0); %Lymphocytes 5.2 % (21.0-51.0); %Neutrophils 84.7 % (42.0-75.0); Hemoglobin 13.2 g/dL (14.0-18.0); Mean Corpuscular HGB CONC 33.3 g/dL (32.0-36.0); Mean Corpuscular Hemoglobin 28.3 pg (27.0-31.0); Mean Corpuscular Volume 84.8 fL (78.0-98.0); Mean Platelet Volume 8.3 fL (7.4-10.4); Platelet Count 130 thou/uL (130-400); RBC Distribution Width 12.9 % (11.5-14.5); Red Blood Cell (RBC) Count 4.68 mill/uL (4.70-6.10); White Blood Cell (WBC) Count 10.3 thou/uL (4.8-10.8)
[2018-06-05 05:08] LABS: Anion Gap 13 mmol/L (10-20); BUN (Urea Nitrogen) 34 mg/dL (8.4-25.7); Calc. Creatinine Clearance 115 mL/min (70-130); Calcium 8.6 mg/dL (7.8-10.44); Carbon Dioxide 31 mmol/L (23-31); Chloride 91 mmol/L (98-107); Estimated GFR-MDRD 75; Glucose 306 mg/dL (80-115); Potassium 4.2 mmol/L (3.5-5.1); Sodium 131 mmol/L (136-145)
[2018-06-05] MEDS: HumaLOG 300 UNITS/3 ML VIAL SC PRN ×4 (06:10→20:11)
[2018-06-05] MEDS: metFORMIN 500 MG TAB PO SCH (09:17)
[2018-06-05] MEDS: Aspirin 81 mg Enteric Coated Tablet PO SCH (09:18)
[2018-06-05] MEDS: Spironolactone 25 MG TAB PO SCH (09:18)
[2018-06-05] MEDS: glipiZIDE 10 MG TAB PO SCH ×2 (09:19→20:07)
[2018-06-05] MEDS: Dexamethasone 4 MG TAB PO SCH ×3 (09:19→20:07)
[2018-06-05] MEDS: Bicalutamide 50 MG TAB PO SCH (09:19)
[2018-06-05] MEDS: Carvedilol 6.25 MG TAB PO SCH ×2 (09:20→19:46)
[2018-06-05] MEDS: Tamsulosin HCl 0.4 MG CAP PO SCH (09:20)
[2018-06-05] MEDS: Insulin Glargine 15 UNITS in Pre-Filled Syringe 1 EACH SC SCH (09:20)
[2018-06-05] MEDS: Simethicone Chewable 80 MG TAB PO PRN ×3 (09:21→20:11)
[2018-06-05] MEDS: Torsemide 20 MG TAB PO SCH ×2 (09:21→20:08)
--- NOTE | 2018-06-05 12:14 | PDOC.PN ---
- Subjective Encounter Start Date: 06/05/18 Encounter Start Time: 12:05 Subjective: f/u for metastatic prostate carcinoma receiving last XRT of spine today. -: Feels better overall. Voiding after d/c of Luis this am. Ambulating with -: RW. - Objective MAR Reviewed: Yes Vital Signs & Weight: Vital Signs (12 hours) Temp Pulse Resp BP BP Pulse Ox 06/05/18 09:20 137/75 06/05/18 08:05 97.5 F L 75 18 137/75 98 06/05/18 08:00 98 Weight Admit Weight 227 lb 12.8 oz Weight 233 lb 1 oz I&O: 06/04/18 06/05/18 06/06/18 06:59 06:59 06:59 Intake Total 1200 1500 Output Total 1350 4400 Balance -150 -2900 Result Diagrams: 06/05/18 04:24 06/05/18 04:24 Additional Labs: Accuchecks 06/05/18 06/05/18 06/04/18 11:11 05:55 20:09 POC Glucose 372 H 275 H 354 H 06/04/18 16:09 POC Glucose 279 H Phys Exam - Physical Examination Constitutional: NAD HEENT: PERRLA, sclera anicteric, oral pharynx no lesions Neck: no nodes, no JVD, supple, full ROM Respiratory: no wheezing, no rales, no rhonchi, clear to auscultation bilateral S1, S2 Cardiovascular: RRR, no significant murmur, no rub, gallop Gastrointestinal: soft, non-tender, no distention, positive bowel sounds Musculoskeletal: no edema, pulses present Neurological: normal sensation, moves all 4 limbs Psychiatric: A&O x 3 Skin: normal turgor, cap refill <2 seconds Dx/Plan (1) Prostate cancer metastatic to bone Code(s): C61 - MALIGNANT NEOPLASM OF PROSTATE; C79.51 - SECONDARY MALIGNANT NEOPLASM OF BONE Status: Acute Comment: Widely metastatic prostate carcinoma in spinal column, XRT/chemo, pain control, plan for oupt chemo after d /c. last XRT on 06/05/18 (2) Paraparesis of both lower limbs Code(s): G82.20 - PARAPLEGIA, UNSPECIFIED Status: Acute Comment: Improved with XRT, continue tx as outlined, serial neuro assessments, continue Dexamethasone, PT evaluation for functional assessment, add OT evaluation, will return home (3) DM2 (diabetes mellitus, type 2) Status: Chronic Qualifiers: Diabetes mellitus continuous churn buttermaker insulin use: without continuous churn buttermaker use Diabetes mellitus complication status: with kidney complications Chronic kidney disease stage: stage 3 (moderate) Comment: Continue glipizide and resume metformin, labile glucose trend, may need additional titration, ISS, ADA, labile due to Dexamethasone (4) HTN (hypertension) Code(s): I10 - ESSENTIAL (PRIMARY) HYPERTENSION Status: Chronic Qualifiers: Comment: Improved, monitor trend, titrate BP regimen as clinically indicated (5) Obesity (BMI 35.0-39.9 without comorbidity) Code(s): E66.9 - OBESITY, UNSPECIFIED Status: Chronic (6) Right foot pain Code(s): M79.671 - PAIN IN RIGHT FOOT Status: Acute Comment[facility] neg for [facility]x, supportive mgmt - Plan plan discussed w/ family, PT/OT, foster care social worker, out of bed/ambulate, DVT proph w/SCDs Stable currently -: XRT to spine today, will complete series 06/05/18 -: OOB with PT -: Monitor urine voids after Luis discontinuation -: Start Macrobid 100mg BID x 3-5 days * Likely home in am 06/05/18
[2018-06-05] MEDS: HYDROcodone/Acetaminophen 5/325 mg Tablet PO PRN (13:50)
[2018-06-05] MEDS: Insulin Glargine 10 UNITS in Pre-Filled Syringe 1 EACH SC SCH (20:12)
[2018-06-05] MEDS: Nitrofurantoin Monohyd/M-Cryst 100 MG CAP PO SCH (20:44)
[2018-06-06] MEDS: HumaLOG 300 UNITS/3 ML VIAL SC PRN ×2 (06:05→11:33)
[2018-06-06 08:26] VITALS: BP 124/65; TEMP 97.7
[2018-06-06] MEDS: Insulin Glargine 15 UNITS in Pre-Filled Syringe 1 EACH SC SCH (08:27)
[2018-06-06] MEDS: Dexamethasone 4 MG TAB PO SCH ×2 (08:28→10:22)
[2018-06-06] MEDS: metFORMIN 500 MG TAB PO SCH (08:28)
[2018-06-06] MEDS: glipiZIDE 10 MG TAB PO SCH (08:29)
[2018-06-06] MEDS: Aspirin 81 mg Enteric Coated Tablet PO SCH (08:29)
[2018-06-06] MEDS: Spironolactone 25 MG TAB PO SCH (08:29)
[2018-06-06] MEDS: Carvedilol 6.25 MG TAB PO SCH (08:29)
[2018-06-06] MEDS: Torsemide 20 MG TAB PO SCH (08:30)
[2018-06-06] MEDS: Tamsulosin HCl 0.4 MG CAP PO SCH (08:30)
[2018-06-06] MEDS: Nitrofurantoin Monohyd/M-Cryst 100 MG CAP PO SCH (08:30)
[2018-06-06] MEDS: Simethicone Chewable 80 MG TAB PO PRN (11:33)
[2018-06-06] MEDS: Bicalutamide 50 MG TAB PO SCH (13:31)
--- NOTE | 2018-06-06 13:50 | DIS ---
DATE OF ADMISSION: 05/22/2018 DATE OF DISCHARGE: 06/06/2018 DISCHARGE DIAGNOSES: 1. Metastatic prostate carcinoma with extensive osseous involvement. 2. Paraparesis of bilateral lower extremities secondary to number #1, improved. 3. T11 and T12 compression fractures secondary to osseous metastatic process. 4. L2 vertebral body fracture secondary to osseous metastatic process. 5. S1 compression fracture secondary to osseous metastatic process. 6. Diabetes mellitus type 2, labile secondary to steroids. 7. Hypertension. 8. Obesity. CONSULTATIONS: 1. Jose Condon MD, with Medical Oncology Service. 2. Rasta Edmond MD, with Radiation Oncology Service. 3. Rush Mcgregor MD, with Neurosurgery Service. PERTINENT LAB AND X-RAY FINDINGS: Sodium ranged between 131-135. Creatinine ranged between 1.01 to 1.50. Estimated GFR ranged between 48-75. CEA 10.26. Prostate specific antigen 5.99. Urine culture dated 05/24/2018 showed no growth at [address] of the lumbar spine dated 05/22/2018 showed T11, T12, L2 and S1 compression fractures secondary to osseous metastatic process. CT of the thoracic spine dated 05/23/2018 showed diffuse osteoblastic metastatic process with compression fractures at T11 and T12. Right foot radiographs dated 05/27/2018, showed degenerative changes without acute process. HOSPITAL COURSE: The patient was initially admitted after presenting with ataxic gait and back pain. The patient underwent extensive evaluation including multiple imaging studies with CT of the thoracic and lumbar spine showing diffuse metastatic osseous process in the context of known prostate carcinoma. The patient underwent evaluation by the Medical and Radiation Oncology Service with recommendations to initiate radiation therapy in addition to steroids. Neurosurgical evaluation recommended medical management and radiation treatments and no acute surgical intervention. The patient initiated treatment with chemotherapy and radiation therapy, completing 10 treatments during the course of his hospital stay. The patient remained on Decadron, transitioning to oral dexamethasone throughout his hospital course. The patient was evaluated by the Physical Therapy Service using a rolling walker for ambulation. The patient's overall gait had improved with steroid exposure as well as radiation treatments to lumbar and thoracic spine, ambulating short distances with improvement in overall strength and coordination. The patient's hospital course was prolonged due to insurance issues and patient received all of his radiation treatments during the hospital stay. Current recommendations are for outpatient management including continuation of chemotherapy with casodex. I have examined the patient at the time of discharge and discussed followup instructions. The patient verbalized understanding and agreement, ready for discharge on 06/06/2018. DISCHARGE MEDICATIONS: 1. Glipizide 10 mg p.o. b.i.d. 2. Protonix 40 mg p.o. daily. 3. K-Dur 20 mEq p.o. b.i.d. 4. VESIcare 5 mg p.o. daily. 5. Tamsulosin 0.4 mg p.o. daily. 6. Torsemide 20 mg p.o. b.i.d. 7. Enteric-coated aspirin 81 mg p.o. daily. 8. Coreg 12.5 mg p.o. b.i.d. 9. Dexamethasone 4 mg p.o. b.i.d. x7 days, followed by 4 mg p.o. daily. 10. [place] 5/325 mg 1 to 2 tablets p.o. q.6 hours p.r.n. pain #40, no refills. 11. Metformin 1000 mg p.o. b.i.d. 12. Macrobid 100 mg p.o. b.i.d. x5 days. 13. Spironolactone 25 mg p.o. q.a.m. FOLLOWUP: The patient will follow up with Dr. Pepito Paul within 7 days of discharge. The patient will follow up with Dr. Jose Condon with Medical Oncology Service on 06/10/2018 at 3:15 p.m. CONDITION ON DISCHARGE: Fair. ACTIVITY: Ad fausto, rolling walker for ambulation. DIET: ADA. CODE STATUS: Full. DISPOSITION: To home, 06/06/2018. TIME SPENT: Total time preparing and coordinating discharge, 40 minutes. Job ID: [id number]
== END 2018-06-06 14:19 | disposition home or self-care (01) | DRG 543 ==
LOC: ERS 19:00 → ERHOLD 21:55 → SURG A 05-23 00:08 → ONC 05-27 22:25 → UNDODISIN 05-29 17:15
PROVIDERS: ADMIT Internal Medicine; ATTEND Internal Medicine
DX: C79.51 Secondary malignant neoplasm of bone (principal); M84.58XA Pathological fracture in neoplastic disease, other specified site, initial encounter for fracture; I13.0 Hypertensive heart and chronic kidney disease with heart failure and stage 1 through stage 4 chronic kidney disease, or unspecified chronic kidney disease; G95.29 Other cord compression; G82.20 Paraplegia, unspecified; I50.22 Chronic systolic (congestive) heart failure; N17.9 Acute kidney failure, unspecified; C61 Malignant neoplasm of prostate; E66.9 Obesity, unspecified; I25.10 Atherosclerotic heart disease of native coronary artery without angina pectoris; N18.3 Chronic kidney disease, stage 3 (moderate); E11.22 Type 2 diabetes mellitus with diabetic chronic kidney disease; E78.00 Pure hypercholesterolemia, unspecified; Z68.36 Body mass index [BMI] 36.0-36.9, adult; R33.8 Other retention of urine; M79.671 Pain in right foot; T38.0X5A Adverse effect of glucocorticoids and synthetic analogues, initial encounter; Z95.1 Presence of aortocoronary bypass graft; Z79.84 Long term (current) use of oral hypoglycemic drugs; Z79.899 Other long term (current) drug therapy; Z79.4 Long term (current) use of insulin
CPT/HCPCS: 36415; 36416; 72128; 72131; 77307; 77334; 77412; 77417; 80048; 80053; 81001; 82378; 84153; 84154; 85025; 85652; 86140; 87086; 96374; 96375; J1100; J1825; J2270; J2405; J7050; J8540; L0639

== ENCOUNTER 2018-06-13 08:48 | Outpatient (CLI) | payer OTHER, SELFPAY ==
--- NOTE | 2018-06-13 10:21 | CT ---
Contrast-enhanced CT images of chest, abdomen and pelvis HISTORY: Patient with metastatic prostate cancer. Contrast-enhanced images of the chest, abdomen and pelvis obtained. Areas of lung parenchymal scarring seen in the left lower lobe. Calcification and nodular density seen in the right and left thyroid lobes. There is some mild superior and left hilar lymphadenopathy. The largest of these lymph nodes left med iastinal lymph nodes in the AP window measuring approximately 16 x 9 mm. Extensive coronary artery calcifications seen. Numerous thoracic spine, lumbar spine, bilateral rib and bilateral pelvis and sacral metastatic lesio n seen. The liver and spleen contain calcified granulomas. The gallbladder has been surgically removed. The pancreas is unremarkable. Adrenal glands and kidneys are unremarkable. No evidence of periaortic lymphadenopathy seen. Anterior abdominal wall area of soft tissue calcification seen likely due to previous surgical change s. No evidence of bowel obstruction or ileus seen. IMPRESSION: 1.: Extensive bony metastatic disease. 2: No evidence of periaortic lymphadenopathy seen.
--- NOTE | 2018-06-13 13:26 | NM ---
TOTAL BODY BONE SCAN: HISTORY: Malignant neoplasm of prostate gland. COMPARISON: Chest, abdomen, and pelvic CT 06/13/2018, bone scan 08/11/2015. FINDINGS: The patient was injected with 33 mCi Technetium 99m MDP intravenously. Whole body images demonstrate multifocal areas of abnormal osteogenesis including the shoulder girdles and proximal right and left humeri, rib cage, axial skeleton including thoracic and lumbar spine and sacrum and pelvis and left femur and left tibia, evidence for bone metastasis. These changes are new when compared to the prior 2016 bone scan. They correspond to abnormal bone metastasis on CT. IMPRESSION: Extensive bone metastasis as above. POS: OFF
== END 2018-06-13 08:49 | disposition home or self-care (01) ==
LOC: CT 08:48
PROVIDERS: ATTEND Internal Medicine Hematology & Oncology
DX: C61 Malignant neoplasm of prostate (principal); C79.51 Secondary malignant neoplasm of bone
CPT/HCPCS: 71260; 74177; 78306; A9503

== ENCOUNTER 2018-06-25 12:36 | Day surgery (SDC) | payer OTHER ==
[~2018-06-25 12:36] MED LIST: DOCEtaxel 160 MG in Sodium Chloride 0.9% 250 ML 250 ML IVPB SCH
[2018-06-25 13:55] VITALS: BP 117/70; TEMP 97.8
== END 2018-06-25 14:46 | disposition home or self-care (01) ==
LOC: ONC/OP 12:36
PROVIDERS: ATTEND Internal Medicine Hematology & Oncology
DX: Z51.11 Encounter for antineoplastic chemotherapy (principal); C61 Malignant neoplasm of prostate
CPT/HCPCS: 96413; J7050; J9171

== ENCOUNTER 2018-07-01 21:13 | Inpatient (IN) | payer SELFPAY ==
[2018-07-01 22:37] LABS: Hemoglobin 10.3 g/dL (14.0-18.0); Mean Corpuscular HGB CONC 33.1 g/dL (32.0-36.0); Mean Corpuscular Hemoglobin 28.4 pg (27.0-31.0); Mean Corpuscular Volume 85.7 fL (78.0-98.0); RBC Distribution Width 12.8 % (11.5-14.5); Red Blood Cell (RBC) Count 3.63 mill/uL (4.70-6.10); White Blood Cell (WBC) Count 0.5 thou/uL (4.8-10.8)
[2018-07-01 22:45] LABS: Mean Platelet Volume 10.6 fL (7.4-10.4); Platelet Count 56 thou/uL (130-400); Platelet Morphology Comment Appears Decreased
--- NOTE | 2018-07-01 22:46 | RAD ---
Radiograph chest one view: 07/01/2018 at 10:17 PM HISTORY: 63-year-old male with chest pain FINDINGS: Sternotomy wires. Left subclavian single lead AICD. No pulmonary edema or pneumothorax. Retrocardiac portion of left lower lobe has mild to moderate streaky densities and airspace densities. Small focal density in right lower lung zone, nonspecific. IMPRESSION: 1. Left lower lobe pulmonary density. Nonspecific. Uncertain whether this is atelectasis, pneumonia, or chronic scarring. 2. Small focal density in right lower lung zone, nonspecific.
[2018-07-01 22:53] LABS: ALT (SGPT) 15 U/L (8-55); AST (SGOT) 9 U/L (5-34); Albumin 2.7 g/dL (3.4-4.8); Alkaline Phosphatase 171 U/L (40-150); Anion Gap 15 mmol/L (10-20); BUN (Urea Nitrogen) 16 mg/dL (8.4-25.7); Bilirubin, Total 0.9 mg/dL (0.2-1.2); CK (CPK) 32 U/L (30-200); Calc. Creatinine Clearance 0 mL/min (70-130); Calcium 8.1 mg/dL (7.8-10.44); Carbon Dioxide 23 mmol/L (23-31); Chloride 90 mmol/L (98-107); Estimated GFR-MDRD 87; Globulin 2.2 g/dL (2.4-3.5); Glucose 225 mg/dL (80-115); Lipase Less than 4 U/L (8-78); Potassium 4.3 mmol/L (3.5-5.1); Protein, Total 4.9 g/dL (5.8-8.1); Sodium 124 mmol/L (136-145)
[2018-07-01] MEDS ORDERED: cefTRIAXone\\ROCEPHIN 2 GM VIAL ONE (22:55)
[2018-07-01] MEDS ORDERED: Vancomycin HCl 1.5 GM in Sodium Chloride 0.9% 250 ML 300 ML IVPB SCH (23:00)
[2018-07-01 23:16] LABS: CKMB 1.8 ng/mL (0-6.6)
[2018-07-02] LABS: Bilirubin Negative (Negative); Blood, Urine Large (Negative); Clarity CLEAR (Clear); Glucose, Urine (Dipstick) 250 mg/dL (Negative); Leukocyte Negative (Negative); Nitrite Negative (Negative); Protein, Urine (Dipstick) Negative (Neg-Trace); Specific Gravity, Urine 1.009 (1.002-1.036); Urobilinogen 0.2 mg/dL (0.2-1.0)
[2018-07-02 00:03] LABS: Bacteria/HPF None Seen HPF (None Seen); Hyaline Casts/LPF 4-6 HYALINE CAST LPF (0-3 Hyaline); Pathc Cast-AUWi Flag 0.54 (0-2.49); Squamous Epithelial None Seen HPF (0-3)
[2018-07-02] MEDS ORDERED: Acetaminophen 325 MG TAB PO PRN (01:47)
[2018-07-02] MEDS ORDERED: Ondansetron ODT 4 MG TAB PO PRN (01:47)
[2018-07-02] MEDS ORDERED: Ondansetron PF 4 MG/2 ML Vial IVP PRN (01:47)
[2018-07-02 02:22] LABS: Lactic Acid 1.2 mmol/L (0.5-2.2)
[2018-07-02 04:12] VITALS: BMI 34.7
[2018-07-02] MEDS ORDERED: Dextrose 5% in Water 1,000 ML IV PRN (04:33)
[2018-07-02] MEDS ORDERED: Dextrose 50% Abboject 50 ML SYRINGE SLOW IVP PRN (04:33)
[2018-07-02] MEDS: Cefepime 2 GM in Sodium Chloride 0.9% 100 ML IVPB SCH ×2 (04:36→16:15)
[2018-07-02 05:57] LABS: Hemoglobin 9.6 g/dL (14.0-18.0); Mean Corpuscular HGB CONC 33.4 g/dL (32.0-36.0); Mean Corpuscular Hemoglobin 28.7 pg (27.0-31.0); Mean Corpuscular Volume 86.1 fL (78.0-98.0); Platelet Count 55 thou/uL (130-400); RBC Distribution Width 12.7 % (11.5-14.5); Red Blood Cell (RBC) Count 3.32 mill/uL (4.70-6.10); White Blood Cell (WBC) Count 0.5 thou/uL (4.8-10.8)
[2018-07-02 06:02] LABS: Anion Gap 14 mmol/L (10-20); BUN (Urea Nitrogen) 14 mg/dL (8.4-25.7); Calc. Creatinine Clearance 147 mL/min (70-130); Calcium 7.7 mg/dL (7.8-10.44); Carbon Dioxide 21 mmol/L (23-31); Chloride 96 mmol/L (98-107); Estimated GFR-MDRD Greater than 90; Glucose 224 mg/dL (80-115); Potassium 3.7 mmol/L (3.5-5.1); Sodium 127 mmol/L (136-145)
[2018-07-02 06:09] LABS: Troponin I 0.021 ng/mL (< 0.028)
--- NOTE | 2018-07-02 06:11 | HP ---
PRIMARY CARE DOCTOR: Sukhwinder Paul MD CODE STATUS: Full code. TIME OF EVALUATION: 1:00 a.m. CHIEF COMPLAINT: Weakness. HISTORY OF PRESENT ILLNESS: This is a 63-year-old male patient with past medical history of pancreatic cancer, patient receiving chemo, came to the hospital after having severe gradually worsening generalized weakness. The patient reported that the symptoms have started insidiously in the past 4 days associated with loss of appetite, decreased urine output. The patient follows with Dr. Condon. The symptoms are generalized and severe. The patient was noted to have blood pressure in the low side with systolic in the 80s, has received resuscitation with 3 L. I have followed up with the patient a few minutes ago, the blood pressure was 91 systolic with MAP 67. We will monitor him in IMCU. The patient continued to deteriorate, so the patient was placed in ICU with vasopressors. REVIEW OF SYSTEMS: CONSTITUTIONAL: No fever, or chills. The patient reported severe generalized weakness. RESPIRATORY: No cough, sputum production, or shortness of breath. CARDIOVASCULAR: No chest pain, or palpitation. GASTROINTESTINAL: No nausea, vomiting, diarrhea, or abdominal pain. DIRECTOR UTILIZATION MANAGEMENT: No dizziness, headache, or feeling lightheaded. GENITOURINARY: No burning on urination. EXTREMITIES: Bilateral leg swelling. All other systems were reviewed and negative except for the findings mentioned above. PAST MEDICAL HISTORY: Positive for diabetes type 2, AICD, hypertension, prostate cancer treated with radiation. SURGICAL HISTORY: CABG of four vessels, hernia repair, cholecystectomy. PSYCHIATRIC HISTORY: No previous psychiatric history. FAMILY HISTORY: Reviewed and non contributory to current presentation. SOCIAL HISTORY: No alcohol use. No drug use. Former cigarette smoker, quit 1 year ago. KNOWN ALLERGIES: No known drug allergies reported. MEDICATIONS: 1. Glipizide. 2. Tamsulosin. 3. Metformin. 4. Aspirin. 5. Torsemide. 6. Potassium chloride. 7. Spironolactone. 8. Carvedilol. 9. Pantoprazole. 10. Diclofenac potassium. 11. VESIcare. PHYSICAL EXAMINATION: VITAL SIGNS: On presentation, blood pressure 112/77, heart rate 79, respiratory rate was 20, oxygen saturation was 98%, temperature 98.3. GENERAL APPEARANCE: The patient is alert, oriented, not in acute distress. HEENT: Eyes normal conjunctivae. Moist oral mucosa. Anicteric. No JVD. RESPIRATORY: Bilateral air entry. No rales. No wheezes. Symmetric expansion. CARDIOVASCULAR: Normal rate. Regular rhythm. No murmurs. No gallop. Bilateral leg edema 4+. ABDOMEN: Soft, distended. Normal bowel sounds. MUSCULOSKELETAL: Baseline range of motion and strength. No tenderness, although the patient reported being weak. SKIN: Warm, intact. No pallor. No rash. No redness. Peripheral pulses are present. Capillary refill seems to be intact. NEUROLOGIC: No evidence of any new focal weakness. Baseline speech. Cranial nerves seems to be intact. PSYCHIATRIC: The patient is in good mood. No anxiety. Optimal judgment. DIAGNOSTIC STUDIES: EKG was reviewed. The patient has normal sinus rhythm with ventricular rate of 79, HI 156, QRS 84, QT corrected 440. Chest x-ray was reviewed. The patient has right lower lobe pneumonia, small focal density in the right lower lung zone. LABORATORY DATA: Labs were reviewed, white count 0.5, hemoglobin 10.3, MCV 85.7 , platelet count 56. Chemistry; sodium 134, potassium 4.3, chloride 90, carbon dioxide 23, anion gap 15, BUN 16, creatinine 0.89, GFR 87, glucose 225. Lactic acid 2.3, the second one 1.2. Calcium 9.1, total bilirubin 0.9, AST 9, ALT 15, alkaline phosphatase 171. CK 32, troponin 0.029, the second one 0.020. Serum total protein 4.9, albumin 2.7, globulin 2.2, albumin to globulin ratio is 1.2. Lipase less than 4. TSH 0.12. UA was done, the patient has white count of 4 to 6 with glucosuria and some blood in the urine. ASSESSMENT AND PLAN: The patient will be placed in the hospital with following medical problems: 1. Sepsis. The patient has leukopenia likely secondary to chemo, Also, the patient has finding positive pneumonia on the chest x-ray. The patient has been started on broad-spectrum antibiotics, we will monitor. Blood pressure has been in the lower side; however, after IV fluid resuscitation, MAP still 67 and systolic 91, we will monitor. If blood pressure continued to drop persistently, we will place the patient in ICU, start the patient on vasopressors. We will consult ICU. 2. Fluid overload. The patient has significant bilateral leg edema and abdominal distention. Albumin is low, might be third-spacing. Given coexistence of infection, we will need to find appropriate fluid balance. Might need some albumin to help with this. 3. Moderate hyponatremia to 124. The patient has no symptoms from it. This is chronic, sodium has been lower in previous admissions, we will consult Nephrology for assistance with fluid balance and sodium correction with aim for correction of 6 mEq of sodium in the next 24 hours. 4. Uncontrolled diabetes with glucose 225. We will place the patient on sliding scale for optimal control as inpatient. 5. Lactic acidosis on presentation, was mild with lactic acid 2.3 with repeat 1.2, likely secondary to underlying sepsis. We will monitor. We will treat underlying condition. 6. Chronic normocytic anemia. This is likely secondary to chronic malnutrition and cancer and chemo. We will monitor. No need for any acute intervention at this point. 7. Uncontrolled hypertension, presented with hypotension due to underlying sepsis. We will monitor, we will not restart any blood pressure medication at this point for that reason. 8. Deep venous thrombosis prophylaxis. Apply SCDs. Job ID: [id number] [facility]
[2018-07-02 06:33] LABS: Platelet Morphology Comment Appears Decreased
[2018-07-02] MEDS: HumaLOG 300 UNITS/3 ML VIAL SC PRN ×3 (07:25→20:57)
[2018-07-02] MEDS ORDERED: Morphine 4 MG/ML VIAL ONE (10:08)
[2018-07-02] MEDS ORDERED: HYDROcodone/Acetaminophen 5/325 mg Tablet PO PRN ×3 (10:11→12:14)
[2018-07-02] MEDS ORDERED: Morphine 2 MG/ML SYRINGE SLOW IVP SCH (11:00)
[2018-07-02] MEDS: Sodium Chloride 0.9% 1,000 ML IV SCH ×2 (11:37→14:31)
--- NOTE | 2018-07-02 11:49 | CON ---
DATE OF CONSULTATION: 07/02/2018 CONSULTING PHYSICIAN: Brie Monreal MD REASON FOR CONSULT: Hyponatremia. REASON FOR ADMISSION: Weakness. HISTORY OF PRESENT ILLNESS: A 63-year-old male with history of pancreatic cancer, type 2 diabetes, and hypertension, came to the hospital with weakness and was found to have a hyponatremia. The patient is not eating very well and he is not feeling well. The patient is not able to . PAST MEDICAL HISTORY: Positive for type 2 diabetes, hypertension, and prostate cancer. PAST SURGICAL HISTORY: CABG, cholecystectomy, and AICD. HOME MEDICATIONS: 1. Glipizide. 2. Tamsulosin. 3. Metformin. 4. Aspirin. 5. Torsemide. 6. Potassium chloride. 7. Spironolactone. 8. Carvedilol. 9. Pantoprazole. 10. Diclofenac. 11. VESIcare. ALLERGIES: NO KNOWN DRUG ALLERGIES. SOCIAL HISTORY: Former cigarette smoker. No alcohol use. FAMILY HISTORY: No history of kidney disease REVIEW OF SYSTEMS: CONSTITUTIONAL: Negative for weight loss or gain, ability to conduct usual activities. SKIN: Negative for rash, itching. EYES: Negative for double vision, pain. ENT/MOUTH: Negative for nose bleeding, neck stiffness, pain, tenderness. CARDIOVASCULAR: Negative for palpitations, dyspnea on exertion, orthopnea. RESPIRATORY: Negative for shortness of breath, wheezing, cough, hemoptysis, fever or night sweats. GASTROINTESTINAL: Negative for poor appetite, abdominal pain, heartburn, nausea, vomiting, constipation, or diarrhea. GENITOURINARY: Negative for urgency, frequency, dysuria, nocturia. MUSCULOSKELETAL: Negative for pain, swelling. NEUROLOGIC/PSYCHIATRIC: Negative for anxiety, depression. ALLERGY/IMMUNOLOGIC: Negative for skin rash, bleeding tendency. PHYSICAL EXAMINATION: GENERAL: Reveals a well-built male, in no apparent distress. VITAL SIGNS: Temperature 98.7, pulse 90, respiratory rate . HEENT: Atraumatic and normocephalic. Oral mucosa dry. NECK: Supple. CV: S1 and S2 heard. Rate and rhythm regular. RESPIRATORY: Clear. GI: Abdomen is soft. MUSCULOSKELETAL: 1+ edema. DERMATOLOGIC: No skin rash. NEUROLOGIC: Alert and awake. PSYCHIATRIC: Mood and affect normal LABORATORY DATA: Sodium is 127 from 124. BUN 14 and creatinine 0.7. ASSESSMENT AND PLAN: 1. Hyponatremia most likely hypovolemic. We will start NS at 50 mL/h. Monitor sodium closely. 2. Hypochloremia. 3. Metabolic cirrhosis. Mild. 4. Edema. Controlled. 5. Prognosis is guarded. We will add IV fluids if tolerated. Thank you for the consult. Job ID: [id number]
[2018-07-02] MEDS ORDERED: Vancomycin HCl 1.5 GM in Sodium Chloride 0.9% 250 ML 300 ML IVPB SCH (12:00)
--- NOTE | 2018-07-02 12:14 | PDOC.PN ---
- Subjective Encounter Start Date: 07/02/18 Encounter Start Time: 12:11 Patient seen and examined, no new issues or concerns, states he's still in pain , no family at bedside, all questions answered. - Objective Resuscitation Status - Order Detail: 07/02/18 01:47 Resuscitation Status Routine Resuscitation Status: FULL: Full Resuscitation Vital Signs & Weight: Vital Signs (12 hours) Temp Pulse Ox 07/02/18 10:39 97.0 F L 07/02/18 07:10 98.7 F 07/02/18 04:11 97.5 F L 07/02/18 04:00 100 Weight Weight 221 lb 8 oz Most Recent Monitor Data Heart Rate from ECG 77 NIBP 100/58 NIBP BP-Mean 72 Respiration from ECG 9 SpO2 90 I&O: 07/01/18 07/02/18 07/03/18 06:59 06:59 06:59 Intake Total 250 Balance 250 Result Diagrams: 07/02/18 05:25 07/02/18 05:24 Additional Labs: Accuchecks 07/02/18 07/02/18 10:30 05:40 POC Glucose 189 H 225 H Phys Exam - Physical Examination mild discomfort HEENT: PERRLA, moist MMs, sclera anicteric Neck: no nodes, no JVD, supple Respiratory: no wheezing, no rales, no rhonchi Cardiovascular: RRR, no significant murmur, no rub Gastrointestinal: soft, non-tender, no distention Musculoskeletal: no edema, pulses present Dx/Plan (1) Pneumonia Code(s): J18.9 - PNEUMONIA, UNSPECIFIED ORGANISM Status: Acute (2) Prostate cancer metastatic to bone Code(s): C61 - MALIGNANT NEOPLASM OF PROSTATE; C79.51 - SECONDARY MALIGNANT NEOPLASM OF BONE Status: Acute Comment: Widely metastatic prostate carcinoma in spinal column, XRT/chemo, pain control, plan for oupt chemo after d /c. last XRT on 06/05/18 (3) CAD (coronary artery disease) Code(s): I25.10 - ATHSCL HEART DISEASE OF [place] CORONARY ARTERY W/O ANG PCTRS Status: Chronic Qualifiers: Comment: stable, continue aspirin, Coreg (4) DM2 (diabetes mellitus, type 2) Status: Chronic Comment: Continue glipizide and resume metformin, labile glucose trend, may need additional titration, ISS, ADA, labile due to Dexamethasone (5) HTN (hypertension) Code(s): I10 - ESSENTIAL (PRIMARY) HYPERTENSION Status: Chronic Qualifiers: Comment: Improved, monitor trend, titrate BP regimen as clinically indicated (6) Obesity (BMI 35.0-39.9 without comorbidity) Code(s): E66.9 - OBESITY, UNSPECIFIED Status: Chronic - Plan * will give morphine for pain * consult to oncology, neupogen pssible for low WBC count? * cultures pending * cont with broad spectrum abx * resume home meds as appropriate * 50 cc of NS for now, EF 30-35% on Echo from September 2017 * case and plan d/w patient at length, he understood and agreed with this plan.
[2018-07-02] MEDS ORDERED: Morphine 4 MG/ML VIAL SLOW IVP SCH (14:00)
[2018-07-02] MEDS: Vancomycin HCl 1.5 GM in Sodium Chloride 0.9% 250 ML 300 ML IVPB SCH (14:40)
[2018-07-02] MEDS: Aluminum & Magnesium Hydroxide 60 ML, diphenhydrAMINE 150 MG, Lidocaine 2% Viscous Solu... SSW PRN (18:12)
[2018-07-02] MEDS: Morphine 4 MG/ML VIAL SLOW IVP PRN ×2 (20:30→22:51)
--- NOTE | 2018-07-02 20:40 | CON ---
DATE OF CONSULTATION: REASON FOR CONSULT: Neutropenia. HISTORY OF PRESENT ILLNESS: Mr. Mccray is a 63-year-old male patient, who was diagnosed with recurrent metastatic prostate cancer with bone mets and cord compression in May of 2018. He underwent palliative radiation for his cord compression. He was originally on Casodex, but started Taxotere on June 25. He had some diarrhea the day after treatment and then began to have mouth ulcers and pain. He had weakness, loss of appetite, and fatigue. He presented to the emergency room in [place]. He was given Diflucan with no improvement so presented to the emergency room. He was hypotensive and dehydrated. He received 3 L of saline and was started on pressors and admitted to the [facility]. Pressors have been discontinued. His white count in the ER was 0.5, hemoglobin was 10.3, and platelet count was 56,000. He denies any fevers. PAST MEDICAL HISTORY: 1. Prostate cancer in 2011, treated with radiation and Lupron. 2. Diabetes mellitus 2. 3. Hypertension. 4. OR. 5. Coronary artery disease. 6. CHF. 7. Hyperlipidemia. PAST SURGICAL HISTORY: 1. Urethral stricture repair with TURP 16. 2. CABG x4 in 2018. 3. Defibrillator in 2018. 4. Cholecystectomy. ALLERGIES: NO KNOWN DRUG ALLERGIES. HOME MEDICATIONS: 1. Aspirin 81 mg daily. 2. Coreg 12.5 mg b.i.d. 3. Casodex 50 mg daily. 4. Glipizide 10 mg b.i.d. 5. Metformin 1000 mg b.i.d. 6. Hall 5/325 one q.6 hours p.r.n. 7. Protonix 40 daily. 8. Potassium chloride 20 mEq b.i.d. 9. Solifenacin 5 mg daily. 10. Spironolactone 25 mg daily. 11. Flomax 0.4 mg daily. 12. Torsemide 20 mg b.i.d. FAMILY HISTORY: No history of cancer. SOCIAL HISTORY: , has two children. Lives with his spouse. A 40 pack- year history of smoking. No alcohol or illicit drug use. REVIEW OF SYSTEMS: CONSTITUTIONAL: No fever, chills, or night sweats. Positive for weight loss. EYES: No blurred or double vision. ENT: Positive for pain, sore throat, or odynophagia. CV: No chest pain, palpitations, or syncope. RESPIRATORY: No shortness of breath, dyspnea on exertion, or orthopnea. GI: No nausea, vomiting, or abdominal pain. Positive for diarrhea. : No dysuria or hematuria. MUSCULOSKELETAL: No joint or back pain. SKIN: Positive for rash on his scrotum and ulcers in his mouth. HEMATOLOGIC: No petechiae or purpura. NEUROLOGIC: Positive for weakness. No numbness, tingling, or seizure activity. PSYCH: Positive for anxiety and depression. PHYSICAL EXAMINATION: VITAL SIGNS: Temperature is 97.0, pulse is 77, and respiratory rate is 15. He is 93% on room air and blood pressure is 100/58. GENERAL: This is an ill-appearing male, in no acute distress. HEENT: Normocephalic and atraumatic. Pupils are equal and reactive to light. He has oral lesions on his upper palate and buccal cavity. NECK: Supple. CV: Regular rate and rhythm. LUNGS: Clear anterior. ABDOMEN: Obese and nontender. Bowel sounds are positive. EXTREMITIES: He has 1+ bilateral lower extremity edema. SKIN: Scrotal rash. HEMATOLOGIC: No petechiae or purpura. NEUROLOGIC: Nonfocal. PSYCH: The patient is alert and oriented. PERTINENT LABS AND X-RAYS: Current WBCs 0.5, hemoglobin 9.6, hematocrit 28.6, and platelet count 55,000. Sodium is 127, potassium 3.7, chloride 96, CO2 is 21, BUN 14, creatinine 0.75, lactic acid 1.2, calcium 7.7, total bilirubin 0.9, AST is 9 , ALT is 15, and alkaline phosphatase is 171. Creatine kinase is 32 and troponin is negative. Serum total protein 4.9, albumin 2.7, and globulin 2.2. Urine is negative. ASSESSMENT: 1. Metastatic prostate cancer, status post cycle 1 of Taxotere chemotherapy. 2. Neutropenia. 3. Generalized weakness. 4. Stomatitis DISCUSSION: The patient is on Diflucan for his potential oral candidiasis as well as his peritoneal rash. We will add Magic mouthwash for comfort. He has pain medicines p.r.n. He did not receive Neulasta with chemotherapy, so we will begin Neupogen injections. Expect his white count to improve in the next 48 hours. Usually his stomatitis will resolve at that time as well. We will continue IV fluids and supportive care. Thank you for the consult. We will follow him closely. Job ID: [id number] DILLAN
[2018-07-02] MEDS ORDERED: Torsemide 20 MG TAB PO SCH (21:00)
[2018-07-02] MEDS ORDERED: Carvedilol 6.25 MG TAB PO SCH (21:00)
[2018-07-02] MEDS ORDERED: Calcium Carbonate 500 MG ChewTAB PO PRN (21:00)
--- NOTE | 2018-07-03 00:14 | CON ---
DATE OF CONSULTATION: 07/02/2018 HISTORY OF PRESENT ILLNESS: Mr. Mccray is a pleasant 63-year-old male, with history of prostate cancer. He had radiation apparently for this as well as chemotherapy. He was admitted last month with lower extremity weakness. He had seen a chiropractor and actually became worse. He was found to have extensive metastatic disease. He had multiple bone mets, a possible anterior epidural tumor with cord compression at T11, fractured L2, fractures at T11, T12, and S1. He was seen by Dr. Mcgregor that admission, he did not recommend surgery. It was recommended that he have a clamshell brace when he is out of bed. He is also be seen by Dr. Edmond for radiation. He was hospitalized from 05/22 to 06/06. Apparently, recently received chemotherapy and was admitted early this morning. He says his mouth has been bothering him for 3 days. He went to the emergency room, was told he had thrush. He said he had virtually no intake the day prior to admission because of his mouth pain. He was initially admitted to the medical floor and was noted to be febrile and was transferred to the intermediate care unit. PAST MEDICAL HISTORY: 1. Remarkable for implantation of a defibrillator in the past. 2. History of coronary artery bypass grafting. 3. History of an ejection fraction of 30% to 35% range. 4. History of diabetes. 5. Hypertension. 6. Lipid disorder. 7. History of frequent UTIs. 8. History of cholecystectomy. 9. History of repair of urethral stricture. ALLERGIES: HE HAS NO REPORTED DRUG ALLERGIES. SOCIAL HISTORY: He smoked up until last year. He rarely drinks alcohol. FAMILY HISTORY: Positive for COPD, diabetes, and heart failure. REVIEW OF SYSTEMS: Mainly remarkable for mouth discomfort. He says he feels better than when he came in. 10-point review of systems completed is otherwise negative. PHYSICAL EXAMINATION: GENERAL: Mr. Mccray is a pleasant 63-year-old male. VITAL SIGNS: Blood pressure 110/69, heart rate 80, respiratory rates in the teens. EYES: Pupils are equal. Sclerae are anicteric. NECK: Supple. No Lymphadenopathy. LUNGS: Clear. HEART: Regular rhythm. S1 and S2 are normal. ABDOMEN: Soft and nontender. EXTREMITIES: Without edema. LABORATORY DATA: White count is 500, hemoglobin 9.6, platelets 55. Sodium 127, potassium 3.7, chloride 97, bicarb 21, BUN 14, creatinine 0.75. Blood cultures are negative. Urine culture is negative. IMPRESSION: Severe intravascular volume depletion secondary to stomatitis? He does not have a coated tongue. I will treat him with Diflucan, but I do not think his mouth symptoms are related to thrush. He needs neutropenic precautions including his diet. I will be happy to follow the other physicians caring for him. TIME SPENT: This was a 70-minute consult, with greater than 50% of the time was spent on the unit coordinating care. Job ID: [id number] [facility]ITALJennifer
[2018-07-03] MEDS: Vancomycin HCl 1.5 GM in Sodium Chloride 0.9% 250 ML 300 ML IVPB SCH ×2 (01:43→14:19)
[2018-07-03] MEDS: Morphine 4 MG/ML VIAL SLOW IVP PRN ×4 (02:38→22:38)
[2018-07-03] MEDS: Aluminum & Magnesium Hydroxide 60 ML, diphenhydrAMINE 150 MG, Lidocaine 2% Viscous Solu... SSW PRN ×4 (04:36→22:39)
[2018-07-03] MEDS: Cefepime 2 GM in Sodium Chloride 0.9% 100 ML IVPB SCH ×2 (04:38→17:24)
[2018-07-03 04:43] LABS: Anion Gap 10 mmol/L (10-20); BUN (Urea Nitrogen) 9 mg/dL (8.4-25.7); Calc. Creatinine Clearance 170 mL/min (70-130); Calcium 8.2 mg/dL (7.8-10.44); Carbon Dioxide 24 mmol/L (23-31); Chloride 99 mmol/L (98-107); Estimated GFR-MDRD Greater than 90; Glucose 158 mg/dL (80-115); Potassium 3.4 mmol/L (3.5-5.1); Sodium 130 mmol/L (136-145)
[2018-07-03 05:05] LABS: Band 17 % (5-11); Hemoglobin 10.3 g/dL (14.0-18.0); Lymphocytes 29 % (21-51); MDiff Complete? YES; Mean Corpuscular HGB CONC 33.5 g/dL (32.0-36.0); Mean Corpuscular Hemoglobin 28.8 pg (27.0-31.0); Mean Platelet Volume 9.6 fL (7.4-10.4); Metamyelocyte 1 % (0-0); Monocytes 16 % (0-10); Myelocyte 2 % (0-0); Neutrophil 35 % (42-75); Platelet Count 70 thou/uL (130-400); Platelet Morphology Comment Appears Decreased; Red Blood Cell (RBC) Count 3.58 mill/uL (4.70-6.10); White Blood Cell (WBC) Count 1.9 thou/uL (4.8-10.8)
--- NOTE | 2018-07-03 08:18 | PRG ---
DATE OF SERVICE: 07/03/2018 SUBJECTIVE: The patient continues to complain of soreness in his mouth and pain on eating. He states the Magic mouthwash has helped a little bit. He has no other complaints at this time. OBJECTIVE: VITAL SIGNS: Temperature 98.4, pulse 80, respirations 18, saturating 93% on room air, blood pressure 99 to 110 over 59 to 63. GENERAL APPEARANCE: The patient is lying in bed, in no acute distress. HEENT: Normocephalic, atraumatic. There are no signs of mucositis, ulcers, or thrush in his mouth. RESPIRATIONS: Nonlabored. NEUROLOGIC: Cranial nerves II through XII are grossly intact. PSYCHIATRIC: Awake, alert, and oriented x3. LABORATORY DATA: White blood cells 1.9, hemoglobin 10.3, platelets 70, absolute neutrophil count 998. Sodium 130, potassium 3.4, BUN 9, creatinine 0.65. ASSESSMENT AND PLAN: A 63-year-old male with metastatic prostate cancer, status post one cycle of Taxotere chemotherapy, presenting with neutropenia, mucositis, and thrush. The patient has been on Neupogen and his neutrophil count is approximately 1000 and no longer requires neutropenic precautions. His thrush appears to have resolved with Diflucan and would continue this for full course. I have encouraged patient to try using Magic mouthwash before eating for him to be able to increase his p.o. intake, and if he is able to do this, then he should be okay for discharge later today or tomorrow. We will continue to follow. Job ID: [id number]
[2018-07-03] MEDS: Aspirin 81 mg Enteric Coated Tablet PO SCH (08:50)
[2018-07-03] MEDS: Spironolactone 25 MG TAB PO SCH (08:50)
[2018-07-03] MEDS ORDERED: Potassium Chloride 20 MEQ TAB PO SCH (09:00)
[2018-07-03] MEDS ORDERED: Vancomycin HCl 1.5 GM in Sodium Chloride 0.9% 250 ML 300 ML IVPB SCH (09:00)
--- NOTE | 2018-07-03 09:49 | PDOC.PN ---
- Subjective Encounter Start Date: 07/03/18 Encounter Start Time: 09:46 Patient seen and examined, states he feels better, no new issues or complaints. All questions answered. - Objective Resuscitation Status - Order Detail: 07/02/18 01:47 Resuscitation Status Routine Resuscitation Status: FULL: Full Resuscitation Vital Signs & Weight: Vital Signs (12 hours) Temp Pulse Resp BP Pulse Ox 07/03/18 07:30 97.5 F L 77 16 116/66 93 L 07/03/18 04:28 98.4 F 80 18 99/59 L 93 L 07/02/18 22:40 98.6 F 82 18 110/63 97 Weight Admit Weight 221 lb 8 oz Weight 221 lb 8 oz Most Recent Monitor Data Heart Rate from ECG 89 NIBP 142/78 NIBP BP-Mean 99 Respiration from ECG 11 SpO2 96 I&O: 07/02/18 07/03/18 07/04/18 06:59 06:59 06:59 Intake Total 250 1530 Output Total 1200 Balance 250 330 Result Diagrams: 07/03/18 04:00 07/03/18 04:00 Additional Labs: Accuchecks 07/02/18 07/02/18 07/02/18 20:40 16:18 10:30 POC Glucose 245 H 202 H 189 H Phys Exam - Physical Examination Constitutional: NAD HEENT: PERRLA, moist MMs, sclera anicteric Neck: no nodes, no JVD, supple Respiratory: no wheezing, no rales, no rhonchi Cardiovascular: RRR, no significant murmur, no rub Gastrointestinal: soft, non-tender, no distention Musculoskeletal: no edema, pulses present Dx/Plan (1) Pneumonia Code(s): J18.9 - PNEUMONIA, UNSPECIFIED ORGANISM Status: Acute (2) Prostate cancer metastatic to bone Code(s): C61 - MALIGNANT NEOPLASM OF PROSTATE; C79.51 - SECONDARY MALIGNANT NEOPLASM OF BONE Status: Acute Comment: Widely metastatic prostate carcinoma in spinal column, XRT/chemo, pain control, plan for oupt chemo after d /c. last XRT on 06/05/18 (3) CAD (coronary artery disease) Code(s): I25.10 - ATHSCL HEART DISEASE OF [place] CORONARY ARTERY W/O ANG PCTRS Status: Chronic Qualifiers: Comment: stable, continue aspirin, Coreg (4) DM2 (diabetes mellitus, type 2) Status: Chronic Comment: Continue glipizide and resume metformin, labile glucose trend, may need additional titration, ISS, ADA, labile due to Dexamethasone (5) HTN (hypertension) Code(s): I10 - ESSENTIAL (PRIMARY) HYPERTENSION Status: Chronic Qualifiers: Comment: Improved, monitor trend, titrate BP regimen as clinically indicated (6) Obesity (BMI 35.0-39.9 without comorbidity) Code(s): E66.9 - OBESITY, UNSPECIFIED Status: Chronic - Plan * WBC rising after neupogen, repeat labs in AM * cultures negative * pain controlled * cont IVFs for now * possible DC in AM if patient doing doing well and labs improved * case and plan d/w patient at length, he understood and agreed with this plan.
[2018-07-03] MEDS: Sodium Chloride 0.9% 1,000 ML IV SCH (09:58)
--- NOTE | 2018-07-03 10:08 | PRG ---
DATE OF SERVICE: 07/03/2018 SUBJECTIVE: Mr. Mccray is afebrile. OBJECTIVE: VITAL SIGNS: Heart rate is in the 80s, respiratory rates in the teens, oximetry is 93% on room air, blood pressure is 116/66. LUNGS: Clear. HEART: Regular rhythm. ABDOMEN: Soft and nontender. EXTREMITIES: Without edema. LABORATORY DATA: White counts up to almost 1000 granulocytes, total white count is 1.9. Hemoglobin is stable at 10.3, platelets are stable at 70,000. Sodium 130, potassium 3.4, chloride 99, bicarb 24, BUN 9, creatinine 0.65. IMPRESSION: Neutropenia and intravascular volume depletion after receiving chemo and developing stomatitis. Cultures remain negative. He may develop one more visible radiograph abnormality once he gets return of his white cells. I will continue IV antibiotics for now, but tomorrow his white count should be high enough where we can switch him to p.o. antimicrobial therapy. We will continue to follow. Job ID: [id number]
[2018-07-03] MEDS: HumaLOG 300 UNITS/3 ML VIAL SC PRN ×3 (11:36→20:33)
--- NOTE | 2018-07-03 12:06 | PRG ---
DATE OF SERVICE: 07/03/2018 SUBJECTIVE: Patient was seen and examined at bedside and overnight events noted. Patient denies any shortness of breath or chest pain or palpitation. No history of nausea or vomiting or diarrhea or fever or chills or cramps. OBJECTIVE: GENERAL: This is a well-built male, in no apparent distress. VITAL SIGNS: Temperature 97.5. Heart rate 77. Respiratory rate HEENT: Atraumatic, normocephalic. Oral mucosa is moist NECK: Supple. CARDIOVASCULAR: S1, S2 heard. Rate and rhythm regular. RESPIRATORY: Clear to auscultation. GASTROINTESTINAL: Abdomen is soft. MUSCULOSKELETAL: No tenderness. No edema. DERMATOLOGIC: No skin rash. NEUROLOGIC: Alert and awake and oriented X3. No focal neurologic deficits. Moving all the extremities. PSYCHIATRIC: Mood and affect normal. LABORATORY DATA: Potassium is 3.4, sodium is 130, and creatinine . ASSESSMENT AND PLAN: 1. Hyponatremia, better. 2. Hypokalemia, replace. 3. Metabolic acidosis. 4. Edema, controlled. We will continue on IV fluids for one more day at 50 mL/h if tolerated. We will follow. Job ID: [id number]
[2018-07-03] MEDS: Fluconazole In NaCl,Iso-Osm 100 MG in Admixture Fee 2 EACH IVPB SCH (13:38)
[2018-07-03 13:54] LABS: Vancomycin, Trough 15.3 ug/mL
[2018-07-04] MEDS: Vancomycin HCl 1.5 GM in Sodium Chloride 0.9% 250 ML 300 ML IVPB SCH ×2 (02:07→15:44)
[2018-07-04] MEDS: Cefepime 2 GM in Sodium Chloride 0.9% 100 ML IVPB SCH (03:08)
[2018-07-04] MEDS: Aluminum & Magnesium Hydroxide 60 ML, diphenhydrAMINE 150 MG, Lidocaine 2% Viscous Solu... SSW PRN ×2 (03:08→09:02)
[2018-07-04] MEDS: Sodium Chloride 0.9% 1,000 ML IV SCH (03:22)
[2018-07-04 07:14] LABS: Hemoglobin 10.5 g/dL (14.0-18.0); Mean Corpuscular HGB CONC 32.9 g/dL (32.0-36.0); Mean Corpuscular Hemoglobin 28.4 pg (27.0-31.0); Mean Corpuscular Volume 86.3 fL (78.0-98.0); Mean Platelet Volume 9.3 fL (7.4-10.4); Platelet Count 88 thou/uL (130-400); RBC Distribution Width 13.3 % (11.5-14.5); Red Blood Cell (RBC) Count 3.69 mill/uL (4.70-6.10); White Blood Cell (WBC) Count 6.3 thou/uL (4.8-10.8)
[2018-07-04 07:33] LABS: Anion Gap 12 mmol/L (10-20); BUN (Urea Nitrogen) 7 mg/dL (8.4-25.7); Calc. Creatinine Clearance 172 mL/min (70-130); Calcium 7.9 mg/dL (7.8-10.44); Carbon Dioxide 21 mmol/L (23-31); Chloride 104 mmol/L (98-107); Estimated GFR-MDRD Greater than 90; Glucose 191 mg/dL (80-115); Potassium 3.6 mmol/L (3.5-5.1); Sodium 133 mmol/L (136-145)
[2018-07-04 07:55] LABS: MDiff Complete? YES
[2018-07-04 07:56] LABS: Band 33 % (5-11); Lymphocytes 8 % (21-51); Metamyelocyte 3 % (0-0); Monocytes 12 % (0-10); Myelocyte 3 % (0-0); Neutrophil 39 % (42-75); Platelet Morphology Comment Appears Decreased; Polychromasia SLIGHT = 2-3 cells (100X) (0-2/hpf); Reactive Lymphocytes 2 % (0-10)
--- NOTE | 2018-07-04 08:06 | RAD ---
Portable frontal chest radiograph: 07/04/2018 COMPARISON: 07/01/2018 HISTORY: Neutropenia FINDINGS: Cardiac silhouette is prominent. Midline sternotomy wires are present. Single lead transvenous AICD present. There is dense opacity within the medial left base as on the prior exam, which could represent volume loss or could be related to infectious pneumonitis/aspiration. Mild increased density in the medial right base/right perihilar region is a likely vascular in nature. IMPRESSION: Stable focal opacity in the medial left base as above.
[2018-07-04] MEDS: Aspirin 81 mg Enteric Coated Tablet PO SCH (09:02)
[2018-07-04] MEDS: HumaLOG 300 UNITS/3 ML VIAL SC PRN ×2 (09:02→16:16)
[2018-07-04] MEDS: Spironolactone 25 MG TAB PO SCH (09:02)
[2018-07-04] MEDS: Morphine 4 MG/ML VIAL SLOW IVP PRN (09:13)
[2018-07-04 09:56] VITALS: BP 103/66
--- NOTE | 2018-07-04 12:01 | PDOC.EVN ---
Event Note - Event Note Event Note: DC SUMMARY #[id number]
[2018-07-04 12:52] VITALS: TEMP 97.9
[2018-07-04] MEDS: Fluconazole In NaCl,Iso-Osm 100 MG in Admixture Fee 2 EACH IVPB SCH (15:44)
--- NOTE | 2018-07-04 16:17 | PRG ---
DATE OF SERVICE: SUBJECTIVE: Agapito Mccray says he is feeling well. OBJECTIVE: VITAL SIGNS: He is afebrile, heart rate is 89, respiratory rate is 18, oximetry is 95% on room air, and blood pressure is . LUNGS: Unchanged. HEART: Unchanged. ABDOMEN: Unchanged. DIAGNOSTIC DATA: Chest x-ray is unchanged. He has haziness in his left base. IMPRESSION: 1. Metastatic prostate cancer. 2. Stomatitis with severe intravascular volume depletion. 3. Bladder colonization with yeast on final culture of his urine. 4. Possible left lower lobe pneumonia. He had negative blood cultures. 5. Hyponatremia, that is resolved. 6. Pancytopenia secondary to chemotherapy. I will see him as needed in the future. Apparently, the hospitalist has written discharge orders. Job ID: [id number]
--- NOTE | 2018-07-04 17:18 | PRG ---
DATE OF SERVICE: 07/04/2018 SUBJECTIVE: Patient was seen and examined at bedside and overnight events noted. Patient denies any shortness of breath or chest pain or palpitation. No history of nausea or vomiting or diarrhea or fever or chills or cramps. OBJECTIVE: GENERAL: This is a well-built male, in no apparent distress. VITAL SIGNS: Temperature 97.6. Heart rate 89. Respiratory rate 18. Blood pressure 103/66. HEENT: Atraumatic, normocephalic. Oral mucosa is moist NECK: Supple. CARDIOVASCULAR: S1, S2 heard. Rate and rhythm regular. RESPIRATORY: Clear to auscultation. GASTROINTESTINAL: Abdomen is soft. MUSCULOSKELETAL: No tenderness. No edema. DERMATOLOGIC: No skin rash. NEUROLOGIC: Alert and awake and oriented X3. No focal neurologic deficits. Moving all the extremities. PSYCHIATRIC: Mood and affect normal. LABORATORY DATA: Potassium is 3.6, BUN is 7, creatinine 0.6. ASSESSMENT AND PLAN: 1. Hyponatremia. Sodium level is stable. 2. Hypokalemia. 3. Metabolic acidosis. 4. Edema . Sodium level is better. We will stop IV fluids. Job ID: [id number]
--- NOTE | 2018-07-05 01:04 | DIS ---
DATE OF ADMISSION: 07/02/2018 DATE OF DISCHARGE: 07/04/2018 ADMITTING DIAGNOSES: Leukopenia, weakness, diabetes mellitus type 2, hypertension, prostate cancer, cardiomyopathy. DISCHARGE DIAGNOSES: Leukopenia, resolved. Hypertension, anemia, prostate cancer, diabetes mellitus type 2, as well as yeast in urine. HOSPITAL COURSE: This is a 63-year-old male with known history of pancreatic cancer, was given recent chemo 3 to 4 days prior to admission was presenting to the ER with significant weakness, was found to have a white blood cell count of 0.6. The patient had not gotten his Neulasta injection outpatient, was admitted to Internal Medicine Team. Cultures were drawn. He was given broad-spectrum antibiotics and also Neupogen. White blood cell count at point in time of discharge was stable, improving up to 6.3. The patient was afebrile. Cultures were negative for the blood cultures. Urine cultures yield positive for yeast. The patient given Diflucan to be taken for 5 days. Advised to follow up with Oncology within a week as well as PCP within 1 to 2 weeks for further management and care. The patient did not have any nausea, vomiting, diarrhea, constipation, chest pain, fevers, chills, or shortness of breath. At point in time of discharge, was afebrile as well. Labs within acceptable limits. DISPOSITION: Home. FOLLOWUP: Follow up with PCP within 1-2 weeks, Oncology within 1 week. MEDICATIONS: See MAR. ACTIVITY: As tolerated with assistance as needed. DIET: Low-fat, low-calorie, high-fiber diet. CONDITION: Stable. PROGNOSIS: Good. Case and plan discussed with the patient at length. He understood and agreed with this plan. Job ID: [id number]
== END 2018-07-04 16:35 | disposition home or self-care (01) | DRG 722 ==
LOC: ERS 21:13 → IMCU/EMU 07-02 00:15 → ONC 07-02 22:27
PROVIDERS: ADMIT Hospitalist; ATTEND Hospitalist
DX: C61 Malignant neoplasm of prostate (principal); J18.9 Pneumonia, unspecified organism; D61.810 Antineoplastic chemotherapy induced pancytopenia; E87.1 Hypo-osmolality and hyponatremia; E87.2 Acidosis; C79.51 Secondary malignant neoplasm of bone; E66.9 Obesity, unspecified; E11.9 Type 2 diabetes mellitus without complications; I10 Essential (primary) hypertension; I25.10 Atherosclerotic heart disease of native coronary artery without angina pectoris; E78.5 Hyperlipidemia, unspecified; D64.9 Anemia, unspecified; K12.1 Other forms of stomatitis; E87.6 Hypokalemia; T45.1X5A Adverse effect of antineoplastic and immunosuppressive drugs, initial encounter; E86.9 Volume depletion, unspecified; I25.2 Old myocardial infarction; Z95.810 Presence of automatic (implantable) cardiac defibrillator; Z92.3 Personal history of irradiation; Z95.1 Presence of aortocoronary bypass graft; Z90.49 Acquired absence of other specified parts of digestive tract; Z87.891 Personal history of nicotine dependence; Z79.82 Long term (current) use of aspirin; Z79.84 Long term (current) use of oral hypoglycemic drugs; Z68.34 Body mass index [BMI] 34.0-34.9, adult
CPT/HCPCS: 36415; 36416; 71045; 80048; 80053; 80202; 81003; 81015; 82550; 82553; 83605; 83690; 84443; 84484; 85025; 87040; 87086; 93005; 96361; 96365; 96366; J0692; J0696; J1447; J1450; J2270; J3370; J3490; J7050; Q0163